=== PATIENT | female | born 1955 | race Caucasian/White ===

== ENCOUNTER → 2018-01-06 | Outpatient (CLI) | payer OTHER ==
--- NOTE | 2018-01-06 13:03 | XR ---
EXAM TYPE: LUMBAR SPINE X RAY SERIES COMPARISON: NONE HISTORY: Numbness TECHNIQUE: 4 views are submitted. FINDINGS: Alignment is anatomic. The pedicles are intact. The transverse processes are intact. There is no s pondylolysis or spondylolisthesis. There is hypertrophic spurs noted anteriorly at all levels with s evere degenerative disc disease at levels L3-4 through L5-S1. Interspinous arthropathy noted at these levels. Facet arthropathy noted at all levels. IMPRESSION: 1. Multilevel severe degenerative disc disease and facet arthropathy consider follow-up MRI..
== END | disposition home or self-care (01) ==
LOC: RADXRMAIN 12:16
PROVIDERS: ATTEND Family Medicine
DX: M51.36 Other intervertebral disc degeneration, lumbar region (principal); M46.96 Unspecified inflammatory spondylopathy, lumbar region
CPT/HCPCS: 72100

== ENCOUNTER 2018-02-10 17:13 | Inpatient (IN) | payer OTHER ==
[2018-02-10] MEDS ORDERED: SODIUM CHLORIDE 0.9% 1,000 ML IV STA ×2 (18:04)
--- NOTE | 2018-02-10 18:18 | ED ---
General Adult HPI - General Chief complaint: Fall Stated complaint: fall Time Seen by Provider: 02/10/18 17:18 Source: patient, EMS, RN notes reviewed, old records reviewed Mode of arrival: EMS Limitations: no limitations - History of Present Illness Initial comments: This is a 62-year-old female the ER for evaluation. Patient coming in for acute on chronic complaint. Patient states she feels severely weak has recent history of multiple fall secondary to exercise fatigue. She has been treated with steroids by family doctor with no improvement. Patient states he tries to do any activity she is unable to accomplish those activities especially if activity takes exercise - Related Data Home Medications Medication Instructions Recorded Confirmed Atorvastatin [Lipitor] 40 mg PO HS 02/10/18 02/10/18 Lisinopril-Hctz 10-12.5 mg 1 tab PO DAILY 02/10/18 02/10/18 [Zestoretic 10-12.5] predniSONE See Taper PO DIRECTED 02/10/18 02/10/18 Allergies Allergy/AdvReac Type Severity Reaction Status Date / Time codeine Allergy Rash/Hives Verified 02/10/18 17:37 Review of Systems ROS Statement: Those systems with pertinent positive or pertinent negative responses have been documented in the HPI. ROS Other: All systems not noted in ROS Statement are negative. Past Medical History Past Medical History: Hypertension History of Any Multi-Drug Resistant Organisms: None Reported Past Psychological History: No Psychological Hx Reported Smoking Status: Never smoker Past Alcohol Use History: None Reported Past Drug Use History: None Reported General Exam - General Exam Comments Initial Comments: Able to fatigue both patient's blinking and finger tapping Limitations: no limitations General appearance: alert, in no apparent distress Head exam: Present: atraumatic, normocephalic, normal inspection Eye exam: Present: normal appearance, PERRL, EOMI. Absent: scleral icterus, conjunctival injection, periorbital swelling ENT exam: Present: normal exam, mucous membranes moist Neck exam: Present: normal inspection. Absent: tenderness, meningismus, lymphadenopathy Respiratory exam: Present: normal lung sounds bilaterally. Absent: respiratory distress, wheezes, rales, rhonchi, stridor Cardiovascular Exam: Present: regular rate, normal rhythm, normal heart sounds. Absent: systolic murmur, diastolic murmur, rubs, gallop, clicks GI/Abdominal exam: Present: soft, normal bowel sounds. Absent: distended, tenderness, guarding, rebound, rigid Extremities exam: Present: normal inspection, full ROM, normal capillary refill. Absent: tenderness, pedal edema, joint swelling, calf tenderness Back exam: Present: normal inspection Neurological exam: Present: alert, oriented X3, CN II-XII intact Psychiatric exam: Present: normal affect, normal mood Skin exam: Present: warm, dry, intact, normal color. Absent: rash Course Vital Signs 02/10/18 02/10/18 02/10/18 17:16 17:17 18:02 Temperature 98.6 F Pulse Rate 77 68 Pulse Rate [ 72 Right Pulse Oximetery] Respiratory 16 16 Rate Blood Pressure 163/79 119/70 O2 Sat by Pulse 96 99 Oximetry - Reevaluation(s) Reevaluation #1: 02/10/18 18:54 Patient still severely weak EKG Findings - EKG Comments: EKG Findings:: EKG shows sinus rhythm rate of 64, [place] 132, QRS 90, QTc 433 Medical Decision Making - Medical Decision Making 62 female the ER with severe weakness, inability to ambulate secondary to muscle weakness,. Fatigue, patient is unable to do activities of daily living. Will admit patient for neurological evaluation regarding significant muscle abnormality weakness - Lab Data Result diagrams: 02/10/18 18:19 02/10/18 18:19 Lab Results 02/10/18 02/10/18 02/10/18 Range/Units 18:19 18:19 18:19 WBC 13.0 H (3.8-10.6) k/uL RBC 4.42 (3.80-5.40) m/uL Hgb 13.5 (11.4-16.0) gm/dL Hct 40.1 (34.0-46.0) % MCV 90.6 (80.0-100.0) fL MCH 30.5 (25.0-35.0) pg MCHC 33.6 (31.0-37.0) g/dL RDW 13.8 (11.5-15.5) % Plt Count 292 (150-450) k/uL Neutrophils % 63 % Lymphocytes % 29 % Monocytes % 6 % Eosinophils % 1 % Basophils % 0 % Neutrophils # 8.1 H (1.3-7.7) k/uL Lymphocytes # 3.8 (1.0-4.8) k/uL Monocytes # 0.8 (0-1.0) k/uL Eosinophils # 0.2 (0-0.7) k/uL Basophils # 0.0 (0-0.2) k/uL Sodium 141 (137-145) mmol/L Potassium 4.1 (3.5-5.1) mmol/L Chloride 100 (98-107) mmol/L Carbon Dioxide 29 (22-30) mmol/L Anion Gap 12 mmol/L BUN 45 H (7-17) mg/dL Creatinine 1.02 (0.52-1.04) mg/dL Est GFR (CKD-EPI)AfAm 68 (>60 ml/min/1.73 sqM) Est GFR (CKD-EPI)NonAf 59 (>60 ml/min/1.73 sqM) Glucose 124 H (74-99) mg/dL Plasma Lactic Acid Jesús (0.7-2.0) mmol/L Calcium 9.8 (8.4-10.2) mg/dL Magnesium 2.1 (1.6-2.3) mg/dL Total Bilirubin 1.0 (0.2-1.3) mg/dL AST 39 H (14-36) U/L ALT 51 (9-52) U/L Alkaline Phosphatase 68 (38-126) U/L Total Creatine Kinase 142 H (30-135) U/L Total Protein 7.0 (6.3-8.2) g/dL Albumin 4.3 (3.5-5.0) g/dL 02/10/18 Range/Units 18:19 WBC (3.8-10.6) k/uL RBC (3.80-5.40) m/uL Hgb (11.4-16.0) gm/dL Hct (34.0-46.0) % MCV (80.0-100.0) fL MCH (25.0-35.0) pg MCHC (31.0-37.0) g/dL RDW (11.5-15.5) % Plt Count (150-450) k/uL Neutrophils % % Lymphocytes % % Monocytes % % Eosinophils % % Basophils % % Neutrophils # (1.3-7.7) k/uL Lymphocytes # (1.0-4.8) k/uL Monocytes # (0-1.0) k/uL Eosinophils # (0-0.7) k/uL Basophils # (0-0.2) k/uL Sodium (137-145) mmol/L Potassium (3.5-5.1) mmol/L Chloride (98-107) mmol/L Carbon Dioxide (22-30) mmol/L Anion Gap mmol/L BUN (7-17) mg/dL Creatinine (0.52-1.04) mg/dL Est GFR (CKD-EPI)AfAm (>60 ml/min/1.73 sqM) Est GFR (CKD-EPI)NonAf (>60 ml/min/1.73 sqM) Glucose (74-99) mg/dL Plasma Lactic Acid Jesús 1.5 (0.7-2.0) mmol/L Calcium (8.4-10.2) mg/dL Magnesium (1.6-2.3) mg/dL Total Bilirubin (0.2-1.3) mg/dL AST (14-36) U/L ALT (9-52) U/L Alkaline Phosphatase (38-126) U/L Total Creatine Kinase (30-135) U/L Total Protein (6.3-8.2) g/dL Albumin (3.5-5.0) g/dL Disposition Clinical Impression: Fall, Weakness, Fatigue Disposition: ADMITTED IP TO THIS [facility] Condition: Undetermined Is patient prescribed a controlled substance at d/c from ED?: No Referrals: Mike Aguayo DO [Primary Care Provider] - 1-2 days
[2018-02-10 18:37] LABS: Basophils % (A) 0 %; Eosinophils # (A) 0.2 k/uL (0-0.7); Eosinophils % (A) 1 %; HCT 40.1 % (34.0-46.0); HGB 13.5 gm/dL (11.4-16.0); Lymphocytes # (A) 3.8 k/uL (1.0-4.8); Lymphocytes % (A) 29 %; MCH 30.5 pg (25.0-35.0); MCHC 33.6 g/dL (31.0-37.0); MCV 90.6 fL (80.0-100.0); Mean Platelet Volume 7.4; Monocytes # (A) 0.8 k/uL (0-1.0); Monocytes % (A) 6 %; Neutrophils # (A) 8.1 k/uL (1.3-7.7); Neutrophils % (A) 63 %; Platelet Count 292 k/uL (150-450); RBC 4.42 m/uL (3.80-5.40); RDW 13.8 % (11.5-15.5)
[2018-02-10 18:46] LABS: Albumin 4.3 g/dL (3.5-5.0); Calcium 9.8 mg/dL (8.4-10.2); Magnesium 2.1 mg/dL (1.6-2.3); Potassium 4.1 mmol/L (3.5-5.1)
[2018-02-10 18:57] LABS: Prothrombin Time 9.6 sec (9.0-12.0)
[2018-02-10 18:58] LABS: Partial Thromboplastin Time 21.6 sec (22.0-30.0)
[2018-02-10 18:59] LABS: Creatine Kinase MB 2.4 ng/mL (0.0-2.4)
[2018-02-10 19:00] LABS: Troponin I 0.045 ng/mL (0.000-0.034)
--- NOTE | 2018-02-10 19:52 | CT ---
EXAMINATION TYPE: CT brain victor hugo smalls DATE OF EXAM: 02/10/2018 COMPARISON: NONE HISTORY: FALL INJURY, WEAKNESS CT DLP: 1193.1 mGycm Automated exposure control for dose reduction was used. TECHNIQUE: CT scan of the head and cervical spine are performed without contrast. FINDINGS: There is no acute intracranial hemorrhage, mass effect, or midline shift identified. The ventricles and sulci are within normal limits in size. The globes are intact and the visualized sin uses are clear. Cervical spine is visualized in its entirety from C1 through upper thoracic levels and demonstrates s atisfactory alignment without evidence of acute fracture or dislocation. Prevertebral soft tissue ap pears within normal limits. The C1-C2 articulation is unremarkable. Degenerative changes are present , there is multilevel foraminal encroachment, only mild spinal stenosis. IMPRESSION: 1. There is no acute fracture or dislocation evident in the cervical spine. 2. No acute intracranial hemorrhage, mass effect, or midline shift is seen.
[2018-02-10] MEDS: SODIUM CHLORIDE 0.9% 1,000 ML IV SCH (20:40)
[2018-02-10 20:47] LABS: Appearance,Urine Clear (Clear); Bacteria,Urine Occasional /hpf; Bilirubin,Urine Negative (Negative); Blood,Urine Small (Negative); Color,Urine Light Yellow; Glucose,Urine (UA) Negative (Negative); Ketones,Urine Negative (Negative); Leukocyte Esterase,Urine Large (Negative); Mucus,Urine Rare /hpf; Nitrite,Urine Negative (Negative); Protein,Urine Negative (Negative); RBC,Urine 1 /hpf (0-5); Urobilinogen,Urine <2.0 mg/dL (<2.0); WBC,Urine 54 /hpf (0-5)
--- NOTE | 2018-02-10 21:01 | XR ---
EXAMINATION TYPE: XR chest 2V DATE OF EXAM: 02/10/2018 COMPARISON: NONE HISTORY: Weakness and history of multiple falls TECHNIQUE: Frontal and lateral views of the chest are obtained. FINDINGS: Patient is rotated. There is no focal air space opacity, pleural effusion, or pneumothorax seen. The cardiac silhouette size is possibly accentuated by rotation. Flowing anterior osteophytes in the thoracic spine may be indicative of diffuse idiopathic skeletal hyperostosis. The osseous str uctures are intact. IMPRESSION: Rotated exam and additional findings above. There may be cardiomegaly.
[2018-02-10] MEDS ORDERED: ALPRAZolam 0.25 MG TAB PO PRN (22:25)
[2018-02-10] MEDS ORDERED: NALOXONE 0.4 MG/ML 1 ML VIAL IV PRN (22:25)
[2018-02-10] MEDS ORDERED: ONDANSETRON 4 MG/2 ML VIAL IVP PRN (22:25)
[2018-02-10] MEDS ORDERED: LACTULOSE 20 GM/30 ML CUP PO PRN (22:25)
[2018-02-10] MEDS ORDERED: MAGNESIUM HYDROXIDE 2,400 MG/10 ML CUP PO PRN (22:25)
[2018-02-10] MEDS ORDERED: MELATONIN 3 MG TABLET PO PRN (22:25)
[2018-02-10] MEDS ORDERED: CALCIUM CARBONATE 500 MG CHEWABLE PO PRN (22:25)
[2018-02-10] MEDS: IBUPROFEN 400 MG TAB PO PRN (22:48)
[2018-02-11] MEDS: SODIUM CHLORIDE 0.9% 1,000 ML IV SCH ×2 (04:20→15:16)
[2018-02-11 04:35] LABS: Cholesterol 210 mg/dL (<200); HDL Cholesterol 67 mg/dL (40-60); Triglycerides 447 mg/dL (<150)
[2018-02-11] MEDS: IBUPROFEN 400 MG TAB PO PRN (04:53)
[2018-02-11] MEDS: LISINOPRIL-HCTZ 10-12.5 MG 1 EACH TAB PO SCH (08:09)
[2018-02-11] MEDS: ENOXAPARIN 40 MG/0.4 ML SYRINGE SQ SCH (08:09)
[2018-02-11 10:50] VITALS: BMI 31.3
[2018-02-11] MEDS: ASPIRIN 325 MG TAB PO SCH (15:18)
--- NOTE | 2018-02-11 16:31 | HP ---
HISTORY AND PHYSICAL DATE OF SERVICE: 02/11/18 PRESENT COMPLAINT: Weakness. HISTORY OF PRESENTING COMPLAINT: This is a very pleasant 62-year-old patient of Dr. Aguayo. The patient about a month ago started numbness in the thumbs and progressively went up to the hands. The patient's arms became weak. Shoulders became weak. The patient did have some neck pain. The patient went to her primary doctor. Subsequently patient was put on steroids. Patient went home. Noted that her legs started becoming weak. It was difficult to lift her legs up and patient finally went down to be in a wheelchair and went to a family doctor and was sent down to the ER yesterday. The patient denies any respiratory or any kind of infection prior to this episode. Denies any change in her bowel or bladder habits. Denies any history of injury. The patient had a small troponin positive in the ER, denies any cardiac symptoms. No shortness of breath. REVIEW OF SYSTEMS: Constitutional tired. HEENT none. Respiratory none. Cardiovascular none. Gastrointestinal denies. Musculoskeletal: Generalized weakness. Dermatological none. Hematologic and lymphatic none. Psychiatry none. Neurological as above. The patient has some numbness in the feet and toes. PAST MEDICAL HISTORY: Hypertension and hyperlipidemia. PAST SURGICAL HISTORY: Back surgery, herniated disc surgery. SOCIAL HISTORY: Lives with daughter. Does not smoke or drink alcohol. FAMILY HISTORY: Diabetes and hypertension. HOME MEDICATIONS: 1. Motrin 4 mg q.6h p.r.n. 2. Zestoretic 06/26.5 one tab p.o. daily. 3. Lipitor 40 mg q.h.s. 4. Prednisone taper. ALLERGIES: CODEINE. PHYSICAL EXAMINATION: Temperature 97.2. Pulse 98, respiratory 18, blood pressure 130/65. Pulse ox 98% on room air. GENERAL APPEARANCE: Average built, BMI 31.3. Sitting up comfortable. EYES: Pupils are equal. Conjunctivae normal. HEENT: External appearance of nose and ears. Oral cavity normal. NECK: JVD not raised. Mass not palpable. RESPIRATORY: Effort normal. LUNGS: Clear. CARDIOVASCULAR: 1st and 2nd sounds. No edema. ABDOMEN: Soft, nontender. Liver and spleen not palpable. LYMPHATICS: No lymph nodes palpable in the neck and axilla. PSYCHIATRY: Alert and oriented x3. Mood and affect normal. NEUROLOGICAL: Pupils equal. Power in the upper extremity is 3 x 5. Lower extremity also 3 x 5. Weakness of both the proximal and distal muscles. The patient is hyporeflexic both in the upper extremity and the lower extremity, including possible upgoing plantars. sensation slightly decreased distally. INVESTIGATIONS: White count 13, hemoglobin 13.5, potassium 4.1, BUN 45, creatinine 1.02, troponin 0.045, LDL not noted, triglycerides 447. UA showing some leukocyte esterase, WBC. ASSESSMENT: 1. This is a patient having a 4-week history of initially starting out weakness in the upper extremity and progressing down to the weakness, lower extremity. Predominantly motor symptoms and hyporeflexic seems to be of upper motor neuron in type. The differential here will include transverse myelitis, though there is no predisposing inflammatory symptoms or infectious symptoms. Neurology was consulted from the ER yesterday. 2. Troponin leak with no real cardiac symptoms. 3. Elevated slight white count and BUN, probably from patient being on steroids. 4. Essential hypertension. 5. Hyperlipidemia. PLAN: I ordered a MRI of the C-spine and lumbar spine and also lumbar puncture by interventional radiologist. We will await input from Dr. Sena. Care was discussed with the patient. Copy to Dr. Aguayo. MMODL / IJN: [id number] /
--- NOTE | 2018-02-11 16:38 | P.CNNES ---
History of Present Illness Consult date: 02/11/18 Reason for Consult: Patient admitted with generalized weakness. History of Present Illness: This patient is a 62-year-old right-handed white female who apparently back in December began noticing symptoms of numbness and weakness in her hands bilaterally. She went to see her primary care physician who thought she may have early signs of carpal tunnel syndrome. She was prescribed a hand splint which really did not help her condition. Apparently a few weeks later she began experiencing numbness in the entire hands as well as on the bottoms of her feet. The numbness then began to become more and more noticeable to her and associated with some weakness initially in her upper extremities and then into her lower extremities as well. The patient noticed weakness in her shoulder muscles as well as in her handgrip strength. She went back to see her primary care physician Dr. Aguayo who saw her about a week ago and decided to discontinue her Lipitor. It was felt she may have had some reaction to the Lipitor producing myalgias and arthralgias. She only has been off of the Lipitor for the past 1 week. The patient then in the last few days has been showing increased symptoms of generalized weakness and difficulty climbing steps. She has been slowly progressing over the past 1 month in terms of the generalized weakness. Dr. Aguayo did place her on a Medrol Dosepak which she did complete but this did not help her in any way in terms of the generalized weakness. The patient denies any recent falls or injury to her head or neck region. She has a chronic history of low back pain over the years. She states she has been extremely weak in the last few days and then it is hard for her to get up and move about at home. For these reasons she was advised to come to the emergency room for further evaluation. She was seen in the ER yesterday by Dr. Motta. She underwent a computed tomography scan of the brain and cervical spine both of which came back negative for any acute abnormalities. Patient states she does have some muscle discomfort but no severe myalgias. She does have preserved reflexes in both upper and lower extremities and does have some weakness on muscle testing at bedside. Most of her weakness seems to be distally in the hand molder labels. The patient has not had any recent exposure to any new medications or chemicals. She denies any recent tick bite. She has no significant history of arthritis in the past specifically no family history of rheumatoid arthritis or polyarthritis in the family. Patient denies any previous history of TIA or stroke. When questioned about any loss of sensation on the trunk or any part of the body the patient states she has not experienced any of those findings. She has continued to complain of numbness and tingling in the hands and in her toes. As noted the patient has no previous history of head trauma or head injury. She has been noticing low back pain but this is been chronic in nature. In the last few days she has noted some pain radiating into her right leg. Due to her symptoms being progressive she has now been admitted to the hospital for further evaluation. We have discussed her clinical exam findings and history in detail with Dr. Anderson. He has ordered the patient undergo lumbar puncture as well as MRI of the cervical and lumbar spine. We have also recommended the patient have MRI of the brain to be performed to rule out demyelinating disease even though this seems to be less likely. Her clinical findings at this time suggest some form of acute inflammatory demyelinating disease. This should be evaluated with the lumbar puncture and CSF fluid analysis. She may require EMG study as well depending on her test results. We have gone over our clinical findings and exam findings today with the patient in detail. She is resting comfortably and is in no acute distress. She has no respiratory distress. We will also obtain a laboratory tests for myasthenia gravis however this seems to be less likely differential diagnosis for her at this time. We will continue close neurological follow-up with the patient. If her condition should worsen she may require transfer to a tertiary center for further care. We have discussed all of these findings in detail today with the patient. She understands our findings and recommendations. We will continue close neurological follow-up for this patient during this admission. Neurology is now been consulted for further evaluation and recommendations. Review of Systems Constitutional: Denies chills, Denies fever Eyes: denies blurred vision, denies pain Ears, nose, mouth and throat: Denies headache, Denies sore throat Cardiovascular: Denies chest pain, Denies shortness of breath Respiratory: Denies cough Gastrointestinal: Denies abdominal pain, Denies diarrhea, Denies nausea, Denies vomiting Genitourinary: Denies dysuria, Denies hematuria Musculoskeletal: Denies myalgias Integumentary: Denies pruritus, Denies rash Neurological: Reports gait dysfunction, Reports paresthesias, Reports tingling, Denies numbness, Denies weakness Psychiatric: Denies anxiety, Denies depression Endocrine: Denies fatigue, Denies weight change Past Medical History Past Medical History: Hyperlipidemia, Hypertension Additional Past Medical History / Comment(s): Patient states she has a heart murmur, as well as low kidney function. History of Any Multi-Drug Resistant Organisms: None Reported Past Surgical History: Back Surgery Additional Past Surgical History / Comment(s): Hernaited disc surgery. Past Anesthesia/Blood Transfusion Reactions: Postoperative Nausea & Vomiting ( PONV) Past Psychological History: No Psychological Hx Reported Smoking Status: Never smoker Past Alcohol Use History: None Reported Past Drug Use History: None Reported - Past Family History Mother Family Medical History: Diabetes Mellitus, Hypertension Additional Family Medical History / Comment(s): Vein replacement surgery Father Family Medical History: Cancer, Hypertension Additional Family Medical History / Comment(s): Patient states father had stomach cancer. Medications and Allergies Home Medications Medication Instructions Recorded Confirmed Type Atorvastatin [Lipitor] 40 mg PO HS 02/10/18 02/10/18 History Ibuprofen [Motrin] 400 mg PO Q6HR PRN 02/10/18 02/10/18 History Lisinopril-Hctz 10-12.5 mg 1 tab PO DAILY 02/10/18 02/10/18 History [Zestoretic 10-12.5] predniSONE See Taper PO DIRECTED 02/10/18 02/10/18 History Allergies Allergy/AdvReac Type Severity Reaction Status Date / Time codeine Allergy Rash/Hives Verified 02/10/18 17:37 Physical Examination - Vital Signs Vital Signs: Vital Signs Temp Pulse Pulse Resp BP BP Pulse Ox 02/11/18 12:00 97.2 F L 98 18 131/65 98 02/11/18 08:00 97.1 F L 68 18 140/67 97 02/11/18 04:30 96.4 F L 67 16 147/65 96 02/10/18 23:50 96.0 F L 83 16 133/76 95 02/10/18 22:15 79 16 02/10/18 20:54 96.9 F L 79 16 145/59 100 02/10/18 20:38 98.4 F 74 18 149/74 98 05/29/18 19:10 97.5 F L 77 18 148/67 97 02/10/18 18:02 68 16 119/70 99 02/10/18 17:17 72 02/10/18 17:16 98.6 F 77 16 163/79 96 Intake and Output 02/10/18 02/11/18 02/11/18 22:59 06:59 14:59 Intake Total 250 800 Balance 250 800 Intake: Intake, IV Titration 100 800 Amount Sodium Chloride 0.9% 1, 100 800 000 ml @ 100 mls/hr IV . Q10H [facility] Rx#:[id number] Oral 150 Other: Voiding Method Bedside Commode Bedside Commode # Voids 1 Weight 86.183 kg 82.8 kg 82.8 kg - Constitutional General appearance: average body habitus, cooperative - EENT EENT: PERRL, mucous membranes moist - Respiratory Respiratory: lungs clear, normal breath sounds - Cardiovascular Cardiovascular: regular rate, normal S1, normal S2 Extremities: no peripheral edema bilaterally - Gastrointestinal Gastrointestinal: normoactive bowel sounds - Integumentary Integumentary: normal - Neurologic Cranial nerve examination: PERRL, EOMI, VFF, V1/V2/V3 grossly intact, face symmetric, tongue midline, intact gag reflex, intact corneal reflex, normal palatal elevation Speech examination: intact Sensorimotor examination: intact Motor examination - right side: 2/5: wrist flexion, wrist extension, integration director, 3/5: biceps, triceps, hip flexors, knee extensors, dorsiflexion, toe extension (EHL) , plantarflexion Motor examination - left side: 2/5: wrist flexion, wrist extension, integration director, 3/5: biceps, triceps, hip flexors, knee extensors, dorsiflexion, toe extension (EHL) , plantarflexion Detailed sensory examination: intact Reflex and gait examination: intact Reflexes: 1+: ankle, bicep, knee, tricep - Musculoskeletal Musculoskeletal: no pain - Psychiatric Psychiatric: mood/affect appropriate, cooperative Results - Laboratory Findings CBC and BMP: 02/10/18 18:19 02/10/18 18:19 Abnormal Lab Findings: Abnormal Labs 02/10/18 02/10/18 02/10/18 18:19 18:19 18:19 WBC 13.0 H Neutrophils # 8.1 H APTT BUN 45 H Glucose 124 H AST 39 H Total Creatine Kinase 142 H Troponin I 0.045 H* Triglycerides Cholesterol HDL Cholesterol Urine Blood Ur Leukocyte Esterase Urine WBC Urine Bacteria Urine Mucus 02/10/18 02/10/18 02/10/18 18:19 18:19 20:24 WBC Neutrophils # APTT 21.6 L BUN Glucose AST Total Creatine Kinase Troponin I Triglycerides 447 H Cholesterol 210 H HDL Cholesterol 67 H Urine Blood Small H Ur Leukocyte Esterase Large H Urine WBC 54 H Urine Bacteria Occasional H Urine Mucus Rare H Assessment and Plan (1) Generalized weakness Current Visit: Yes Status: Acute Code(s): R53.1 - WEAKNESS SNOMED Code(s) : 57657465 (2) Paresthesias/numbness Current Visit: Yes Status: Acute Code(s): R20.9 - UNSPECIFIED DISTURBANCES OF SKIN SENSATION SNOMED Code(s): 19136556 (3) Acute inflammatory demyelinating polyneuropathy Current Visit: Yes Status: Acute Code(s): G37.8 - OTH DEMYELINATING DISEASES OF CENTRAL NERVOUS SYSTEM SNOMED Code(s): 98257351 Plan: This patient is a 62-year-old right-handed white female who was admitted to hospital today with symptoms of slowly progressive generalized weakness over the past 1 month. Patient has been initially noted to have weakness in her hand molder labels and shoulder muscles which has been progressing to cause generalized weakness in all muscle groups. She is also been experiencing severe numbness in the hand and fingertips as well as the toes of her feet. Due to worsening symptoms of weakness and inability to ambulate at home she was brought into the emergency room today and subsequently evaluated in the ER by Dr. Motta. Gender when a computed tomography scan of the brain and cervical spine both of which were negative. She was admitted to hospital for further neurological evaluation. Her neurological examination suggest possibility of acute demyelinating polyneuropathy as a possible cause of her current symptoms. She is being scheduled for MRI of the cervical and lumbar spine as well as MRI of the brain. We will obtain a lumbar puncture for further evaluation as well. She should also be checked for signs of acute inflammatory response and labs have been ordered. The differential would also include possibility of demyelinating disease such as MS. This seems to be less likely but we will await the results of her MRI of the brain. She was on Lipitor 40 mg daily for the past year and this has subsequently been stopped about a week ago. She had been given a course of a Medrol Dosepak which did not help her weakness. We have discussed this case at length with her admitting physician Dr. Anderson. He may consider starting her on IV Solu-Medrol depending her laboratory test results and MRI results tomorrow. If her symptoms should worsen she may require transfer to a tertiary center for more aggressive an acute treatment. We will continue close neurological follow-up with the patient. We have discussed these findings in detail with the patient and all of her questions were answered. She is aware of our current treatment plan and is agreeable with our workup. We will continue to follow the patient closely during this admission. Her overall prognosis at this time remains guarded. Time with Patient: Greater than 30
[2018-02-11] MEDS ORDERED: DIAZEPAM 5 MG/ML 2 ML INJ IVP STA (16:44)
[2018-02-11] MEDS: ACETAMINOPHEN TAB 325 MG TAB PO PRN (19:44)
[2018-02-11] MEDS: ATORVASTATIN 40 MG TAB PO SCH (19:45)
[2018-02-12] MEDS ORDERED: ACETAMINOPHEN TAB 325 MG TAB ONE (02:22)
[2018-02-12] MEDS: SODIUM CHLORIDE 0.9% 1,000 ML IV SCH ×2 (06:54→16:13)
[2018-02-12] MEDS ORDERED: DIAZEPAM 5 MG/ML (10 ML MDV) IVP STA (07:11)
--- NOTE | 2018-02-12 08:15 | ECHOF ---
Referral Reason:pos trops MEASUREMENTS -------- HEIGHT: 162.6 cm WEIGHT: 82.6 kg BP: 131/65 RVIDd: 1.9 cm (< 3.3) IVSd: 1.4 cm (0.6 - 1.1) LVIDd: 4.0 cm (3.9 - 5.3) LVPWd: 1.4 cm (0.6 - 1.1) IVSs: 1.8 cm LVIDs: 2.4 cm LVPWs: 1.7 cm LAESV Index (A-L): 16.68 ml/m Ao Diam: 3.1 cm (2.0 - 3.7) AV Cusp: 1.3 cm (1.5 - 2.6) LA Diam: 2.3 cm (2.7 - 3.8) EPSS: 0.6 cm MV E Alejo: 0.90 m/s MV DecT: 275 ms MV A Alejo: 1.00 m/s MV E/A Ratio: 0.90 AV maxP.52 mmHg AV meanP.10 mmHg AR PHT: 537 ms RAP: 5.00 mmHg RVSP: 34.06 mmHg MV EF SLOPE: 73.64 mm/s (70 - 150) MV EXCURSION: 1.65 cm (> 18.000) FINDINGS -------- Sinus rhythm. This was a technically adequate study. The left ventricular size is normal. There is moderate concentric left ventricular hypertrophy. O verall left ventricular systolic function is normal with, an EF between 55 - 60 %. The right ventricle is normal in size and function. Normal LA size by volume 22+/-6 ml/m2. The right atrium is normal in size. There is moderate aortic valve sclerosis. There is mild aortic regurgitation. There is severe aor tic stenosis present. Peak/mean gradient across the Aortic Valve is 74.52mmHg / 44.10mmHg. The mitral valve leaflets are mildly thickened. There is trace to mild mitral regurgitation. Trace tricuspid regurgitation present. Right ventricular systolic pressure is normal at < 35 mmHg. There is no evidence of pulmonary hypertension. The pulmonic valve was not well visualized. There is no pulmonic regurgitation present. The aortic root size is normal. Normal inferior vena cava with normal inspiratory collapse consistent with estimated right atrial pre ssure of 5 mmHg. There is no pericardial effusion. CONCLUSIONS -------- 1. Sinus rhythm. 2. This was a technically adequate study. 3. The left ventricular size is normal. 4. There is moderate concentric left ventricular hypertrophy. 5. Overall left ventricular systolic function is normal with, an EF between 55 - 60 %. 6. Normal LA size by volume 22+/-6 ml/m2. 7. There is moderate aortic valve sclerosis. 8. There is mild aortic regurgitation. 9. There is severe aortic stenosis present. 10. Peak/mean gradient across the Aortic Valve is 74.52mmHg / 44.10mmHg. 11. The mitral valve leaflets are mildly thickened. 12. There is trace to mild mitral regurgitation. 13. Trace tricuspid regurgitation present. 14. Right ventricular systolic pressure is normal at < 35 mmHg. 15. The pulmonic valve was not well visualized. 16. There is no pulmonic regurgitation present. 17. The aortic root size is normal. 18. There is no pericardial effusion. [employer]: Klever Wheat RDCS
[2018-02-12] MEDS: ASPIRIN 325 MG TAB PO SCH (08:57)
--- NOTE | 2018-02-12 09:46 | MR ---
EXAMINATION TYPE: MR cspine/lspine wo/w con DATE OF EXAM: 02/12/2018 COMPARISON: NONE HISTORY: possible transverse myelitis, generalized weakness TECHNIQUE: Multiplanar, multisequence images of the lumbar and cervical spine is performed without and with IV c ontrast, utilizing 7.5 mL intravenous Gadavist FINDINGS: Cervical spine MRI: There is multilevel spondylosis with endplate discogenic marrow signal change. Mi nimal retrolisthesis grade 1 C3-4, C5-6. Loss of disc height and signal present at intervertebral lev els compatible with disc desiccation and degenerative disc disease. Abnormal increased signal is pres ent within the cervical cord extending from approximately C3-C5-6 on T2-weighted images. No abnormal enhancement following contrast administration. C2-3: Small posterior disc bulge causes slight anterior mass effect on the thecal sac. No significant foraminal encroachment on the right, lateral extension endplate disc complex causes some mild left-s ided foraminal encroachment C3-4: Posterior extension of disc herniation results in severe canal stenosis, lateral extension endp late disc complex results in bilateral foraminal encroachment. C4-5: Severe central canal stenosis is again noted, bilateral foraminal encroachment. There is a post erior disc herniation present causing mass effect on the cervical cord. C5-6: Posterior extension of endplate disc complex causes anterior mass effect on the thecal sac, the re is severe central canal stenosis. Lateral extension endplate disc complex causes bilateral foramin al encroachment. C6-7: No significant central stenosis. Small central posterior disc herniation is present. Lateral ex tension endplate disc complex causes bilateral foraminal encroachment. C7-T1: No significant central stenosis or sizable disc herniation. IMPRESSION: Multilevel severe central canal stenosis, disc herniations and multilevel foraminal encro achment. Mild malacia changes within the cervical cord appear more concentrated to the left of midlin e. Lumbar spine MRI: Lumbar vertebral bodies show preserved height and alignment. There is multilevel sp ondylosis with endplate discogenic marrow signal change, loss of disc height and signal at the interv ertebral levels compatible with disc desiccation and degenerative disc disease. The conus is at L1 sh ows an unremarkable appearance. There is a spinal curvature. L5-S1: Left posterior paracentral extension of endplate disc complex causes anterolateral mass effect on the thecal sac. No significant central stenosis. There is some facet arthropathy change. Lateral extension endplate disc complex causes bilateral foraminal encroachment right greater than left. L4-5: Broad-based posterior disc bulge causes mild anterior mass effect on the thecal sac. Facet arth ropathy with hypertrophy ligamentum flavum encroaches mildly on the lateral recesses. No significant central stenosis. There is some slight right-sided foraminal encroachment due to lateral extension of endplate disc complex. Laminectomy change present on the right. L3-4: Broad-based posterior disc bulge causes mild anterior mass effect on the thecal sac. There is f acet arthropathy with hypertrophy of the ligamentum flavum. Circumferential extension of endplate dis c complex encroaches only minimally on the foramina. No significant central stenosis. L2-3: Broad-based posterior disc bulge causes mild anterior mass effect on the thecal sac. Facet arth ropathy changes present. No significant foraminal encroachment. L1-2: Only minimal posterior disc bulge noted. No central stenosis or foraminal encroachment. Cortical cyst associated with the right kidney noted incidentally. There is no abnormal enhancement f ollowing contrast administration. IMPRESSION: Degenerative disc disease, multilevel facet arthropathy and foraminal encroachment.
[2018-02-12] MEDS: LISINOPRIL-HCTZ 10-12.5 MG 1 EACH TAB PO SCH (09:48)
--- NOTE | 2018-02-12 10:58 | MR ---
EXAMINATION TYPE: MR brain wo/w con DATE OF EXAM: 02/12/2018 COMPARISON: NONE HISTORY: Patient with generalized weakness, r/o MS TECHNIQUE: Multiplanar, multisequence images of the brain and brainstem is performed without and with IV contras t, utilizing 7.5 mL intravenous Gadavist . FINDINGS: Diffusion weighted images demonstrate no evidence of a recent infarct or other diffusion ab normality. There is no extra-axial fluid collection. There are scattered hyperintensities within the deep white matter on inversion recovery and T2-weighted sequences, approximately 30-40 lesions are p resent The ventricular system and cisternal spaces are normal in size and appearance. The brain volu me is age appropriate. Midline structures demonstrate normal morphology, there is a partially empty sella. The craniocervic al junction appears within normal limits. Post contrast images demonstrate no abnormal enhancement. The dural venous sinuses appear patent. The visualized sinuses are clear and the globes are intact. M inimal inflammatory change in the mastoid air cells on the left. IMPRESSION: Age-related chronic small vessel ischemic changes are suspected.
[2018-02-12] MEDS: ACETAMINOPHEN TAB 325 MG TAB PO PRN (11:24)
[2018-02-12 11:35] VITALS: TEMP 97.1
[2018-02-12 12:21] VITALS: RESP 16
[2018-02-12 14:17] LABS: Total Protein,CSF 134 mg/dL (12-60)
[2018-02-12 15:15] LABS: Appearance,CSF Clear; CSF Tube Number 3; CSF Tube Volume 1.9; Nucleated Cells, CSF 0 u/L (0-5); Red Blood Cell,CSF 2 u/L (0-10)
--- NOTE | 2018-02-12 16:08 | P.CRDCN ---
History of Present Illness Consult date: 02/12/18 Requesting physician: Cordell Temple Reason for Consult (text): Abnormal troponin Chief complaint: Progressive weakness History of present illness: This is a pleasant 62-year-old female with known history of hypertension, hyperlipidemia. She states that approximately 6 weeks ago, she started to notice numbness in her bilateral thumbs and progressed into the hands , since then she became progressively more and more weak. According to the patient she feels weakness in her shoulders, in her arms, and in her bilateral legs. She actually started walking with a walker at home because of it. Subsequent to that she has also experienced some falls. For these symptoms patient came to the emergency room for further evaluation. Chest x-ray performed on arrival here does not reveal any significant findings. CT of the head and cervical spine does not reveal any acute fracture or dislocation. No acute intracranial hemorrhage, mass effect or midline shift noted. EKG on arrival here showed a normal sinus rhythm with nonspecific ST-T wave changes. Cervical and spine MRI was performed which revealed degenerative disc disease, multilevel facet arthropathy and foraminal encroachment. Patient also underwent a lumbar puncture today results of which are pending. Blood pressure 162/70 with a heart rate in the 70s, 96% on room air. Blood pressure this afternoon 134/78 with a heart rate in the 80s, 96% on room air. White blood cell count 13.0, hemoglobin 13.5, platelet count 292. Sedimentation rate 13 sodium 141, potassium 4.1, BUN 45, creatinine 1.0. Troponin 0.045, 0.032. Cholesterol 210, triglycerides 447, HDL 67. Urine positive for leukocyte Estrace. RAHEEL screen negative. Cardiology consultation was requested because of abnormal troponin values. denies having any chest discomfort, no difficulty in breathing. An echocardiogram with Doppler study was performed which revealed an ejection fraction of 55-60%, moderate aortic valve sclerosis, severe aortic stenosis. Peak mean gradient across the aortic valve is 74.52 mmHg/44.10 mmHg. Past Medical History Past Medical History: Hyperlipidemia, Hypertension Additional Past Medical History / Comment(s): Patient states she has a heart murmur, as well as low kidney function. History of Any Multi-Drug Resistant Organisms: None Reported Past Surgical History: Back Surgery Additional Past Surgical History / Comment(s): Hernaited disc surgery. Past Anesthesia/Blood Transfusion Reactions: Postoperative Nausea & Vomiting ( PONV) Past Psychological History: No Psychological Hx Reported Smoking Status: Never smoker Past Alcohol Use History: None Reported Past Drug Use History: None Reported - Past Family History Mother Family Medical History: Diabetes Mellitus, Hypertension Additional Family Medical History / Comment(s): Vein replacement surgery Father Family Medical History: Cancer, Hypertension Additional Family Medical History / Comment(s): Patient states father had stomach cancer. Medications and Allergies Home Medications Medication Instructions Recorded Confirmed Type Atorvastatin [Lipitor] 40 mg PO HS 02/10/18 02/10/18 History Ibuprofen [Motrin] 400 mg PO Q6HR PRN 02/10/18 02/10/18 History Lisinopril-Hctz 10-12.5 mg 1 tab PO DAILY 02/10/18 02/10/18 History [Zestoretic 10-12.5] predniSONE See Taper PO DIRECTED 02/10/18 02/10/18 History Allergies Allergy/AdvReac Type Severity Reaction Status Date / Time codeine Allergy Rash/Hives Verified 02/10/18 17:37 Physical Exam Vitals: Vital Signs Temp Pulse Resp BP Pulse Ox 02/12/18 13:05 88 16 134/78 02/12/18 12:53 96 16 140/77 97 02/12/18 12:43 88 16 127/81 98 02/12/18 12:33 76 16 111/73 97 02/12/18 12:20 69 16 118/70 97 02/12/18 12:08 78 18 124/73 96 02/12/18 11:33 97.1 F L 74 18 150/92 97 02/12/18 09:57 97.7 F 69 18 140/75 96 02/12/18 07:42 95 02/12/18 03:30 97.1 F L 66 16 129/67 95 02/11/18 22:41 97.4 F L 77 16 160/70 96 02/11/18 20:00 97.1 F L 76 16 144/67 98 Intake and Output 02/12/18 02/12/18 02/12/18 06:59 14:59 22:59 Intake Total 400 222 Output Total 300 Balance 100 222 Intake: Intake, IV Titration 400 Amount Sodium Chloride 0.9% 1, 400 000 ml @ 100 mls/hr IV . Q10H [facility] Rx#:[id number] Oral 222 Output: Urine 300 Other: # Voids 1 Weight 84.2 kg PHYSICAL EXAMINATION: GENERAL: This is a pleasant 62-year-old female continues to feel weak , in no apparent distress at the time of my examination. HEENT: Head is atraumatic, normocephalic. Pupils equal, round. Sclera anicteric. Conjunctiva are clear. Mucous membranes of the mouth are moist. Neck is supple. There is no elevated jugular venous pressure.] bruit is heard. HEART EXAMINATION: Heart S1 S2 1 systolic ejection murmur is heard. CHEST EXAMINATION: Lungs are clear to auscultation and precussion. No chest wall tenderness is noted on palpation or with deep breathing. ABDOMEN: Soft, nontender. Bowel sounds are heard. No organomegaly noted. EXTREMITIES: 2+ peripheral pulses with no evidence of peripheral edema and no calf tenderness noted. NEUROLOGIC patient is awake, alert and oriented -3. Patient has noted weakness in her hands, arms and legs bilaterally. . Results 02/10/18 18:19 02/10/18 18:19 Cardiac Enzymes 02/11/18 Range/Units 15:15 Troponin I 0.032 (0.000-0.034) ng/mL Current Medications Generic Name Dose Route Start Last Admin Trade Name Freq PRN Reason Stop Dose Admin Acetaminophen 650 mg 02/10/18 22:25 02/12/18 11:24 Tylenol Tab PO 650 mg Q6HR PRN Administration Mild Pain or Fever > 100.5 Alprazolam 0.25 mg 02/10/18 22:25 Xanax PO Q6HR PRN Anxiety Atorvastatin Calcium 40 mg 02/11/18 21:00 02/11/18 19:45 Lipitor PO 40 mg HS NIEVES Administration Calcium Carbonate/Glycine 1,000 mg 02/10/18 22:25 Tums PO Q4HR PRN Dyspepsia Enoxaparin Sodium 40 mg 02/11/18 09:00 02/11/18 08:09 Lovenox SQ 40 mg DAILY NIEVES Administration Lisinopril/HCTZ 1 each 02/11/18 09:00 02/12/18 09:48 Zestoretic 10-12.5 PO 1 each DAILY NIEVES Administration Sodium Chloride 1,000 mls @ 100 mls/hr 02/10/18 18:30 02/12/18 06:54 Saline 0.9% IV 100 mls/hr .Q10H NIEVES Administration Ibuprofen 400 mg 02/10/18 22:24 02/11/18 04:53 Motrin PO 400 mg Q6HR PRN Administration Mild to Moderate Pain Lactulose 20 gm 02/10/18 22:25 Cephulac PO DAILY PRN Constipation Magnesium Hydroxide 2,400 mg 02/10/18 22:25 Milk Of Magnesia PO DAILY PRN Constipation Melatonin 3 mg 02/10/18 22:25 Melatonin PO HS PRN Insomnia Naloxone HCl 0.2 mg 02/10/18 22:25 Narcan IV Q2M PRN Opioid Reversal Ondansetron HCl 4 mg 02/10/18 22:25 Zofran IVP Q8HR PRN Nausea And Vomiting Intake and Output 02/12/18 02/12/18 02/12/18 06:59 14:59 22:59 Intake Total 400 222 Output Total 300 Balance 100 222 Intake: Intake, IV Titration 400 Amount Sodium Chloride 0.9% 1, 400 000 ml @ 100 mls/hr IV . Q10H [facility] Rx#:[id number] Oral 222 Output: Urine 300 Other: # Voids 1 Weight 84.2 kg 02/10/18 18:19 02/10/18 18:19 EKG Interpretations (text) EKG shows a normal sinus rhythm with nonspecific ST-T wave changes. 1 run of sinus tachycardia noted on the monitor. Assessment and Plan Plan: Assessment and plan #1 symptoms of progressive weakness of the bilateral upper and lower extremities neurology on consult #2 mildly abnormal troponin value, patient denies having any chest discomfort, no palpitations or shortness of breath. Echocardiogram with Doppler study was performed which revealed a normal left ventricular systolic function with severe aortic stenosis #3 hypertension #4 hyperlipidemia Plan We will obtain a subsequent troponin. Hemodynamically the patient is stable. Patient may require further evaluation for her aortic valve once etiology of her progressive weakness is determined. Further recommendations to follow. DNP note has been reviewed, I agree with a documented findings and plan of care. Patient was seen and examined.
--- NOTE | 2018-02-12 17:03 | FL ---
Fluoroscopy INDICATION: Pain FINDINGS: Fluoroscopy time: 1 minute 3 seconds. Images obtained: 2. The procedure was explained to the patient, the risks complications and benefits. All questions were answered. Written and verbal informed consent was obtained. A timeout was performed The skin was cleansed with Betadine. The skin and deeper tissue was anesthetized with 1% lidocaine. U nder fluoroscopic guidance 22-gauge spinal needle was placed at the L4-5 level. Despite multiple atte mpts at manipulation thecal sac access could not be obtained at this level. The patient was reanesthetized the L3-4 level. Utilizing a 22 gauge spinal needle the thecal sac was easily accessed and good CSF return was obtained. CSF return was clear. A total of 6 cc in 3 vials were obtained sequentially labeled and transferred t o pathology for additional evaluation of preordered laboratory tests. The stylette was replaced and the needle withdrawn. Patient tolerated the lumbar puncture very well m aintaining a 0 pain level of the lumbar puncture throughout the exam. Patient's complaint was of righ t shoulder pain elevating to a 6-7 during the exam due to positioning during the exam. Readjustments were performed to to alleviate the patient's discomfort. Postprocedure instructions were discussed with the patient. Patient was transferred to her room with orders. IMPRESSIONS: 1. Successful lumbar puncture and CSF acquisition for predetermined laboratory testing.
--- NOTE | 2018-02-12 18:27 | P.PN ---
Subjective Progress Note Date: 02/12/18 This patient is a 62-year-old right-handed white female who was admitted to [facility] yesterday with symptoms of generalized weakness that has been progressive over the past 1 month. Patient noted significant deterioration in her muscle strength over the past 2 weeks at home. She had seen her primary care physician who felt this may have been due to the effect of one of the statin medications that she has been taking. This was discontinued however this did not improve her muscle strength. She continued to become weaker involving both her upper and lower extremities. She was having difficulty holding things in her hand balance clerk due to the generalized weakness. As noted she was taking Lipitor but she was discontinued off of this about 10 days ago with no improvement in her muscle weakness. She was advised to come to the hospital and was subsequent admitted to hospital yesterday. She was sent for MRI of the lumbar spine which revealed degenerative disc disease with multiple level facet arthropathy and foraminal encroachment. No evidence for acute disc herniation. She underwent MRI of the brain today which revealed only age-related chronic small vessel ischemic changes with no evidence of demyelinating disease. Postcontrast images fail to demonstrate any enhancement. She underwent a lumbar puncture today for further evaluation and results were noted. Spinal fluid protein was very elevated at 134. CSF glucose was 80. RBC count 2 and WBC count 0. Given these findings on her spinal fluid there is a possibility she may have acute inflammatory demyelinating polyneuropathy. We did discuss the findings of all of her testing today with the patient at length at bedside. We are recommending she should be transferred to a tertiary center for further evaluation for AIDP. Patient was agreeable for transfer to a tertiary center and we have made contact with the transfer team at [facility]. We discussed these findings with the transfer team and spoke with Dr. Armstrong in the neuro intensive care unit. Test results were reviewed and Dr. Armstrong his excepted the patient and transferred to [facility] today. We will make arrangements for transfer this patient by EMS to [facility] assuming this but assignment is given. We did discuss all of these findings once again in detail with the patient and she is agreeable for transfer. We will await their further recommendations. Case was also discussed with her admitting physician Dr. Anderson over the phone. He is in agreement with our current recommendations for transfer to the tertiary center. Patient is neurologically stable at this time. She has not appreciated any worsening of her generalized weakness. We will make copies of her entire record and MRIs to be sent with her on transfer. We will await any further information from the transfer team at [facility]. This patient's overall prognosis at this time remains guarded. Objective - Vital Signs Vital signs: Vital Signs Temp 97.1 F L 02/12/18 11:33 Pulse 88 02/12/18 16:00 Resp 16 02/12/18 16:00 BP 134/78 02/12/18 13:05 Pulse Ox 97 02/12/18 12:53 Intake & Output 02/11/18 02/12/18 02/12/18 18:59 06:59 18:59 Intake Total 300 400 222 Output Total 300 Balance 300 100 222 Weight 82.8 kg 84.2 kg Intake: Intake, IV Titration 400 Amount Sodium Chloride 0.9% 1, 400 000 ml @ 100 mls/hr IV . Q10H [facility] Rx#:[id number] Oral 300 222 Output: Urine 300 Other: Voiding Method Bedside Commode Bedside Commode # Voids 1 1 - Exam Physical examination: PHYSICAL EXAMINATION: Patient is resting comfortably in bed. VITAL SIGNS: Blood pressure is [134/78]. Heart rate is [88]. Respiration is [16] . Temperature is [97.1]. HEENT: Head is atraumatic, neck is supple, there were no carotid bruits. CHEST: Lungs are clear to auscultation and percussion. CARDIAC: S1, S2 normal rate and rhythm. There is no murmur. ABDOMEN: Soft and nontender. Bowel sounds are present. EXTREMITIES: There is no pedal edema. Peripheral pulses are present. Neurological examination: Patient is awake alert and oriented 3. Her speech is fluent with no evidence of any aphasia or dysarthria. Her memory and intellectual functions are appropriate for age. Cranial nerve examination: Cranial nerves II through XII are grossly intact. Motor examination: There was no pronator drift. Muscle tone is slightly decreased. Muscle strength testing in the upper extremities reveals 3+/5 in the proximal muscles of the upper extremities. Hand balance clerk strength bilaterally is 3/5. Muscle strength in the lower extremities is 3+/5. There is proximal hip muscle weakness 3/5. Distal strength in the foot muscles is 3+/5. Deep tendon reflexes: The DTRs are 2+ and symmetric. Plantar responses flexor bilaterally. Coordination and gait cannot be assessed in this patient at this time. - Labs CBC & Chem 7: 02/10/18 18:19 02/10/18 18:19 Labs: Abnormal Lab Results - Last 24 Hours (Table) 02/11/18 02/12/18 Range/Units 16:26 12:15 CSF Glucose 80 H (40-70) mg/dL CSF Total Protein 134 H (12-60) mg/dL Microbiology - Last 24 Hours (Table) 02/10/18 20:24 Urine Culture - Final Urine,Voided Assessment and Plan (1) Generalized weakness Current Visit: Yes Status: Acute Code(s): R53.1 - WEAKNESS SNOMED Code(s) : 15884608 (2) Paresthesias/numbness Current Visit: Yes Status: Acute Code(s): R20.9 - UNSPECIFIED DISTURBANCES OF SKIN SENSATION SNOMED Code(s): 36668514 (3) Acute inflammatory demyelinating polyneuropathy Current Visit: Yes Status: Acute Code(s): G37.8 - OTH DEMYELINATING DISEASES OF CENTRAL NERVOUS SYSTEM SNOMED Code(s): 04473865 Plan: This patient is a 62-year-old female who was admitted yesterday to the hospital with symptoms of generalized weakness. She is undergone extensive evaluation with testing today including MRI of the lumbar spine and brain. Both studies have been noted as above. She underwent lumbar puncture today the results of which are noted above. Spinal fluid results are suggesting possibility of acute inflammatory demyelinating polyneuropathy. We have recommended the patient to be transferred to a tertiary center for EMG study and possible treatment with plasmapheresis or IVIG. This will depend on results of her EMG. We discussed these findings in detail today with the patient. She is agreeable with transferring we have contacted the transfer team at [facility]. Dr. Mcdowell in the neurointensive care unit has accepted the patient in transfer today. We will await a bed assignment and the patient will be transferred before today by EMS with ACLS protocol. Patient is neurologically stable with no improvement in her generalized weakness. We have discussed the findings in detail with the patient and she understands our reason for transfer. We have contacted Dr. Anderson as well and informed him of our recommendations and he is in full agreement. Patient will be transferred by EMS with ACLS protocol as soon as bed assignment is given to the nursing staff at the hospital. Her overall prognosis at this time remains guarded. We will continue to follow her progress here closely. We will contact the admitting physician tomorrow in terms of her further workup at [facility]. Her overall prognosis at this time remains guarded.
[2018-02-12] MEDS: ENOXAPARIN 40 MG/0.4 ML SYRINGE SQ SCH (18:58)
[2018-02-12 20:12] VITALS: PULSE 86
[2018-02-12] MEDS: ATORVASTATIN 40 MG TAB PO SCH (20:15)
[2018-02-12 23:02] VITALS: BP 125/81
[2018-02-13 15:18] LABS: IgG - CSF 10.1 mg/dL (0.0 - 3.4); IgG Synthesis Rate 12.18 mg/day (0.00 - 3.00); IgG/Albumin Index (CSF) 0.62 (0.00 - 0.77); Immunoglobulin G 827 mg/dL (700 - 1600)
--- NOTE | 2018-02-13 19:54 | DS ---
DISCHARGE SUMMARY DATE OF ADMISSION: 02/11/2018. DATE OF TRANSFER: 02/12/2018 FINAL DIAGNOSES: 1. 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 2. Leukocytosis from steroids. 3. Essential hypertension. 4. Hyperlipidemia. HOSPITAL COURSE: The patient was admitted with a 4-week history of progressive weakness, started in the hands, shoulders and went down to involve her legs, including both proximal and distal muscles. The patient was being treated outside by steroids, not getting worse. Patient was even not able to walk. On examination, she was hyperreflexic. The patient did have a cervical spine and lumbar MRI that showed multiple-level disc disease and also showing multiple-level severe central canal stenosis. The patient did also have a lumbar puncture that showed the CSF albumin to be raised to 72.5. CSF IgG was raised at 10.11. The patient's RAHEEL screen was negative. The patient was seen by Dr. Jamey Sena. It was felt patient would be better served at a higher tertiary center, including requiring an EMG. Patient accepted to be transferred to be transferred to [facility]. EXAMINATION: Weakness in all the 4 limbs and patient was hyperreflexic. PSYCH: AO x3. DISPOSITION: [facility] for higher level of care for further neurological workup. The patient may require steroids, plasmapheresis, etc. MMODL / IJN: [id number] /
== END 2018-02-12 23:11 | disposition short-term general hospital (02) | DRG 96 ==
LOC: EC 17:13 → 6SEL 18:28 → OBSVTOIN 02-12 09:38
PROVIDERS: ADMIT Hospitalist; ATTEND Hospitalist
PROC: 009U3ZX Drainage of Spinal Canal, Percutaneous Approach, Diagnostic (ICD-10-PCS; principal; 2018-02-12)
DX: G61.0 Guillain-Barre syndrome (principal); E78.5 Hyperlipidemia, unspecified; I10 Essential (primary) hypertension; I35.0 Nonrheumatic aortic (valve) stenosis; M46.90 Unspecified inflammatory spondylopathy, site unspecified; M50.30 Other cervical disc degeneration, unspecified cervical region; M51.36 Other intervertebral disc degeneration, lumbar region; Z79.899 Other long term (current) drug therapy; Z80.0 Family history of malignant neoplasm of digestive organs; Z82.49 Family history of ischemic heart disease and other diseases of the circulatory system; Z83.3 Family history of diabetes mellitus; Z88.5 Allergy status to narcotic agent; Z79.1 Long term (current) use of non-steroidal anti-inflammatories (NSAID); Z79.52 Long term (current) use of systemic steroids
CPT/HCPCS: 36415; 62270; 70450; 70553; 71046; 72125; 72156; 72158; 80053; 80061; 81001; 82040; 82042; 82550; 82553; 82784; 82945; 83605; 83735; 83916; 84157; 84484; 85025; 85610; 85652; 85730; 86038; 86140; 87086; 88108; 89050; 93005; 93306; 94760; 96360; 96361; 99285

== ENCOUNTER 2018-03-29 20:42 | Inpatient (IN) | payer OTHER ==
[2018-03-29] MEDS ORDERED: SODIUM CHLORIDE 0.9% 1,000 ML IV STA (20:49)
--- NOTE | 2018-03-29 21:01 | ED ---
General Adult HPI - General Chief complaint: Abdominal Pain Stated complaint: Fall Time Seen by Provider: 03/29/18 20:48 Source: patient, EMS Mode of arrival: EMS Limitations: no limitations - History of Present Illness Initial comments: Rosita Ngo is a 62-year-old female with past medical history significant for recent admission for spine surgery at an outside hospital. Patient reports that she was discharged from the hospital after an uncomplicated stay and went to rehab. She's been at home since then and has been doing well. Patient reports that throughout the day today she had nausea and abdominal discomfort. She reports that she hasn't had much appetite but was able to eat some crackers. She then went to the restroom because she fell she was given have a bowel movement. She is uncertain what happened in the restroom but her family heard her fall and she was found face down in the bathroom. 911 was called, EMS arrived on scene. Upon their arrival the patient was alert to her name, however she was uncertain of the day, the year, her location or the president. They report that during transport the patient had repetitive questioning but gradually became more alert and oriented. Patient was noted to have some bruising on the left forehead. She was also noted to have been incontinent of stool, and noted to have dark black stool on her clothing. - Related Data Home Medications Medication Instructions Recorded Confirmed Atorvastatin [Lipitor] 40 mg PO HS 02/10/18 02/10/18 Ibuprofen [Motrin] 400 mg PO Q6HR PRN 02/10/18 02/10/18 Lisinopril-Hctz 10-12.5 mg 1 tab PO DAILY 02/10/18 02/10/18 [Zestoretic 10-12.5] predniSONE See Taper PO DIRECTED 02/10/18 02/10/18 Allergies Allergy/AdvReac Type Severity Reaction Status Date / Time codeine Allergy Rash/Hives Verified 03/29/18 20:44 Review of Systems ROS Statement: Those systems with pertinent positive or pertinent negative responses have been documented in the HPI. ROS Other: All systems not noted in ROS Statement are negative. Constitutional: Reports: weakness (generalized). Denies: fever Respiratory: Denies: cough, dyspnea Cardiovascular: Denies: chest pain, palpitations Endocrine: Reports: fatigue Gastrointestinal: Reports: abdominal pain, nausea, diarrhea, melena Genitourinary: Denies: urgency, dysuria Musculoskeletal: Denies: back pain Skin: Denies: rash, lesions Neurological: Reports: weakness (generalized). Denies: headache Psychiatric: Denies: anxiety Hematological/Lymphatic: Reports: easy bleeding, easy bruising (s/p heparin injections on abdomen during previous admission ) Past Medical History Past Medical History: Hyperlipidemia, Hypertension Additional Past Medical History / Comment(s): Patient states she has a heart murmur, as well as low kidney function. History of Any Multi-Drug Resistant Organisms: None Reported Past Surgical History: Back Surgery Additional Past Surgical History / Comment(s): Hernaited disc surgery., surgery on 02/17/2018 for cervical neck, Past Anesthesia/Blood Transfusion Reactions: Postoperative Nausea & Vomiting ( PONV) Past Psychological History: No Psychological Hx Reported Smoking Status: Former smoker Past Alcohol Use History: None Reported Past Drug Use History: None Reported - Past Family History Mother Family Medical History: Diabetes Mellitus, Hypertension Additional Family Medical History / Comment(s): Vein replacement surgery Father Family Medical History: Cancer, Hypertension Additional Family Medical History / Comment(s): Patient states father had stomach cancer. General Exam Limitations: no limitations General appearance: alert, anxious Head exam: Present: normocephalic, other (contusion to left forehead) Eye exam: Present: normal appearance, PERRL, EOMI, other (pale conjunctiva) ENT exam: Present: normal exam, normal oropharynx, mucous membranes moist Neck exam: Present: normal inspection Respiratory exam: Absent: respiratory distress Cardiovascular Exam: Present: normal rhythm, tachycardia GI/Abdominal exam: Present: soft, normal bowel sounds. Absent: distended Rectal exam: Present: heme (+) stool, black stool, bloody stool External exam: Present: normal external exam Extremities exam: Present: normal inspection, full ROM Back exam: Present: normal inspection Neurological exam: Present: alert, oriented X3 Psychiatric exam: Present: normal affect Skin exam: Present: pallor Course Vital Signs 03/29/18 03/29/18 03/29/18 20:44 22:10 22:55 Temperature 99.1 F 100.0 F H 99.9 F H Pulse Rate 111 H 95 87 Respiratory 18 18 18 Rate Blood Pressure 178/70 128/58 120/59 O2 Sat by Pulse 100 100 100 Oximetry 03/29/18 23:05 Temperature 98.5 F Pulse Rate 89 Respiratory 18 Rate Blood Pressure 120/59 O2 Sat by Pulse 100 Oximetry Medical Decision Making - Medical Decision Making Patient presented to ED via EMS priority 1 for loss of consciousness Patient noted to be pale with melanotic stool, also has contusion to the left forehead Labs and imaging ordered Protonix ordered for upper GI bleed Labs reveal acute anemia with a hemoglobin of 7.5, patient with no history of anemia. Patient actively having melena. Decision was made to order a red blood cell transfusion. Noted to have a lactic acidosis of 4.5. IVF infusing, blood transfusion was ordered. Patient care was discussed with Dr. Romano who accepts the patient to her service with consult to GI for acute upper GI bleed, symptomatic anemia, syncope and collapse CT head and cervical spine with no acute injury. Cervical collar was removed. Patient no midline cervical spinal tenderness, focal neurologic deficits or altered mental status. At this time the patient is stable for admission to the floor for acute GI bleed , melena, syncope and collapse - Lab Data Result diagrams: 03/29/18 21:04 03/29/18 21:04 Lab Results 03/29/18 03/29/18 03/29/18 Range/Units 20:53 20:54 21:04 WBC 13.8 H (3.8-10.6) k/uL RBC 2.49 L (3.80-5.40) m/uL Hgb 7.5 L D (11.4-16.0) gm/dL Hct 23.2 L (34.0-46.0) % MCV 92.9 (80.0-100.0) fL MCH 30.2 (25.0-35.0) pg MCHC 32.5 (31.0-37.0) g/dL RDW 13.9 (11.5-15.5) % Plt Count 356 (150-450) k/uL Neutrophils % 62 % Lymphocytes % 30 % Monocytes % 5 % Eosinophils % 1 % Basophils % 0 % Neutrophils # 8.5 H (1.3-7.7) k/uL Lymphocytes # 4.2 (1.0-4.8) k/uL Monocytes # 0.7 (0-1.0) k/uL Eosinophils # 0.1 (0-0.7) k/uL Basophils # 0.1 (0-0.2) k/uL PT (9.0-12.0) sec INR (<1.2) APTT (22.0-30.0) sec Sodium (137-145) mmol/L Potassium (3.5-5.1) mmol/L Chloride (98-107) mmol/L Carbon Dioxide (22-30) mmol/L Anion Gap mmol/L BUN (7-17) mg/dL Creatinine (0.52-1.04) mg/dL Est GFR (CKD-EPI)AfAm (>60 ml/min/1.73 sqM) Est GFR (CKD-EPI)NonAf (>60 ml/min/1.73 sqM) Glucose (74-99) mg/dL POC Glucose (mg/dL) 214 H (75-99) mg/dL POC Glu Nursing Manager ID Nellie Mcginnis Plasma Lactic Acid Jesús (0.7-2.0) mmol/L Calcium (8.4-10.2) mg/dL Total Bilirubin (0.2-1.3) mg/dL AST (14-36) U/L ALT (9-52) U/L Alkaline Phosphatase (38-126) U/L Troponin I (0.000-0.034) ng/mL Total Protein (6.3-8.2) g/dL Albumin (3.5-5.0) g/dL Urine Color Urine Appearance (Clear) Urine pH (5.0-8.0) Ur Specific [place] (1.001-1.035) Urine Protein (Negative) Urine Glucose (UA) (Negative) Urine Ketones (Negative) Urine Blood (Negative) Urine Nitrite (Negative) Urine Bilirubin (Negative) Urine Urobilinogen (<2.0) mg/dL Ur Leukocyte Esterase (Negative) Urine RBC (0-5) /hpf Urine WBC (0-5) /hpf Stool Occult Blood Positive H (Negative) Blood Type Blood Type Recheck Antibody Screen Crossmatch Spec Expiration Date 03/29/18 03/29/18 03/29/18 Range/Units 21:04 21:04 21:04 WBC (3.8-10.6) k/uL RBC (3.80-5.40) m/uL Hgb (11.4-16.0) gm/dL Hct (34.0-46.0) % MCV (80.0-100.0) fL MCH (25.0-35.0) pg MCHC (31.0-37.0) g/dL RDW (11.5-15.5) % Plt Count (150-450) k/uL Neutrophils % % Lymphocytes % % Monocytes % % Eosinophils % % Basophils % % Neutrophils # (1.3-7.7) k/uL Lymphocytes # (1.0-4.8) k/uL Monocytes # (0-1.0) k/uL Eosinophils # (0-0.7) k/uL Basophils # (0-0.2) k/uL PT 10.2 (9.0-12.0) sec INR 1.0 (<1.2) APTT 21.3 L (22.0-30.0) sec Sodium 138 (137-145) mmol/L Potassium 4.0 (3.5-5.1) mmol/L Chloride 105 (98-107) mmol/L Carbon Dioxide 21 L (22-30) mmol/L Anion Gap 12 mmol/L BUN 50 H (7-17) mg/dL Creatinine 0.80 (0.52-1.04) mg/dL Est GFR (CKD-EPI)AfAm >90 (>60 ml/min/1.73 sqM) Est GFR (CKD-EPI)NonAf 79 (>60 ml/min/1.73 sqM) Glucose 189 H (74-99) mg/dL POC Glucose (mg/dL) (75-99) mg/dL POC Glu Nursing Manager ID Plasma Lactic Acid Jesús 4.5 H* (0.7-2.0) mmol/L Calcium 8.7 (8.4-10.2) mg/dL Total Bilirubin 0.2 (0.2-1.3) mg/dL AST 19 (14-36) U/L ALT 28 (9-52) U/L Alkaline Phosphatase 57 (38-126) U/L Troponin I (0.000-0.034) ng/mL Total Protein 5.6 L (6.3-8.2) g/dL Albumin 3.5 (3.5-5.0) g/dL Urine Color Urine Appearance (Clear) Urine pH (5.0-8.0) Ur Specific [place] (1.001-1.035) Urine Protein (Negative) Urine Glucose (UA) (Negative) Urine Ketones (Negative) Urine Blood (Negative) Urine Nitrite (Negative) Urine Bilirubin (Negative) Urine Urobilinogen (<2.0) mg/dL Ur Leukocyte Esterase (Negative) Urine RBC (0-5) /hpf Urine WBC (0-5) /hpf Stool Occult Blood (Negative) Blood Type Blood Type Recheck Antibody Screen Crossmatch Spec Expiration Date 03/29/18 03/29/18 03/29/18 Range/Units 21:04 21:04 21:16 WBC (3.8-10.6) k/uL RBC (3.80-5.40) m/uL Hgb (11.4-16.0) gm/dL Hct (34.0-46.0) % MCV (80.0-100.0) fL MCH (25.0-35.0) pg MCHC (31.0-37.0) g/dL RDW (11.5-15.5) % Plt Count (150-450) k/uL Neutrophils % % Lymphocytes % % Monocytes % % Eosinophils % % Basophils % % Neutrophils # (1.3-7.7) k/uL Lymphocytes # (1.0-4.8) k/uL Monocytes # (0-1.0) k/uL Eosinophils # (0-0.7) k/uL Basophils # (0-0.2) k/uL PT (9.0-12.0) sec INR (<1.2) APTT (22.0-30.0) sec Sodium (137-145) mmol/L Potassium (3.5-5.1) mmol/L Chloride (98-107) mmol/L Carbon Dioxide (22-30) mmol/L Anion Gap mmol/L BUN (7-17) mg/dL Creatinine (0.52-1.04) mg/dL Est GFR (CKD-EPI)AfAm (>60 ml/min/1.73 sqM) Est GFR (CKD-EPI)NonAf (>60 ml/min/1.73 sqM) Glucose (74-99) mg/dL POC Glucose (mg/dL) (75-99) mg/dL POC Glu Nursing Manager ID Plasma Lactic Acid Jesús (0.7-2.0) mmol/L Calcium (8.4-10.2) mg/dL Total Bilirubin (0.2-1.3) mg/dL AST (14-36) U/L ALT (9-52) U/L Alkaline Phosphatase (38-126) U/L Troponin I 0.027 (0.000-0.034) ng/mL Total Protein (6.3-8.2) g/dL Albumin (3.5-5.0) g/dL Urine Color Light Yellow Urine Appearance Clear (Clear) Urine pH 5.5 (5.0-8.0) Ur Specific [place] 1.018 (1.001-1.035) Urine Protein Negative (Negative) Urine Glucose (UA) Negative (Negative) Urine Ketones Negative (Negative) Urine Blood Trace H (Negative) Urine Nitrite Negative (Negative) Urine Bilirubin Negative (Negative) Urine Urobilinogen <2.0 (<2.0) mg/dL Ur Leukocyte Esterase Negative (Negative) Urine RBC 1 (0-5) /hpf Urine WBC 1 (0-5) /hpf Stool Occult Blood (Negative) Blood Type O Positive Blood Type Recheck No Antibody Screen NEGATIVE Crossmatch See Detail Spec Expiration Date 04/01/20181 Disposition Clinical Impression: Melena, Syncope and collapse, Contusion of head, Symptomatic anemia Disposition: ADMITTED IP TO THIS [facility] Decision Time: 22:08
[2018-03-29 21:12] LABS: Glucose,Whole Blood 214 mg/dL (75-99)
[2018-03-29 21:19] LABS: Basophils # (A) 0.1 k/uL (0-0.2); Basophils % (A) 0 %; Eosinophils # (A) 0.1 k/uL (0-0.7); Eosinophils % (A) 1 %; HCT 23.2 % (34.0-46.0); Lymphocytes # (A) 4.2 k/uL (1.0-4.8); Lymphocytes % (A) 30 %; MCH 30.2 pg (25.0-35.0); MCHC 32.5 g/dL (31.0-37.0); MCV 92.9 fL (80.0-100.0); Mean Platelet Volume 7.8; Monocytes # (A) 0.7 k/uL (0-1.0); Monocytes % (A) 5 %; Neutrophils # (A) 8.5 k/uL (1.3-7.7); Neutrophils % (A) 62 %; Platelet Count 356 k/uL (150-450); RBC 2.49 m/uL (3.80-5.40); RDW 13.9 % (11.5-15.5); WBC 13.8 k/uL (3.8-10.6)
[2018-03-29 21:30] LABS: ALT 28 U/L (9-52); AST 19 U/L (14-36); Albumin 3.5 g/dL (3.5-5.0); Alkaline Phosphatase 57 U/L (38-126); Anion Gap 12 mmol/L; Blood Urea Nitrogen 50 mg/dL (7-17); Calcium 8.7 mg/dL (8.4-10.2); Carbon Dioxide 21 mmol/L (22-30); Chloride 105 mmol/L (98-107); Glucose 189 mg/dL (74-99); Sodium 138 mmol/L (137-145); Total Bilirubin 0.2 mg/dL (0.2-1.3); Total Protein 5.6 g/dL (6.3-8.2)
--- NOTE | 2018-03-29 21:32 | XR ---
EXAMINATION TYPE: XR chest 1V portable DATE OF EXAM: 03/29/2018 COMPARISON: Prior chest 02/10/2018 HISTORY: Trauma, hypertension, weakness TECHNIQUE: Single frontal view of the chest is obtained. FINDINGS: The patient is rotated. There are overlying cardiac leads. There is no focal air space [place], pleural effusion, or pneumothorax seen. The cardiac silhouette size is within normal limits. The osseous structures are intact. IMPRESSION: No acute process.
[2018-03-29 21:34] LABS: HGB 7.5 gm/dL (11.4-16.0)
[2018-03-29 21:35] LABS: Partial Thromboplastin Time 21.3 sec (22.0-30.0); Prothrombin Time 10.2 sec (9.0-12.0)
[2018-03-29 21:41] LABS: Appearance,Urine Clear (Clear); Bilirubin,Urine Negative (Negative); Blood,Urine Trace (Negative); Color,Urine Light Yellow; Glucose,Urine (UA) Negative (Negative); Ketones,Urine Negative (Negative); Leukocyte Esterase,Urine Negative (Negative); Nitrite,Urine Negative (Negative); PH, Urine 5.5 (5.0-8.0); Protein,Urine Negative (Negative); RBC,Urine 1 /hpf (0-5); Specific Gravity,Urine 1.018 (1.001-1.035); Urobilinogen,Urine <2.0 mg/dL (<2.0); WBC,Urine 1 /hpf (0-5)
[2018-03-29] MEDS ORDERED: FUROSEMIDE 10 MG/ML 2 ML VIAL IV PRN (22:06)
[2018-03-29] MEDS ORDERED: NALOXONE 0.4 MG/ML 1 ML VIAL IV PRN (22:30)
[2018-03-29] MEDS: SODIUM CHLORIDE 0.9% 1,000 ML IV SCH (22:57)
[2018-03-29] MEDS ORDERED: PANTOPRAZOLE 40 MG/10 ML VIAL IVP STA (23:09)
--- NOTE | 2018-03-29 23:10 | CT ---
EXAM: CT Head Without Intravenous Contrast CLINICAL HISTORY: trauma TECHNIQUE: Axial computed tomography images of the head/brain without intravenous contrast. CTDI is 87.6 mGy and DLP is 1764 mGy-cm. This CT exam was performed using one or more of the following dose reduction techniques: automated exposure control, adjustment of the mA and/or kV according to patient size, and/or use of iterative reconstruction technique. COMPARISON: CT head 02/10/2018 FINDINGS: Brain: No evidence of acute transcortical cerebral infarction or intracranial hemorrhage. No abnormal mass effect or midline shift. No abnormal extra-axial collections. Mild cerebral atrophy. Ventricles: Unremarkable. Bones/joints: No skull fracture identified. Sinuses: Imaged paranasal sinuses are clear. Mastoid air cells: Mastoid sinuses are clear. IMPRESSION: No evidence of acute intracranial abnormality. EXAM: CT Cervical Spine Without Intravenous Contrast CLINICAL HISTORY: trauma TECHNIQUE: Axial computed tomography images of the cervical spine without intravenous contrast. CTDI is 87.6 mGy and DLP is 1764 mGy-cm. This CT exam was performed using one or more of the following dose reduction techniques: automated exposure control, adjustment of the mA and/or kV according to patient size, and/or use of iterative reconstruction technique. COMPARISON: CT C-spine 02/10/2018 FINDINGS: Vertebrae: Interval post surgical changes of C3-C6 fusion and laminectomies with dorsal paraspinal fixation rods and screws. There is some metallic artifact associated with fixation hardware. Mild C5-6 retrolisthesis of approximately 2.5 mm. Cervical vertebral height and alignment are otherwise within normal limits. No definite evidence of acute cervical fracture or dislocation. Discs/spinal canal: Multilevel cervical disc disease and spondylosis. No significant osseous cervical spinal stenosis. Soft tissues: No abnormal prevertebral soft tissue thickening. Lung apices: Unremarkable as visualized. IMPRESSION: Interval post surgical changes of C3-C6 cervical fusion and laminectomies. No definite evidence of acute cervical fracture or dislocation.
[2018-03-30] MEDS: SODIUM CHLORIDE 0.9% 1,000 ML IV SCH ×2 (06:44→20:32)
[2018-03-30] MEDS: PANTOPRAZOLE 40 MG/10 ML VIAL IVP SCH ×2 (08:13→20:31)
[2018-03-30 09:27] LABS: Basophils % (A) 0 %; Eosinophils # (A) 0.1 k/uL (0-0.7); Eosinophils % (A) 1 %; Lymphocytes # (A) 3.1 k/uL (1.0-4.8); Lymphocytes % (A) 29 %; MCH 29.8 pg (25.0-35.0); MCHC 32.8 g/dL (31.0-37.0); MCV 90.8 fL (80.0-100.0); Monocytes # (A) 0.6 k/uL (0-1.0); Monocytes % (A) 6 %; Neutrophils # (A) 6.7 k/uL (1.3-7.7); Neutrophils % (A) 63 %; Platelet Count 261 k/uL (150-450); RBC 2.32 m/uL (3.80-5.40); RDW 15.3 % (11.5-15.5); WBC 10.7 k/uL (3.8-10.6)
[2018-03-30 09:29] LABS: Anion Gap 3 mmol/L; Blood Urea Nitrogen 32 mg/dL (7-17); Calcium 7.7 mg/dL (8.4-10.2); Carbon Dioxide 26 mmol/L (22-30); Chloride 110 mmol/L (98-107); Glucose 117 mg/dL (74-99); Potassium 3.6 mmol/L (3.5-5.1); Sodium 139 mmol/L (137-145)
[2018-03-30 09:33] LABS: HGB 6.9 gm/dL (11.4-16.0)
[2018-03-30 11:45] LABS: Glucose,Whole Blood 123 mg/dL (75-99)
--- NOTE | 2018-03-30 13:07 | CONS ---
CONSULTATION DATE OF SERVICE: 03/30/2018 REASON FOR CONSULTATION: Acute GI bleed. HISTORY OF PRESENT ILLNESS: The patient is a 62-year-old pleasant white female admitted to the hospital with black tarry stools of 2 days' duration. She had an episode of syncope at home, came in to the emergency room and subsequently was reported to have a hemoglobin of 6.9, currently receiving 2 units of blood transfusion. The patient denies any abdominal pain. She has some nausea but no emesis. She never had these symptoms in the past. She recently underwent neck surgery, 2 weeks ago at [facility] and was discharged to home a few days ago. During this time, she was taking Motrin 100 tablets daily. No prior history of peptic ulcer disease. She never had EGD or colonoscopy in the past. PAST MEDICAL HISTORY: Significant for degenerative joint disease, history of hypercholesterolemia. MEDICATIONS: At home include Lipitor, Zestoretic, Motrin, and prednisone. ALLERGIES: CODEINE. PAST SURGICAL HISTORY: Back surgery, neck surgery. SOCIAL HISTORY: No smoking. No alcohol use. FAMILY HISTORY: Unremarkable. REVIEW OF SYSTEMS: CARDIOPULMONARY: No chest pain or shortness of breath. GENITOURINARY: No dysuria or hematuria. MUSCULOSKELETAL: Unremarkable other than neck pain from recent surgery. NEUROLOGY: Unremarkable. PSYCHIATRY: Unremarkable. ENT: Vision unremarkable. HEMATOLOGY: Severe anemia. CONSTITUTIONAL: No recent weight loss. No fever, chills, night sweats. ENDOCRINE: Unremarkable. PHYSICAL EXAMINATION: She appears comfortable. No apparent distress. VITAL SIGNS: Stable. Blood pressure is 108/51, pulse rate is 87, temperature 97.8. HEENT EXAMINATION: Unremarkable, conjunctivae are pink, sclerae nonicteric oral cavity no lesions the chest was clear to auscultation. HEART: Regular rate and rhythm. ABDOMEN: Soft, it was nontender, nondistended. Bowel sounds are positive. No organomegaly extremities no pedal edema skin no rashes. NEUROLOGIC: Alert and oriented x3. No focal deficits. LAB: At the time of admission the hospital WBC was 13.8 and hemoglobin 7.5. Today hemoglobin is down to 6.9. She is currently receiving 2 units of blood transfusion. BUN was and creatinine 0.8 today. BUN is 32 and creatinine 0.73. Rest of the labs are within normal limits. IMPRESSION: 1. This lady presents to the hospital with black tarry stools of 2 days' duration and an episode of syncope and significant anemia with a hemoglobin of 6.9 g/dL requiring 2 units of blood transfusion. 2. She recently had neck surgery done 2 weeks ago at [facility] and around that time she was taking Motrin on a daily basis, most likely during peptic ulcer disease. Patient presently hemodynamically stable. She did not have any active bleeding all day today. RECOMMENDATIONS: 1. Continue with IV Protonix 40 mg q.12 hours. 2. Start on clear liquid diet. 3. Proceed with upper endoscopy tomorrow. I discussed with the patient risks, benefits, and complications of the procedure and she is agreeable to it. Thank you for this consultation. MMCARLEEL / IJN: [id number] /
--- NOTE | 2018-03-30 14:39 | P.HPIM ---
History of Present Illness 61-year-old present female came in after a fall in the restroom secondary to lightheadedness after having a bowel movement. Patient is comparing of dark tarry stools which started today as per the patient. Patient is found to have hemoglobin of 6.9 today receiving 1 unit of transfusion. Patient was taking ibuprofen since her neck surgery posterior inpatient rehabilitation. CAT scan of the head and neck did not show any significant abnormality. Patient definitely looks pale. Denied any lightheadedness at this point of time patient was hypotensive patient takes lisinopril and hydrocodone thiazide at home as well. Patient is on clear liquid diet will undergo upper GI endoscopy for possible upper GI bleed gastritis or peptic ulcer disease. Review of Systems REVIEW OF SYSTEMS: CONSTITUTIONAL: No fever, no malaise, no fatigue. HEENT: No recent visual problems or hearing problems. Denied any sore throat. CARDIOVASCULAR: No chest pain, orthopnea, PND, no palpitations, no syncope. PULMONARY: No shortness of breath, no cough, no hemoptysis. GASTROINTESTINAL: No diarrhea, NEUROLOGICAL: No headaches, no weakness, no numbness. HEMATOLOGICAL: Denies any bleeding or petechiae. GENITOURINARY: Denies any burning micturition, frequency, or urgency. MUSCULOSKELETAL/RHEUMATOLOGICAL: Denies any joint pain, swelling, or any muscle pain. ENDOCRINE: Denies any polyuria or polydipsia. The rest of the 14-point review of systems is negative. Past Medical History Past Medical History: Hyperlipidemia, Hypertension Additional Past Medical History / Comment(s): Patient states she has a heart murmur, as well as low kidney function. History of Any Multi-Drug Resistant Organisms: None Reported Past Surgical History: Back Surgery Additional Past Surgical History / Comment(s): Hernaited disc surgery., surgery on 02/17/2018 for cervical neck, Past Anesthesia/Blood Transfusion Reactions: Postoperative Nausea & Vomiting ( PONV) Past Psychological History: No Psychological Hx Reported Smoking Status: Former smoker Past Alcohol Use History: None Reported Past Drug Use History: None Reported - Past Family History Mother Family Medical History: Diabetes Mellitus, Hypertension Additional Family Medical History / Comment(s): Vein replacement surgery Father Family Medical History: Cancer, Hypertension Additional Family Medical History / Comment(s): Patient states father had stomach cancer. Medications and Allergies Home Medications Medication Instructions Recorded Confirmed Type Atorvastatin [Lipitor] 40 mg PO HS 02/10/18 03/30/18 History Ibuprofen [Motrin] 400 mg PO Q6HR PRN 02/10/18 03/30/18 History Aspirin 81 mg PO DAILY 03/30/18 03/30/18 History Losartan/Hydrochlorothiazide 1 tab PO DAILY 03/30/18 03/30/18 History [Losartan-Hctz 50-12.5 mg Tab] Ranitidine HCl [Zantac] 150 mg PO DAILY 03/30/18 03/30/18 History Allergies Allergy/AdvReac Type Severity Reaction Status Date / Time codeine Allergy Rash/Hives Verified 03/30/18 09:08 Physical Exam Vitals: Vital Signs Temp Pulse Pulse Resp BP BP Pulse Ox 03/30/18 13:16 98.4 F 67 16 97/53 100 03/30/18 10:52 98.5 F 84 16 104/58 99 03/30/18 10:50 16 03/30/18 10:22 98 F 82 16 105/55 96 03/30/18 10:12 97.8 F 87 16 108/51 98 03/30/18 09:00 99 03/30/18 08:10 97.7 F 83 16 92/55 99 03/30/18 04:00 98.3 F 82 16 121/60 99 03/30/18 01:19 84 18 127/54 100 03/30/18 00:36 977 F H 84 18 115/57 100 03/30/18 00:22 97.9 F 80 18 104/56 100 03/29/18 23:35 98.1 F 88 18 112/58 100 03/29/18 23:27 99.1 F 89 18 115/59 100 03/29/18 23:11 98.3 F 82 16 121/60 99 03/29/18 23:05 98.5 F 89 18 120/59 100 03/29/18 22:55 99.9 F H 87 18 120/59 100 03/29/18 22:10 100.0 F H 95 18 128/58 100 03/29/18 20:44 99.1 F 111 H 18 178/70 100 Intake and Output 03/29/18 03/30/18 03/30/18 22:59 06:59 14:59 Intake Total 0 810 1370 Output Total 250 Balance 0 560 1370 Intake: Intake, IV Titration 500 1000 Amount Sodium Chloride 0.9% 1, 500 1000 000 ml @ 125 mls/hr IV . Q8H [facility] Rx#:[id number] Oral 120 Blood Product 0 310 250 Rc As-1 Unit 0 310 [id number] Rc Irr Cpda1 Unit 250 [id number] Output: Urine 250 Other: Voiding Method Toilet Toilet # Voids 1 2 # Bowel Movements 1 1 Weight 81.647 kg 80.9 kg PHYSICAL EXAMINATION: GENERAL: The patient is alert and oriented x3, not in any acute distress. Well developed, well nourished. HEENT: Pupils are round and equally reacting to light. EOMI. No scleral icterus. Does have conjunctival pallor. Normocephalic, atraumatic. No pharyngeal erythema. No thyromegaly. CARDIOVASCULAR: S1 and S2 present. No murmurs, rubs, or gallops. PULMONARY: Chest is clear to auscultation, no wheezing or crackles. ABDOMEN: Soft, nontender, nondistended, normoactive bowel sounds. No palpable organomegaly. MUSCULOSKELETAL: No joint swelling or deformity. EXTREMITIES: No cyanosis, clubbing, or pedal edema. NEUROLOGICAL: Gross neurological examination did not reveal any focal deficits. SKIN: No rashes. Results CBC & Chem 7: 03/30/18 09:05 03/30/18 09:05 Labs: Abnormal Lab Results - Last 24 Hours (Table) 03/29/18 03/29/18 03/29/18 Range/Units 20:53 20:54 21:04 WBC 13.8 H (3.8-10.6) k/uL RBC 2.49 L (3.80-5.40) m/uL Hgb 7.5 L D (11.4-16.0) gm/dL Hct 23.2 L (34.0-46.0) % Neutrophils # 8.5 H (1.3-7.7) k/uL APTT (22.0-30.0) sec Chloride (98-107) mmol/L Carbon Dioxide (22-30) mmol/L BUN (7-17) mg/dL Glucose (74-99) mg/dL POC Glucose (mg/dL) 214 H (75-99) mg/dL Plasma Lactic Acid Jesús (0.7-2.0) mmol/L Calcium (8.4-10.2) mg/dL Total Protein (6.3-8.2) g/dL Urine Blood (Negative) Stool Occult Blood Positive H (Negative) Crossmatch 03/29/18 03/29/18 03/29/18 Range/Units 21:04 21:04 21:04 WBC (3.8-10.6) k/uL RBC (3.80-5.40) m/uL Hgb (11.4-16.0) gm/dL Hct (34.0-46.0) % Neutrophils # (1.3-7.7) k/uL APTT 21.3 L (22.0-30.0) sec Chloride (98-107) mmol/L Carbon Dioxide 21 L (22-30) mmol/L BUN 50 H (7-17) mg/dL Glucose 189 H (74-99) mg/dL POC Glucose (mg/dL) (75-99) mg/dL Plasma Lactic Acid Jesús 4.5 H* (0.7-2.0) mmol/L Calcium (8.4-10.2) mg/dL Total Protein 5.6 L (6.3-8.2) g/dL Urine Blood (Negative) Stool Occult Blood (Negative) Crossmatch 03/29/18 03/29/18 03/30/18 Range/Units 21:04 21:16 00:18 WBC (3.8-10.6) k/uL RBC (3.80-5.40) m/uL Hgb (11.4-16.0) gm/dL Hct (34.0-46.0) % Neutrophils # (1.3-7.7) k/uL APTT (22.0-30.0) sec Chloride (98-107) mmol/L Carbon Dioxide (22-30) mmol/L BUN (7-17) mg/dL Glucose (74-99) mg/dL POC Glucose (mg/dL) (75-99) mg/dL Plasma Lactic Acid Jesús 2.1 H* (0.7-2.0) mmol/L Calcium (8.4-10.2) mg/dL Total Protein (6.3-8.2) g/dL Urine Blood Trace H (Negative) Stool Occult Blood (Negative) Crossmatch See Detail 03/30/18 03/30/18 03/30/18 Range/Units 09:05 09:05 11:23 WBC 10.7 H (3.8-10.6) k/uL RBC 2.32 L (3.80-5.40) m/uL Hgb 6.9 L* (11.4-16.0) gm/dL Hct 21.0 L (34.0-46.0) % Neutrophils # (1.3-7.7) k/uL APTT (22.0-30.0) sec Chloride 110 H (98-107) mmol/L Carbon Dioxide (22-30) mmol/L BUN 32 H (7-17) mg/dL Glucose 117 H (74-99) mg/dL POC Glucose (mg/dL) 123 H (75-99) mg/dL Plasma Lactic Acid Jesús (0.7-2.0) mmol/L Calcium 7.7 L (8.4-10.2) mg/dL Total Protein (6.3-8.2) g/dL Urine Blood (Negative) Stool Occult Blood (Negative) Crossmatch Thrombosis Risk Factor Assmnt - Choose All That Apply Any of the Below Risk Factors Present?: No Other Risk Factors: Yes Each Risk Factor Represents 2 Points: Age 61-74 years Thrombosis Risk Factor Assessment Total Risk Factor Score: 2 Thrombosis Risk Factor Assessment Level: Low Risk Assessment and Plan Plan: -Acute blood loss anemia: Secondary to possible upper GI bleed from peptic ulcer disease patient is on Protonix scale liquid diet upper GI endoscopy tomorrow may be secondary to ibuprofen she is receiving. -Hypertension patient is hypotensive secondary to GI bleed hold off antidepressive medication -Hyperlipidemia -Fall probably secondary to vasovagal or hypovolemic syncope. -Chronic back and neck pain status post recent surgery
[2018-03-30 15:06] LABS: Basophils # (A) 0.1 k/uL (0-0.2); Basophils % (A) 0 %; Eosinophils # (A) 0.1 k/uL (0-0.7); Eosinophils % (A) 1 %; HCT 23.9 % (34.0-46.0); Lymphocytes % (A) 26 %; MCH 30.3 pg (25.0-35.0); MCHC 33.5 g/dL (31.0-37.0); MCV 90.5 fL (80.0-100.0); Mean Platelet Volume 6.8; Monocytes # (A) 0.7 k/uL (0-1.0); Monocytes % (A) 6 %; Neutrophils # (A) 7.3 k/uL (1.3-7.7); Neutrophils % (A) 65 %; Platelet Count 248 k/uL (150-450); RBC 2.64 m/uL (3.80-5.40); WBC 11.3 k/uL (3.8-10.6)
[2018-03-30] MEDS ORDERED: LIDOCAINE 1% 20 ML VIAL (10MG/ML) FOR IV START INTRADERMA PRN (15:09)
[2018-03-30] MEDS ORDERED: MIDAZOLAM 2 MG/2 ML VIAL IV PRN (15:09)
[2018-03-30] MEDS ORDERED: LACTATED RINGERS 1,000 ML IV SCH (15:15)
[2018-03-30 16:53] LABS: Glucose,Whole Blood 145 mg/dL (75-99)
[2018-03-30 20:09] LABS: Glucose,Whole Blood 109 mg/dL (75-99)
[2018-03-30] MEDS: ONDANSETRON 4 MG/2 ML VIAL IVP PRN (21:07)
[2018-03-31] MEDS: SODIUM CHLORIDE 0.9% 1,000 ML IV SCH ×3 (02:10→14:31)
[2018-03-31] MEDS: ONDANSETRON 4 MG/2 ML VIAL IVP PRN (04:11)
[2018-03-31 06:16] LABS: Anisocytosis Slight; Basophils # (A) 0.1 k/uL (0-0.2); Basophils % (A) 1 %; Eosinophils # (A) 0.1 k/uL (0-0.7); Eosinophils % (A) 1 %; Lymphocytes # (A) 3.1 k/uL (1.0-4.8); Lymphocytes % (A) 35 %; MCH 29.7 pg (25.0-35.0); MCHC 32.4 g/dL (31.0-37.0); MCV 91.4 fL (80.0-100.0); Monocytes # (A) 0.5 k/uL (0-1.0); Monocytes % (A) 6 %; Neutrophils # (A) 5.1 k/uL (1.3-7.7); Neutrophils % (A) 56 %; Platelet Count 221 k/uL (150-450); RBC 1.87 m/uL (3.80-5.40); RDW 17.2 % (11.5-15.5)
[2018-03-31 06:28] LABS: HCT 17.1 % (34.0-46.0); HGB 5.5 gm/dL (11.4-16.0)
[2018-03-31] MEDS ORDERED: MIDAZOLAM 2 MG/2 ML VIAL ONE ×2 (07:00)
[2018-03-31] MEDS ORDERED: LIDOCAINE 1% INJ 10MG/ML (20 ML MDV) ONE ×2 (07:00)
[2018-03-31] MEDS ORDERED: ONDANSETRON 4 MG/2 ML VIAL ONE (07:00)
[2018-03-31] MEDS ORDERED: PROPOFOL 10 MG/ML 20 ML VIAL IV ONE ×2 (07:00)
[2018-03-31] MEDS ORDERED: IV FLUID CONTINUATION 1,000 ML IV ONE (07:00)
[2018-03-31] MEDS ORDERED: EPINEPHrine 10 ML SYRINGE (0.1 MG/ML) INTRAOSSEO ONE (07:25)
--- NOTE | 2018-03-31 07:37 | P.PCN ---
Date of Procedure: 03/31/18 Procedure(s) Performed: BRIEF HISTORY: Patient is a 59-year-old, pleasant, white female, admitted to the hospital with acute GI bleed. She had multiple episodes of black tarry stools and this morning had 2 episodes of coffee-ground emesis. Initial hemoglobin was 6.5 g/dL and received 2 units of blood transfusion. CBC from this morning distal pending. She is scheduled for an upper endoscopy to evaluate further. She is been taking Motrin on and off for the last 2 weeks' duration for degenerative joint disease. PROCEDURE PERFORMED: Esophagogastroduodenoscopy with injection epinephrine, cautery and endo clip placement and biopsy. PREOPERATIVE DIAGNOSIS: Acute upper GI bleed. IV sedation per anesthesia. PROCEDURE: After informed consent was obtained, the patient was brought into the endoscopy unit. IV sedation was administered by Anesthesia under continuous monitoring. Initially the Olympus GIF-140 video endoscope was inserted into the mouth. Esophagus intubated without any difficulty. It was gradually advanced into the stomach and duodenum and carefully examined. The bulb of the duodenum there were 2 ulcerations identified measuring 1-1.5 cm each. The ulcer along the duodenal sweep had a visible vessel with active bleeding. 1 in 10,000 epinephrine was injected at the site of the bleeding and hemostasis was achieved. Following this Endo clips were placed adjacent to each other with good hemostasis. A few seconds later there was active oozing noted at the site and hence I proceeded with cautery using a gold probe and once again hemostasis was achieved. The scope at this time was withdrawn to the stomach, adequately insufflated with air, and upon careful examination, mucosa of the antrum, had a 1 cm clean-based ulcer with no active bleeding and biopsies were done from this area. The body, cardia and the fundus appeared normal. The scope was then withdrawn into the esophagus. The GE junction was located at 39 cm from the incisors. The esophagus appeared normal. There were no erosions or ulcerations seen and the patient tolerated the procedure well. IMPRESSION: 1. Actively bleeding duodenal bulbar ulcer along the duodenal sweep status post injection epinephrine, Endo Clip placement and cautery with a gold probe with good hemostasis 2. 1 cm clean-based antral ulcer with no active bleeding. RECOMMENDATIONS: The findings of this examination were discussed with the patient . Continue with IV Protonix 40 mg every 12 hours. CBC every 6 hours. Clear liquid diet today.
[2018-03-31] MEDS ORDERED: SODIUM CHLORIDE 0.9% 500 ML IV ONE (07:38)
[2018-03-31] MEDS: PANTOPRAZOLE 40 MG/10 ML VIAL IVP SCH ×2 (09:22→22:18)
--- NOTE | 2018-03-31 10:11 | P.GSCN ---
History of Present Illness Consult date: 03/31/18 History of present illness: 62-year-old female presented to the hospital secondary to feeling lightheaded and passing out while attempting to use the bathroom. She also was complaining of black and tarry stool. On initial presentation, the patient did have a hemoglobin of 7.5. This then dropped down to 6.9 on repeat draw. She did initially respond to pack red blood cell transfusion, but then hemoglobin did drop again. The patient was taken by gastroenterology for evaluation with an upper endoscopy. Upper endoscopy did reveal an actively bleeding duodenal ulcer. Clips, cauterization and epinephrine injection where used with hemostasis. The patient did also have a notable additional ulcer in the antrum of the stomach. The patient denies being on any chronic anticoagulation. She did have a recent a inpatient rehabilitation after a neck surgery for which she states that she was on heparin subcutaneous injections. She states that she has also been on Motrin and ibuprofen. She currently denies any abdominal pain. She denies any nausea or emesis. She denies any fevers, chills, chest pain or shortness of breath. Review of Systems All systems: negative Past Medical History Past Medical History: Hyperlipidemia, Hypertension Additional Past Medical History / Comment(s): Patient states she has a heart murmur, as well as low kidney function. History of Any Multi-Drug Resistant Organisms: None Reported Past Surgical History: Back Surgery Additional Past Surgical History / Comment(s): Hernaited disc surgery., surgery on 02/17/2018 for cervical neck, Past Anesthesia/Blood Transfusion Reactions: Postoperative Nausea & Vomiting ( PONV) Past Psychological History: No Psychological Hx Reported Smoking Status: Former smoker Past Alcohol Use History: None Reported Past Drug Use History: None Reported - Past Family History Mother Family Medical History: Diabetes Mellitus, Hypertension Additional Family Medical History / Comment(s): Vein replacement surgery Father Family Medical History: Cancer, Hypertension Additional Family Medical History / Comment(s): Patient states father had stomach cancer. Medications and Allergies Home Medications Medication Instructions Recorded Confirmed Type Atorvastatin [Lipitor] 40 mg PO HS 02/10/18 03/30/18 History Ibuprofen [Motrin] 400 mg PO Q6HR PRN 02/10/18 03/30/18 History Aspirin 81 mg PO DAILY 03/30/18 03/30/18 History Losartan/Hydrochlorothiazide 1 tab PO DAILY 03/30/18 03/30/18 History [Losartan-Hctz 50-12.5 mg Tab] Ranitidine HCl [Zantac] 150 mg PO DAILY 03/30/18 03/30/18 History Allergies Allergy/AdvReac Type Severity Reaction Status Date / Time codeine Allergy Rash/Hives Verified 03/30/18 09:08 Surgical - Exam Osteopathic Statement: *. No significant issues noted on an osteopathic structural exam other than those noted in the History and Physical/Consult. Vital Signs Temp Pulse Resp BP Pulse Ox 99.1 F 111 H 18 178/70 100 03/29/18 20:44 03/29/18 20:44 03/29/18 20:44 03/29/18 20:44 03/29/18 20:44 - General no distress - Eyes normal ocular movement - ENT normal mucosa, no hearing loss - Neck trachea midline - Respiratory No difficulty with respiration - Abdomen Soft, nontender, nondistended, no rebound, no guarding - Neurologic normal sensation - Psychiatric oriented to time, oriented to person, oriented to place, speech is normal Results - Labs 03/31/18 05:39 03/30/18 09:05 Abnormal Lab Results - Last 24 Hours (Table) 03/29/18 03/30/18 03/30/18 Range/Units 21:04 11:23 14:51 WBC 11.3 H (3.8-10.6) k/uL RBC 2.64 L (3.80-5.40) m/uL Hgb 8.0 L (11.4-16.0) gm/dL Hct 23.9 L (34.0-46.0) % RDW 16.0 H (11.5-15.5) % POC Glucose (mg/dL) 123 H (75-99) mg/dL Crossmatch See Detail 03/30/18 03/30/18 03/31/18 Range/Units 16:25 20:07 05:39 WBC (3.8-10.6) k/uL RBC 1.87 L (3.80-5.40) m/uL Hgb 5.5 L* D (11.4-16.0) gm/dL Hct 17.1 L* (34.0-46.0) % RDW 17.2 H (11.5-15.5) % POC Glucose (mg/dL) 145 H 109 H (75-99) mg/dL Crossmatch Assessment and Plan (1) Upper GI bleed Narrative/Plan: The patient is currently status post upper endoscopy for bleeding duodenal ulcer , status post clip, cauterization, epinephrine injection - Patient is currently undergoing a packed red blood cell transfusion and we will follow continued hemoglobin checks - Continue to monitor for further melena - Continue Protonix BID - Patient is currently nothing by mouth, okay for ice chips, will advance diet with evidence of clinical progression - Will continue to follow closely if any need for surgical intervention Thank you for this consultation, I look forward in providing in the patient's care Current Visit: Yes Status: Acute Code(s): K92.2 - GASTROINTESTINAL HEMORRHAGE, UNSPECIFIED SNOMED Code(s): 74593944
--- NOTE | 2018-03-31 15:50 | P.PN ---
Subjective Patient was admitted for acute upper GI bleed. Patient received 1 unit of blood transfusion yesterday her hemoglobin dropped again today receiving 2 more units of blood transfusion patient underwent upper GI endoscopy which showed couple ulcers in the ER in him one of them is actively bleeding underwent the epinephrine injection along with Endo Clip. Patient had so far 2 all movements which are dark since morning probably the left lower blood from her previous bleeding. Patient will be monitored overnight if she doesn't have any bleeding probably can be discharged tomorrow continue with proton pump inhibitor IV Constitutional: Denied any fatigue denied any fever. Cardio vascular: denied any chest pain, palpitations Gastrointestinal denied any nausea vomiting Pulmonary: Denied any shortness of breath cough Neurologic denied any new focal deficits Objective - Vital Signs Vital signs: Vital Signs Temp 96.8 F L 03/31/18 13:09 Pulse 93 03/31/18 13:09 Resp 16 03/31/18 13:09 BP 100/53 03/31/18 13:09 Pulse Ox 100 03/31/18 13:09 Intake & Output 03/30/18 03/31/18 03/31/18 18:59 06:59 18:59 Intake Total 1370 902 710 Balance 1370 902 710 Weight 82 kg Intake: IV 30 400 Invasive Line 1 30 Intake, IV Titration 1000 872 Amount Sodium Chloride 0.9% 1, 1000 872 000 ml @ 125 mls/hr IV . Q8H [facility] Rx#:[id number] Oral 120 Blood Product 250 310 Rc As-3 Unit 0 [id number] Rc Irr Cpda1 Unit 250 [id number] Rc Pheresis 2 As3 Unit 310 [id number] Other: Voiding Method Toilet Toilet Toilet # Voids 2 1 0 # Bowel Movements 1 1 1 - Exam PHYSICAL EXAMINATION: GENERAL: The patient is alert and oriented x3, not in any acute distress. Well developed, well nourished. HEENT: Pupils are round and equally reacting to light. EOMI. No scleral icterus. Does have conjunctival pallor. Normocephalic, atraumatic. No pharyngeal erythema. No thyromegaly. CARDIOVASCULAR: S1 and S2 present. No murmurs, rubs, or gallops. PULMONARY: Chest is clear to auscultation, no wheezing or crackles. ABDOMEN: Soft, nontender, nondistended, normoactive bowel sounds. No palpable organomegaly. MUSCULOSKELETAL: No joint swelling or deformity. EXTREMITIES: No cyanosis, clubbing, or pedal edema. NEUROLOGICAL: Gross neurological examination did not reveal any focal deficits. SKIN: No rashes. - Labs CBC & Chem 7: 03/31/18 05:39 03/30/18 09:05 Labs: Abnormal Lab Results - Last 24 Hours (Table) 03/29/18 03/30/18 03/30/18 Range/Units 21:04 16:25 20:07 RBC (3.80-5.40) m/uL Hgb (11.4-16.0) gm/dL Hct (34.0-46.0) % RDW (11.5-15.5) % POC Glucose (mg/dL) 145 H 109 H (75-99) mg/dL Crossmatch See Detail 03/31/18 Range/Units 05:39 RBC 1.87 L (3.80-5.40) m/uL Hgb 5.5 L* D (11.4-16.0) gm/dL Hct 17.1 L* (34.0-46.0) % RDW 17.2 H (11.5-15.5) % POC Glucose (mg/dL) (75-99) mg/dL Crossmatch Assessment and Plan Plan: -Acute blood loss anemia: Secondary to upper GI bleed from peptic ulcer disease patient is on Protonix, patient underwent upper GI endoscopy with epinephrine injection and Endo Clip. -Hypertension patient is hypotensive secondary to GI bleed hold off hypertensive medication -Hyperlipidemia -Fall probably secondary to syncope from hypovolemia -Chronic back and neck pain status post recent surgery
[2018-03-31 17:13] LABS: Basophils % (A) 0 %; Eosinophils # (A) 0.1 k/uL (0-0.7); Eosinophils % (A) 0 %; HCT 22.8 % (34.0-46.0); Lymphocytes # (A) 2.5 k/uL (1.0-4.8); Lymphocytes % (A) 16 %; MCH 31.4 pg (25.0-35.0); MCHC 35.3 g/dL (31.0-37.0); MCV 89.1 fL (80.0-100.0); Mean Platelet Volume 7.2; Monocytes % (A) 6 %; Neutrophils # (A) 12.1 k/uL (1.3-7.7); Neutrophils % (A) 76 %; Platelet Count 182 k/uL (150-450); Poikilocytosis Slight; RBC 2.56 m/uL (3.80-5.40); RDW 15.5 % (11.5-15.5); WBC 15.9 k/uL (3.8-10.6)
[2018-03-31] MEDS ORDERED: ACETAMINOPHEN TAB 325 MG TAB PO PRN (20:17)
--- NOTE | 2018-03-31 20:51 | XR ---
EXAMINATION TYPE: XR chest 1V portable DATE OF EXAM: 03/31/2018 COMPARISON: 03/29/2018 HISTORY: Fever TECHNIQUE: Single frontal view of the chest is obtained. FINDINGS: There is no heart failure nor confluent pneumonic infiltrate. There are chest leads. Costo phrenic angles are clear. IMPRESSION: No active cardiopulmonary disease. No change.
[2018-03-31 21:25] LABS: Anisocytosis Slight; Basophils # (A) 0.1 k/uL (0-0.2); Basophils % (A) 1 %; Eosinophils # (A) 0.1 k/uL (0-0.7); Eosinophils % (A) 1 %; HCT 21.2 % (34.0-46.0); HGB 7.2 gm/dL (11.4-16.0); Lymphocytes # (A) 2.8 k/uL (1.0-4.8); Lymphocytes % (A) 17 %; MCH 30.8 pg (25.0-35.0); MCV 90.5 fL (80.0-100.0); Mean Platelet Volume 7.1; Monocytes % (A) 6 %; Neutrophils # (A) 12.6 k/uL (1.3-7.7); Neutrophils % (A) 75 %; Platelet Count 190 k/uL (150-450); Poikilocytosis Slight; RBC 2.35 m/uL (3.80-5.40); RDW 16.7 % (11.5-15.5); WBC 16.7 k/uL (3.8-10.6)
[2018-04-01] MEDS: SODIUM CHLORIDE 0.9% 1,000 ML IV SCH ×3 (06:51→17:55)
[2018-04-01 06:59] LABS: Anisocytosis Slight; Basophils # (A) 0.1 k/uL (0-0.2); Basophils % (A) 0 %; Eosinophils # (A) 0.2 k/uL (0-0.7); Eosinophils % (A) 1 %; HCT 23.9 % (34.0-46.0); HGB 8.1 gm/dL (11.4-16.0); Lymphocytes # (A) 2.7 k/uL (1.0-4.8); Lymphocytes % (A) 21 %; MCH 30.6 pg (25.0-35.0); MCV 90.2 fL (80.0-100.0); Monocytes # (A) 0.7 k/uL (0-1.0); Monocytes % (A) 5 %; Neutrophils # (A) 9.2 k/uL (1.3-7.7); Neutrophils % (A) 71 %; Platelet Count 178 k/uL (150-450); Poikilocytosis Slight; RBC 2.64 m/uL (3.80-5.40); RDW 16.5 % (11.5-15.5); WBC 12.9 k/uL (3.8-10.6)
--- NOTE | 2018-04-01 08:02 | P.PN ---
Subjective Progress Note Date: 04/01/18 Principal diagnosis: GI bleed Moderate red BM last night. Received 5 units of blood since admisison; 1 last night. HGB 8.1. Denies abdominal pain. Afebrile. Feels well. No emesis. Objective - Vital Signs Vital signs: Vital Signs Temp 99.0 F 04/01/18 04:00 Pulse 82 04/01/18 04:00 Resp 18 04/01/18 04:00 BP 118/71 04/01/18 04:00 Pulse Ox 97 04/01/18 04:00 Intake & Output 03/31/18 04/01/18 04/01/18 18:59 06:59 18:59 Intake Total 2270 1435 310 Balance 2270 1435 310 Weight 83.9 kg Intake: IV 400 1125 Sodium Chloride 0.9% 1, 1125 000 ml @ 125 mls/hr IV . Q8H [facility] Rx#:[id number] Intake, IV Titration 1000 Amount Sodium Chloride 0.9% 1, 1000 000 ml @ 125 mls/hr IV . Q8H [facility] Rx#:[id number] Oral 250 Blood Product 620 310 310 Rc As-1 Unit 0 310 [id number] Rc As-3 Unit 310 [id number] Rc Pheresis 2 As3 Unit 310 [id number] Other: Voiding Method Toilet Toilet # Voids 2 1 # Bowel Movements 1 1 - Constitutional General appearance: Present: average body habitus - EENT Eyes: Present: normal appearance - Respiratory Respiratory: bilateral: CTA - Cardiovascular Heart sounds: normal: S1, S2 - Gastrointestinal General gastrointestinal: Present: soft - Labs CBC & Chem 7: 04/01/18 06:30 03/30/18 09:05 Labs: Abnormal Lab Results - Last 24 Hours (Table) 03/29/18 03/31/18 03/31/18 Range/Units 21:04 16:54 20:22 WBC 15.9 H 16.7 H (3.8-10.6) k/uL RBC 2.56 L 2.35 L (3.80-5.40) m/uL Hgb 8.0 L D 7.2 L (11.4-16.0) gm/dL Hct 22.8 L 21.2 L (34.0-46.0) % RDW 16.7 H (11.5-15.5) % Neutrophils # 12.1 H 12.6 H (1.3-7.7) k/uL Crossmatch See Detail 04/01/18 Range/Units 06:30 WBC 12.9 H (3.8-10.6) k/uL RBC 2.64 L (3.80-5.40) m/uL Hgb 8.1 L (11.4-16.0) gm/dL Hct 23.9 L (34.0-46.0) % RDW 16.5 H (11.5-15.5) % Neutrophils # 9.2 H (1.3-7.7) k/uL Crossmatch Assessment and Plan (1) Duodenal ulcer Current Visit: Yes Status: Acute Code(s): K26.9 - DUODENAL ULCER, UNSP ACUTE OR CHRONIC, W/O HEMOR OR PERF SNOMED Code(s): 78603035 (2) Upper GI bleed Current Visit: Yes Status: Acute Code(s): K92.2 - GASTROINTESTINAL HEMORRHAGE, UNSPECIFIED SNOMED Code(s): 64067078 Plan: 1. Protonix 40 mg BID. Clear liquids do not advance. Carafate 1 gram Ac-meals. CBC at noon. Assessment and plan of care discussed with Dr. Velasquez
--- NOTE | 2018-04-01 08:57 | P.PN ---
Subjective Progress Note Date: 04/01/18 Patient seen and examined at bedside. Doing well. She did have a moderate-sized bowel movement overnight that was notably bloody in color. She was given 1 additional unit of packed red blood cells at that time. She has received a total of 5 units of packed red blood cells since admission. Currently her hemoglobin is 8.1. This has trended up from 7.2 on her last draw yesterday evening. She has no complaints at this time. Tolerating clear liquid diet. Denies nausea or vomiting. Denies abdominal pain. Objective - Vital Signs Vital signs: Vital Signs Temp 99.0 F 04/01/18 04:00 Pulse 82 04/01/18 04:00 Resp 18 04/01/18 04:00 BP 118/71 04/01/18 04:00 Pulse Ox 97 04/01/18 04:00 Intake & Output 03/31/18 04/01/18 04/01/18 18:59 06:59 18:59 Intake Total 2270 1435 430 Balance 2270 1435 430 Weight 83.9 kg Intake: IV 400 1125 Sodium Chloride 0.9% 1, 1125 000 ml @ 125 mls/hr IV . Q8H [facility] Rx#:[id number] Intake, IV Titration 1000 Amount Sodium Chloride 0.9% 1, 1000 000 ml @ 125 mls/hr IV . Q8H [facility] Rx#:[id number] Oral 250 120 Blood Product 620 310 310 Rc As-1 Unit 0 310 [id number] Rc As-3 Unit 310 [id number] Rc Pheresis 2 As3 Unit 310 [id number] Other: Voiding Method Toilet Toilet # Voids 2 1 # Bowel Movements 1 1 - Constitutional General appearance: Present: cooperative, no acute distress - Respiratory Details: No difficulty with respiration - Gastrointestinal Gastrointestinal Comment(s): Soft, nontender, nondistended, no rebound, no guarding - Psychiatric Psychiatric: Present: A&O x's 3, appropriate affect - Labs CBC & Chem 7: 04/01/18 06:30 03/30/18 09:05 Labs: Abnormal Lab Results - Last 24 Hours (Table) 03/29/18 03/31/18 03/31/18 Range/Units 21:04 16:54 20:22 WBC 15.9 H 16.7 H (3.8-10.6) k/uL RBC 2.56 L 2.35 L (3.80-5.40) m/uL Hgb 8.0 L D 7.2 L (11.4-16.0) gm/dL Hct 22.8 L 21.2 L (34.0-46.0) % RDW 16.7 H (11.5-15.5) % Neutrophils # 12.1 H 12.6 H (1.3-7.7) k/uL Crossmatch See Detail 04/01/18 Range/Units 06:30 WBC 12.9 H (3.8-10.6) k/uL RBC 2.64 L (3.80-5.40) m/uL Hgb 8.1 L (11.4-16.0) gm/dL Hct 23.9 L (34.0-46.0) % RDW 16.5 H (11.5-15.5) % Neutrophils # 9.2 H (1.3-7.7) k/uL Crossmatch Assessment and Plan (1) Upper GI bleed Narrative/Plan: The patient is currently status post upper endoscopy for bleeding duodenal ulcer , status post clip, cauterization, epinephrine injection - Hemoglobin is 8.1, from 7.2 yesterday. She did receive 1 unit of packed red blood cells and seems to have responded appropriately. We will continue to monitor the patient with CBC draws throughout the day. Keep the patient on clear liquid diet. Continue Protonix. Continue Carafate. We'll continue to monitor for any surgical intervention. Current Visit: Yes Status: Acute Code(s): K92.2 - GASTROINTESTINAL HEMORRHAGE, UNSPECIFIED SNOMED Code(s): 39973452
[2018-04-01] MEDS: PANTOPRAZOLE 40 MG/10 ML VIAL IVP SCH ×2 (09:05→22:38)
[2018-04-01 11:27] VITALS: RESP 18
[2018-04-01] MEDS: SUCRALFATE 1 GM TAB PO SCH ×2 (11:40→17:59)
[2018-04-01 12:21] LABS: Anisocytosis Slight; Basophils % (A) 0 %; Eosinophils # (A) 0.2 k/uL (0-0.7); Eosinophils % (A) 1 %; HCT 23.5 % (34.0-46.0); Lymphocytes # (A) 2.1 k/uL (1.0-4.8); Lymphocytes % (A) 18 %; MCH 30.6 pg (25.0-35.0); MCHC 34.2 g/dL (31.0-37.0); MCV 89.6 fL (80.0-100.0); Monocytes # (A) 0.7 k/uL (0-1.0); Monocytes % (A) 5 %; Neutrophils % (A) 74 %; Platelet Count 183 k/uL (150-450); Poikilocytosis Slight; RBC 2.62 m/uL (3.80-5.40); RDW 17.1 % (11.5-15.5); WBC 12.1 k/uL (3.8-10.6)
--- NOTE | 2018-04-01 13:09 | P.PN ---
Subjective Patient was admitted for acute upper GI bleed. Patient received 1 unit of blood transfusion yesterday her hemoglobin dropped again today receiving 2 more units of blood transfusion patient underwent upper GI endoscopy which showed couple ulcers in the ER in him one of them is actively bleeding underwent the epinephrine injection along with Endo Clip. Patient had so far 2 all movements which are dark since morning probably the left lower blood from her previous bleeding. Patient will be monitored overnight if she doesn't have any bleeding probably can be discharged tomorrow continue with proton pump inhibitor IV 04/01/2018 Patient had 1 dark stool today morning because of which will need to monitor 1 more night. Patient will remain on clear liquid diet. Constitutional: Denied any fatigue denied any fever. Cardio vascular: denied any chest pain, palpitations Gastrointestinal denied any nausea vomiting Pulmonary: Denied any shortness of breath cough Neurologic denied any new focal deficits Objective - Vital Signs Vital signs: Vital Signs Temp 98.3 F 04/01/18 11:26 Pulse 77 04/01/18 11:26 Resp 18 04/01/18 11:26 BP 116/57 04/01/18 11:26 Pulse Ox 95 04/01/18 11:26 Intake & Output 03/31/18 04/01/18 04/01/18 18:59 06:59 18:59 Intake Total 2270 1435 550 Balance 2270 1435 550 Weight 83.9 kg Intake: IV 400 1125 Sodium Chloride 0.9% 1, 1125 000 ml @ 125 mls/hr IV . Q8H [facility] Rx#:[id number] Intake, IV Titration 1000 Amount Sodium Chloride 0.9% 1, 1000 000 ml @ 125 mls/hr IV . Q8H [facility] Rx#:[id number] Oral 250 240 Blood Product 620 310 310 As-1 Unit 0 310 [id number] Rc As-3 Unit 310 [id number] Rc Pheresis 2 As3 Unit 310 [id number] Other: Voiding Method Toilet Toilet Toilet # Voids 2 1 1 # Bowel Movements 1 1 1 - Exam PHYSICAL EXAMINATION: GENERAL: The patient is alert and oriented x3, not in any acute distress. Well developed, well nourished. HEENT: Pupils are round and equally reacting to light. EOMI. No scleral icterus. Does have conjunctival pallor. Normocephalic, atraumatic. No pharyngeal erythema. No thyromegaly. CARDIOVASCULAR: S1 and S2 present. No murmurs, rubs, or gallops. PULMONARY: Chest is clear to auscultation, no wheezing or crackles. ABDOMEN: Soft, nontender, nondistended, normoactive bowel sounds. No palpable organomegaly. MUSCULOSKELETAL: No joint swelling or deformity. EXTREMITIES: No cyanosis, clubbing, or pedal edema. NEUROLOGICAL: Gross neurological examination did not reveal any focal deficits. SKIN: No rashes. - Labs CBC & Chem 7: 04/01/18 11:46 03/30/18 09:05 Labs: Abnormal Lab Results - Last 24 Hours (Table) 03/29/18 03/31/18 03/31/18 Range/Units 21:04 16:54 20:22 WBC 15.9 H 16.7 H (3.8-10.6) k/uL RBC 2.56 L 2.35 L (3.80-5.40) m/uL Hgb 8.0 L D 7.2 L (11.4-16.0) gm/dL Hct 22.8 L 21.2 L (34.0-46.0) % RDW 16.7 H (11.5-15.5) % Neutrophils # 12.1 H 12.6 H (1.3-7.7) k/uL Crossmatch See Detail 04/01/18 04/01/18 Range/Units 06:30 11:46 WBC 12.9 H 12.1 H (3.8-10.6) k/uL RBC 2.64 L 2.62 L (3.80-5.40) m/uL Hgb 8.1 L 8.0 L (11.4-16.0) gm/dL Hct 23.9 L 23.5 L (34.0-46.0) % RDW 16.5 H 17.1 H (11.5-15.5) % Neutrophils # 9.2 H 9.0 H (1.3-7.7) k/uL Crossmatch Assessment and Plan Plan: -Acute blood loss anemia: Secondary to upper GI bleed from peptic ulcer disease patient is on Protonix, patient underwent upper GI endoscopy with epinephrine injection and Endo Clip. She had more dark stools today. Patient received total of 5 units of PRBC transfusion so far her hemoglobin today is stable at 8. -Hypertension patient is hypotensive secondary to GI bleed hold off hypertensive medication -Hyperlipidemia -Fall probably secondary to syncope from hypovolemia -Chronic back and neck pain status post recent surgery
[2018-04-01 13:31] VITALS: BMI 31.7
[2018-04-02] MEDS ORDERED: MELATONIN 3 MG TABLET PO PRN (00:03)
[2018-04-02] MEDS: SUCRALFATE 1 GM TAB PO SCH ×3 (06:52→16:34)
[2018-04-02] MEDS: SODIUM CHLORIDE 0.9% 1,000 ML IV SCH ×2 (06:56→08:06)
[2018-04-02 07:12] LABS: Anisocytosis Slight; Basophils % (A) 0 %; Eosinophils # (A) 0.2 k/uL (0-0.7); Eosinophils % (A) 2 %; HCT 23.3 % (34.0-46.0); HGB 7.8 gm/dL (11.4-16.0); Lymphocytes % (A) 22 %; MCH 30.7 pg (25.0-35.0); MCHC 33.7 g/dL (31.0-37.0); MCV 91.2 fL (80.0-100.0); Mean Platelet Volume 7.7; Monocytes # (A) 0.5 k/uL (0-1.0); Monocytes % (A) 6 %; Neutrophils # (A) 6.4 k/uL (1.3-7.7); Neutrophils % (A) 70 %; Platelet Count 194 k/uL (150-450); Poikilocytosis Slight; RBC 2.55 m/uL (3.80-5.40); RDW 16.9 % (11.5-15.5); WBC 9.2 k/uL (3.8-10.6)
[2018-04-02 07:35] LABS: ALT 24 U/L (9-52); AST 15 U/L (14-36); Albumin 2.3 g/dL (3.5-5.0); Alkaline Phosphatase 41 U/L (38-126); Anion Gap 3 mmol/L; Blood Urea Nitrogen 8 mg/dL (7-17); Calcium 7.6 mg/dL (8.4-10.2); Carbon Dioxide 27 mmol/L (22-30); Chloride 112 mmol/L (98-107); Glucose 113 mg/dL (74-99); Magnesium 1.5 mg/dL (1.6-2.3); Sodium 142 mmol/L (137-145); Total Bilirubin 0.5 mg/dL (0.2-1.3); Total Protein 4.1 g/dL (6.3-8.2)
[2018-04-02] MEDS ORDERED: Potassium Replacement Protocol 1 EACH MISC MISCELLANE PRN (07:49)
[2018-04-02] MEDS ORDERED: POTASSIUM CHLORIDE ER 20 MEQ TAB.ER PO STA ×2 (07:51→14:56)
[2018-04-02 08:02] VITALS: TEMP 98.3
[2018-04-02] MEDS: PANTOPRAZOLE 40 MG/10 ML VIAL IVP SCH (08:04)
--- NOTE | 2018-04-02 09:02 | P.PN ---
Subjective Progress Note Date: 04/02/18 Principal diagnosis: GI bleed Small darker red BM yesterday afternoon. Mild indigestion secondary to clear liquid diet patient feels hepatitis to suite. Hemoglobin 7.8 this morning down from 8.0 yesterday. Denies abdominal pain. Afebrile. Feels well. No emesis. Objective - Vital Signs Vital signs: Vital Signs Temp 98.3 F 04/02/18 08:01 Pulse 88 04/02/18 08:01 Resp 18 04/02/18 08:01 BP 98/64 04/02/18 08:01 Pulse Ox 95 04/02/18 08:01 Intake & Output 04/01/18 04/02/18 04/02/18 18:59 06:59 18:59 Intake Total 2700 125 1825 Output Total 2 250 Balance 2700 123 1575 Weight 83.9 kg 85.1 kg Intake: IV 3031 758 5990 Sodium Chloride 0.9% 1, 9377 298 3954 000 ml @ 125 mls/hr IV . Q8H [facility] Rx#:[id number] Oral 890 325 Blood Product 310 Rc As-1 Unit 310 [id number] Output: Urine 250 Urine/Stool Mix 2 Other: Voiding Method Toilet Toilet Toilet # Voids 1 2 1 # Bowel Movements 1 1 - Exam General appearance: The patient is alert, oriented, in no acute distress. HET: Head is normocephalic and atraumatic. Pupils are equal and reactive. Oropharynx is clear without lesions. Neck: Supple without lymphadenopathy. Trachea midline. Heart: S1 S2. Regular rate and rhythm. Lungs: No crackles or wheezes are heard. Abdomen: Soft, mild soreness in the midepigastrium, nondistended with bowel sounds. No peritoneal signs. No palpable organomegaly or masses. Extremities: Normal skin color and turgor. No cyanosis, rash, ulceration, clubbing, or edema. Radial and pedal pulses are 2/4 bilaterally. Neurological: No focal deficits. Strength and sensation are grossly intact. - Labs CBC & Chem 7: 04/02/18 06:57 04/02/18 06:57 Labs: Abnormal Lab Results - Last 24 Hours (Table) 04/01/18 04/02/18 04/02/18 Range/Units 11:46 06:57 06:57 WBC 12.1 H (3.8-10.6) k/uL RBC 2.62 L 2.55 L (3.80-5.40) m/uL Hgb 8.0 L 7.8 L (11.4-16.0) gm/dL Hct 23.5 L 23.3 L (34.0-46.0) % RDW 17.1 H 16.9 H (11.5-15.5) % Neutrophils # 9.0 H (1.3-7.7) k/uL Potassium 3.0 L* (3.5-5.1) mmol/L Chloride 112 H (98-107) mmol/L Glucose 113 H (74-99) mg/dL Calcium 7.6 L (8.4-10.2) mg/dL Magnesium 1.5 L (1.6-2.3) mg/dL Total Protein 4.1 L (6.3-8.2) g/dL Albumin 2.3 L (3.5-5.0) g/dL Microbiology - Last 24 Hours (Table) 03/31/18 20:22 Blood Culture - Preliminary Blood No Growth after 24 hours Assessment and Plan (1) Duodenal ulcer Current Visit: Yes Status: Acute Code(s): K26.9 - DUODENAL ULCER, UNSP ACUTE OR CHRONIC, W/O HEMOR OR PERF SNOMED Code(s): 37740438 (2) Upper GI bleed Current Visit: Yes Status: Acute Code(s): K92.2 - GASTROINTESTINAL HEMORRHAGE, UNSPECIFIED SNOMED Code(s): 47831759 Plan: 1. Protonix 40 mg BID. Ensure 3 times daily with meals. Carafate 1 gram Ac- meals. CBC at noon. May advance diet to full liquids after seen by general surgery and if they are agreeable. We'll continue to follow with you. CBC at 1400. Assessment and plan of care discussed with Dr. Velasquez
[2018-04-02] MEDS ORDERED: POTASSIUM CHLORIDE ER 20 MEQ TAB.ER PO ONE (10:00)
--- NOTE | 2018-04-02 11:26 | P.PN ---
Subjective Progress Note Date: 04/02/18 Patient seen and examined at bedside. States she is feeling much better. She had 1 bowel movement over night that she states was dark in color but not bright red blood like the previous night. She denies any nausea vomiting. She states that she does still feel some minor burning in her epigastrium. Objective - Vital Signs Vital signs: Vital Signs Temp 98.3 F 04/02/18 08:01 Pulse 88 04/02/18 08:01 Resp 18 04/02/18 08:01 BP 98/64 04/02/18 08:01 Pulse Ox 95 04/02/18 08:01 Intake & Output 04/01/18 04/02/18 04/02/18 18:59 06:59 18:59 Intake Total 2700 125 1825 Output Total 2 250 Balance 2700 123 1575 Weight 83.9 kg 85.1 kg Intake: IV 9218 258 4508 Sodium Chloride 0.9% 1, 9975 177 2422 000 ml @ 125 mls/hr IV . Q8H [facility] Rx#:[id number] Oral 890 325 Blood Product 310 Rc As-1 Unit 310 [id number] Output: Urine 250 Urine/Stool Mix 2 Other: Voiding Method Toilet Toilet Toilet # Voids 1 2 1 # Bowel Movements 1 1 - Constitutional General appearance: Present: cooperative, no acute distress - EENT ENT: Present: hearing grossly normal - Respiratory Details: No difficulty with respiration - Gastrointestinal Gastrointestinal Comment(s): Soft, nontender, nondistended, no rebound, no guarding - Psychiatric Psychiatric: Present: A&O x's 3, appropriate affect - Labs CBC & Chem 7: 04/02/18 06:57 04/02/18 06:57 Labs: Abnormal Lab Results - Last 24 Hours (Table) 04/01/18 04/02/18 04/02/18 Range/Units 11:46 06:57 06:57 WBC 12.1 H (3.8-10.6) k/uL RBC 2.62 L 2.55 L (3.80-5.40) m/uL Hgb 8.0 L 7.8 L (11.4-16.0) gm/dL Hct 23.5 L 23.3 L (34.0-46.0) % RDW 17.1 H 16.9 H (11.5-15.5) % Neutrophils # 9.0 H (1.3-7.7) k/uL Potassium 3.0 L* (3.5-5.1) mmol/L Chloride 112 H (98-107) mmol/L Glucose 113 H (74-99) mg/dL Calcium 7.6 L (8.4-10.2) mg/dL Magnesium 1.5 L (1.6-2.3) mg/dL Total Protein 4.1 L (6.3-8.2) g/dL Albumin 2.3 L (3.5-5.0) g/dL Microbiology - Last 24 Hours (Table) 03/31/18 20:22 Blood Culture - Preliminary Blood No Growth after 24 hours Assessment and Plan (1) Upper GI bleed Narrative/Plan: The patient is currently status post upper endoscopy for bleeding duodenal ulcer , status post clip, cauterization, epinephrine injection - Hemoglobin has remained stable - Advance to full liquid diet - Continue Protonix, continue Carafate - Will continue to monitor, currently the patient seems to have stabilized from her bleed and there is no plan for any acute surgical intervention. If rebleed , will need reassessment for any intervention. Current Visit: Yes Status: Acute Code(s): K92.2 - GASTROINTESTINAL HEMORRHAGE, UNSPECIFIED SNOMED Code(s): 97305949
[2018-04-02] MEDS: MAGNESIUM SULFATE-D5W PMX 1 GM in DEXTROSE/WATER 1 100ML.BAG IVPB SCH ×2 (12:20→13:25)
--- NOTE | 2018-04-02 13:12 | P.DS ---
Providers Date of admission: 03/29/18 22:09 Attending physician: Mckayla Romano MD Consults: 03/29/18 22:31 Consult Physician Routine Consulting Provider: Reggie Burrows Consult Reason/Comments: GI bleed Do you want consulting provider notified?: Yes, Notify in am 03/31/18 09:15 Consult Physician Routine Consulting Provider: Attila Mckenzie Consult Reason/Comments: GI bleed, duodenal ulcer cauterized Do you want consulting provider notified?: Yes Primary care physician: Mike [facility] Course: Patient was admitted for acute upper GI bleed. Patient received 1 unit of blood transfusion yesterday her hemoglobin dropped again today receiving 2 more units of blood transfusion patient underwent upper GI endoscopy which showed couple ulcers in the ER in him one of them is actively bleeding underwent the epinephrine injection along with Endo Clip. Patient had so far 2 all movements which are dark since morning probably the left lower blood from her previous bleeding. Patient will be monitored overnight if she doesn't have any bleeding probably can be discharged tomorrow continue with proton pump inhibitor IV 04/01/2018 Patient had 1 dark stool today morning because of which will need to monitor 1 more night. Patient will remain on clear liquid diet. 04/02/2018 Patient the doesn't have black tarry stools but little darker stools today. Although her hemoglobin remained stable. Patient doesn't have any recent CVA or myocardial infarction because of which I'll discuss continue aspirin as well as nonsteroidal anti-inflammatory disease patient was discharged on Prilosec and simethicone. If cleared by gastroenterology after his repeat hemoglobin patient will be discharged later today. Patient is hypomagnesemic and hypokalemic both of these will be supplemented. Her hypokalemia is secondary to natriuresis PHYSICAL EXAMINATION: GENERAL: The patient is alert and oriented x3, not in any acute distress. Well developed, well nourished. HEENT: Pupils are round and equally reacting to light. EOMI. No scleral icterus. Does have conjunctival pallor. Normocephalic, atraumatic. No pharyngeal erythema. No thyromegaly. CARDIOVASCULAR: S1 and S2 present. No murmurs, rubs, or gallops. PULMONARY: Chest is clear to auscultation, no wheezing or crackles. ABDOMEN: Soft, nontender, nondistended, normoactive bowel sounds. No palpable organomegaly. MUSCULOSKELETAL: No joint swelling or deformity. EXTREMITIES: No cyanosis, clubbing, or pedal edema. NEUROLOGICAL: Gross neurological examination did not reveal any focal deficits. SKIN: No rashes. Assessment and Plan Plan: -Acute blood loss anemia: Secondary to upper GI bleed from peptic ulcer disease patient is on Protonix, patient underwent upper GI endoscopy with epinephrine injection and Endo Clip. Patient's hemoglobin remained fairly stable patient the dark is probably from the previous bleed -Hypertension patient is hypotensive secondary to GI bleed hold off hypertensive medication -Hyperlipidemia -Fall probably secondary to syncope from hypovolemia -Chronic back and neck pain status post recent surgery Plan - Discharge Summary Discharge Rx Participant: No New Discharge Prescriptions: New Omeprazole [PriLOSEC] 40 mg PO BID #60 capsule. Sucralfate [Carafate] 1 gm PO AC-TID #60 tab Continue Atorvastatin [Lipitor] 40 mg PO HS Discontinued Ibuprofen [Motrin] 400 mg PO Q6HR PRN PRN Reason: Mild To Moderate Pain Losartan/Hydrochlorothiazide [Losartan-Hctz 50-12.5 mg Tab] 1 tab PO DAILY Ranitidine HCl [Zantac] 150 mg PO DAILY Aspirin 81 mg PO DAILY Discharge Medication List Atorvastatin [Lipitor] 40 mg PO HS 02/10/18 [History] Omeprazole [PriLOSEC] 40 mg PO BID #60 capsule. 04/02/18 [Rx] Sucralfate [Carafate] 1 gm PO AC-TID #60 tab 04/02/18 [Rx] Follow up Appointment(s)/Referral(s): Ambika Velasquez MD [STAFF PHYSICIAN] - 05/14/18 2:15 pm Mike Aguayo DO [Primary Care Provider] - 04/06/18 11:00 am (Friday with the PA) Patient Instructions/Handouts: Gastrointestinal Bleeding (DC), Diet for Stomach Ulcers and Gastritis (GEN), Iron Rich Diet (DC), Syncope (DC), Anemia ( DC) Activity/Diet/Wound Care/Special Instructions: [facility] - [phone] Discharge Disposition: HOME WITH HOME HEALTH SERVICES
[2018-04-02 14:43] LABS: Anisocytosis Slight; Basophils % (A) 0 %; Eosinophils # (A) 0.2 k/uL (0-0.7); Eosinophils % (A) 2 %; HCT 23.4 % (34.0-46.0); HGB 7.9 gm/dL (11.4-16.0); Lymphocytes # (A) 1.7 k/uL (1.0-4.8); Lymphocytes % (A) 18 %; MCH 30.7 pg (25.0-35.0); MCHC 33.5 g/dL (31.0-37.0); MCV 91.4 fL (80.0-100.0); Mean Platelet Volume 7.6; Monocytes # (A) 0.5 k/uL (0-1.0); Monocytes % (A) 5 %; Neutrophils % (A) 74 %; Platelet Count 207 k/uL (150-450); Poikilocytosis Slight; RBC 2.56 m/uL (3.80-5.40); RDW 16.9 % (11.5-15.5); WBC 9.4 k/uL (3.8-10.6)
[2018-04-02 14:48] VITALS: BP 107/66; PULSE 83
[2018-04-02 16:02] LABS: Appearance,Urine Clear (Clear); Bacteria,Urine Rare /hpf; Bilirubin,Urine Negative (Negative); Blood,Urine Trace (Negative); Color,Urine Light Yellow; Glucose,Urine (UA) Negative (Negative); Ketones,Urine Negative (Negative); Leukocyte Esterase,Urine Trace (Negative); Mucus,Urine Occasional /hpf; Nitrite,Urine Negative (Negative); Protein,Urine Negative (Negative); RBC,Urine <1 /hpf (0-5); Specific Gravity,Urine 1.006 (1.001-1.035); Urobilinogen,Urine <2.0 mg/dL (<2.0); WBC,Urine 4 /hpf (0-5)
== END 2018-04-02 19:53 | disposition home health service (06) | DRG 378 ==
LOC: EC 20:42 → 6SEL 22:09
PROVIDERS: ADMIT Internal Medicine; ATTEND Internal Medicine
PROC: 30233N1 Transfusion of Nonautologous Red Blood Cells into Peripheral Vein, Percutaneous Approach (ICD-10-PCS; principal; 2018-03-29)
PROC: 0DB78ZX Excision of Stomach, Pylorus, Via Natural or Artificial Opening Endoscopic, Diagnostic (ICD-10-PCS; 2018-03-31 07:00)
PROC: 0DB98ZX Excision of Duodenum, Via Natural or Artificial Opening Endoscopic, Diagnostic (ICD-10-PCS; 2018-03-31 07:00)
PROC: 0W3P8ZZ Control Bleeding in Gastrointestinal Tract, Via Natural or Artificial Opening Endoscopic (ICD-10-PCS; 2018-03-31 07:00)
DX: K26.4 Chronic or unspecified duodenal ulcer with hemorrhage (principal); D62 Acute posthemorrhagic anemia; E87.2 Acidosis; E78.00 Pure hypercholesterolemia, unspecified; E78.5 Hyperlipidemia, unspecified; E83.42 Hypomagnesemia; E86.1 Hypovolemia; E87.6 Hypokalemia; G89.29 Other chronic pain; I10 Essential (primary) hypertension; S00.83XA Contusion of other part of head, initial encounter; W19.XXXA Unspecified fall, initial encounter; R40.2142 Coma scale, eyes open, spontaneous, at arrival to emergency department; R40.2362 Coma scale, best motor response, obeys commands, at arrival to emergency department; R40.2252 Coma scale, best verbal response, oriented, at arrival to emergency department; Z79.82 Long term (current) use of aspirin; Z79.899 Other long term (current) drug therapy; Z80.0 Family history of malignant neoplasm of digestive organs; Z82.49 Family history of ischemic heart disease and other diseases of the circulatory system; Z83.3 Family history of diabetes mellitus; Z87.891 Personal history of nicotine dependence
CPT/HCPCS: 36415; 43243; 43255; 70450; 71045; 72125; 80048; 80053; 81001; 82272; 83605; 83735; 84132; 84484; 85025; 85610; 85730; 86850; 86900; 86901; 86920; 87040; 87086; 88305; 93005; 94760; 96361; 96374; 99285

== ENCOUNTER → 2019-02-23 | Outpatient (CLI) | payer OTHER ==
--- NOTE | 2019-02-24 11:02 | MM ---
Reason for exam: screening (asymptomatic). History: Patient is postmenopausal. Family history of breast cancer in maternal cousin. Physical Findings: A clinical breast exam by your physician is recommended on an annual basis and results should be correlated with mammographic findings. MG Screening Mammo w CAD Bilateral CC and MLO view(s) were taken. No prior studies available for comparison. There are scattered fibroglandular densities. No discrete abnormality. ASSESSMENT: Negative, BI-RAD 1 RECOMMENDATION: Routine screening mammogram of both breasts in 1 year.
== END | disposition home or self-care (01) ==
LOC: RADMAMWWP 15:09
PROVIDERS: ATTEND Family Medicine
DX: Z12.31 Encounter for screening mammogram for malignant neoplasm of breast (principal)
CPT/HCPCS: 77067

== ENCOUNTER → 2022-02-06 | Outpatient (CLI) | payer MEDICARE, OTHER ==
--- NOTE | 2022-02-08 09:04 | CA ---
Transthoracic Echo Report Name: Rosita Ngo Age: 66 Gender: F : 1955 Exam Date: 02/06/2022 15:14 Exam Location: [place] Echo Ht (in): 64 Wt (lb): 202 Ordering Physician: Jahaira Cantor MD Attending/Referring Phys: Vice President Industrial Relations Kari Cifuentes RDCS Procedure CPT: Indications: R06.09 DYSPNEA R01.1 MURMUR Cardiac Hx: Hx of severe aortic stenosis. Technical Quality: Good Contrast 1: Total Dose (mL): Contrast 2: Total Dose (mL): MEASUREMENTS (Male / Female) Normal Values 2D ECHO LV Diastolic Diameter PLAX 4.4 cm 4.2 - 5.9 / 3.9 - 5.3 cm LV Systolic Diameter PLAX 2.1 cm IVS Diastolic Thickness 1.4 cm 0.6 - 1.0 / 0.6 - 0.9 cm LVPW Diastolic Thickness 1.5 cm 0.6 - 1.0 / 0.6 - 0.9 cm LV Relative Wall Thickness 0.7 RV Internal Dim ED PLAX 1.9 cm LVOT Diameter 1.5 cm LA Volume 33.8 cm??? 18 - 58 / 22 - 52 cm??? M-MODE Aortic Root Diameter MM 2.8 cm LA Systolic Diameter MM 3.2 cm LA Ao Ratio MM 1.1 MV E Point Septal Separation 1.2 cm AV Cusp Separation MM 1.0 cm DOPPLER AV Peak Velocity 478.3 cm/s AV Peak Gradient 91.5 mmHg AV Mean Velocity 363.7 cm/s AV Mean Gradient 58.5 mmHg AV Velocity Time Integral 99.0 cm AI Peak Velocity 316.1 cm/s AI Peak Gradient 40.0 mmHg AI Pressure Half Time 677.3 ms LVOT Peak Velocity 41.4 cm/s LVOT Peak Gradient 0.7 mmHg AV Area Cont Eq pk 0.2 cm??? MV Area PHT 3.8 cm??? MR Peak Velocity 201.4 cm/s MR Peak Gradient 16.2 mmHg Mitral E Point Velocity 79.8 cm/s Mitral A Point Velocity 78.2 cm/s Mitral E to A Ratio 1.0 MV Deceleration Time 200.7 ms MV E' Velocity 4.0 cm/s Mitral E to MV E' Ratio 19.8 TR Peak Velocity 258.4 cm/s TR Peak Gradient 26.7 mmHg Right Ventricular Systolic Press 46.4 mmHg FINDINGS Left Ventricle Moderately increased septal wall thickness. Moderately increased posterior wall thickness. Left ventricular ejection fraction is estimated at 55-60 %. Left ventricular cavity size normal. Grade 1 diastolic dysfunction. Right Ventricle The right ventricle is normal in size and function. Moderate pulmonary hypertension. Right Atrium The right atrium is normal in size. Left Atrium The left atrium is normal in size. Mitral Valve Structurally normal mitral valve without significant stenosis or prolapse. There is no mitral regurgitation. Aortic Valve Severe aortic stenosis with a peak gradient 91 mmHg, mean gradient 58 mmHg, and estimated aortic valve area of 0.2 cm???. . There is mild aortic regurgitation. Tricuspid Valve Structurally normal tricuspid valve without significant stenosis. Pulmonary artery systolic pressure is normal. Pulmonic Valve Structurally normal pulmonic valve without significant stenosis. There is no pulmonic regurgitation. Pericardium Normal pericardium without effusion. Aorta Normal aortic root dimension. CONCLUSIONS Normal left ventricular dimension and systolic function Severe aortic stenosis with a mean gradient of 58 mmHg Previewed by: Dr. Alvaro Carranza MD (Electronically Signed) Final Date: 08 Feb 2022 09:03
== END | disposition home or self-care (01) ==
LOC: RADECHMAIN 15:01
PROVIDERS: ATTEND Family Medicine
DX: I35.0 Nonrheumatic aortic (valve) stenosis (principal)
CPT/HCPCS: 93306

== ENCOUNTER 2022-06-12 07:37 | Day surgery (SDC) | payer MEDICARE, OTHER ==
[2022-06-10 15:26] VITALS: BMI 36.0
[~2022-06-12 07:37] MED LIST: ALPRAZolam 0.25 MG TAB PO PRN; ALPRAZolam 0.5 MG TAB PO PRN; ASPIRIN 325 MG TAB PO ONE; NITROGLYCERIN SL TABS 0.4 MG TAB SUBLINGUAL PRN; SODIUM CHLORIDE 0.9% 1,000 ML in EMPTY BAG 1 BAG IV SCH
[2022-06-12 08:03] VITALS: TEMP 98.5
[2022-06-12] MEDS ORDERED: fentaNYL (PF) 50 MCG/ML 2 ML AMP ONE (08:49)
[2022-06-12] MEDS ORDERED: VERAPAMIL 2.5 MG/ML 2 ML AMP ONE (09:00)
[2022-06-12] MEDS ORDERED: BENZOCAINE SPRAY 1 CAN MUCOUS MEM ONE ×2 (09:02→09:08)
[2022-06-12] MEDS ORDERED: MIDAZOLAM 2 MG/2 ML VIAL IV ONE (09:09)
[2022-06-12] MEDS ORDERED: fentaNYL (PF) 50 MCG/ML 2 ML AMP IV ONE (09:09)
[2022-06-12] MEDS ORDERED: HEPARIN SODIUM 1,000 UN/ML (10ML VL) ONE (09:44)
[2022-06-12] MEDS ORDERED: LIDOCAINE 1% INJ 10MG/ML (30 ML VIAL-PF) SQ ONE (09:47)
[2022-06-12] MEDS ORDERED: VERAPAMIL SYRINGE (5 MG/10 ML) INTRAARTER ONE (09:50)
[2022-06-12] MEDS ORDERED: HEPARIN SODIUM 1,000 UN/ML (10ML VL) IVP ONE (09:52)
[2022-06-12] MEDS ORDERED: IOPAMIDOL-370 125ML BTL INJ ONE (10:20)
[2022-06-12] MEDS ORDERED: IOPAMIDOL-370 50ML BTL INJ ONE (10:20)
[2022-06-12] MEDS ORDERED: EZETIMIBE 10 MG TAB PO STA (10:41)
[2022-06-12 10:56] VITALS: RESP 16
[2022-06-12] MEDS ORDERED: SODIUM CHLORIDE 0.9% 1,000 ML IV SCH (11:00)
[2022-06-12 12:52] VITALS: BP 151/65; PULSE 70
--- NOTE | 2022-06-12 21:21 | CC ---
CARDIAC CATHETERIZATION REPORT INDICATION: Aortic stenosis. PROCEDURE NOTE: After obtaining informed consent, left heart catheterization, coronary angiogram, and aortogram were performed via the right radial artery. The patient tolerated the procedure well without any obvious immediate complications. She received moderate conscious sedation. Total sedation time was 55 minutes. A TR band was used for hemostasis at the end of the procedure. I obtained right radial artery access using a micropuncture needle with Seldinger technique, and catheter and wires were floated into the ascending aorta under fluoroscopic guidance. The patient tolerated the procedure well without any obvious immediate complications. The right coronary artery was engaged using a size 3.5 Virginia catheter. The left coronary artery was engaged using a Frankie catheter after I was unsuccessful engaging it with the Virginia catheter. An aortogram was performed using the pigtail catheter. FINDINGS: 1. Hemodynamics: Central aortic pressure is 130/70 mmHg. 2. Left ventriculogram: Left ventriculogram is not performed. 3. Aortogram is performed in left lateral position, shows a mildly dilated ascending aorta with 2 to 3+ aortic regurgitation. 4. Right coronary artery is a large dominant vessel and is free of significant stenosis. 5. Left main coronary artery is a short vessel, divides into circumflex coronary artery and LAD. Circumflex coronary artery and its branches are free of significant disease. LAD gives off a large-caliber diagonal branch. LAD and its branches are free of significant stenosis. LAD is sub-selectively visualized. CONCLUSIONS: 1. Normal coronary arteries. 2. 2 to 3+ aortic regurgitation. PLAN: I will refer the patient for aortic valve replacement. MMODL / IJN: [id number] /
--- NOTE | 2022-06-12 21:21 | LTR ---
Dear Liyah: I performed EZIO and cardiac catheterization on Rosita Ngo as I get her ready for aortic valve replacement. She has severe symptomatic aortic stenosis with normal coronaries and will need aortic valve replacement. Thank you for allowing us to participate with this pleasant lady. ROSARIO / DIANA: [id number] /
--- NOTE | 2022-06-13 09:13 | ECHOT ---
TRANSESOPHAGEAL ECHOCARDIOGRAM INDICATION: Symptomatic aortic stenosis. PROCEDURE NOTE: After obtaining informed consent, transesophageal echocardiogram was performed in left lateral position using an Omniplane probe. Local and IV sedation were obtained using Xylocaine spray, 2 mg of Versed, and 25 mcg of fentanyl. The patient tolerated the procedure well without any obvious immediate complications. The patient received moderate conscious sedation. Total sedation time was 10 minutes. FINDINGS: 1. Aortic valve is a 3-leaflet valve, appears heavily calcified with severe restriction in leaflet mobility by planimetry. The valve area comes out to be 0.5 sq cm. Ascending aorta appears mildly enlarged. There is dqsn-ot-kuijceqe atherosclerotic changes involving the aorta. There is moderate aortic regurgitation noted. There is mild mitral regurgitation noted. Mild tricuspid regurgitation noted. 2. Left atrium, right atrium, right ventricle seen within normal limits. 3. Left ventricle has normal size and systolic function. 4. Interatrial septum: There is no evidence of iaei-ln-islib shunt by color-flow Doppler or fkdyo-fl-tqaz shunt by agitated saline contrast study. 5. There is no sivx-ne-nqnbr shunt by color-flow Doppler or drgiy-nt-rwgq shunt by agitated saline contrast study. CONCLUSIONS: 1. Severe aortic stenosis involving the tricuspid aortic valve with a valve area of 0.5 sq cm by planimetry. 2. Moderate aortic regurgitation. 3. Mildly dilated ascending aorta with the root measuring within normal limits. 4. Normal LV function. MMODL / IJN: [id number] /
== END 2022-06-12 15:06 | disposition home or self-care (01) ==
LOC: CATHCVL 07:37
PROVIDERS: ATTEND Internal Medicine Cardiovascular Disease
DX: I35.2 Nonrheumatic aortic (valve) stenosis with insufficiency (principal); I65.21 Occlusion and stenosis of right carotid artery; I10 Essential (primary) hypertension; E78.2 Mixed hyperlipidemia; I45.10 Unspecified right bundle-branch block; F17.210 Nicotine dependence, cigarettes, uncomplicated; Z79.899 Other long term (current) drug therapy; Z88.5 Allergy status to narcotic agent; Z83.79 Family history of other diseases of the digestive system
CPT/HCPCS: 93312; 93320; 93325; 93454; 93567; C1769 ×3; C1894; J2250; J2001; J3010; J1644; Q9967 ×2; 93458

== ENCOUNTER → 2023-02-05 | Outpatient (CLI) | payer MEDICARE, OTHER ==
--- NOTE | 2023-02-05 10:12 | P.PN ---
Progress Note - Text Progress Note Date: 02/05/23 5 meter walk test completed without difficulty, patient walked with cane: #1 4.34 sec #2 4.37 sec #3 4.20 sec STS risk score will be calculated once testing completed and discussed with patient.
[2023-02-05 10:32] LABS: INR 0.9 (<1.2); Partial Thromboplastin Time 25.6 sec (22.0-30.0); Prothrombin Time 9.8 sec (9.0-12.0)
--- NOTE | 2023-02-05 14:51 | XR ---
EXAMINATION TYPE: XR chest 2V DATE OF EXAM: 02/05/2023 10:32 AM COMPARISON: Chest radiographs from 03/31/2018. TECHNIQUE: XR chest 2V Frontal and lateral views of the chest. CLINICAL INDICATION:Female, 67 years old with history of OPEN HEART; FINDINGS: Lungs/Pleura: There is no evidence of pleural effusion, focal consolidation, or pneumothorax. Pulmonary vascularity: Unremarkable. Heart/mediastinum: Cardiomediastinal silhouette is unremarkable. Musculoskeletal: No acute osseous pathology. There is fixation hardware in the lower cervical spine. IMPRESSION: 1. No acute cardiopulmonary disease process. 2. COPD changes.
[2023-02-05 15:20] LABS: HCT 41.1 % (37.2-46.3); HGB 12.8 g/dL (12.0-15.0); MCH 30.1 pg (27.0-32.0); MCHC 31.1 g/dL (32.0-37.0); MCV 96.7 fL (80.0-97.0); Mean Platelet Volume 11.1 fL (9.5-12.2); NRBC Per 100 WBC 0 /100 WBCS (0.0-0.0); Platelet Count 239 X 10*3/uL (140-440); RBC 4.25 X 10*6/uL (4.10-5.20); RDW 13.3 % (11.5-14.5); WBC 9.33 X 10*3/uL (4.50-10.00)
[2023-02-05 15:54] LABS: Hepatitis A Antibody IgM Nonreactive (Nonreactive); Hepatitis B Core IgM Nonreactive (Nonreactive); Hepatitis B Surface Antigen Nonreactive (Nonreactive); Hepatitis C IgG Antibody Nonreactive (Nonreactive)
[2023-02-05 16:01] LABS: ALT 21 U/L (8-44); AST 21 U/L (13-35); African American GFR (CKD) 61.8 (60.0-200.0); Albumin 4.4 g/dL (3.8-4.9); Albumin/Globulin Ratio 1.69 (1.60-3.17); Alkaline Phosphatase 100 U/L (41-126); Blood Urea Nitrogen 24.5 mg/dL (9.0-27.0); Calcium 9.2 mg/dL (8.7-10.3); Carbon Dioxide 25.6 mmol/L (20.0-27.5); Chloride 105 mmol/L (96-109); Chol/HDL Ratio 3.36 Ratio; Globulin 2.6 g/dL (1.6-3.3); Glucose 186 mg/dL (70-110); LDL Cholesterol,Calculated 72.9 mg/dL (0.0-131.0); Magnesium 2.1 mg/dL (1.5-2.4); Non-African American GFR(CKD) 53.3 (60.0-200.0); Potassium 4.6 mmol/L (3.5-5.5); Sodium 143 mmol/L (135-145)
[2023-02-06 04:23] LABS: Appearance,Urine Turbid (Clear); Bilirubin,Urine Negative (Negative); Blood,Urine Small (Negative); Color,Urine Yellow (Yellow); Ketones,Urine Negative (Negative); Nitrite,Urine Negative (Negative); Specific Gravity,Urine 1.023 (1.001-1.030); Urobilinogen,Urine 0.2 (0.2,1.0)
[2023-02-06 04:24] LABS: Bacteria,Urine None Seen /HPF (None Seen)
--- NOTE | 2023-02-06 13:49 | US ---
EXAMINATION TYPE: US vein mapping BIL DATE OF EXAM: 02/05/2023 11:12 AM COMPARISON: NONE CLINICAL INDICATION: Female, 67 years old with history of OPEN HEART; SIDE PERFORMED: Bilateral TECHNIQUE: Lower extremity saphenous vein is examined and measured utilizing real time linear array sonography. Patient History: Smoker: Yes, 40 yrs ago Heart Disease: No Previous DVT: No Vascular Surgery: No Discoloration: No Hypertension: Yes Diabetes: No Paralysis: No Varicosities: Yes Edema: No DUPLEX FINDINGS: Greater Saphenous: Color flow seen Measurements in mm: Right Greater Saphenous: Groin: 5.0x7.0 mm High Thigh: 4.6x5.3 mm Mid Thigh: 5.2x5.9 mm Above Knee: 4.5x4.1 mm Knee: 3.6x4.1 mm Below Knee: 4.0x4.2 mm Mid Calf: 3.6x3.5 mm At Ankle: 3.5x3.5 mm Left Greater Saphenous: Groin: 1.1x1.9 mm High Thigh: 6.6x6.1 mm Mid Thigh: 5.8x6.8 mm Above Knee: 5.7x5.6 mm Knee: 3.7x4.3 mm Below Knee: 3.7x4.0 mm Mid Calf: 3.0x3.2 mm At Ankle: 3.2x3.2 mm IMPRESSION: 1. Bilateral GSV measurements listed above. 2. Performing surgeon to determine viability as conduit.
== END | disposition home or self-care (01) ==
LOC: LABWHC1 09:08
PROVIDERS: ATTEND Surgery
DX: J44.9 Chronic obstructive pulmonary disease, unspecified (principal); I35.0 Nonrheumatic aortic (valve) stenosis; I45.10 Unspecified right bundle-branch block; R94.31 Abnormal electrocardiogram [ECG] [EKG]
CPT/HCPCS: 36415; 71046; 80053; 80061; 80074; 81001; 83036; 83735; 84443; 85027; 85610; 85730; 87070; 87086; 93005; 93970

== ENCOUNTER 2023-02-11 08:00 | Inpatient (IN) | payer MEDICARE, OTHER ==
[2023-02-14] MEDS ORDERED: METOPROLOL TARTRATE 12.5 MG TAB PO ONE (05:00)
[2023-02-14] MEDS ORDERED: ALBUMIN HUMAN 25% 50 ML IV ONE (05:00)
[2023-02-14] MEDS ORDERED: PHENYLEPHRINE 40 MG in SODIUM CHLORIDE 0.9% 250 ML IV ONE (05:00)
[2023-02-14] MEDS ORDERED: LACTATED RINGERS 1,000 ML IV ONE (05:00)
[2023-02-14] MEDS ORDERED: NITROGLYCERIN-D5W PMX 25 MG/250 ML BTL IV ONE (05:00)
[2023-02-14] MEDS ORDERED: ALBUMIN HUMAN 5% 500 ML IVPB ONE (05:00)
[2023-02-14] MEDS ORDERED: ELECTROLYTE-A SOLUTION 1,000 ML with POTASSIUM CHLORIDE 100 MEQ, MAGNESIUM SULFATE 16 M... IV ONE ×5 (05:00)
[2023-02-14] MEDS ORDERED: ATORVASTATIN 10 MG TAB PO ONE (05:00)
[2023-02-14] MEDS ORDERED: NITROGLYCERIN SL TABS 0.4 MG TAB SUBLINGUAL ONE (05:00)
[2023-02-14] MEDS ORDERED: CHLORHEXIDINE GLUCONATE 15 ML CUP MUCOUS MEM ONE (05:00)
[2023-02-14] MEDS ORDERED: PROTAMINE SULFATE 250 MG in EMPTY BAG 1 BAG IV ONE (05:00)
[2023-02-14] MEDS ORDERED: PHENYLEPHRINE 10 MG/ML VIAL IV ONE (05:00)
[2023-02-14] MEDS ORDERED: TRANEXAMIC ACID 2,000 MG in SODIUM CHLORIDE 0.9% 80 ML IV ONE ×4 (05:00)
[2023-02-14] MEDS ORDERED: ELECTROLYTE-A SOLUTION 1,000 ML with POTASSIUM CHLORIDE 40 MEQ, MAGNESIUM SULFATE 16 ME... IV ONE ×5 (05:00)
[2023-02-14] MEDS ORDERED: PAPAVERINE 360 MG in SODIUM CHLORIDE 0.9% 90 ML IV ONE ×2 (05:00→10:03)
[2023-02-14] MEDS ORDERED: MAGNESIUM SULFATE 16.24 MEQ in EMPTY SYRINGE 1 SYR IV ONE (05:00)
[2023-02-14] MEDS ORDERED: NITROGLYCERIN-D5W PMX 50 MG in DEXTROSE/WATER 1 250ML.BAG IV ONE (05:00)
[2023-02-14] MEDS ORDERED: INSULIN REGULAR 100 UNIT in SODIUM CHLORIDE 0.9% 100 ML IV ONE (05:00)
[2023-02-14] MEDS ORDERED: NOREPINEPHRINE 4 MG in SODIUM CHLORIDE 0.9% 250 ML IV ONE (05:00)
[2023-02-14] MEDS ORDERED: SODIUM CHLORIDE 0.9% 1,000 ML IV ONE (05:00)
[2023-02-14] MEDS ORDERED: propofoL 1,000 MG/100 ML VIAL IV ONE (05:00)
[2023-02-14] MEDS ORDERED: ceFAZolin 1,000 MG in SODIUM CHLORIDE 0.9% IRRIGATIO 1,000 ML IRRIGATION ONE (05:00)
[2023-02-14] MEDS ORDERED: PROTAMINE SULFATE 10 MG/ML 25 ML VIAL IV ONE ×2 (05:00→07:46)
[2023-02-14] MEDS ORDERED: SODIUM BICARB 8.4% 50 ML SYR (1 MEQ/ML) IV ONE (05:00)
[2023-02-14] MEDS ORDERED: HEPARIN SODIUM 1,000 UN/ML (10ML VL) IV ONE (05:00)
[2023-02-14] MEDS ORDERED: ASPIRIN 325 MG TAB PO ONE (05:00)
[2023-02-14] MEDS ORDERED: CLEVIDIPINE BUTYRATE 25 MG in EMPTY BAG 1 BAG IV ONE (05:00)
[2023-02-14] MEDS ORDERED: CALCIUM CHLORIDE 100 MG/ML 10 ML SYRINGE IV ONE (05:00)
[2023-02-14] MEDS ORDERED: MANNITOL 25% 12.5 GM/50 ML VIAL IV ONE (05:00)
[2023-02-14] MEDS ORDERED: HEPARIN SODIUM,PORCINE 5,000 UNIT in SODIUM CHLORIDE 0.9% 500 ML 500 ML IV ONE (05:00)
[2023-02-14] MEDS ORDERED: ELECTROLYTE-R (PH 7.4) 1,000 ML IV.SOLN IV ONE (07:46)
[2023-02-14] MEDS ORDERED: VECURONIUM 10 MG VIAL IV ONE (07:46)
[2023-02-14] MEDS ORDERED: LIDOCAINE 2% SYG (PF) 100 MG/5 ML ONE (07:46)
[2023-02-14] MEDS ORDERED: fentaNYL (PF) 50 MCG/ML 50 ML VIAL ONE (07:46)
[2023-02-14] MEDS ORDERED: MIDAZOLAM HCL 10 MG/10 ML VIAL ONE (07:46)
[2023-02-14] MEDS ORDERED: PROPOFOL 10 MG/ML 20 ML VIAL IV ONE (07:46)
[2023-02-14] MEDS ORDERED: ALBUMIN HUMAN 5% (25gm) 500 ML VIAL IVPB ONE (07:46)
[2023-02-14] MEDS ORDERED: HEPARIN SODIUM,PORCINE 10,000 UNIT/ML 1 ML VIAL ONE (07:46)
[2023-02-14] MEDS ORDERED: METOPROLOL TARTRATE 5 MG/5 ML VIAL IVP ONE (07:46)
[2023-02-14] MEDS ORDERED: HEPARIN SODIUM,PORCINE 5,000 UNIT/ML 1 ML VIAL ONE (07:46)
[2023-02-14] MEDS ORDERED: CALCIUM CHLORIDE 100 MG/ML 10 ML SYRINGE ONE (07:46)
[2023-02-14] MEDS ORDERED: TRANEXAMIC ACID IN NACL,ISO-OS 1,000 MG/100 ML BAG ONE (07:46)
[2023-02-14] MEDS ORDERED: PROTAMINE SULFATE 10 MG/ML 5 ML VIAL IV ONE (07:46)
[2023-02-14 08:38] LABS: ABG HCO3 24 mmol/L (21-25); ABG Hematocrit 34 % (34.0-46.0); ABG Ionized Calcium 4.6 mg/dL (4.5-5.3); ABG Lactic Acid Whole Blood 1.7 mmol/L (0.5-1.6); ABG Oxygen Saturation 99.3 % (94-97); ABG PCO2 42 mmHg (35-45); ABG PH 7.36 (7.35-7.45); ABG Potassium Whole Blood 4.1 mmol/L (3.4-4.5); ABG Sodium Whole Blood 141 mmol/L (135-146); ABG TCO2 25 mmol/L (19-24)
[2023-02-14 09:31] LABS: ABG Base Excess -1.4 mmol/L; ABG HCO3 24 mmol/L (21-25); ABG Hematocrit 31 % (34.0-46.0); ABG Ionized Calcium 4.5 mg/dL (4.5-5.3); ABG Lactic Acid Whole Blood 1.7 mmol/L (0.5-1.6); ABG Oxygen Saturation 98.5 % (94-97); ABG PCO2 41 mmHg (35-45); ABG PH 7.37 (7.35-7.45); ABG Sodium Whole Blood 140 mmol/L (135-146); ABG TCO2 25 mmol/L (19-24)
[2023-02-14] MEDS ORDERED: SODIUM CHLORIDE 0.9% 500 ML 500 ML with HEPARIN SODIUM,PORCINE 5,000 UNIT IV ONE ×2 (10:02)
[2023-02-14] MEDS ORDERED: ceFAZolin 1,000 MG in SODIUM CHLORIDE 0.9% 1,000 ML IRRIGATION ONE (10:03)
[2023-02-14 10:08] LABS: ABG HCO3 22 mmol/L (21-25); ABG Ionized Calcium 3.9 mg/dL (4.5-5.3); ABG Oxygen Saturation 99.8 % (94-97); ABG PCO2 34 mmHg (35-45); ABG PH 7.43 (7.35-7.45); ABG Potassium Whole Blood 4.8 mmol/L (3.4-4.5); ABG Sodium Whole Blood 138 mmol/L (135-146); ABG TCO2 23 mmol/L (19-24)
[2023-02-14 10:40] LABS: ABG Base Excess -1.3 mmol/L; ABG HCO3 23 mmol/L (21-25); ABG Lactic Acid Whole Blood 1.6 mmol/L (0.5-1.6); ABG Oxygen Saturation 99.5 % (94-97); ABG PCO2 38 mmHg (35-45); ABG PH 7.39 (7.35-7.45); ABG Potassium Whole Blood 4.5 mmol/L (3.4-4.5); ABG Sodium Whole Blood 139 mmol/L (135-146); ABG TCO2 25 mmol/L (19-24)
--- NOTE | 2023-02-14 10:46 | P.ANPRN ---
Procedure Note - Anesthesia - Invasive Line Right Central Line Time Out Performed: Yes (712) Date of Procedure: 02/14/23 Time of Procedure: 07:13 Location of Patient: Phase I Preparation: Sterile Prep, Sterile Dressing Central Line Location: Internal Jugular (right) Ultrasound Used: Yes Purpose - Visualization and Identification of Vasculature: Yes Needle Guage: 18g angio Image Stored and Saved: Yes Narrative: +local +angio +cv +jwire +uneventful dilation and introduction right IJ cordis. Lumen bled and flushed. Central line placement per sterile protocol utilized.
--- NOTE | 2023-02-14 10:47 | P.ANPRN ---
Procedure Note - Anesthesia - Invasive Line Right [place] Day[place]ara Time Out Performed: Yes ([id number]) Date of Procedure: 02/14/23 Time of Procedure: Location of Patient: PreOp Preparation: Sterile Prep, Sterile Dressing [place] Line Location: Internal Jugular (right) Ultrasound Used: No Purpose - Visualization and Identification of Vasculature: No Image Stored and Saved: No Narrative: Central line placement per sterile protocol utilized. swan floated in one attempt to wedge at 50cm. b/d and w/d 5cm. PA waveform.
--- NOTE | 2023-02-14 10:51 | P.ANPRN ---
Procedure Note - Anesthesia - EZIO Intraop Pre Bypass EZIO Intraop - Anesthesia Indication: aortic stenosis Date of Procedure: 02/14/23 Pre-operative Diagnosis: aortic stenosis Post-operative Diagnosis: same Surgeon: Salvador Parikh Left Ventricle: wnl Ejection Fraction: Normal Regional Wall Motion Abnormalities: None Left Ventricle Hypertrophy: No R. Ventricle Function: Normal Aortic Valve: valve area 0.5cm2. mean velocity 30 peak 67. Thickened with fusion of commisures Anatomy: Trileaflet Aortic Stenosis: Severe Aortic Regurgitation: Mild Mitral Stenosis: None Mitral Regurgitation: None Tricuspid Stenosis: None Tricuspid Regurgitation: None Pulmonic Stenosis: None Pulmonic Regurgitation: None R. Atrial Dilation: No R. Atrial PFO: No L. Atrial Dilation: No Aortic Dissection: No Aortic Calcification: None Plural Effusion: None
[2023-02-14 11:49] LABS: ABG HCO3 24 mmol/L (21-25); ABG Lactic Acid Whole Blood 1.8 mmol/L (0.5-1.6); ABG Oxygen Saturation 99.6 % (94-97); ABG PCO2 43 mmHg (35-45); ABG PH 7.34 (7.35-7.45); ABG Potassium Whole Blood 4.8 mmol/L (3.4-4.5); ABG Sodium Whole Blood 140 mmol/L (135-146); ABG TCO2 25 mmol/L (19-24)
[2023-02-14 12:09] LABS: ABG Base Excess -2.8 mmol/L; ABG HCO3 23 mmol/L (21-25); ABG Lactic Acid Whole Blood 1.9 mmol/L (0.5-1.6); ABG Oxygen Saturation 99.3 % (94-97); ABG PCO2 43 mmHg (35-45); ABG PH 7.34 (7.35-7.45); ABG Potassium Whole Blood 4.7 mmol/L (3.4-4.5); ABG Sodium Whole Blood 141 mmol/L (135-146); ABG TCO2 24 mmol/L (19-24)
[2023-02-14 12:43] LABS: ABG Base Excess -1.3 mmol/L; ABG HCO3 24 mmol/L (21-25); ABG Oxygen Saturation 99.6 % (94-97); ABG PCO2 41 mmHg (35-45); ABG PH 7.37 (7.35-7.45); ABG Potassium Whole Blood 4.5 mmol/L (3.4-4.5); ABG Sodium Whole Blood 142 mmol/L (135-146); ABG TCO2 25 mmol/L (19-24)
[2023-02-14 13:04] LABS: ABG PO2 384 mmHg (83-108)
[2023-02-14 13:05] LABS: ABG Glucose Whole Blood 186 mg/dL (75-99)
[2023-02-14 13:05] LABS: ABG Glucose Whole Blood 191 mg/dL (75-99); ABG PO2 159 mmHg (83-108)
[2023-02-14 13:06] LABS: ABG PO2 >420 mmHg (83-108)
[2023-02-14 13:07] LABS: ABG Glucose Whole Blood 149 mg/dL (75-99); ABG Hematocrit 21 % (34.0-46.0)
[2023-02-14 13:08] LABS: ABG Glucose Whole Blood 152 mg/dL (75-99); ABG Hematocrit 21 % (34.0-46.0); ABG PO2 369 mmHg (83-108)
[2023-02-14 13:09] LABS: ABG Glucose Whole Blood 158 mg/dL (75-99); ABG Hematocrit 18 % (34.0-46.0); ABG PO2 >420 mmHg (83-108)
[2023-02-14 13:10] LABS: ABG Glucose Whole Blood 159 mg/dL (75-99); ABG PO2 402 mmHg (83-108)
[2023-02-14 13:11] LABS: ABG Hematocrit 21 % (34.0-46.0)
[2023-02-14 13:11] LABS: ABG Glucose Whole Blood 149 mg/dL (75-99); ABG PO2 >420 mmHg (83-108)
[2023-02-14 13:12] LABS: ABG Hematocrit 20 % (34.0-46.0); ABG Lactic Acid Whole Blood 2.2 mmol/L (0.5-1.6)
--- NOTE | 2023-02-14 14:17 | P.ANPRN ---
Procedure Note - Anesthesia - EZIO Intraop Post Bypass EZIO Intraop Post Bypass Procedure Performed: AVR Left Ventricle: unchanged Good function Ejection Fraction: Normal Regional Wall Motion Abnormalities: None R. Ventricle Function: Normal Aortic Valve: prostetic valve in aortic position. unidirectional without perivalvular leak. Mean residual gradient of 4.5 Mitral Valve: trace regurg Tricuspid: trace regurg Pulmonic: Unchanged Aortic Dissection: No
[2023-02-14] MEDS ORDERED: MUPIROCIN 2% OINT 22 GM TUBE NASAL ONE (14:45)
[2023-02-14] MEDS ORDERED: AMIODARONE 360 MG in DEXTROSE 5% IN WATER 200 ML IV ONE ×2 (15:06)
[2023-02-14] MEDS ORDERED: CLEVIDIPINE BUTYRATE 25 MG in EMPTY BAG 1 BAG IV SCH (15:06)
[2023-02-14] MEDS ORDERED: DEXTROSE 50% SYRINGE 50 ML IVP PRN ×2 (15:06)
[2023-02-14] MEDS ORDERED: METOCLOPRAMIDE 5 MG/ML 2 ML VIAL IVP PRN (15:06)
[2023-02-14] MEDS ORDERED: Potassium Replacement Protocol 1 EACH MISC MISCELLANE PRN (15:06)
[2023-02-14] MEDS ORDERED: BENZOCAINE/MENTHOL LOZENG 1 EACH LOZENGE MUCOUS MEM PRN (15:06)
[2023-02-14] MEDS ORDERED: DEXMEDETOMIDINE/0.9% NACL(PMX) 400 MCG in EMPTY BAG 1 BAG IV SCH (15:06)
[2023-02-14] MEDS ORDERED: CALCIUM GLUCONATE IN NACL 2 GM in SALINE 1 100ML.BAG IVPB PRN (15:06)
[2023-02-14] MEDS ORDERED: hydrALAZINE HCL 20 MG/ML 1 ML VIAL IVP PRN (15:06)
[2023-02-14] MEDS ORDERED: ONDANSETRON 4 MG/2 ML VIAL IVP PRN (15:06)
[2023-02-14] MEDS ORDERED: IPRATROPIUM-ALBUTEROL 3 ML NEB INHALATION PRN (15:06)
[2023-02-14] MEDS ORDERED: Magnesium Replacement Protocol 1 EACH MISC MISCELLANE PRN (15:06)
[2023-02-14 15:12] LABS: Glucose,Whole Blood 179 mg/dL (70-110)
[2023-02-14 15:14] LABS: ABG HCO3 21 mmol/L (21-25); ABG PCO2 29 mmHg (35-45); ABG PH 7.48 (7.35-7.45); ABG PO2 >400 mmHg (83-108); ABG TCO2 22 mmol/L (19-24); Allen Test Performed? Yes
--- NOTE | 2023-02-14 15:21 | P.CNPUL ---
History of Present Illness Consult date: 02/14/23 Chief complaint: Postthoracotomy, aortic valve replacement History of present illness: This is a 66-year-old female patient with severe aortic stenosis, symptomatic underwent aortic valve surgery and the patient is being seen in the intensive ca re unit. Patient underwent aortic valve replacement and currently she is in the intensive care unit, intubated on the mechanical ventilator. The patient on propofol which is running at 35 mcg/kg/m. The patient is calm and comfortable and synchronous and mechanical ventilated. She is currently on assist control mode at a rate of 20, tidal volume of 570, FiO2 of 100% with a PEEP of 10. The patient was given a chest x-ray that showed adequate expansion of both lungs. ET tube is in a good location. Patient has a [place]-Dayanara catheter in place. Patient has 2 mediastinal and one pleural chest tube. The chest tube output has been minimal without evidence of any air leak. The patient is a cardiac output of 2.4 with an index of 1.2 and the patient will be started on more fluids she was started on Primacor. Blood gas showed a pH of 7.48 with episodes of 28 and pO2 of more than 400. FiO2 but dropped onto 50%. The rest of the ventilator settings will be Unchanged. Pulmonary artery pressures of 25/15. The patient intraoperatively received a unit of packed RBC, 2.5 L of lactated Ringer and 2 L of 5% albumin. Cardiac rhythm is sinus. Urine output is adequate. Blood sugars are 179. Review of Systems ROS unobtainable: due to endotracheal tube Past Medical History Past Medical History: GERD/Reflux, GI Bleed, Hyperlipidemia, Hypertension, Osteoarthritis (OA) Additional Past Medical History / Comment(s): Heart murmur. Varicose veins. Hx Acid Reflux yrs ago, now resolved. hx. bleeding ulcer 2018, Limited mobility in neck. SOB w/exertion, fatigue History of Any Multi-Drug Resistant Organisms: None Reported Past Surgical History: Back Surgery, Heart Catheterization, Orthopedic Surgery Additional Past Surgical History / Comment(s): Herniated disc surgery, neck fusion with pins and rods placed. EZIO Past Anesthesia/Blood Transfusion Reactions: Postoperative Nausea & Vomiting (PONV) Additional Past Anesthesia/Blood Transfusion Reaction / Comment(s): no hx. blood transfusion reaction Smoking Status: Former smoker - Past Family History Mother Family Medical History: Diabetes Mellitus, Hypertension Additional Family Medical History / Comment(s): Vein replacement surgery. Father Family Medical History: Cancer, Hypertension Additional Family Medical History / Comment(s): Stomach cancer. Brother(s) Family Medical History: Cancer Additional Family Medical History / Comment(s): Prostate cancer. Other brother had Leukemia. Medications and Allergies Home Medications Medication Instructions Recorded Confirmed Type Atorvastatin [Lipitor] 80 mg PO HS 06/10/22 02/14/23 History Ezetimibe [Zetia] 10 mg PO DAILY 06/10/22 02/14/23 History lisinopriL [Zestril] 10 mg PO DAILY 06/10/22 02/14/23 History Allergies Allergy/AdvReac Type Severity Reaction Status Date / Time codeine Allergy Rash/Hives Verified 02/14/23 05:55 Physical Exam Vitals: Vital Signs Temp Pulse Resp BP BP Pulse Ox 02/14/23 06:22 219/95 02/14/23 06:03 97.8 F 85 18 228/97 233/107 97 Intake and Output 02/14/23 02/14/23 02/14/23 06:59 14:59 22:59 Intake Total 100 292 Output Total 1900 Balance 100 -1608 Intake: IV 100 1 Blood Product 291 Rc Pheresis As-3 Unit 291 [id number] Output: Urine 400 Estimated Blood Loss 1500 Other: Weight 94.8 kg Sedated, calm, comfortable, intubated on a mechanical ventilator. Currently on propofol Head exam was generally normal. There was no scleral icterus or corneal arcus. Mucous membranes were moist. Neck was supple and without jugular venous distension, thyromegaly, or carotid bruits. Carotids were easily palpable bilaterally. There was no adenopathy. The patient's [place]-Dayanara catheter with a Cordis in the right IJ Cardiac exam revealed the PMI to be normally situated and sized. The rhythm was regular and no extrasystoles were noted during several minutes of auscultation. The first and second heart sounds were normal and physiologic splitting of the second heart sound was noted. There were no murmurs, rubs, clicks, or gallops. Lung examination shows thoracotomy scar. The patient is to mediastinal and one pleural chest tube. Breath sounds are equal and symmetrical. Abdominal exam revealed normal bowel sounds. The abdomen was soft, non-tender, and without masses, organomegaly, or appreciable enlargement of the abdominal aorta. Examination of the extremities revealed easily palpable radial, femoral and pedal pulses. There was no cyanosis, clubbing or edema. Examination of the skin revealed no evidence of significant rashes, suspicious appearing nevi or other concerning lesions. Neurologically sedated Results - Laboratory Findings ABG Sample Site CPB 02/14/23 12:46 ABG pH 7.37 (7.35-7.45) 02/14/23 12:46 ABG pCO2 41 mmHg (35-45) 02/14/23 12:46 ABG pO2 >420 mmHg (83-108) H 02/14/23 12:46 ABG HCO3 24 mmol/L (21-25) 02/14/23 12:46 ABG Total CO2 25 mmol/L (19-24) H 02/14/23 12:46 ABG O2 Saturation 99.6 % (94-97) H 02/14/23 12:46 ABG Base Excess -1.3 mmol/L 02/14/23 12:46 ABG Hematocrit 20 % (34.0-46.0) L* 02/14/23 12:46 ABG Sodium 142 mmol/L (135-146) 02/14/23 12:46 ABG Potassium 4.5 mmol/L (3.4-4.5) 02/14/23 12:46 ABG Ionized Calcium 4.0 mg/dL (4.5-5.3) L 02/14/23 12:46 ABG Glucose 149 mg/dL (75-99) H 02/14/23 12:46 ABG Lactic Acid 2.2 mmol/L (0.5-1.6) H* 02/14/23 12:46 Hemoglobin 6.4 gm/dL (11.4-16.0) L* 02/14/23 12:46 POC Glucose (mg/dL) 179 mg/dL (70-110) H 02/14/23 15:09 POC Glu Main [employer]ier ID Jelena Álvarez 02/14/23 15:09 Arterial Blood Potassium 4.5 mmol/L (3.4-4.5) 02/14/23 12:46 Arterial Blood Glucose 149 mg/dL (75-99) H 02/14/23 12:46 Abnormal lab findings: Abnormal Labs 02/05/23 02/14/23 02/14/23 09:23 08:40 09:34 ABG pH ABG pCO2 ABG pO2 384 H 159 H ABG Total CO2 25 H 25 H ABG O2 Saturation 99.3 H 98.5 H ABG Hematocrit 31 L ABG Potassium ABG Ionized Calcium ABG Glucose 186 H 191 H ABG Lactic Acid 1.7 H 1.7 H Hemoglobin 10.9 L 10.0 L POC Glucose (mg/dL) Arterial Blood Potassium Arterial Blood Glucose 186 H 191 H Crossmatch See Detail 02/14/23 02/14/23 02/14/23 10:11 10:42 11:52 ABG pH 7.34 L ABG pCO2 34 L ABG pO2 >420 H 369 H >420 H ABG Total CO2 25 H 25 H ABG O2 Saturation 99.8 H 99.5 H 99.6 H ABG Hematocrit 21 L 21 L 18 L* ABG Potassium 4.8 H 4.8 H ABG Ionized Calcium 3.9 L 4.0 L 4.0 L ABG Glucose 149 H 152 H 158 H ABG Lactic Acid 2.0 H 1.8 H Hemoglobin 6.9 L* 6.9 L* 6.0 L* POC Glucose (mg/dL) Arterial Blood Potassium 4.8 H 4.8 H Arterial Blood Glucose 149 H 152 H 158 H Crossmatch 02/14/23 02/14/23 02/14/23 12:12 12:46 15:09 ABG pH 7.34 L ABG pCO2 ABG pO2 402 H >420 H ABG Total CO2 25 H ABG O2 Saturation 99.3 H 99.6 H ABG Hematocrit 21 L 20 L* ABG Potassium 4.7 H ABG Ionized Calcium 4.0 L 4.0 L ABG Glucose 159 H 149 H ABG Lactic Acid 1.9 H 2.2 H* Hemoglobin 6.8 L* 6.4 L* POC Glucose (mg/dL) 179 H Arterial Blood Potassium 4.7 H Arterial Blood Glucose 159 H 149 H Crossmatch Assessment and Plan Plan: Severe symptomatic aortic valve stenosis and the patient underwent aortic valve replacement, currently postop day #0. The patient is hemodynamically stable. Nevertheless the cardiac output and index are low and the patient is going to be started on Primacor. Postthoracotomy, remains intubated and mechanically ventilated. Chest tubes are in place. No evidence of any air leak. No evidence of pneumothorax on postop chest x-ray Hypertension Hyperlipidemia Obesity History of acid reflux History of bleeding ulcer back in 2018 Plan Continue ventilator support Wean FiO2 to maintain a saturation above 90% Agree on Primacor Continue amiodarone Agree on more IV fluids and monitor the cardiac output and index Keep the patient sedated for now and gradually weaned off sedation Overall hemodynamics is stable. She'll be able to extubate this patient within the 6 hour window Continue IV fluids and the patient's current on lactated Ringer at the rate of 50 mL an hour and she would benefit from more fluids, recommend crystalloids and monitoring her cardiac output in combination with Primacor dose to be titrated based on the cardiac output and index Urine operas adequate for now Repeat chest x-ray in the morning We'll continue to follow
[2023-02-14] MEDS: LACTATED RINGERS 1,000 ML IV SCH (15:30)
[2023-02-14] MEDS: MILRINONE-D5W PMX 20 MG in DEXTROSE/WATER 1 100ML.BAG IV SCH ×2 (15:30→22:21)
[2023-02-14] MEDS: ALBUMIN HUMAN 5% 250 ML in EMPTY BAG 1 BAG IVPB PRN ×4 (15:31→16:48)
--- NOTE | 2023-02-14 15:33 | XR ---
EXAMINATION TYPE: XR chest 1V portable DATE OF EXAM: 02/14/2023 COMPARISON: 02/05/2023 HISTORY: Postop TECHNIQUE: Single frontal view of the chest is obtained. FINDINGS: ET tube approximately 4 cm above ton. NG tube seen extending in the upper abdomen. [place] -Dayanara catheter seen the tip overlying the proximal pulmonary outflow tract. There are bilateral areas of subsegmental consolidation likely in the basis of postoperative atelectasis. No pneumothorax. Hea rt size is stable and there is postoperative change including cardiac valve replacement surgery. Righ t-sided and left-sided chest tubes noted. IMPRESSION: Postoperative changes. Suspect postoperative atelectasis favored over pneumonia. No siza ble pneumothorax.
[2023-02-14] MEDS: IPRATROPIUM-ALBUTEROL 3 ML NEB INHALATION SCH ×2 (15:40→20:34)
[2023-02-14 16:07] LABS: Basophils % (A) 0 %; Eosinophils # (A) 0.1 k/uL (0-0.7); Eosinophils % (A) 1 %; HCT 22.9 % (34.0-46.0); Lymphocytes # (A) 1.6 k/uL (1.0-4.8); Lymphocytes % (A) 18 %; MCH 32.1 pg (25.0-35.0); MCHC 34.8 g/dL (31.0-37.0); MCV 92.2 fL (80.0-100.0); Mean Platelet Volume 8.7; Monocytes # (A) 0.6 k/uL (0-1.0); Monocytes % (A) 7 %; Neutrophils # (A) 6.8 k/uL (1.3-7.7); Neutrophils % (A) 74 %; RBC 2.48 m/uL (3.80-5.40); RDW 13.2 % (11.5-15.5); WBC 9.2 k/uL (3.8-10.6)
[2023-02-14 16:13] LABS: INR 1.3 (<1.2); Partial Thromboplastin Time 38.2 sec (22.0-30.0); Prothrombin Time 13.2 sec (9.0-12.0)
[2023-02-14 16:17] LABS: Ionized Calcium 4.4 mg/dL (4.5-5.3)
[2023-02-14 16:18] LABS: Glucose,Whole Blood 254 mg/dL (70-110)
[2023-02-14] MEDS: INSULIN REGULAR 100 UNIT in SODIUM CHLORIDE 0.9% 100 ML IV SCH (16:20)
[2023-02-14 16:29] LABS: Platelet Count 71 k/uL (150-450)
[2023-02-14 16:35] LABS: ALT 13 U/L (4-34); AST 34 U/L (14-36); African American GFR (CKD) >90 (>60 ml/min/1.73 sqM); Albumin 3.2 g/dL (3.5-5.0); Alkaline Phosphatase 29 U/L (38-126); Anion Gap 9 mmol/L; Blood Urea Nitrogen 16 mg/dL (7-17); Calcium 7.4 mg/dL (8.4-10.2); Carbon Dioxide 20 mmol/L (22-30); Chloride 110 mmol/L (98-107); Glucose 162 mg/dL (74-99); Magnesium 2.7 mg/dL (1.6-2.3); Non-African American GFR(CKD) 87 (>60 ml/min/1.73 sqM); Potassium 5.1 mmol/L (3.5-5.1); Sodium 139 mmol/L (137-145); Total Bilirubin 0.9 mg/dL (0.2-1.3); Total Protein 4.6 g/dL (6.3-8.2)
[2023-02-14] MEDS: HEPARIN SODIUM,PORCINE/PF 5,000 UNIT/0.5 ML SYRINGE SQ SCH ×2 (16:45→23:27)
[2023-02-14 17:09] LABS: Glucose,Whole Blood 225 mg/dL (70-110)
[2023-02-14] MEDS: ACETAMINOPHEN IV (For NPO) 1,000 MG in EMPTY BAG 1 BAG IVPB SCH ×2 (18:03→23:36)
[2023-02-14 18:16] LABS: Glucose,Whole Blood 198 mg/dL (70-110)
[2023-02-14 18:31] LABS: Basophils % (A) 0 %; Eosinophils % (A) 0 %; Lymphocytes # (A) 0.9 k/uL (1.0-4.8); Lymphocytes % (A) 12 %; MCHC 34.8 g/dL (31.0-37.0); MCV 91.9 fL (80.0-100.0); Mean Platelet Volume 10.8; Monocytes # (A) 0.4 k/uL (0-1.0); Monocytes % (A) 6 %; Neutrophils # (A) 5.9 k/uL (1.3-7.7); Neutrophils % (A) 81 %; RBC 1.92 m/uL (3.80-5.40); RDW 13.4 % (11.5-15.5); WBC 7.2 k/uL (3.8-10.6)
[2023-02-14 18:40] LABS: HCT 17.7 % (34.0-46.0); Platelet Count 55 k/uL (150-450)
[2023-02-14 18:41] LABS: HGB 6.2 gm/dL (11.4-16.0)
[2023-02-14 19:10] LABS: Glucose,Whole Blood 184 mg/dL (70-110)
[2023-02-14 19:58] LABS: Glucose,Whole Blood 201 mg/dL (70-110)
[2023-02-14] MEDS: ATORVASTATIN 80 MG TAB PO SCH (20:12)
[2023-02-14 20:50] LABS: Basophils % (A) 0 %; Eosinophils % (A) 0 %; HCT 22.4 % (34.0-46.0); HGB 7.6 gm/dL (11.4-16.0); Lymphocytes # (A) 0.9 k/uL (1.0-4.8); Lymphocytes % (A) 11 %; MCH 30.8 pg (25.0-35.0); MCHC 34.1 g/dL (31.0-37.0); MCV 90.4 fL (80.0-100.0); Mean Platelet Volume 12.3; Monocytes # (A) 0.4 k/uL (0-1.0); Monocytes % (A) 5 %; Neutrophils # (A) 6.7 k/uL (1.3-7.7); Neutrophils % (A) 83 %; RBC 2.47 m/uL (3.80-5.40); RDW 14.1 % (11.5-15.5); WBC 8.1 k/uL (3.8-10.6)
[2023-02-14 20:51] LABS: ABG HCO3 21 mmol/L (21-25); ABG Oxygen Saturation 98.4 % (94-97); ABG PCO2 37 mmHg (35-45); ABG PH 7.36 (7.35-7.45); ABG PO2 106 mmHg (83-108); ABG TCO2 22 mmol/L (19-24); Allen Test Performed? Yes
[2023-02-14 20:55] LABS: Platelet Count 62 k/uL (150-450)
--- NOTE | 2023-02-14 20:55 | OP ---
OPERATIVE REPORT DATE OF SERVICE : 02/14/2023 PREOPERATIVE DIAGNOSIS: Critical aortic stenosis. POSTOPERATIVE DIAGNOSIS: Critical aortic stenosis. PROCEDURES PERFORMED: 1. Aortic valve replacement using 25 mm Wheat Inspiris bioprosthetic valve. 2. Aortic annular enlargement using Singh technique. 3. Ligation of left atrial appendage using 35 mm AtriClip. 4. Epiaortic ultrasound. 5. Transesophageal echocardiogram. MASONRY TEACHER: 1. Arnol Mccain MD. 2. Mateo Musa PA-C. ANESTHESIA: General. SPECIMEN: Aortic valve leaflets. COMPLICATIONS: None. INDICATIONS: The patient is a 67-year-old female with a history of hypertension and hypercholesterolemia, who has a known history of a murmur, who reports progressive shortness of breath with minimal activity. Transesophageal echocardiogram confirmed critical aortic valve stenosis. Cardiac catheterization revealed nonobstructive coronary artery disease. An aortic valve replacement was recommended. The risks, benefits, and alternatives of the procedure were discussed with the patient. All of her questions were answered. Consent was obtained. FINDINGS: The aortic valve was trileaflet in nature and heavily calcified. The aortic anulus was small for her body size and therefore had to be enlarged. PROCEDURE IN DETAIL: The patient was taken to the operating room and placed supine on the operating table. After the induction of general anesthesia, she was prepped and draped in the usual sterile fashion. Preoperative transesophageal echocardiogram confirmed critical aortic valve stenosis and what appeared to be a trileaflet valve. Her ejection fraction was preserved. A median sternotomy was performed. The patient's anatomy was such that her heart was skewed to the left chest, which made exposure somewhat challenging. Intravenous heparin was administered. The ascending aorta was palpated. There was no significant calcific plaque noted. Epiaortic ultrasound was then performed on the ascending aorta. Again, no calcific plaque or atheromatous disease was identified. An arterial cannula was placed in the distal ascending aorta. A venous cannula was placed through the right atrial appendage and directed into the IVC. Both antegrade and retrograde catheters were placed as well. The patient was then placed on cardiopulmonary bypass with good decompression of heart. The aortic cross-clamp was applied. Cold blood potassium cardioplegia was delivered in both antegrade and retrograde fashion to achieve arrest of the heart. Of note, cardioplegia was delivered every 15 to 20 minutes with the patient under crossclamp. An LV sump was placed via the right superior pulmonary vein. I began by identifying the left atrial appendage. A 35 mm AtriClip was placed across its base to ensure ligation. Next, a standard incision was created in the proximal aorta. CO2 was administered across the operative field. The aortic valve leaflet was identified and appeared to be trileaflet in nature and heavily calcified. Both the left and right coronary ostia were also identified and appeared to be located in the mid sinus region. Using scissors, the aortic valve leaflets were sharply excised and sent to pathology. Residual calcium was then debrided using a rongeur. Using a sizing device, I could not fit anything larger than a 19 mm bioprosthetic valve through her anulus. Given her body size, I did not feel this was a large enough valve for her and therefore I elected to perform a root enlargement. The aortotomy was continued down through the sinuses and through the commissure dividing the noncoronary cusp and the left coronary cusp. The incision was then continued beneath the left coronary cusp until the muscle was identified. The incision was carried below the noncoronary cusp until the membranous septum was encountered. Care was taken not to injure the dome of the left atrium, which was dissected away. The distance between nadirs of both of these sinuses was measured and an appropriate sized Hemashield patch was obtained. Using a running 4-0 Prolene suture, the Hemashield patch was attached to fill the gap created by my incision. It spanned mahi to mahi between the left and noncoronary cusps. The patch was sewn to the anulus and to the proximal ascending aorta for several centimeters beyond the commissures. Using a sizing device, a 25 mm Wheat Inspiris bioprosthetic valve was chosen. Pledgetted sutures were then placed circumferentially around the intact anulus from the mahi of the left coronary cusp through the right coronary cusp to the mahi of the noncoronary cusp. Pledgeted sutures were then passed through the patch well above the level of the anulus. The sutures were then passed through the sewing ring of a 25 mm Wheat Inspiris bioprosthetic valve. The valve appeared to seat nicely. It did not appear to obstruct either coronary ostium. This was then tied using cor knots, taking care to secure beneath the left main coronary artery and the right coronary artery. Attention was then turned to closure of the aortotomy. The suture was continued along the Hemashield patch until the [place] aorta was reached. The aorta was then closed in 2 layers using a running Prolene suture. The patch closed the gap in a pyramidal fashion. 1 L of warm blood was delivered in retrograde fashion. Standard de-airing maneuvers were performed. The aortic cross- clamp was removed. Followup transesophageal echocardiogram did not reveal any obvious intracardiac air or paravalvular leak. The patient was then weaned off cardiopulmonary bypass. She without difficulty. Followup transesophageal echocardiogram confirmed good positioning of the bioprosthetic valve. There was no evidence of perivalvular leak. The valve leaflets appear to open and close without difficulty. The mean gradient across the valve was less than 5 mmHg. At this point, protamine was administered. The patient did become quite hypotensive. PA pressures also dropped precipitously. We felt that she had a protamine reaction. She was treated with steroids and Benadryl. 1 mg of epinephrine was administered, which returned her blood pressure to supranormal levels. Her blood pressure then gradually drifted back down to her baseline. Again, a transesophageal echocardiogram was used to ensure no perivalvular leak. The leaflets were still opening and closing without difficulty. Remaining cannulas were then removed. The mediastinum was copiously irrigated with warm saline solution. All surgical sites were inspected and appeared to be hemostatic. Temporary atrial and ventricular pacing wires were placed and brought through the skin. Attention was then turned to closure of the sternum. The sternum was reapproximated using [place] cables in a figure-of- eight fashion. At the completion of closure, the sternum was well aligned. The remainder of the wound was closed in layers. Sterile dressing was applied. The patient appeared to tolerate the procedure well. She did receive 1 unit of packed red blood cells in the operating room. She returned to the ICU in critical, but stable condition. MMODL / IJN: [id number] / MTDD
[2023-02-14 21:18] LABS: Glucose,Whole Blood 218 mg/dL (70-110)
[2023-02-14] MEDS: AMIODARONE 450 MG in DEXTROSE 5% IN WATER 250 ML IV SCH ×2 (21:21)
[2023-02-14 22:10] LABS: Glucose,Whole Blood 214 mg/dL (70-110)
[2023-02-14 23:04] LABS: Glucose,Whole Blood 207 mg/dL (70-110)
[2023-02-15 00:03] LABS: Glucose,Whole Blood 192 mg/dL (70-110)
[2023-02-15 00:58] LABS: Glucose,Whole Blood 174 mg/dL (70-110)
[2023-02-15] MEDS: INSULIN REGULAR 100 UNIT in SODIUM CHLORIDE 0.9% 100 ML IV SCH ×2 (01:04→12:30)
[2023-02-15 02:00] LABS: Glucose,Whole Blood 162 mg/dL (70-110)
[2023-02-15] MEDS ORDERED: HYDROcodone/APAP 10-325MG 1 EACH TAB PO PRN (02:30)
[2023-02-15] MEDS ORDERED: HYDROcodone/APAP 5-325MG 1 EACH TAB PO PRN (02:36)
[2023-02-15 02:56] LABS: Glucose,Whole Blood 141 mg/dL (70-110)
[2023-02-15 04:08] LABS: Glucose,Whole Blood 128 mg/dL (70-110)
[2023-02-15 04:47] LABS: Basophils % (A) 0 %; Eosinophils % (A) 0 %; HCT 23.1 % (34.0-46.0); HGB 7.9 gm/dL (11.4-16.0); Lymphocytes # (A) 0.8 k/uL (1.0-4.8); Lymphocytes % (A) 7 %; MCH 31.5 pg (25.0-35.0); MCHC 34.1 g/dL (31.0-37.0); MCV 92.3 fL (80.0-100.0); Mean Platelet Volume 9.9; Monocytes # (A) 0.6 k/uL (0-1.0); Monocytes % (A) 6 %; Neutrophils % (A) 86 %; RBC 2.51 m/uL (3.80-5.40); RDW 14.4 % (11.5-15.5); WBC 10.6 k/uL (3.8-10.6)
[2023-02-15 04:50] LABS: Ionized Calcium 4.9 mg/dL (4.5-5.3)
[2023-02-15 04:56] LABS: Albumin 3.8 g/dL (3.5-5.0); Calcium 7.9 mg/dL (8.4-10.2); Magnesium 2.4 mg/dL (1.6-2.3); Total Bilirubin 1.2 mg/dL (0.2-1.3); Total Protein 5.3 g/dL (6.3-8.2)
[2023-02-15 04:59] LABS: Platelet Count 86 k/uL (150-450)
[2023-02-15 04:59] LABS: Glucose,Whole Blood 117 mg/dL (70-110)
[2023-02-15 06:03] LABS: Glucose,Whole Blood 116 mg/dL (70-110)
[2023-02-15] MEDS: ALBUMIN HUMAN 5% 250 ML in EMPTY BAG 1 BAG IVPB PRN ×2 (06:29→14:52)
[2023-02-15 07:07] LABS: Glucose,Whole Blood 106 mg/dL (70-110)
--- NOTE | 2023-02-15 07:29 | XR ---
EXAMINATION TYPE: XR chest 1V portable DATE OF EXAM: 02/15/2023 COMPARISON: 02/14/2023 HISTORY: SOB, Follow Up FINDINGS: Endotracheal tube and NG tube have been removed. [place]-Dayanara catheter and mediastinal drain and chest t ubes remain in place. No evidence for pneumothorax. Persistent right suprahilar increased density may reflect atelectasis. Pleural parenchymal density le ft lung base as well. Stable appearance of the cardio-mediastinal structures at this time. Pleural effusion unchanged. IMPRESSION: 1. Persistent right suprahilar increased density may reflect atelectasis. Pleural parenchymal densit y left lung base as well.
[2023-02-15] MEDS: HEPARIN SODIUM,PORCINE/PF 5,000 UNIT/0.5 ML SYRINGE SQ SCH ×3 (07:39→23:03)
--- NOTE | 2023-02-15 07:57 | P.PN ---
Subjective Progress Note Date: 02/15/23 Principal diagnosis: Critical aortic stenosis. Previous medical history of hypertension, hyperlipidemia, previous tobacco dependence with mild COPD, right internal carotid stenosis, previous GI bleed, previously undiagnosed and untreated diabetes POD #1 aortic valve replacement using 25 mm Wheat Inspiris bioprosthetic valve, aortic annular enlargement using Singh technique, ligation of the left atrial appendage using 35 mm AtriClip, epi-aortic ultrasound, intraoperative tr ansesophageal echocardiogram performed by anesthesia Postoperative acute blood loss anemia and thrombocytopenia, expected due to hemodilution and cardiopulmonary bypass pump The patient was seen and examined sitting up in a recliner in the intensive care unit in no acute distress. She was successfully extubated last night at 20:55. Remains in sinus rhythm, blood pressure soft but stable. Currently on IV amiodarone for A. fib prophylaxis as well as IV Primacor. Patient states pain is controlled on current medication regimen. Remains on 2 L nasal cannula. She did receive 1 unit packed red blood cells intra-op and 1 unit packed red blood cells postoperative last night. Urine output marginal. Labs, chest x-ray reviewed. Right internal jugular Shelby/Cordis, right radial arterial line, mediastinal/right pleural chest tubes remain. No other new concerns. Objective - Vital Signs Vital signs: Vital Signs Temp 99.0 F 02/15/23 04:00 Pulse 77 02/15/23 07:00 Resp 14 02/15/23 07:00 BP 100/49 02/15/23 07:00 Pulse Ox 94 L 02/15/23 07:00 FiO2 50 02/14/23 20:36 Intake & Output 02/14/23 02/15/23 02/15/23 18:59 06:59 18:59 Intake Total 2852.947 8725.013 274.908 Output Total 2445 953 40 Balance -1120.133 570.013 234.908 Weight 98.1 kg Intake: IV 128 1048 259 0.9NS Pressure bag 27 108 9 ACETAMINOPHEN IV (For NPO 100 ) 1,000 mg In Empty Bag 1 bag @ 400 mls/hr IVPB Q6HR [facility] Rx#:[id number] Albumin Human 5% 250 ml 250 In Empty Bag 1 bag @ 250 mls/hr IVPB Q1HR PRN Rx#: [id number] CO/CI 100 240 Lactated Ringers 1,000 ml 550 @ 20 mls/hr IV .Q24H [facility] Rx#:[id number] ceFAZolin 2 gm In Sodium 50 Chloride 0.9% 50 ml @ 100 mls/hr IVPB Q8HR [facility] Rx# :[id number] Intake, IV Titration 905.867 202.013 15.908 Amount Dexmedetomidine/0.9% NaCl 100 (Pmx) 400 mcg In Empty Bag 1 bag @ Titrate IV . Q0M [facility] Rx#:[id number] Insulin Regular 100 unit 9.747 78.958 15.908 In Sodium Chloride 0.9% 100 ml @ Per Protocol IV .Q0M [facility] Rx#:[id number] Lactated Ringers 1,000 ml 750 50 @ 20 mls/hr IV .Q24H [facility] Rx#:[id number] Milrinone-D5w Pmx 20 mg 73.055 In Dextrose/Water 1 100ml .bag @ 0.375 MCG/KG/MIN 10.665 mls/hr IV .Q9H23M [facility] Rx#:[id number] propofoL 1,000 mg In 46.120 Empty Bag 1 bag @ Titrate IV .Q0M [facility] Rx#: [id number] Blood Product 291 273 Rc Pheresis As-3 Unit 291 [id number] Rc Pheresis As-3 Unit 273 [id number] Output: Drainage 320 540 20 Medial Chest 130 270 10 Right Medial Chest 190 270 10 Urine 625 413 20 Estimated Blood Loss 1500 Other: Voiding Method Indwelling Catheter Indwelling Catheter ABP, PAP, CO, CI - Last Documented Arterial Blood Pressure 181/52 Pulmonary Artery Pressure 37/10 Cardiac Output 4.2 Cardiac Index 2.1 - Exam CONSTITUTIONAL: Appears comfortable, cooperative, no acute distress RESPIRATORY: Lungs sounds diminished bilaterally. Respirations even, nonlabored. Currently on 2 L nasal cannula with oxygen saturation 92%. Not using incentive spirometry appropriately. Strong cough. CARDIOVASCULAR: S1, S2 present. Regular rate and rhythm, sinus rhythm on telemetry. Sternum stable. Palpable peripheral pulses bilaterally. Trace bilateral lower extremity edema present. No calf pain or tenderness noted. Heart hugger in place with patient demonstrating appropriate use. Antiembolism stockings, SCDs present. GASTROINTESTINAL: Abdomen soft, nontender, nondistended. Hypoactive bowel sounds present 4 quadrants. Tolerating clear liquids. Negative flatus GENITOURINARY: Carney present draining clear, yellow urine. Output overnight 25-35 mL per hour INTEGUMENTARY: Skin is warm and dry with evidence of good perfusion. Anterior chest incision well approximated and covered with dry intact dressing NEUROLOGIC: Cranial nerves II through XII intact MUSKULOSKELETAL: Able to move all extremities, strength equal bilaterally PSYCHIATRIC: Alert and oriented to person place and time, appropriate affect, intact judgment and insight INVASIVE LINES AND TUBES: Mediastinal/right pleural chest tubes present and connected to wall suction, no air leaks present. Mediastinal tube with 170 mL serosanguineous drainage overnight, 400 mL since surgery. Right pleural chest tube with 120 mL serosanguineous drainage overnight, 500 mL since surgery. A/V epicardial pacemaker wires present, connected to generator, VVI mode with backup rate 60 bpm. Right internal jugular Shelby/Cordis, right radial arterial line present. Last CO/CI 4.2/2.1, PA 31/9, CVP12. - Allied health notes Allied health notes reviewed: nursing - Labs CBC & Chem 7: 02/15/23 03:52 02/15/23 03:52 Labs: Abnormal Lab Results - Last 24 Hours (Table) 02/05/23 02/14/23 02/14/23 Range/Units 09:23 08:40 09:34 RBC (3.80-5.40) m/uL Hgb (11.4-16.0) gm/dL Hct (34.0-46.0) % Plt Count (150-450) k/uL Neutrophils # (1.3-7.7) k/uL Lymphocytes # (1.0-4.8) k/uL PT (9.0-12.0) sec INR (<1.2) APTT (22.0-30.0) sec Fibrinogen (200-500) mg/dL ABG pH (7.35-7.45) ABG pCO2 (35-45) mmHg ABG pO2 384 H 159 H (83-108) mmHg ABG Total CO2 25 H 25 H (19-24) mmol/L ABG O2 Saturation 99.3 H 98.5 H (94-97) % ABG Hematocrit 31 L (34.0-46.0) % ABG Potassium (3.4-4.5) mmol/L ABG Ionized Calcium (4.5-5.3) mg/dL ABG Glucose 186 H 191 H (75-99) mg/dL ABG Lactic Acid 1.7 H 1.7 H (0.5-1.6) mmol/L Hemoglobin 10.9 L 10.0 L (11.4-16.0) gm/dL Chloride (98-107) mmol/L Carbon Dioxide (22-30) mmol/L BUN (7-17) mg/dL Glucose (74-99) mg/dL POC Glucose (mg/dL) (70-110) mg/dL Calcium (8.4-10.2) mg/dL Ionized Calcium Thai (4.5-5.3) mg/dL Magnesium (1.6-2.3) mg/dL AST (14-36) U/L Alkaline Phosphatase (38-126) U/L Total Protein (6.3-8.2) g/dL Albumin (3.5-5.0) g/dL Arterial Blood Potassium (3.4-4.5) mmol/L Arterial Blood Glucose 186 H 191 H (75-99) mg/dL Crossmatch See Detail 02/14/23 02/14/23 02/14/23 Range/Units 10:11 10:42 11:52 RBC (3.80-5.40) m/uL Hgb (11.4-16.0) gm/dL Hct (34.0-46.0) % Plt Count (150-450) k/uL Neutrophils # (1.3-7.7) k/uL Lymphocytes # (1.0-4.8) k/uL PT (9.0-12.0) sec INR (<1.2) APTT (22.0-30.0) sec Fibrinogen (200-500) mg/dL ABG pH 7.34 L (7.35-7.45) ABG pCO2 34 L (35-45) mmHg ABG pO2 >420 H 369 H >420 H (83-108) mmHg ABG Total CO2 25 H 25 H (19-24) mmol/L ABG O2 Saturation 99.8 H 99.5 H 99.6 H (94-97) % ABG Hematocrit 21 L 21 L 18 L* (34.0-46.0) % ABG Potassium 4.8 H 4.8 H (3.4-4.5) mmol/L ABG Ionized Calcium 3.9 L 4.0 L 4.0 L (4.5-5.3) mg/dL ABG Glucose 149 H 152 H 158 H (75-99) mg/dL ABG Lactic Acid 2.0 H 1.8 H (0.5-1.6) mmol/L Hemoglobin 6.9 L* 6.9 L* 6.0 L* (11.4-16.0) gm/dL Chloride (98-107) mmol/L Carbon Dioxide (22-30) mmol/L BUN (7-17) mg/dL Glucose (74-99) mg/dL POC Glucose (mg/dL) (70-110) mg/dL Calcium (8.4-10.2) mg/dL Ionized Calcium Thai (4.5-5.3) mg/dL Magnesium (1.6-2.3) mg/dL AST (14-36) U/L Alkaline Phosphatase (38-126) U/L Total Protein (6.3-8.2) g/dL Albumin (3.5-5.0) g/dL Arterial Blood Potassium 4.8 H 4.8 H (3.4-4.5) mmol/L Arterial Blood Glucose 149 H 152 H 158 H (75-99) mg/dL Crossmatch 02/14/23 02/14/23 02/14/23 Range/Units 12:12 12:46 15:09 RBC (3.80-5.40) m/uL Hgb (11.4-16.0) gm/dL Hct (34.0-46.0) % Plt Count (150-450) k/uL Neutrophils # (1.3-7.7) k/uL Lymphocytes # (1.0-4.8) k/uL PT (9.0-12.0) sec INR (<1.2) APTT (22.0-30.0) sec Fibrinogen (200-500) mg/dL ABG pH 7.34 L (7.35-7.45) ABG pCO2 (35-45) mmHg ABG pO2 402 H >420 H (83-108) mmHg ABG Total CO2 25 H (19-24) mmol/L ABG O2 Saturation 99.3 H 99.6 H (94-97) % ABG Hematocrit 21 L 20 L* (34.0-46.0) % ABG Potassium 4.7 H (3.4-4.5) mmol/L ABG Ionized Calcium 4.0 L 4.0 L (4.5-5.3) mg/dL ABG Glucose 159 H 149 H (75-99) mg/dL ABG Lactic Acid 1.9 H 2.2 H* (0.5-1.6) mmol/L Hemoglobin 6.8 L* 6.4 L* (11.4-16.0) gm/dL Chloride (98-107) mmol/L Carbon Dioxide (22-30) mmol/L BUN (7-17) mg/dL Glucose (74-99) mg/dL POC Glucose (mg/dL) 179 H (70-110) mg/dL Calcium (8.4-10.2) mg/dL Ionized Calcium Thai (4.5-5.3) mg/dL Magnesium (1.6-2.3) mg/dL AST (14-36) U/L Alkaline Phosphatase (38-126) U/L Total Protein (6.3-8.2) g/dL Albumin (3.5-5.0) g/dL Arterial Blood Potassium 4.7 H (3.4-4.5) mmol/L Arterial Blood Glucose 159 H 149 H (75-99) mg/dL Crossmatch 02/14/23 02/14/23 02/14/23 Range/Units 15:11 15:15 15:15 RBC 2.48 L (3.80-5.40) m/uL Hgb 8.0 L (11.4-16.0) gm/dL Hct 22.9 L (34.0-46.0) % Plt Count 71 L (150-450) k/uL Neutrophils # (1.3-7.7) k/uL Lymphocytes # (1.0-4.8) k/uL PT 13.2 H (9.0-12.0) sec INR 1.3 H (<1.2) APTT 38.2 H (22.0-30.0) sec Fibrinogen 111 L (200-500) mg/dL ABG pH 7.48 H (7.35-7.45) ABG pCO2 29 L (35-45) mmHg ABG pO2 >400 H (83-108) mmHg ABG Total CO2 (19-24) mmol/L ABG O2 Saturation 100.0 H (94-97) % ABG Hematocrit (34.0-46.0) % ABG Potassium (3.4-4.5) mmol/L ABG Ionized Calcium (4.5-5.3) mg/dL ABG Glucose (75-99) mg/dL ABG Lactic Acid (0.5-1.6) mmol/L Hemoglobin (11.4-16.0) gm/dL Chloride (98-107) mmol/L Carbon Dioxide (22-30) mmol/L BUN (7-17) mg/dL Glucose (74-99) mg/dL POC Glucose (mg/dL) (70-110) mg/dL Calcium (8.4-10.2) mg/dL Ionized Calcium Thai (4.5-5.3) mg/dL Magnesium (1.6-2.3) mg/dL AST (14-36) U/L Alkaline Phosphatase (38-126) U/L Total Protein (6.3-8.2) g/dL Albumin (3.5-5.0) g/dL Arterial Blood Potassium (3.4-4.5) mmol/L Arterial Blood Glucose (75-99) mg/dL Crossmatch 02/14/23 02/14/23 02/14/23 Range/Units 15:15 16:17 17:08 RBC (3.80-5.40) m/uL Hgb (11.4-16.0) gm/dL Hct (34.0-46.0) % Plt Count (150-450) k/uL Neutrophils # (1.3-7.7) k/uL Lymphocytes # (1.0-4.8) k/uL PT (9.0-12.0) sec INR (<1.2) APTT (22.0-30.0) sec Fibrinogen (200-500) mg/dL ABG pH (7.35-7.45) ABG pCO2 (35-45) mmHg ABG pO2 (83-108) mmHg ABG Total CO2 (19-24) mmol/L ABG O2 Saturation (94-97) % ABG Hematocrit (34.0-46.0) % ABG Potassium (3.4-4.5) mmol/L ABG Ionized Calcium (4.5-5.3) mg/dL ABG Glucose (75-99) mg/dL ABG Lactic Acid (0.5-1.6) mmol/L Hemoglobin (11.4-16.0) gm/dL Chloride 110 H (98-107) mmol/L Carbon Dioxide 20 L (22-30) mmol/L BUN (7-17) mg/dL Glucose 162 H (74-99) mg/dL POC Glucose (mg/dL) 254 H 225 H (70-110) mg/dL Calcium 7.4 L (8.4-10.2) mg/dL Ionized Calcium Thai 4.4 L (4.5-5.3) mg/dL Magnesium 2.7 H (1.6-2.3) mg/dL AST (14-36) U/L Alkaline Phosphatase 29 L (38-126) U/L Total Protein 4.6 L (6.3-8.2) g/dL Albumin 3.2 L (3.5-5.0) g/dL Arterial Blood Potassium (3.4-4.5) mmol/L Arterial Blood Glucose (75-99) mg/dL Crossmatch 02/14/23 02/14/23 02/14/23 Range/Units 18:15 18:18 18:18 RBC 1.92 L (3.80-5.40) m/uL Hgb 6.2 L* D (11.4-16.0) gm/dL Hct 17.7 L* (34.0-46.0) % Plt Count 55 L (150-450) k/uL Neutrophils # (1.3-7.7) k/uL Lymphocytes # 0.9 L (1.0-4.8) k/uL PT (9.0-12.0) sec INR (<1.2) APTT (22.0-30.0) sec Fibrinogen 112 L (200-500) mg/dL ABG pH (7.35-7.45) ABG pCO2 (35-45) mmHg ABG pO2 (83-108) mmHg ABG Total CO2 (19-24) mmol/L ABG O2 Saturation (94-97) % ABG Hematocrit (34.0-46.0) % ABG Potassium (3.4-4.5) mmol/L ABG Ionized Calcium (4.5-5.3) mg/dL ABG Glucose (75-99) mg/dL ABG Lactic Acid (0.5-1.6) mmol/L Hemoglobin (11.4-16.0) gm/dL Chloride (98-107) mmol/L Carbon Dioxide (22-30) mmol/L BUN (7-17) mg/dL Glucose (74-99) mg/dL POC Glucose (mg/dL) 198 H (70-110) mg/dL Calcium (8.4-10.2) mg/dL Ionized Calcium Thai (4.5-5.3) mg/dL Magnesium (1.6-2.3) mg/dL AST (14-36) U/L Alkaline Phosphatase (38-126) U/L Total Protein (6.3-8.2) g/dL Albumin (3.5-5.0) g/dL Arterial Blood Potassium (3.4-4.5) mmol/L Arterial Blood Glucose (75-99) mg/dL Crossmatch 02/14/23 02/14/23 02/14/23 Range/Units 19:09 19:57 20:35 RBC 2.47 L (3.80-5.40) m/uL Hgb 7.6 L (11.4-16.0) gm/dL Hct 22.4 L (34.0-46.0) % Plt Count 62 L (150-450) k/uL Neutrophils # (1.3-7.7) k/uL Lymphocytes # 0.9 L (1.0-4.8) k/uL PT (9.0-12.0) sec INR (<1.2) APTT (22.0-30.0) sec Fibrinogen (200-500) mg/dL ABG pH (7.35-7.45) ABG pCO2 (35-45) mmHg ABG pO2 (83-108) mmHg ABG Total CO2 (19-24) mmol/L ABG O2 Saturation (94-97) % ABG Hematocrit (34.0-46.0) % ABG Potassium (3.4-4.5) mmol/L ABG Ionized Calcium (4.5-5.3) mg/dL ABG Glucose (75-99) mg/dL ABG Lactic Acid (0.5-1.6) mmol/L Hemoglobin (11.4-16.0) gm/dL Chloride (98-107) mmol/L Carbon Dioxide (22-30) mmol/L BUN (7-17) mg/dL Glucose (74-99) mg/dL POC Glucose (mg/dL) 184 H 201 H (70-110) mg/dL Calcium (8.4-10.2) mg/dL Ionized Calcium Thai (4.5-5.3) mg/dL Magnesium (1.6-2.3) mg/dL AST (14-36) U/L Alkaline Phosphatase (38-126) U/L Total Protein (6.3-8.2) g/dL Albumin (3.5-5.0) g/dL Arterial Blood Potassium (3.4-4.5) mmol/L Arterial Blood Glucose (75-99) mg/dL Crossmatch 02/14/23 02/14/23 02/14/23 Range/Units 20:49 21:01 22:08 RBC (3.80-5.40) m/uL Hgb (11.4-16.0) gm/dL Hct (34.0-46.0) % Plt Count (150-450) k/uL Neutrophils # (1.3-7.7) k/uL Lymphocytes # (1.0-4.8) k/uL PT (9.0-12.0) sec INR (<1.2) APTT (22.0-30.0) sec Fibrinogen (200-500) mg/dL ABG pH (7.35-7.45) ABG pCO2 (35-45) mmHg ABG pO2 (83-108) mmHg ABG Total CO2 (19-24) mmol/L ABG O2 Saturation 98.4 H (94-97) % ABG Hematocrit (34.0-46.0) % ABG Potassium (3.4-4.5) mmol/L ABG Ionized Calcium (4.5-5.3) mg/dL ABG Glucose (75-99) mg/dL ABG Lactic Acid (0.5-1.6) mmol/L Hemoglobin (11.4-16.0) gm/dL Chloride (98-107) mmol/L Carbon Dioxide (22-30) mmol/L BUN (7-17) mg/dL Glucose (74-99) mg/dL POC Glucose (mg/dL) 218 H 214 H (70-110) mg/dL Calcium (8.4-10.2) mg/dL Ionized Calcium Thai (4.5-5.3) mg/dL Magnesium (1.6-2.3) mg/dL AST (14-36) U/L Alkaline Phosphatase (38-126) U/L Total Protein (6.3-8.2) g/dL Albumin (3.5-5.0) g/dL Arterial Blood Potassium (3.4-4.5) mmol/L Arterial Blood Glucose (75-99) mg/dL Crossmatch 02/14/23 02/15/23 02/15/23 Range/Units 23:02 00:01 00:56 RBC (3.80-5.40) m/uL Hgb (11.4-16.0) gm/dL Hct (34.0-46.0) % Plt Count (150-450) k/uL Neutrophils # (1.3-7.7) k/uL Lymphocytes # (1.0-4.8) k/uL PT (9.0-12.0) sec INR (<1.2) APTT (22.0-30.0) sec Fibrinogen (200-500) mg/dL ABG pH (7.35-7.45) ABG pCO2 (35-45) mmHg ABG pO2 (83-108) mmHg ABG Total CO2 (19-24) mmol/L ABG O2 Saturation (94-97) % ABG Hematocrit (34.0-46.0) % ABG Potassium (3.4-4.5) mmol/L ABG Ionized Calcium (4.5-5.3) mg/dL ABG Glucose (75-99) mg/dL ABG Lactic Acid (0.5-1.6) mmol/L Hemoglobin (11.4-16.0) gm/dL Chloride (98-107) mmol/L Carbon Dioxide (22-30) mmol/L BUN (7-17) mg/dL Glucose (74-99) mg/dL POC Glucose (mg/dL) 207 H 192 H 174 H (70-110) mg/dL Calcium (8.4-10.2) mg/dL Ionized Calcium Thai (4.5-5.3) mg/dL Magnesium (1.6-2.3) mg/dL AST (14-36) U/L Alkaline Phosphatase (38-126) U/L Total Protein (6.3-8.2) g/dL Albumin (3.5-5.0) g/dL Arterial Blood Potassium (3.4-4.5) mmol/L Arterial Blood Glucose (75-99) mg/dL Crossmatch 02/15/23 02/15/23 02/15/23 Range/Units 01:54 02:55 03:52 RBC 2.51 L (3.80-5.40) m/uL Hgb 7.9 L (11.4-16.0) gm/dL Hct 23.1 L (34.0-46.0) % Plt Count 86 L (150-450) k/uL Neutrophils # 9.0 H (1.3-7.7) k/uL Lymphocytes # 0.8 L (1.0-4.8) k/uL PT (9.0-12.0) sec INR (<1.2) APTT (22.0-30.0) sec Fibrinogen (200-500) mg/dL ABG pH (7.35-7.45) ABG pCO2 (35-45) mmHg ABG pO2 (83-108) mmHg ABG Total CO2 (19-24) mmol/L ABG O2 Saturation (94-97) % ABG Hematocrit (34.0-46.0) % ABG Potassium (3.4-4.5) mmol/L ABG Ionized Calcium (4.5-5.3) mg/dL ABG Glucose (75-99) mg/dL ABG Lactic Acid (0.5-1.6) mmol/L Hemoglobin (11.4-16.0) gm/dL Chloride (98-107) mmol/L Carbon Dioxide (22-30) mmol/L BUN (7-17) mg/dL Glucose (74-99) mg/dL POC Glucose (mg/dL) 162 H 141 H (70-110) mg/dL Calcium (8.4-10.2) mg/dL Ionized Calcium Thai (4.5-5.3) mg/dL Magnesium (1.6-2.3) mg/dL AST (14-36) U/L Alkaline Phosphatase (38-126) U/L Total Protein (6.3-8.2) g/dL Albumin (3.5-5.0) g/dL Arterial Blood Potassium (3.4-4.5) mmol/L Arterial Blood Glucose (75-99) mg/dL Crossmatch 02/15/23 02/15/23 02/15/23 Range/Units 03:52 03:56 04:57 RBC (3.80-5.40) m/uL Hgb (11.4-16.0) gm/dL Hct (34.0-46.0) % Plt Count (150-450) k/uL Neutrophils # (1.3-7.7) k/uL Lymphocytes # (1.0-4.8) k/uL PT (9.0-12.0) sec INR (<1.2) APTT (22.0-30.0) sec Fibrinogen (200-500) mg/dL ABG pH (7.35-7.45) ABG pCO2 (35-45) mmHg ABG pO2 (83-108) mmHg ABG Total CO2 (19-24) mmol/L ABG O2 Saturation (94-97) % ABG Hematocrit (34.0-46.0) % ABG Potassium (3.4-4.5) mmol/L ABG Ionized Calcium (4.5-5.3) mg/dL ABG Glucose (75-99) mg/dL ABG Lactic Acid (0.5-1.6) mmol/L Hemoglobin (11.4-16.0) gm/dL Chloride 109 H (98-107) mmol/L Carbon Dioxide 20 L (22-30) mmol/L BUN 19 H (7-17) mg/dL Glucose 116 H (74-99) mg/dL POC Glucose (mg/dL) 128 H 117 H (70-110) mg/dL Calcium 7.9 L (8.4-10.2) mg/dL Ionized Calcium Thai (4.5-5.3) mg/dL Magnesium 2.4 H (1.6-2.3) mg/dL AST 59 H (14-36) U/L Alkaline Phosphatase 26 L (38-126) U/L Total Protein 5.3 L (6.3-8.2) g/dL Albumin (3.5-5.0) g/dL Arterial Blood Potassium (3.4-4.5) mmol/L Arterial Blood Glucose (75-99) mg/dL Crossmatch 02/15/23 Range/Units 06:02 RBC (3.80-5.40) m/uL Hgb (11.4-16.0) gm/dL Hct (34.0-46.0) % Plt Count (150-450) k/uL Neutrophils # (1.3-7.7) k/uL Lymphocytes # (1.0-4.8) k/uL PT (9.0-12.0) sec INR (<1.2) APTT (22.0-30.0) sec Fibrinogen (200-500) mg/dL ABG pH (7.35-7.45) ABG pCO2 (35-45) mmHg ABG pO2 (83-108) mmHg ABG Total CO2 (19-24) mmol/L ABG O2 Saturation (94-97) % ABG Hematocrit (34.0-46.0) % ABG Potassium (3.4-4.5) mmol/L ABG Ionized Calcium (4.5-5.3) mg/dL ABG Glucose (75-99) mg/dL ABG Lactic Acid (0.5-1.6) mmol/L Hemoglobin (11.4-16.0) gm/dL Chloride (98-107) mmol/L Carbon Dioxide (22-30) mmol/L BUN (7-17) mg/dL Glucose (74-99) mg/dL POC Glucose (mg/dL) 116 H (70-110) mg/dL Calcium (8.4-10.2) mg/dL Ionized Calcium Thai (4.5-5.3) mg/dL Magnesium (1.6-2.3) mg/dL AST (14-36) U/L Alkaline Phosphatase (38-126) U/L Total Protein (6.3-8.2) g/dL Albumin (3.5-5.0) g/dL Arterial Blood Potassium (3.4-4.5) mmol/L Arterial Blood Glucose (75-99) mg/dL Crossmatch - Imaging and Cardiology Chest x-ray: report reviewed, image reviewed Assessment and Plan Assessment: Critical aortic stenosis, status post bioprosthetic aortic valve replacement with routine enlargement History of hypertension, currently borderline hypotensive, not on pressors Hyperlipidemia, treated, cholesterol 175, LDL 73 with triglycerides 250 Previous tobacco dependence Mild COPD, preoperative FEV1 74% of predicted Right internal carotid stenosis 50-79% Previous GI bleed with bleeding ulcer in 2018 Previously undiagnosed and untreated diabetes, preoperative hemoglobin A1c 7.9% Obesity Postoperative acute blood loss anemia and thrombocytopenia, expected Plan: Continue to maximize medical therapy with low-dose aspirin, Plavix, statin, beta champ therapy. Will increase beta champ therapy as tolerated Will wean Primacor as tolerated based on cardiac index, SVR Continue amiodarone for A. fib prophylaxis. Will transition to oral Wean O2 as tolerated. Encourage incentive spirometry use 10 times every hour while awake. Bronchodilators per pulmonology Increase activity as tolerated. PT/OT/cardiac rehab consulted Will monitor daily labs and x-rays. Electrolyte replacement per protocol. No further blood transfusion at this time, iron/vitamin C added Insulin management per internal medicine. Hemoglobin A1c preoperative 7.9%, patient denies being told she was diabetic, will need diabetic teaching and recommendations at discharge GI/DVT prophylaxis Pain control with current medication regimen. Avoid Toradol due to thrombocytopenia Continue chest tubes for another 24 hours Continue Carney catheter for another 24 hours for strict accurate intake and output Daily weights More recommendations to follow based on patient's progress
[2023-02-15] MEDS: IPRATROPIUM-ALBUTEROL 3 ML NEB INHALATION SCH ×4 (08:28→20:24)
[2023-02-15] MEDS ORDERED: bisacodyL 10 MG SUPP RECTAL PRN (09:00)
[2023-02-15] MEDS ORDERED: MAGNESIUM HYDROXIDE 2,400 MG/10 ML CUP PO PRN (09:00)
[2023-02-15] MEDS ORDERED: PANTOPRAZOLE 40 MG/10 ML VIAL IVP SCH (09:00)
[2023-02-15] MEDS: MILRINONE-D5W PMX 20 MG in DEXTROSE/WATER 1 100ML.BAG IV SCH ×3 (09:20→23:03)
--- NOTE | 2023-02-15 09:26 | P.CRDCN ---
History of Present Illness Consult date: 02/15/23 History of present illness: History of Present Illness: The patient is a 67-year-old female who underwent aortic valve replacement. She is followed by Dr. Velasquez on her regular basis. She is extubated, sitting up in the chair. She has no chest discomfort or significant dyspnea. She continues to be in sinus mechanism. She underwent aortic valve replacement with size 25 Wheat Inspiris valve was closure of the left atrial appendage. Her cardiac catheterization showed no significant obstructive disease. She has been having progressive dyspnea on exertion, her left ventricle systolic function was preserved. She has a history of hypertension and hyperlipidemia, she is a nondiabetic. She has her chest tube and [place] catheter in place. Medications: Lipitor 80 mg daily, lisinopril 10 mg daily,Zetia 10 mg daily Review of Systems: Respiratory: Prior to surgery she had dyspnea on exertion, progressive GI: No nausea or vomiting . No history of peptic ulcer disease. No recent GI bleed. She had a prior history of GI bleeding about 5 years ago : No hematuria or dysuria. Nervous System: No stroke or seizure. Physical Examination: 67-year-old female, alert and oriented no apparent distress ,Blood pressure 100/50, Heart rate 80 Head: Normocephalic. Eyes: Sclerae nonicteric. Neck: Good carotid upstroke, no bruit, no jugular venous distention. Lungs: Mild decreased breath sounds at the bases Heart: Regular rate and rhythm, S1-S2, no S3, no rub. Systolic ejection murmur. Abdomen: Soft nontender, positive bowel sounds no organomegaly. Extremities: No edema, intact distal pulses. Labs: BUN 19, creatinine 0.84, hemoglobin 7.9 EKG: Sinus mechanism with right bundle branch block Impression: 1. Status post aortic valve replacement for severe aortic stenosis, stable 2. History of hypertension 3. History of hyperlipidemia Plan: 1. Resume statin 2. Follow blood pressure and adjust treatment 3. Incentive spirometry 4. Increase physical activity 5. Depending on her progress further recommendations will be made, thank you for this consult we will follow with you. Past Medical History Past Medical History: GERD/Reflux, GI Bleed, Hyperlipidemia, Hypertension, Osteoarthritis (OA) Additional Past Medical History / Comment(s): Heart murmur. Varicose veins. Hx Acid Reflux yrs ago, now resolved. hx. bleeding ulcer 2018, Limited mobility in neck. SOB w/exertion, fatigue History of Any Multi-Drug Resistant Organisms: None Reported Past Surgical History: Back Surgery, Heart Catheterization, Orthopedic Surgery Additional Past Surgical History / Comment(s): Herniated disc surgery, neck fusion with pins and rods placed. EZIO Past Anesthesia/Blood Transfusion Reactions: Postoperative Nausea & Vomiting (PONV) Additional Past Anesthesia/Blood Transfusion Reaction / Comment(s): no hx. blood transfusion reaction Smoking Status: Former smoker - Past Family History Mother Family Medical History: Diabetes Mellitus, Hypertension Additional Family Medical History / Comment(s): Vein replacement surgery. Father Family Medical History: Cancer, Hypertension Additional Family Medical History / Comment(s): Stomach cancer. Brother(s) Family Medical History: Cancer Additional Family Medical History / Comment(s): Prostate cancer. Other brother had Leukemia. Medications and Allergies Home Medications Medication Instructions Recorded Confirmed Type Atorvastatin [Lipitor] 80 mg PO HS 06/10/22 02/14/23 History Ezetimibe [Zetia] 10 mg PO DAILY 06/10/22 02/14/23 History lisinopriL [Zestril] 10 mg PO DAILY 06/10/22 02/14/23 History Allergies Allergy/AdvReac Type Severity Reaction Status Date / Time codeine Allergy Rash/Hives Verified 02/14/23 05:55 protamine AdvReac Rapid Verified 02/15/23 07:47 Heart Rate Physical Exam Vitals: Vital Signs Temp Pulse Resp BP Pulse Ox FiO2 02/15/23 08:43 82 02/15/23 08:29 80 94 L 02/15/23 07:00 77 14 100/49 94 L 02/15/23 06:30 78 12 94/46 92 L 02/15/23 06:00 87 14 103/47 95 02/15/23 05:30 81 21 118/49 93 L 02/15/23 05:00 80 12 108/52 92 L 02/15/23 04:30 79 12 115/51 91 L 02/15/23 04:00 99.0 F 80 17 104/55 95 02/15/23 03:30 77 12 100/55 93 L 02/15/23 03:00 77 13 100/52 93 L 02/15/23 02:30 76 13 111/55 93 L 02/15/23 02:00 78 13 117/59 94 L 02/15/23 01:30 80 14 111/60 94 L 02/15/23 01:00 81 12 114/60 94 L 02/15/23 00:30 74 14 115/50 94 L 02/15/23 00:00 98.1 F 76 15 94 L 02/14/23 23:30 80 16 95 02/14/23 23:00 75 15 95 02/14/23 22:30 79 15 93 L 02/14/23 22:00 76 18 93 L 02/14/23 21:30 78 16 94 L 02/14/23 21:00 86 21 95 02/14/23 20:36 50 02/14/23 20:30 75 20 100 50 02/14/23 20:14 98.2 F 72 20 162/57 100 02/14/23 20:10 50 02/14/23 20:00 80 20 100 50 02/14/23 19:49 98.1 F 83 20 141/50 100 02/14/23 19:30 70 20 100 50 02/14/23 19:29 98.2 F 70 20 109/53 100 02/14/23 19:20 98.2 F 71 20 125/47 100 02/14/23 19:00 98.1 F 71 20 100 50 02/14/23 18:30 69 20 100 50 02/14/23 18:00 70 20 100 50 02/14/23 17:30 71 20 100 50 02/14/23 17:00 72 20 100 50 02/14/23 16:30 74 20 100 50 02/14/23 16:00 76 20 100 50 02/14/23 15:58 74 02/14/23 15:50 76 20 100 50 02/14/23 15:40 75 20 100 50 02/14/23 15:30 73 20 100 100 02/14/23 15:28 50 02/14/23 15:20 80 13 100 100 02/14/23 15:10 95.5 F L 80 19 100 100 02/14/23 15:00 100 02/14/23 14:44 98.2 F 71 20 125/47 100 Intake and Output 02/14/23 02/15/23 02/15/23 22:59 06:59 14:59 Intake Total 1751.478 804.402 274.908 Output Total 943 555 40 Balance 808.478 249.402 234.908 Intake: IV 433 742 259 0.9NS Pressure bag 63 72 9 ACETAMINOPHEN IV (For NPO 100 ) 1,000 mg In Empty Bag 1 bag @ 400 mls/hr IVPB Q6HR [facility] Rx#:[id number] Albumin Human 5% 250 ml 250 In Empty Bag 1 bag @ 250 mls/hr IVPB Q1HR PRN Rx#: [id number] CO/CI 220 120 Lactated Ringers 1,000 ml 150 400 @ 20 mls/hr IV .Q24H [facility] Rx#:[id number] ceFAZolin 2 gm In Sodium 50 Chloride 0.9% 50 ml @ 100 mls/hr IVPB Q8HR [facility] Rx# :[id number] Intake, IV Titration 1045.478 62.402 15.908 Amount Dexmedetomidine/0.9% NaCl 100 (Pmx) 400 mcg In Empty Bag 1 bag @ Titrate IV . Q0M [facility] Rx#:[id number] Insulin Regular 100 unit 26.303 62.402 15.908 In Sodium Chloride 0.9% 100 ml @ Per Protocol IV .Q0M [facility] Rx#:[id number] Lactated Ringers 1,000 ml 800 @ 20 mls/hr IV .Q24H [facility]ES Rx#:[id number] Milrinone-D5w Pmx 20 mg 73.055 In Dextrose/Water 1 100ml .bag @ 0.375 MCG/KG/MIN 10.665 mls/hr IV .Q9H23M [facility] Rx#:[id number] propofoL 1,000 mg In 46.120 Empty Bag 1 bag @ Titrate IV .Q0M NIEVES Rx#: [id number] Blood Product 273 Rc Pheresis As-3 Unit 273 [id number] Output: Drainage 570 290 20 Medial Chest 230 170 10 Right Medial Chest 340 120 10 Urine 373 265 20 Other: Voiding Method Indwelling Catheter Indwelling Catheter Weight 98.1 kg ABP, PAP, CO, CI - Last 8 Hours Arterial Blood Pressure 181/52 Arterial Blood Pressure 186/54 Pulmonary Artery Pressure 37/10 Pulmonary Artery Pressure 27/8 Pulmonary Artery Pressure 33/11 Pulmonary Artery Pressure 33/13 Pulmonary Artery Pressure 29/15 Pulmonary Artery Pressure 35/14 Pulmonary Artery Pressure 38/15 Pulmonary Artery Pressure 33/13 Pulmonary Artery Pressure 35/12 Pulmonary Artery Pressure 31/15 Pulmonary Artery Pressure 35/14 Pulmonary Artery Pressure 36/14 Cardiac Output 4.2 Cardiac Output 4.4 Cardiac Output 4.4 Cardiac Output 4.4 Cardiac Index 2.1 Cardiac Index 2.2 Cardiac Index 2.2 Cardiac Index 2.2 Results 02/15/23 03:52 02/15/23 03:52 Cardiac Enzymes 02/14/23 02/15/23 Range/Units 15:15 03:52 AST 34 59 H (14-36) U/L Coagulation 02/14/23 Range/Units 15:15 PT 13.2 H (9.0-12.0) sec APTT 38.2 H (22.0-30.0) sec CBC 02/14/23 02/14/23 02/14/23 Range/Units 15:15 18:18 20:35 WBC 9.2 7.2 8.1 (3.8-10.6) k/uL RBC 2.48 L 1.92 L 2.47 L (3.80-5.40) m/uL Hgb 8.0 L 6.2 L* D 7.6 L (11.4-16.0) gm/dL Hct 22.9 L 17.7 L* 22.4 L (34.0-46.0) % Plt Count 71 L 55 L 62 L (150-450) k/uL 02/15/23 Range/Units 03:52 WBC 10.6 (3.8-10.6) k/uL RBC 2.51 L (3.80-5.40) m/uL Hgb 7.9 L (11.4-16.0) gm/dL Hct 23.1 L (34.0-46.0) % Plt Count 86 L (150-450) k/uL Comprehensive Metabolic Panel 02/14/23 02/15/23 Range/Units 15:15 03:52 Sodium 139 140 (137-145) mmol/L Potassium 5.1 4.0 (3.5-5.1) mmol/L Chloride 110 H 109 H (98-107) mmol/L Carbon Dioxide 20 L 20 L (22-30) mmol/L BUN 16 19 H (7-17) mg/dL Creatinine 0.72 0.84 (0.52-1.04) mg/dL Glucose 162 H 116 H (74-99) mg/dL Calcium 7.4 L 7.9 L (8.4-10.2) mg/dL AST 34 59 H (14-36) U/L ALT 13 16 (4-34) U/L Alkaline Phosphatase 29 L 26 L (38-126) U/L Total Protein 4.6 L 5.3 L (6.3-8.2) g/dL Albumin 3.2 L 3.8 (3.5-5.0) g/dL Current Medications Generic Name Dose Route Start Last Admin Trade Name Freq PRN Reason Stop Dose Admin Acetaminophen 650 mg 02/15/23 06:50 Acetaminophen Tab 325 Mg Tab PO Q4HR PRN Fever and/ or Pain Hydrocodone Bitart/Acetaminophen 1 each 02/15/23 02:36 02/15/23 04:10 Hydrocodone/Apap 5-325mg 1 Each Tab PO 1 each Q4HR PRN Administration Moderate Pain (Scale 4 to 6) Hydrocodone Bitart/Acetaminophen 1 each 02/15/23 02:30 Hydrocodone/Apap 10-325mg 1 Each Tab PO Q4HR PRN Severe Pain (Scale 7 to 10) Albuterol/Ipratropium 3 ml 02/14/23 15:06 Ipratropium-Albuterol 3 Ml Neb INHALATION RT-Q2H PRN Shortness Of Breath Or Wheezing Albuterol/Ipratropium 3 ml 02/15/23 08:00 02/15/23 08:28 Ipratropium-Albuterol 3 Ml Neb INHALATION 3 ml RT-QID NIEVES Administration Amiodarone HCl 400 mg 02/15/23 09:00 Amiodarone 200 Mg Tab PO BID NIEVES Ascorbic Acid 500 mg 02/15/23 07:30 Ascorbic Acid 500 Mg Tab PO BID-W/MEALS NIEVES Aspirin 81 mg 02/15/23 09:00 Aspirin 81 Mg PO DAILY NIEVES Atorvastatin Calcium 80 mg 02/14/23 21:00 02/14/23 20:12 Atorvastatin 80 Mg Tab PO 80 mg HS NIEVES Administration Benzocaine/Menthol 1 each 02/14/23 15:06 Benzocaine/Menthol Lozeng 1 Each Lozenge MUCOUS MEM Q2H PRN Sore Throat Bisacodyl 10 mg 02/15/23 09:00 Bisacodyl 10 Mg Supp RECTAL DAILY PRN Constipation Clopidogrel Bisulfate 75 mg 02/15/23 09:00 Clopidogrel 75 Mg Tab PO DAILY NIEVES Dextrose/Water 25 ml 02/14/23 15:06 Dextrose 50% Syringe 50 Ml IVP PER PROTOCOL PRN Hypoglycemia Protocol Dextrose/Water 50 ml 02/14/23 15:06 Dextrose 50% Syringe 50 Ml IVP PER PROTOCOL PRN Hypoglycemia Protocol Ezetimibe 10 mg 02/15/23 09:00 Ezetimibe 10 Mg Tab PO DAILY NIEVES Ferrous Sulfate 325 mg 02/15/23 07:30 Ferrous Sulfate 325 Mg Tab PO BID-W/MEALS NIEVES Heparin Sodium (Porcine) 5,000 unit 02/14/23 16:00 02/15/23 07:39 Heparin Sodium,Porcine/Pf 5,000 Unit/0.5 Ml Syringe SQ Not Given Q8HR [facility]EVES Amiodarone HCl 450 mg/ 250 mls @ 16.667 mls/hr 02/14/23 21:00 02/14/23 21:21 Dextrose/Water IV 02/15/23 14:59 0.5 mg/min .Q15H NIEVES 16.667 mls/hr Administration Protocol 0.5 MG/MIN Amiodarone HCl 150 mg/ 103 mls @ 618 mls/hr 02/14/23 15:06 Dextrose/Water IV .Q10M PRN A.FIB/FLUTTER Albumin Human 250 ml/ IV 250 mls @ 250 mls/hr 02/14/23 15:06 02/15/23 06:29 Solution IVPB 02/16/23 15:07 250 mls/hr Q1HR PRN Administration For Volume Protocol Lactated Ringer's 1,000 mls @ 20 mls/hr 02/14/23 15:06 02/14/23 15:30 Lactated Ringers IV 50 mls/hr .Q24H NIEVES Administration Calcium Gluconate/Sodium 100 mls @ 100 mls/hr 02/14/23 15:06 Chloride 2 gm/ IV Solution IVPB 02/20/23 23:00 ONCE PRN Ionized Calcium less than 4.4 Milrinone Lactate/Dextrose 20 100 mls @ 5.688 mls/hr 02/14/23 15:15 02/14/23 22:21 mg/ IV Solution IV 0.375 mcg/kg/min .[id number] NIEVES 10.665 mls/hr Administration 0.2 MCG/KG/MIN Insulin Human Regular 100 unit 101 mls @ 0 mls/hr 02/14/23 16:00 02/15/23 07:08 / Sodium Chloride IV 0 units/hr .Q0M NIEVES 0 mls/hr Titration Protocol Per Protocol Magnesium Hydroxide 2,400 mg 02/15/23 09:00 Magnesium Hydroxide 2,400 Mg/10 Ml Cup PO BID PRN Constipation Metoclopramide HCl 10 mg 02/14/23 15:06 Metoclopramide 5 Mg/Ml 2 Ml Vial IVP Q4H PRN Nausea And Vomiting Metoprolol Tartrate 12.5 mg 02/15/23 09:00 Metoprolol Tartrate 12.5 Mg Tab PO BID [facility] Miscellaneous Information 1 each 02/14/23 15:06 Magnesium Replacement Protocol 1 Each Misc MISCELLANE DAILY PRN Per Protocol Protocol Miscellaneous Information 1 each 02/14/23 15:06 Potassium Replacement Protocol 1 Each Misc MISCELLANE DAILY PRN Per Protocol Protocol Ondansetron HCl 4 mg 02/14/23 15:06 02/15/23 00:44 Ondansetron 4 Mg/2 Ml Vial IVP 4 mg Q6HR PRN Administration Nausea And Vomiting Pantoprazole Sodium 40 mg 02/15/23 09:00 Pantoprazole 40 Mg/10 Ml Vial IVP 02/15/23 10:00 DAILY [facility] Pantoprazole Sodium 40 mg 02/16/23 07:30 Pantoprazole 40 Mg Tablet PO AC-BRKFST [facility] Senna/Docusate Sodium 2 each 02/15/23 21:00 Sennosides-Docusate Sodium 1 Each Tab PO HS [facility] Sodium Chloride 10 ml 02/14/23 21:00 02/14/23 20:28 Sodium Chloride 0.9% Flush 10 Ml Syringe IV 10 ml BID NIEVES Administration Intake and Output 02/14/23 02/15/23 02/15/23 22:59 06:59 14:59 Intake Total 1751.478 804.402 274.908 Output Total 943 555 40 Balance 808.478 249.402 234.908 Intake: IV 433 742 259 0.9NS Pressure bag 63 72 9 ACETAMINOPHEN IV (For NPO 100 ) 1,000 mg In Empty Bag 1 bag @ 400 mls/hr IVPB Q6HR [facility] Rx#:[id number] Albumin Human 5% 250 ml 250 In Empty Bag 1 bag @ 250 mls/hr IVPB Q1HR PRN Rx#: [id number] CO/CI 220 120 Lactated Ringers 1,000 ml 150 400 @ 20 mls/hr IV .Q24H [facility] Rx#:[id number] ceFAZolin 2 gm In Sodium 50 Chloride 0.9% 50 ml @ 100 mls/hr IVPB Q8HR [facility] Rx# :[id number] Intake, IV Titration 1045.478 62.402 15.908 Amount Dexmedetomidine/0.9% NaCl 100 (Pmx) 400 mcg In Empty Bag 1 bag @ Titrate IV . Q0M [facility] Rx#:[id number] Insulin Regular 100 unit 26.303 62.402 15.908 In Sodium Chloride 0.9% 100 ml @ Per Protocol IV .Q0M [facility] Rx#:[id number] Lactated Ringers 1,000 ml 800 @ 20 mls/hr IV .Q24H [facility] Rx#:[id number] Milrinone-D5w Pmx 20 mg 73.055 In Dextrose/Water 1 100ml .bag @ 0.375 MCG/KG/MIN 10.665 mls/hr IV .Q9H23M [facility] Rx#:[id number] propofoL 1,000 mg In 46.120 Empty Bag 1 bag @ Titrate IV .Q0M [facility] Rx#: [id number] Blood Product 273 Rc Pheresis As-3 Unit 273 [id number] Output: Drainage 570 290 20 Medial Chest 230 170 10 Right Medial Chest 340 120 10 Urine 373 265 20 Other: Voiding Method Indwelling Catheter Indwelling Catheter Weight 98.1 kg 02/15/23 03:52 02/15/23 03:52
[2023-02-15 09:56] LABS: Glucose,Whole Blood 212 mg/dL (70-110)
--- NOTE | 2023-02-15 09:57 | P.PN ---
Subjective Progress Note Date: 02/15/23 On 03/14/2023, the patient is postop day #1 and the patient underwent aortic valve replacement with a bioprosthetic aortic valve and the patient was brought into the intensive care unit where she was weaned off the mechanical ventilator and she was extubated without having any major issues. The patient immediately after arriving from the operating room, was noted to have a low cardiac index. She was started on Primacor which is running at 0.2 g. Her cardiac output from this morning is at 4.7 with an index of 2.4. She received packed RBC intraoperatively and hemoglobin is 7.9. She was given a total of 2 units of packed RBCs. Her chest x-ray from today shows an infiltration of the right upper lobe and a [place] catheter is in place and the chest was done in place. There is a right suprahilar increased density which is an infiltrate versus atelectasis. No evidence of any pneumothorax. The chest tube output is noted and the patient is currently on 2 L of oxygen by nasal cannula. The output from the right-sided chest tube has been under and 20 mL overnight and 500 mL since surgery. The mediastinal chest tube was drained approximately 170 mL overnight and 400 mL since surgery. Her cardiac output is at 4.2 with an index of 2.1. Pulmonary artery pressures are 31/7. Hemodynamically stable sitting up on a chair communicating no focal neurological deficit. BUN is at 19 with a creatinine of 0.8. WBC count of 10.6 with a hemoglobin of 7.9. Cardiac rhythm is sinus. Using the incentive spirometer. In terms of her blood sugar control, the patient is often signs of any blood sugar is under tighter control for now. Objective - Vital Signs Vital signs: Vital Signs Temp 99.0 F 02/15/23 04:00 Pulse 82 02/15/23 08:43 Resp 14 02/15/23 07:00 BP 100/49 02/15/23 07:00 Pulse Ox 94 L 02/15/23 08:29 FiO2 50 02/14/23 20:36 Intake & Output 02/14/23 02/15/23 02/15/23 18:59 06:59 18:59 Intake Total 6785.742 1442.013 622.908 Output Total 2445 953 120 Balance -1120.133 570.013 502.908 Weight 98.1 kg Intake: IV 128 1048 407 0.9NS Pressure bag 27 108 27 ACETAMINOPHEN IV (For NPO 100 ) 1,000 mg In Empty Bag 1 bag @ 400 mls/hr IVPB Q6HR [facility] Rx#:[id number] Albumin Human 5% 250 ml 250 In Empty Bag 1 bag @ 250 mls/hr IVPB Q1HR PRN Rx#: [id number] CO/CI 100 240 30 Lactated Ringers 1,000 ml 550 100 @ 20 mls/hr IV .Q24H [facility] Rx#:[id number] ceFAZolin 2 gm In Sodium 50 Chloride 0.9% 50 ml @ 100 mls/hr IVPB Q8HR [facility] Rx# :[id number] Intake, IV Titration 905.867 202.013 15.908 Amount Dexmedetomidine/0.9% NaCl 100 (Pmx) 400 mcg In Empty Bag 1 bag @ Titrate IV . Q0M [facility] Rx#:[id number] Insulin Regular 100 unit 9.747 78.958 15.908 In Sodium Chloride 0.9% 100 ml @ Per Protocol IV .Q0M [facility] Rx#:[id number] Lactated Ringers 1,000 ml 750 50 @ 20 mls/hr IV .Q24H [facility] Rx#:[id number] Milrinone-D5w Pmx 20 mg 73.055 In Dextrose/Water 1 100ml .bag @ 0.2 MCG/KG/MIN 5. 688 mls/hr IV .[id number] [facility] Rx#:[id number] propofoL 1,000 mg In 46.120 Empty Bag 1 bag @ Titrate IV .Q0M [facility] Rx#: [id number] Oral 200 Blood Product 291 273 Rc Pheresis As-3 Unit 291 [id number] Rc Pheresis As-3 Unit 273 [id number] Output: Drainage 320 540 60 Medial Chest 130 270 20 Right Medial Chest 190 270 40 Urine 625 413 60 Estimated Blood Loss 1500 Other: Voiding Method Indwelling Catheter Indwelling Catheter ABP, PAP, CO, CI - Last Documented Arterial Blood Pressure 181/52 Pulmonary Artery Pressure 37/10 Cardiac Output 4.2 Cardiac Index 2.1 - Exam CONSTITUTIONAL: Appears comfortable, cooperative, no acute distress RESPIRATORY: Lungs sounds diminished bilaterally. Respirations even, nonlabored. Currently on 2 L nasal cannula with oxygen saturation 92%. Not using incentive spirometry appropriately. Strong cough. CARDIOVASCULAR: S1, S2 present. Regular rate and rhythm, sinus rhythm on telemetry. Sternum stable. Palpable peripheral pulses bilaterally. Trace bilateral lower extremity edema present. No calf pain or tenderness noted. Heart hugger in place with patient demonstrating appropriate use. Antiembolism stockings, SCDs present. GASTROINTESTINAL: Abdomen soft, nontender, nondistended. Hypoactive bowel sounds present 4 quadrants. Tolerating clear liquids. Negative flatus GENITOURINARY: Carney present draining clear, yellow urine. Output overnight 25-35 mL per hour INTEGUMENTARY: Skin is warm and dry with evidence of good perfusion. Anterior chest incision well approximated and covered with dry intact dressing NEUROLOGIC: Cranial nerves II through XII intact MUSKULOSKELETAL: Able to move all extremities, strength equal bilaterally PSYCHIATRIC: Alert and oriented to person place and time, appropriate affect, intact judgment and insight INVASIVE LINES AND TUBES: Mediastinal/right pleural chest tubes present and connected to wall suction, no air leaks present. Mediastinal tube with 170 mL serosanguineous drainage overnight, 400 mL since surgery. Right pleural chest tube with 120 mL serosanguineous drainage overnight, 500 mL since surgery. A/V epicardial pacemaker wires present, connected to generator, VVI mode with backup rate 60 bpm. Right internal jugular [place], right radial arterial line present. Last CO/CI 4.2/2.1, PA 31/9, CVP12. - Labs CBC & Chem 7: 02/15/23 03:52 02/15/23 03:52 Labs: Abnormal Lab Results - Last 24 Hours (Table) 02/05/23 02/14/23 02/14/23 Range/Units 09:23 08:40 09:34 RBC (3.80-5.40) m/uL Hgb (11.4-16.0) gm/dL Hct (34.0-46.0) % Plt Count (150-450) k/uL Neutrophils # (1.3-7.7) k/uL Lymphocytes # (1.0-4.8) k/uL PT (9.0-12.0) sec INR (<1.2) APTT (22.0-30.0) sec Fibrinogen (200-500) mg/dL ABG pH (7.35-7.45) ABG pCO2 (35-45) mmHg ABG pO2 384 H 159 H (83-108) mmHg ABG Total CO2 25 H 25 H (19-24) mmol/L ABG O2 Saturation 99.3 H 98.5 H (94-97) % ABG Hematocrit 31 L (34.0-46.0) % ABG Potassium (3.4-4.5) mmol/L ABG Ionized Calcium (4.5-5.3) mg/dL ABG Glucose 186 H 191 H (75-99) mg/dL ABG Lactic Acid 1.7 H 1.7 H (0.5-1.6) mmol/L Hemoglobin 10.9 L 10.0 L (11.4-16.0) gm/dL Chloride (98-107) mmol/L Carbon Dioxide (22-30) mmol/L BUN (7-17) mg/dL Glucose (74-99) mg/dL POC Glucose (mg/dL) (70-110) mg/dL Calcium (8.4-10.2) mg/dL Ionized Calcium Thai (4.5-5.3) mg/dL Magnesium (1.6-2.3) mg/dL AST (14-36) U/L Alkaline Phosphatase (38-126) U/L Total Protein (6.3-8.2) g/dL Albumin (3.5-5.0) g/dL Arterial Blood Potassium (3.4-4.5) mmol/L Arterial Blood Glucose 186 H 191 H (75-99) mg/dL Crossmatch See Detail 02/14/23 02/14/23 02/14/23 Range/Units 10:11 10:42 11:52 RBC (3.80-5.40) m/uL Hgb (11.4-16.0) gm/dL Hct (34.0-46.0) % Plt Count (150-450) k/uL Neutrophils # (1.3-7.7) k/uL Lymphocytes # (1.0-4.8) k/uL PT (9.0-12.0) sec INR (<1.2) APTT (22.0-30.0) sec Fibrinogen (200-500) mg/dL ABG pH 7.34 L (7.35-7.45) ABG pCO2 34 L (35-45) mmHg ABG pO2 >420 H 369 H >420 H (83-108) mmHg ABG Total CO2 25 H 25 H (19-24) mmol/L ABG O2 Saturation 99.8 H 99.5 H 99.6 H (94-97) % ABG Hematocrit 21 L 21 L 18 L* (34.0-46.0) % ABG Potassium 4.8 H 4.8 H (3.4-4.5) mmol/L ABG Ionized Calcium 3.9 L 4.0 L 4.0 L (4.5-5.3) mg/dL ABG Glucose 149 H 152 H 158 H (75-99) mg/dL ABG Lactic Acid 2.0 H 1.8 H (0.5-1.6) mmol/L Hemoglobin 6.9 L* 6.9 L* 6.0 L* (11.4-16.0) gm/dL Chloride (98-107) mmol/L Carbon Dioxide (22-30) mmol/L BUN (7-17) mg/dL Glucose (74-99) mg/dL POC Glucose (mg/dL) (70-110) mg/dL Calcium (8.4-10.2) mg/dL Ionized Calcium Thai (4.5-5.3) mg/dL Magnesium (1.6-2.3) mg/dL AST (14-36) U/L Alkaline Phosphatase (38-126) U/L Total Protein (6.3-8.2) g/dL Albumin (3.5-5.0) g/dL Arterial Blood Potassium 4.8 H 4.8 H (3.4-4.5) mmol/L Arterial Blood Glucose 149 H 152 H 158 H (75-99) mg/dL Crossmatch 02/14/23 02/14/23 02/14/23 Range/Units 12:12 12:46 15:09 RBC (3.80-5.40) m/uL Hgb (11.4-16.0) gm/dL Hct (34.0-46.0) % Plt Count (150-450) k/uL Neutrophils # (1.3-7.7) k/uL Lymphocytes # (1.0-4.8) k/uL PT (9.0-12.0) sec INR (<1.2) APTT (22.0-30.0) sec Fibrinogen (200-500) mg/dL ABG pH 7.34 L (7.35-7.45) ABG pCO2 (35-45) mmHg ABG pO2 402 H >420 H (83-108) mmHg ABG Total CO2 25 H (19-24) mmol/L ABG O2 Saturation 99.3 H 99.6 H (94-97) % ABG Hematocrit 21 L 20 L* (34.0-46.0) % ABG Potassium 4.7 H (3.4-4.5) mmol/L ABG Ionized Calcium 4.0 L 4.0 L (4.5-5.3) mg/dL ABG Glucose 159 H 149 H (75-99) mg/dL ABG Lactic Acid 1.9 H 2.2 H* (0.5-1.6) mmol/L Hemoglobin 6.8 L* 6.4 L* (11.4-16.0) gm/dL Chloride (98-107) mmol/L Carbon Dioxide (22-30) mmol/L BUN (7-17) mg/dL Glucose (74-99) mg/dL POC Glucose (mg/dL) 179 H (70-110) mg/dL Calcium (8.4-10.2) mg/dL Ionized Calcium Thai (4.5-5.3) mg/dL Magnesium (1.6-2.3) mg/dL AST (14-36) U/L Alkaline Phosphatase (38-126) U/L Total Protein (6.3-8.2) g/dL Albumin (3.5-5.0) g/dL Arterial Blood Potassium 4.7 H (3.4-4.5) mmol/L Arterial Blood Glucose 159 H 149 H (75-99) mg/dL Crossmatch 02/14/23 02/14/23 02/14/23 Range/Units 15:11 15:15 15:15 RBC 2.48 L (3.80-5.40) m/uL Hgb 8.0 L (11.4-16.0) gm/dL Hct 22.9 L (34.0-46.0) % Plt Count 71 L (150-450) k/uL Neutrophils # (1.3-7.7) k/uL Lymphocytes # (1.0-4.8) k/uL PT 13.2 H (9.0-12.0) sec INR 1.3 H (<1.2) APTT 38.2 H (22.0-30.0) sec Fibrinogen 111 L (200-500) mg/dL ABG pH 7.48 H (7.35-7.45) ABG pCO2 29 L (35-45) mmHg ABG pO2 >400 H (83-108) mmHg ABG Total CO2 (19-24) mmol/L ABG O2 Saturation 100.0 H (94-97) % ABG Hematocrit (34.0-46.0) % ABG Potassium (3.4-4.5) mmol/L ABG Ionized Calcium (4.5-5.3) mg/dL ABG Glucose (75-99) mg/dL ABG Lactic Acid (0.5-1.6) mmol/L Hemoglobin (11.4-16.0) gm/dL Chloride (98-107) mmol/L Carbon Dioxide (22-30) mmol/L BUN (7-17) mg/dL Glucose (74-99) mg/dL POC Glucose (mg/dL) (70-110) mg/dL Calcium (8.4-10.2) mg/dL Ionized Calcium Thai (4.5-5.3) mg/dL Magnesium (1.6-2.3) mg/dL AST (14-36) U/L Alkaline Phosphatase (38-126) U/L Total Protein (6.3-8.2) g/dL Albumin (3.5-5.0) g/dL Arterial Blood Potassium (3.4-4.5) mmol/L Arterial Blood Glucose (75-99) mg/dL Crossmatch 02/14/23 02/14/23 02/14/23 Range/Units 15:15 16:17 17:08 RBC (3.80-5.40) m/uL Hgb (11.4-16.0) gm/dL Hct (34.0-46.0) % Plt Count (150-450) k/uL Neutrophils # (1.3-7.7) k/uL Lymphocytes # (1.0-4.8) k/uL PT (9.0-12.0) sec INR (<1.2) APTT (22.0-30.0) sec Fibrinogen (200-500) mg/dL ABG pH (7.35-7.45) ABG pCO2 (35-45) mmHg ABG pO2 (83-108) mmHg ABG Total CO2 (19-24) mmol/L ABG O2 Saturation (94-97) % ABG Hematocrit (34.0-46.0) % ABG Potassium (3.4-4.5) mmol/L ABG Ionized Calcium (4.5-5.3) mg/dL ABG Glucose (75-99) mg/dL ABG Lactic Acid (0.5-1.6) mmol/L Hemoglobin (11.4-16.0) gm/dL Chloride 110 H (98-107) mmol/L Carbon Dioxide 20 L (22-30) mmol/L BUN (7-17) mg/dL Glucose 162 H (74-99) mg/dL POC Glucose (mg/dL) 254 H 225 H (70-110) mg/dL Calcium 7.4 L (8.4-10.2) mg/dL Ionized Calcium Thai 4.4 L (4.5-5.3) mg/dL Magnesium 2.7 H (1.6-2.3) mg/dL AST (14-36) U/L Alkaline Phosphatase 29 L (38-126) U/L Total Protein 4.6 L (6.3-8.2) g/dL Albumin 3.2 L (3.5-5.0) g/dL Arterial Blood Potassium (3.4-4.5) mmol/L Arterial Blood Glucose (75-99) mg/dL Crossmatch 02/14/23 02/14/23 02/14/23 Range/Units 18:15 18:18 18:18 RBC 1.92 L (3.80-5.40) m/uL Hgb 6.2 L* D (11.4-16.0) gm/dL Hct 17.7 L* (34.0-46.0) % Plt Count 55 L (150-450) k/uL Neutrophils # (1.3-7.7) k/uL Lymphocytes # 0.9 L (1.0-4.8) k/uL PT (9.0-12.0) sec INR (<1.2) APTT (22.0-30.0) sec Fibrinogen 112 L (200-500) mg/dL ABG pH (7.35-7.45) ABG pCO2 (35-45) mmHg ABG pO2 (83-108) mmHg ABG Total CO2 (19-24) mmol/L ABG O2 Saturation (94-97) % ABG Hematocrit (34.0-46.0) % ABG Potassium (3.4-4.5) mmol/L ABG Ionized Calcium (4.5-5.3) mg/dL ABG Glucose (75-99) mg/dL ABG Lactic Acid (0.5-1.6) mmol/L Hemoglobin (11.4-16.0) gm/dL Chloride (98-107) mmol/L Carbon Dioxide (22-30) mmol/L BUN (7-17) mg/dL Glucose (74-99) mg/dL POC Glucose (mg/dL) 198 H (70-110) mg/dL Calcium (8.4-10.2) mg/dL Ionized Calcium Thai (4.5-5.3) mg/dL Magnesium (1.6-2.3) mg/dL AST (14-36) U/L Alkaline Phosphatase (38-126) U/L Total Protein (6.3-8.2) g/dL Albumin (3.5-5.0) g/dL Arterial Blood Potassium (3.4-4.5) mmol/L Arterial Blood Glucose (75-99) mg/dL Crossmatch 02/14/23 02/14/23 02/14/23 Range/Units 19:09 19:57 20:35 RBC 2.47 L (3.80-5.40) m/uL Hgb 7.6 L (11.4-16.0) gm/dL Hct 22.4 L (34.0-46.0) % Plt Count 62 L (150-450) k/uL Neutrophils # (1.3-7.7) k/uL Lymphocytes # 0.9 L (1.0-4.8) k/uL PT (9.0-12.0) sec INR (<1.2) APTT (22.0-30.0) sec Fibrinogen (200-500) mg/dL ABG pH (7.35-7.45) ABG pCO2 (35-45) mmHg ABG pO2 (83-108) mmHg ABG Total CO2 (19-24) mmol/L ABG O2 Saturation (94-97) % ABG Hematocrit (34.0-46.0) % ABG Potassium (3.4-4.5) mmol/L ABG Ionized Calcium (4.5-5.3) mg/dL ABG Glucose (75-99) mg/dL ABG Lactic Acid (0.5-1.6) mmol/L Hemoglobin (11.4-16.0) gm/dL Chloride (98-107) mmol/L Carbon Dioxide (22-30) mmol/L BUN (7-17) mg/dL Glucose (74-99) mg/dL POC Glucose (mg/dL) 184 H 201 H (70-110) mg/dL Calcium (8.4-10.2) mg/dL Ionized Calcium Thai (4.5-5.3) mg/dL Magnesium (1.6-2.3) mg/dL AST (14-36) U/L Alkaline Phosphatase (38-126) U/L Total Protein (6.3-8.2) g/dL Albumin (3.5-5.0) g/dL Arterial Blood Potassium (3.4-4.5) mmol/L Arterial Blood Glucose (75-99) mg/dL Crossmatch 02/14/23 02/14/23 02/14/23 Range/Units 20:49 21:01 22:08 RBC (3.80-5.40) m/uL Hgb (11.4-16.0) gm/dL Hct (34.0-46.0) % Plt Count (150-450) k/uL Neutrophils # (1.3-7.7) k/uL Lymphocytes # (1.0-4.8) k/uL PT (9.0-12.0) sec INR (<1.2) APTT (22.0-30.0) sec Fibrinogen (200-500) mg/dL ABG pH (7.35-7.45) ABG pCO2 (35-45) mmHg ABG pO2 (83-108) mmHg ABG Total CO2 (19-24) mmol/L ABG O2 Saturation 98.4 H (94-97) % ABG Hematocrit (34.0-46.0) % ABG Potassium (3.4-4.5) mmol/L ABG Ionized Calcium (4.5-5.3) mg/dL ABG Glucose (75-99) mg/dL ABG Lactic Acid (0.5-1.6) mmol/L Hemoglobin (11.4-16.0) gm/dL Chloride (98-107) mmol/L Carbon Dioxide (22-30) mmol/L BUN (7-17) mg/dL Glucose (74-99) mg/dL POC Glucose (mg/dL) 218 H 214 H (70-110) mg/dL Calcium (8.4-10.2) mg/dL Ionized Calcium Thai (4.5-5.3) mg/dL Magnesium (1.6-2.3) mg/dL AST (14-36) U/L Alkaline Phosphatase (38-126) U/L Total Protein (6.3-8.2) g/dL Albumin (3.5-5.0) g/dL Arterial Blood Potassium (3.4-4.5) mmol/L Arterial Blood Glucose (75-99) mg/dL Crossmatch 02/14/23 02/15/23 02/15/23 Range/Units 23:02 00:01 00:56 RBC (3.80-5.40) m/uL Hgb (11.4-16.0) gm/dL Hct (34.0-46.0) % Plt Count (150-450) k/uL Neutrophils # (1.3-7.7) k/uL Lymphocytes # (1.0-4.8) k/uL PT (9.0-12.0) sec INR (<1.2) APTT (22.0-30.0) sec Fibrinogen (200-500) mg/dL ABG pH (7.35-7.45) ABG pCO2 (35-45) mmHg ABG pO2 (83-108) mmHg ABG Total CO2 (19-24) mmol/L ABG O2 Saturation (94-97) % ABG Hematocrit (34.0-46.0) % ABG Potassium (3.4-4.5) mmol/L ABG Ionized Calcium (4.5-5.3) mg/dL ABG Glucose (75-99) mg/dL ABG Lactic Acid (0.5-1.6) mmol/L Hemoglobin (11.4-16.0) gm/dL Chloride (98-107) mmol/L Carbon Dioxide (22-30) mmol/L BUN (7-17) mg/dL Glucose (74-99) mg/dL POC Glucose (mg/dL) 207 H 192 H 174 H (70-110) mg/dL Calcium (8.4-10.2) mg/dL Ionized Calcium Thai (4.5-5.3) mg/dL Magnesium (1.6-2.3) mg/dL AST (14-36) U/L Alkaline Phosphatase (38-126) U/L Total Protein (6.3-8.2) g/dL Albumin (3.5-5.0) g/dL Arterial Blood Potassium (3.4-4.5) mmol/L Arterial Blood Glucose (75-99) mg/dL Crossmatch 02/15/23 02/15/23 02/15/23 Range/Units 01:54 02:55 03:52 RBC 2.51 L (3.80-5.40) m/uL Hgb 7.9 L (11.4-16.0) gm/dL Hct 23.1 L (34.0-46.0) % Plt Count 86 L (150-450) k/uL Neutrophils # 9.0 H (1.3-7.7) k/uL Lymphocytes # 0.8 L (1.0-4.8) k/uL PT (9.0-12.0) sec INR (<1.2) APTT (22.0-30.0) sec Fibrinogen (200-500) mg/dL ABG pH (7.35-7.45) ABG pCO2 (35-45) mmHg ABG pO2 (83-108) mmHg ABG Total CO2 (19-24) mmol/L ABG O2 Saturation (94-97) % ABG Hematocrit (34.0-46.0) % ABG Potassium (3.4-4.5) mmol/L ABG Ionized Calcium (4.5-5.3) mg/dL ABG Glucose (75-99) mg/dL ABG Lactic Acid (0.5-1.6) mmol/L Hemoglobin (11.4-16.0) gm/dL Chloride (98-107) mmol/L Carbon Dioxide (22-30) mmol/L BUN (7-17) mg/dL Glucose (74-99) mg/dL POC Glucose (mg/dL) 162 H 141 H (70-110) mg/dL Calcium (8.4-10.2) mg/dL Ionized Calcium Thai (4.5-5.3) mg/dL Magnesium (1.6-2.3) mg/dL AST (14-36) U/L Alkaline Phosphatase (38-126) U/L Total Protein (6.3-8.2) g/dL Albumin (3.5-5.0) g/dL Arterial Blood Potassium (3.4-4.5) mmol/L Arterial Blood Glucose (75-99) mg/dL Crossmatch 02/15/23 02/15/23 02/15/23 Range/Units 03:52 03:56 04:57 RBC (3.80-5.40) m/uL Hgb (11.4-16.0) gm/dL Hct (34.0-46.0) % Plt Count (150-450) k/uL Neutrophils # (1.3-7.7) k/uL Lymphocytes # (1.0-4.8) k/uL PT (9.0-12.0) sec INR (<1.2) APTT (22.0-30.0) sec Fibrinogen (200-500) mg/dL ABG pH (7.35-7.45) ABG pCO2 (35-45) mmHg ABG pO2 (83-108) mmHg ABG Total CO2 (19-24) mmol/L ABG O2 Saturation (94-97) % ABG Hematocrit (34.0-46.0) % ABG Potassium (3.4-4.5) mmol/L ABG Ionized Calcium (4.5-5.3) mg/dL ABG Glucose (75-99) mg/dL ABG Lactic Acid (0.5-1.6) mmol/L Hemoglobin (11.4-16.0) gm/dL Chloride 109 H (98-107) mmol/L Carbon Dioxide 20 L (22-30) mmol/L BUN 19 H (7-17) mg/dL Glucose 116 H (74-99) mg/dL POC Glucose (mg/dL) 128 H 117 H (70-110) mg/dL Calcium 7.9 L (8.4-10.2) mg/dL Ionized Calcium Thai (4.5-5.3) mg/dL Magnesium 2.4 H (1.6-2.3) mg/dL AST 59 H (14-36) U/L Alkaline Phosphatase 26 L (38-126) U/L Total Protein 5.3 L (6.3-8.2) g/dL Albumin (3.5-5.0) g/dL Arterial Blood Potassium (3.4-4.5) mmol/L Arterial Blood Glucose (75-99) mg/dL Crossmatch 02/15/23 Range/Units 06:02 RBC (3.80-5.40) m/uL Hgb (11.4-16.0) gm/dL Hct (34.0-46.0) % Plt Count (150-450) k/uL Neutrophils # (1.3-7.7) k/uL Lymphocytes # (1.0-4.8) k/uL PT (9.0-12.0) sec INR (<1.2) APTT (22.0-30.0) sec Fibrinogen (200-500) mg/dL ABG pH (7.35-7.45) ABG pCO2 (35-45) mmHg ABG pO2 (83-108) mmHg ABG Total CO2 (19-24) mmol/L ABG O2 Saturation (94-97) % ABG Hematocrit (34.0-46.0) % ABG Potassium (3.4-4.5) mmol/L ABG Ionized Calcium (4.5-5.3) mg/dL ABG Glucose (75-99) mg/dL ABG Lactic Acid (0.5-1.6) mmol/L Hemoglobin (11.4-16.0) gm/dL Chloride (98-107) mmol/L Carbon Dioxide (22-30) mmol/L BUN (7-17) mg/dL Glucose (74-99) mg/dL POC Glucose (mg/dL) 116 H (70-110) mg/dL Calcium (8.4-10.2) mg/dL Ionized Calcium Thai (4.5-5.3) mg/dL Magnesium (1.6-2.3) mg/dL AST (14-36) U/L Alkaline Phosphatase (38-126) U/L Total Protein (6.3-8.2) g/dL Albumin (3.5-5.0) g/dL Arterial Blood Potassium (3.4-4.5) mmol/L Arterial Blood Glucose (75-99) mg/dL Crossmatch Assessment and Plan Plan: Severe symptomatic aortic valve stenosis and the patient underwent aortic valve replacement, currently postop day #1. The patient is hemodynamically stable. Nevertheless the cardiac output and index are low and the patient is going to be started on Primacor. The patient's cardiac output improved while being on Primacor and currently she is on 0.2 g. Hemodynamically stable. Extubated yesterday without any major difficulties. Postthoracotomy, remains intubated and mechanically ventilated. Chest tubes are in place. No evidence of any air leak. No evidence of pneumothorax on postop chest x-ray. There is some atelectatic changes in the right upper lobe, no evidence of any pneumothorax. All of the chest tubes are in place. Anemia, postop, expected outcome of surgery, acute, received a total of 2 units of packed RBCs and hemoglobin is stable for now. No Hypertension Hyperlipidemia Obesity History of acid reflux History of bleeding ulcer back in 2018 Plan Patient has been extubated to 2 L of oxygen nasal cannula. Wean FiO2 to maintain a saturation above 90% Encourage use of incentive spirometer Agree on Primacor, this will be gradually weaned off Continue amiodarone, this is bothering utilize for A. fib prophylaxis Keep the [place]-Dayanara catheter as long as the patient is still on Primacor to monitor the cardiac output Repeat chest x-ray in the morning We'll continue to follow
[2023-02-15] MEDS: CLOPIDOGREL 75 MG TAB PO SCH (09:59)
[2023-02-15] MEDS: FERROUS SULFATE 325 MG TAB PO SCH ×2 (09:59→16:47)
[2023-02-15] MEDS: ASCORBIC ACID 500 MG TAB PO SCH ×2 (09:59→16:46)
[2023-02-15] MEDS: ASPIRIN 81 MG PO SCH (09:59)
[2023-02-15] MEDS: METOPROLOL TARTRATE 12.5 MG TAB PO SCH ×2 (09:59→20:44)
[2023-02-15] MEDS: EZETIMIBE 10 MG TAB PO SCH (09:59)
[2023-02-15] MEDS: AMIODARONE 200 MG TAB PO SCH ×2 (10:07→20:44)
[2023-02-15 10:47] LABS: Glucose,Whole Blood 248 mg/dL (70-110)
[2023-02-15 11:38] VITALS: BMI 37.1
[2023-02-15 11:43] LABS: Glucose,Whole Blood 215 mg/dL (70-110)
[2023-02-15] MEDS: AMIODARONE 450 MG in DEXTROSE 5% IN WATER 250 ML IV SCH ×2 (12:29)
[2023-02-15 12:30] LABS: Glucose,Whole Blood 194 mg/dL (70-110)
[2023-02-15 13:30] LABS: Glucose,Whole Blood 197 mg/dL (70-110)
[2023-02-15 14:22] LABS: Glucose,Whole Blood 159 mg/dL (70-110)
[2023-02-15 15:32] LABS: Glucose,Whole Blood 110 mg/dL (70-110)
[2023-02-15 16:38] LABS: Glucose,Whole Blood 133 mg/dL (70-110)
[2023-02-15] MEDS: LACTATED RINGERS 1,000 ML IV SCH (16:45)
[2023-02-15] MEDS: ACETAMINOPHEN TAB 325 MG TAB PO PRN (16:47)
[2023-02-15] MEDS: PANTOPRAZOLE 40 MG TABLET PO SCH (16:47)
[2023-02-15 17:36] LABS: Glucose,Whole Blood 148 mg/dL (70-110)
--- NOTE | 2023-02-15 17:37 | CONS ---
CONSULTATION PRESENTING COMPLAINT: Status post aortic valve replacement for severe aortic stenosis. HISTORY OF PRESENTING ILLNESS: A 67-year-old lady with past medical history significant for aortic stenosis, previously followed up with Cardiology, admitted to Medical ICU, status post aortic valve replacement for severe stenosis, hypertension, and hyperlipidemia, who was admitted for an elective aortic valve procedure. Postprocedure, the patient was intubated in ICU and successfully extubated. The patient was seen by Cardiology and Intensive Care Unit Team during the hospital stay as well. Postprocedure, the patient was noted to have hyperglycemia with no history of diabetes mellitus. The patient was placed on an insulin drip, managed by Intensive Care Unit Team. We will follow up on HbA1c levels as well. The patient continues to be managed by ICU Team postprocedure. The patient does complain of dyspnea; however, echocardiogram reviewed shows preserved ejection fraction. The patient does have a chest tube and [place]-Dayanara catheter in place, managed by ICU Team. REVIEW OF SYSTEMS: Twelve-point review of systems is obtained, which is negative except for: RESPIRATORY: The patient does complain of shortness of breath with minimal exertion. GASTROINTESTINAL/ABDOMEN: Denies nausea, vomiting, diarrhea, or abdominal pain. CARDIOVASCULAR: Denies chest pain except for pain postsurgery. GENITOURINARY: Denies hematuria. Denies dysuria. PHYSICAL EXAMINATION: GENERAL: The patient is ill-appearing status post cardiac surgery, on nasal cannula. Chest drains in place. CARDIOVASCULAR: Regular rate. Just lower extremity edema noted. PULMONARY: Breath sounds decreased bilaterally. Nasal cannula in place. No use of accessory muscles. Chest drain in place. NEUROLOGIC: Appears at baseline. No focal deficits noted. ABDOMEN: Soft and nontender. Bowel sounds present. SKIN: No open skin breakdown. PAST MEDICAL HISTORY: Significant for gastroesophageal reflux disease, history of GI bleed, hypertension, hyperlipidemia, osteoarthritis, and history of heart murmur. PAST SURGICAL HISTORY: Significant for cardiac catheterization and back surgery. ALLERGIES: 1. Codeine. 2. Protamine. SOCIAL HISTORY: Former smoker. Denies alcohol or illicit drug use. FAMILY HISTORY: Significant for diabetes and hypertension in mother. Father had history of cancer and hypertension. ASSESSMENT: 1. Status post aortic valve replacement, postoperative day 1, for severe aortic stenosis. 2. Status post respiratory failure requiring intubation, extubated. 3. Postoperative anemia secondary to blood loss. 4. Hypertension. 5. Hyperlipidemia. 6. History of gastroesophageal reflux disease with history of bleeding. 7. Postprocedure hyperglycemia. PLAN: 1. The patient is managed by Intensive Care Unit Team. The patient weaned off oxygen on 2 L at this time, extubated. 2. The patient is seen by Cardiology. On Primacor as well as amiodarone as atrial fibrillation prophylaxis. 3. Continue with [place]-Dayanara catheter to monitor cardiac output, managed by Cardiology and ICU Team. 4. Postprocedure, the patient was noted to have hyperglycemia. We will follow up on HbA1c levels. The patient is on insulin drip, to be weaned off while in ICU. CODE STATUS: Full code. Total time spent on H and P is 35 minutes. MMODL / IJN: [id number] /
[2023-02-15 18:20] LABS: Glucose,Whole Blood 126 mg/dL (70-110)
[2023-02-15 19:23] LABS: Glucose,Whole Blood 118 mg/dL (70-110)
[2023-02-15 20:21] LABS: Glucose,Whole Blood 105 mg/dL (70-110)
[2023-02-15] MEDS: SENNOSIDES-DOCUSATE SODIUM 1 EACH TAB PO SCH (20:44)
[2023-02-15] MEDS: ATORVASTATIN 80 MG TAB PO SCH (20:44)
[2023-02-15 21:06] LABS: Glucose,Whole Blood 153 mg/dL (70-110)
[2023-02-15 22:06] LABS: Glucose,Whole Blood 128 mg/dL (70-110)
[2023-02-15 23:01] LABS: Glucose,Whole Blood 119 mg/dL (70-110)
[2023-02-15 23:54] LABS: Glucose,Whole Blood 94 mg/dL (70-110)
[2023-02-16] MEDS ORDERED: FUROSEMIDE 10 MG/ML 2 ML VIAL IV ONE (00:05)
[2023-02-16] MEDS ORDERED: ALBUMIN HUMAN 5% 250 ML in EMPTY BAG 1 BAG IVPB ONE (00:05)
[2023-02-16 01:07] LABS: Glucose,Whole Blood 125 mg/dL (70-110)
[2023-02-16 02:12] LABS: Glucose,Whole Blood 142 mg/dL (70-110)
[2023-02-16] MEDS: INSULIN REGULAR 100 UNIT in SODIUM CHLORIDE 0.9% 100 ML IV SCH (03:00)
[2023-02-16 03:13] LABS: Glucose,Whole Blood 111 mg/dL (70-110)
[2023-02-16 04:09] LABS: Glucose,Whole Blood 128 mg/dL (70-110)
[2023-02-16] MEDS: ACETAMINOPHEN TAB 325 MG TAB PO PRN ×3 (04:14→20:11)
[2023-02-16 04:32] LABS: Ionized Calcium 4.6 mg/dL (4.5-5.3)
[2023-02-16 04:34] LABS: Basophils % (A) 0 %; Eosinophils % (A) 0 %; HCT 20.6 % (34.0-46.0); Lymphocytes # (A) 2.8 k/uL (1.0-4.8); Lymphocytes % (A) 17 %; MCH 31.5 pg (25.0-35.0); MCHC 33.9 g/dL (31.0-37.0); MCV 93.1 fL (80.0-100.0); Mean Platelet Volume 10.7; Monocytes # (A) 1.3 k/uL (0-1.0); Monocytes % (A) 8 %; Neutrophils # (A) 11.7 k/uL (1.3-7.7); Neutrophils % (A) 72 %; Platelet Count 85 k/uL (150-450); RBC 2.21 m/uL (3.80-5.40); WBC 16.2 k/uL (3.8-10.6)
[2023-02-16 04:40] LABS: Albumin 3.5 g/dL (3.5-5.0); Calcium 7.6 mg/dL (8.4-10.2); Potassium 4.6 mmol/L (3.5-5.1); Total Protein 5.1 g/dL (6.3-8.2)
[2023-02-16 05:03] LABS: Glucose,Whole Blood 145 mg/dL (70-110)
[2023-02-16 06:14] LABS: Glucose,Whole Blood 121 mg/dL (70-110)
[2023-02-16] MEDS: FERROUS SULFATE 325 MG TAB PO SCH ×2 (06:49→16:51)
[2023-02-16] MEDS: ASCORBIC ACID 500 MG TAB PO SCH ×2 (06:49→16:50)
[2023-02-16] MEDS: PANTOPRAZOLE 40 MG TABLET PO SCH ×2 (06:49→16:50)
[2023-02-16 07:02] LABS: Glucose,Whole Blood 90 mg/dL (70-110)
[2023-02-16] MEDS: HEPARIN SODIUM,PORCINE/PF 5,000 UNIT/0.5 ML SYRINGE SQ SCH ×2 (07:23→16:42)
[2023-02-16] MEDS ORDERED: PANTOPRAZOLE 40 MG TABLET PO SCH (07:30)
--- NOTE | 2023-02-16 07:34 | XR ---
EXAMINATION TYPE: XR chest 1V portable DATE OF EXAM: 02/16/2023 COMPARISON: NONE HISTORY: Post Operative Cardiac Surgery FINDINGS: Postoperative changes of median sternotomy with cardiac valvular prosthesis and left atrial appendage clip noted to be in place. [place]-Dayanara catheter is unchanged in position as are Chest tubes and a mediastinal drain. Scattered patchy infiltrates throughout both lung temple remain unchanged. Stable appearance of the cardio-mediastinal structures at this time. IMPRESSION: 1. Stable portable chest. Clinical correlation and follow up until resolution is recommended.
[2023-02-16] MEDS: IPRATROPIUM-ALBUTEROL 3 ML NEB INHALATION SCH ×4 (08:07→20:47)
[2023-02-16] MEDS ORDERED: FUROSEMIDE 10 MG/ML 4 ML VIAL IV STA (08:22)
[2023-02-16] MEDS: MILRINONE-D5W PMX 20 MG in DEXTROSE/WATER 1 100ML.BAG IV SCH ×3 (08:34→22:05)
--- NOTE | 2023-02-16 08:41 | P.PN ---
Subjective Progress Note Date: 02/16/23 Principal diagnosis: Critical aortic stenosis. Previous medical history of hypertension, hyperlipidemia, previous tobacco dependence with mild COPD, right internal carotid stenosis, previous GI bleed, previously undiagnosed and untreated diabetes POD #2 aortic valve replacement using 25 mm Wheat Inspiris bioprosthetic valve, aortic annular enlargement using Singh technique, ligation of the left atrial appendage using 35 mm AtriClip, epi-aortic ultrasound, intraoperative tr ansesophageal echocardiogram performed by anesthesia Postoperative acute blood loss anemia and thrombocytopenia, expected due to hemodilution and cardiopulmonary bypass pump The patient was seen and examined sitting up in a recliner in the intensive care unit in no acute distress. Denies significant postoperative pain, shortness of breath. Only complaint is being tired. Remains in sinus rhythm, blood pressure soft but stable. Currently on IV Primacor which was decreased yesterday but had to be increased again last night for low cardiac index. Patient was given IV lasix last night, urine output picked up after lasix but has tapered down again. Remains on 2 L nasal cannula. Labs, chest x-ray reviewed. Right internal jugular Shiloh/Cordis, right radial arterial line, mediastinal/right pleural chest tubes remain. Patient did ambulate in the hallway without difficulty with assist. No other new concerns. Objective - Vital Signs Vital signs: Vital Signs Temp 98.3 F 02/16/23 04:00 Pulse 80 02/16/23 08:16 Resp 20 02/16/23 07:00 BP 125/46 02/16/23 07:00 Pulse Ox 92 L 02/16/23 08:07 FiO2 50 02/14/23 20:36 Intake & Output 02/15/23 02/16/23 02/16/23 18:59 06:59 18:59 Intake Total 5080.578 5427.732 73.671 Output Total 485 930 35 Balance 1420.871 98.732 38.671 Weight 98.1 kg 100 kg Intake: IV 1328 908 69 0.9NS Pressure bag 108 108 9 Albumin Human 5% 250 ml 500 250 In Empty Bag 1 bag @ 250 mls/hr IVPB Q1HR PRN Rx#: [id number] CO/CI 170 60 20 Lactated Ringers 1,000 ml 550 490 40 @ 20 mls/hr IV .Q24H [facility] Rx#:[id number] Intake, IV Titration 227.871 120.732 4.671 Amount Insulin Regular 100 unit 97.061 69.824 4.671 In Sodium Chloride 0.9% 100 ml @ Per Protocol IV .Q0M [facility] Rx#:[id number] Milrinone-D5w Pmx 20 mg 130.81 50.908 In Dextrose/Water 1 100ml .bag @ 0.3 MCG/KG/MIN 8. 532 mls/hr IV .[id number] [facility] Rx#:[id number] Oral 350 Output: Drainage 230 300 Medial Chest 160 170 Right Medial Chest 70 130 Urine 255 630 35 Other: Voiding Method Indwelling Catheter Indwelling Catheter ABP, PAP, CO, CI - Last Documented Arterial Blood Pressure 179/44 Pulmonary Artery Pressure 38/11 Cardiac Output 4.5 Cardiac Index 2.3 - Exam CONSTITUTIONAL: Appears comfortable, cooperative, no acute distress RESPIRATORY: Lungs sounds diminished bilaterally. Respirations even, nonlabored. Currently on 2 L nasal cannula with oxygen saturation 92%. Only able to achieve 500 mL on incentive spirometry. Strong cough. CARDIOVASCULAR: S1, S2 present. Regular rate and rhythm, sinus rhythm on telemetry. Sternum stable. Palpable peripheral pulses bilaterally. Trace bilateral lower extremity edema present. No calf pain or tenderness noted. Heart hugger in place with patient demonstrating appropriate use. Antiembolism stockings, SCDs present. GASTROINTESTINAL: Abdomen soft, nontender, nondistended. Active bowel sounds present 4 quadrants. Tolerating diet. Positive flatus GENITOURINARY: Carney present draining clear, yellow urine. Output overnight 25-35 mL per hour with >100 mL/hr after lasix given, 885 mL in last 24 hours INTEGUMENTARY: Skin is warm and dry with evidence of good perfusion. Anterior chest incision well approximated and covered with dry intact dressing NEUROLOGIC: Cranial nerves II through XII intact MUSKULOSKELETAL: Able to move all extremities, strength equal bilaterally PSYCHIATRIC: Alert and oriented to person place and time, appropriate affect, intact judgment and insight INVASIVE LINES AND TUBES: Mediastinal/right pleural chest tubes present and connected to wall suction, no air leaks present. Mediastinal tube with 110 mL serosanguineous drainage overnight, 350 mL in the last 24 hours. Right pleural chest tube with 90 mL serosanguineous drainage overnight, 200 mL in the last 24 jhours. A/V epicardial pacemaker wires present, connected to generator, VVI mode with backup rate 60 bpm. Right internal jugular Shiloh/Cordis, right radial arterial line present. Last CO/CI 4.5/2.3, PA 39/11, CVP 17. - Allied health notes Allied health notes reviewed: nursing - Labs CBC & Chem 7: 02/16/23 04:10 02/16/23 04:10 Labs: Abnormal Lab Results - Last 24 Hours (Table) 02/15/23 02/15/23 02/15/23 Range/Units 09:54 10:46 11:42 WBC (3.8-10.6) k/uL RBC (3.80-5.40) m/uL Hgb (11.4-16.0) gm/dL Hct (34.0-46.0) % Plt Count (150-450) k/uL Neutrophils # (1.3-7.7) k/uL Monocytes # (0-1.0) k/uL Sodium (137-145) mmol/L Carbon Dioxide (22-30) mmol/L BUN (7-17) mg/dL Creatinine (0.52-1.04) mg/dL Glucose (74-99) mg/dL POC Glucose (mg/dL) 212 H 248 H 215 H (70-110) mg/dL Calcium (8.4-10.2) mg/dL AST (14-36) U/L Alkaline Phosphatase (38-126) U/L Total Protein (6.3-8.2) g/dL 02/15/23 02/15/23 02/15/23 Range/Units 12:28 13:29 14:21 WBC (3.8-10.6) k/uL RBC (3.80-5.40) m/uL Hgb (11.4-16.0) gm/dL Hct (34.0-46.0) % Plt Count (150-450) k/uL Neutrophils # (1.3-7.7) k/uL Monocytes # (0-1.0) k/uL Sodium (137-145) mmol/L Carbon Dioxide (22-30) mmol/L BUN (7-17) mg/dL Creatinine (0.52-1.04) mg/dL Glucose (74-99) mg/dL POC Glucose (mg/dL) 194 H 197 H 159 H (70-110) mg/dL Calcium (8.4-10.2) mg/dL AST (14-36) U/L Alkaline Phosphatase (38-126) U/L Total Protein (6.3-8.2) g/dL 02/15/23 02/15/23 02/15/23 Range/Units 16:36 17:34 18:18 WBC (3.8-10.6) k/uL RBC (3.80-5.40) m/uL Hgb (11.4-16.0) gm/dL Hct (34.0-46.0) % Plt Count (150-450) k/uL Neutrophils # (1.3-7.7) k/uL Monocytes # (0-1.0) k/uL Sodium (137-145) mmol/L Carbon Dioxide (22-30) mmol/L BUN (7-17) mg/dL Creatinine (0.52-1.04) mg/dL Glucose (74-99) mg/dL POC Glucose (mg/dL) 133 H 148 H 126 H (70-110) mg/dL Calcium (8.4-10.2) mg/dL AST (14-36) U/L Alkaline Phosphatase (38-126) U/L Total Protein (6.3-8.2) g/dL 02/15/23 02/15/23 02/15/23 Range/Units 19:20 21:04 22:05 WBC (3.8-10.6) k/uL RBC (3.80-5.40) m/uL Hgb (11.4-16.0) gm/dL Hct (34.0-46.0) % Plt Count (150-450) k/uL Neutrophils # (1.3-7.7) k/uL Monocytes # (0-1.0) k/uL Sodium (137-145) mmol/L Carbon Dioxide (22-30) mmol/L BUN (7-17) mg/dL Creatinine (0.52-1.04) mg/dL Glucose (74-99) mg/dL POC Glucose (mg/dL) 118 H 153 H 128 H (70-110) mg/dL Calcium (8.4-10.2) mg/dL AST (14-36) U/L Alkaline Phosphatase (38-126) U/L Total Protein (6.3-8.2) g/dL 02/15/23 02/16/23 02/16/23 Range/Units 23:00 01:06 02:11 WBC (3.8-10.6) k/uL RBC (3.80-5.40) m/uL Hgb (11.4-16.0) gm/dL Hct (34.0-46.0) % Plt Count (150-450) k/uL Neutrophils # (1.3-7.7) k/uL Monocytes # (0-1.0) k/uL Sodium (137-145) mmol/L Carbon Dioxide (22-30) mmol/L BUN (7-17) mg/dL Creatinine (0.52-1.04) mg/dL Glucose (74-99) mg/dL POC Glucose (mg/dL) 119 H 125 H 142 H (70-110) mg/dL Calcium (8.4-10.2) mg/dL AST (14-36) U/L Alkaline Phosphatase (38-126) U/L Total Protein (6.3-8.2) g/dL 02/16/23 02/16/23 02/16/23 Range/Units 03:12 04:07 04:10 WBC 16.2 H (3.8-10.6) k/uL RBC 2.21 L (3.80-5.40) m/uL Hgb 7.0 L (11.4-16.0) gm/dL Hct 20.6 L (34.0-46.0) % Plt Count 85 L (150-450) k/uL Neutrophils # 11.7 H (1.3-7.7) k/uL Monocytes # 1.3 H (0-1.0) k/uL Sodium (137-145) mmol/L Carbon Dioxide (22-30) mmol/L BUN (7-17) mg/dL Creatinine (0.52-1.04) mg/dL Glucose (74-99) mg/dL POC Glucose (mg/dL) 111 H 128 H (70-110) mg/dL Calcium (8.4-10.2) mg/dL AST (14-36) U/L Alkaline Phosphatase (38-126) U/L Total Protein (6.3-8.2) g/dL 02/16/23 02/16/23 02/16/23 Range/Units 04:10 05:02 06:13 WBC (3.8-10.6) k/uL RBC (3.80-5.40) m/uL Hgb (11.4-16.0) gm/dL Hct (34.0-46.0) % Plt Count (150-450) k/uL Neutrophils # (1.3-7.7) k/uL Monocytes # (0-1.0) k/uL Sodium 136 L (137-145) mmol/L Carbon Dioxide 21 L (22-30) mmol/L BUN 24 H (7-17) mg/dL Creatinine 1.28 H (0.52-1.04) mg/dL Glucose 119 H (74-99) mg/dL POC Glucose (mg/dL) 145 H 121 H (70-110) mg/dL Calcium 7.6 L (8.4-10.2) mg/dL AST 47 H (14-36) U/L Alkaline Phosphatase 34 L (38-126) U/L Total Protein 5.1 L (6.3-8.2) g/dL - Imaging and Cardiology Chest x-ray: report reviewed, image reviewed Assessment and Plan Assessment: Critical aortic stenosis, status post bioprosthetic aortic valve replacement with routine enlargement History of hypertension, currently borderline hypotensive, not on pressors Hyperlipidemia, treated, cholesterol 175, LDL 73 with triglycerides 250 Previous tobacco dependence Mild COPD, preoperative FEV1 74% of predicted Right internal carotid stenosis 50-79% Previous GI bleed with bleeding ulcer in 2018 Previously undiagnosed and untreated diabetes, preoperative hemoglobin A1c 7.9% Obesity Postoperative acute blood loss anemia and thrombocytopenia, expected Plan: Continue to maximize medical therapy with low-dose aspirin, Plavix, statin, beta champ therapy. Will increase beta champ therapy as tolerated Will wean Primacor as tolerated based on cardiac index, SVR. If cardiac index >2.0 this afternoon may DC swan Continue amiodarone for A. fib prophylaxis Wean O2 as tolerated. Encourage incentive spirometry use 10 times every hour while awake. Bronchodilators per pulmonology Increase activity as tolerated. PT/OT/cardiac rehab consulted Will monitor daily labs and x-rays. Electrolyte replacement per protocol. Will transfuse 1 unit PRBCs followed by 40 mg IVP lasix Insulin management per internal medicine. Hemoglobin A1c preoperative 7.9%, patient denies being told she was diabetic, will need diabetic teaching and recommendations at discharge GI/DVT prophylaxis Pain control with current medication regimen. Avoid Toradol due to thrombocytopenia Continue chest tubes for another 24 hours Continue Carney catheter for another 24 hours for strict accurate intake and output Daily weights More recommendations to follow based on patient's progress
[2023-02-16 09:16] LABS: Glucose,Whole Blood 146 mg/dL (70-110)
[2023-02-16] MEDS: EZETIMIBE 10 MG TAB PO SCH (09:27)
[2023-02-16] MEDS: METOPROLOL TARTRATE 12.5 MG TAB PO SCH ×2 (09:27→20:12)
[2023-02-16] MEDS: ASPIRIN 81 MG PO SCH (09:27)
[2023-02-16] MEDS: CLOPIDOGREL 75 MG TAB PO SCH (09:27)
[2023-02-16] MEDS: AMIODARONE 200 MG TAB PO SCH ×2 (09:27→20:11)
--- NOTE | 2023-02-16 09:32 | P.PN ---
Subjective Progress Note Date: 02/16/23 PROGRESS NOTE The patient is a 67-year-old female who underwent aortic valve replacement. She is followed by Dr. Velasquez on her regular basis. She is extubated, sitting up in the chair. She has no chest discomfort or significant dyspnea. She continues to be in sinus mechanism. She underwent aortic valve replacement with size 25 Wheat Inspiris valve was closure of the left atrial appendage. Her cardiac catheterization showed no significant obstructive disease. She has been having progressive dyspnea on exertion, her left ventricle systolic function was preserved. She has a history of hypertension and hyperlipidemia, she is a nondiabetic. She has her chest tube and Thorofare-Dayanara catheter in place. February 16: The patient is feeling better today, stronger, denies any chest discomfort, dizziness or palpitations. Her breathing is better. She continues to be in sinus mechanism, hemodynamically stable. She denies any nausea or vomiting. She is using her incentive spirometry. The Thorofare-Dayanara catheter remains in place. Medications: Metoprolol 12-1/2 mg twice a day, Lipitor 80 mg daily, aspirin once a day PHYSICAL EXAMINATION: Blood pressure was 135/30 heart rate 80 LUNGS: Mild decrease in the breath sounds HEART: Regular rate and rhythm, S1, S2. No S3. Systolic ejection murmur, rub ABDOMEN: Soft, nontender, no organomegaly EXTREMETIES: No edema LAB: Hemoglobin 7, BUN 24, creatinine 1.28 IMPRESSION: 1. Status post aortic valve replacement for severe aortic stenosis 2. History of hyperlipidemia 3. History of hypertension 4. Anemia postoperatively PLAN: 1. Transfuse per surgeon 2. Continue incentive spirometry 3. Removed Thorofare-Dayanara catheter if stable 4. Depending on her progress further recommendation will be made Objective - Vital Signs Vital signs: Vital Signs Temp 99.1 F 02/16/23 08:00 Pulse 83 02/16/23 09:00 Resp 13 02/16/23 09:00 BP 110/56 02/16/23 09:00 Pulse Ox 90 L 02/16/23 09:00 FiO2 50 02/14/23 20:36 Intake & Output 02/15/23 02/16/23 02/16/23 18:59 06:59 18:59 Intake Total 7902.067 9957.732 299.208 Output Total 485 930 165 Balance 1420.871 98.732 134.208 Weight 98.1 kg 100 kg Intake: IV 1328 908 187 0.9NS Pressure bag 108 108 27 Albumin Human 5% 250 ml 500 250 In Empty Bag 1 bag @ 250 mls/hr IVPB Q1HR PRN Rx#: [id number] CO/CI 170 60 40 Lactated Ringers 1,000 ml 550 490 120 @ 20 mls/hr IV .Q24H [facility] Rx#:[id number] Intake, IV Titration 227.871 120.732 112.208 Amount Insulin Regular 100 unit 97.061 69.824 4.671 In Sodium Chloride 0.9% 100 ml @ Per Protocol IV .Q0M [facility] Rx#:[id number] Milrinone-D5w Pmx 20 mg 130.81 50.908 107.537 In Dextrose/Water 1 100ml .bag @ 0.2 MCG/KG/MIN 5. 688 mls/hr IV .[id number] [facility] Rx#:[id number] Oral 350 Output: Drainage 230 300 80 Medial Chest 160 170 20 Right Medial Chest 70 130 60 Urine 255 630 85 Other: Voiding Method Indwelling Catheter Indwelling Catheter ABP, PAP, CO, CI - Last Documented Arterial Blood Pressure 135/38 Pulmonary Artery Pressure 39/9 Cardiac Output 5 Cardiac Index 2.5 - Labs CBC & Chem 7: 02/16/23 04:10 02/16/23 04:10 Labs: Abnormal Lab Results - Last 24 Hours (Table) 02/15/23 02/15/23 02/15/23 Range/Units 09:54 10:46 11:42 WBC (3.8-10.6) k/uL RBC (3.80-5.40) m/uL Hgb (11.4-16.0) gm/dL Hct (34.0-46.0) % Plt Count (150-450) k/uL Neutrophils # (1.3-7.7) k/uL Monocytes # (0-1.0) k/uL Sodium (137-145) mmol/L Carbon Dioxide (22-30) mmol/L BUN (7-17) mg/dL Creatinine (0.52-1.04) mg/dL Glucose (74-99) mg/dL POC Glucose (mg/dL) 212 H 248 H 215 H (70-110) mg/dL Calcium (8.4-10.2) mg/dL AST (14-36) U/L Alkaline Phosphatase (38-126) U/L Total Protein (6.3-8.2) g/dL 02/15/23 02/15/23 02/15/23 Range/Units 12:28 13:29 14:21 WBC (3.8-10.6) k/uL RBC (3.80-5.40) m/uL Hgb (11.4-16.0) gm/dL Hct (34.0-46.0) % Plt Count (150-450) k/uL Neutrophils # (1.3-7.7) k/uL Monocytes # (0-1.0) k/uL Sodium (137-145) mmol/L Carbon Dioxide (22-30) mmol/L BUN (7-17) mg/dL Creatinine (0.52-1.04) mg/dL Glucose (74-99) mg/dL POC Glucose (mg/dL) 194 H 197 H 159 H (70-110) mg/dL Calcium (8.4-10.2) mg/dL AST (14-36) U/L Alkaline Phosphatase (38-126) U/L Total Protein (6.3-8.2) g/dL 02/15/23 02/15/23 02/15/23 Range/Units 16:36 17:34 18:18 WBC (3.8-10.6) k/uL RBC (3.80-5.40) m/uL Hgb (11.4-16.0) gm/dL Hct (34.0-46.0) % Plt Count (150-450) k/uL Neutrophils # (1.3-7.7) k/uL Monocytes # (0-1.0) k/uL Sodium (137-145) mmol/L Carbon Dioxide (22-30) mmol/L BUN (7-17) mg/dL Creatinine (0.52-1.04) mg/dL Glucose (74-99) mg/dL POC Glucose (mg/dL) 133 H 148 H 126 H (70-110) mg/dL Calcium (8.4-10.2) mg/dL AST (14-36) U/L Alkaline Phosphatase (38-126) U/L Total Protein (6.3-8.2) g/dL 02/15/23 02/15/23 02/15/23 Range/Units 19:20 21:04 22:05 WBC (3.8-10.6) k/uL RBC (3.80-5.40) m/uL Hgb (11.4-16.0) gm/dL Hct (34.0-46.0) % Plt Count (150-450) k/uL Neutrophils # (1.3-7.7) k/uL Monocytes # (0-1.0) k/uL Sodium (137-145) mmol/L Carbon Dioxide (22-30) mmol/L BUN (7-17) mg/dL Creatinine (0.52-1.04) mg/dL Glucose (74-99) mg/dL POC Glucose (mg/dL) 118 H 153 H 128 H (70-110) mg/dL Calcium (8.4-10.2) mg/dL AST (14-36) U/L Alkaline Phosphatase (38-126) U/L Total Protein (6.3-8.2) g/dL 02/15/23 02/16/23 02/16/23 Range/Units 23:00 01:06 02:11 WBC (3.8-10.6) k/uL RBC (3.80-5.40) m/uL Hgb (11.4-16.0) gm/dL Hct (34.0-46.0) % Plt Count (150-450) k/uL Neutrophils # (1.3-7.7) k/uL Monocytes # (0-1.0) k/uL Sodium (137-145) mmol/L Carbon Dioxide (22-30) mmol/L BUN (7-17) mg/dL Creatinine (0.52-1.04) mg/dL Glucose (74-99) mg/dL POC Glucose (mg/dL) 119 H 125 H 142 H (70-110) mg/dL Calcium (8.4-10.2) mg/dL AST (14-36) U/L Alkaline Phosphatase (38-126) U/L Total Protein (6.3-8.2) g/dL 02/16/23 02/16/23 02/16/23 Range/Units 03:12 04:07 04:10 WBC 16.2 H (3.8-10.6) k/uL RBC 2.21 L (3.80-5.40) m/uL Hgb 7.0 L (11.4-16.0) gm/dL Hct 20.6 L (34.0-46.0) % Plt Count 85 L (150-450) k/uL Neutrophils # 11.7 H (1.3-7.7) k/uL Monocytes # 1.3 H (0-1.0) k/uL Sodium (137-145) mmol/L Carbon Dioxide (22-30) mmol/L BUN (7-17) mg/dL Creatinine (0.52-1.04) mg/dL Glucose (74-99) mg/dL POC Glucose (mg/dL) 111 H 128 H (70-110) mg/dL Calcium (8.4-10.2) mg/dL AST (14-36) U/L Alkaline Phosphatase (38-126) U/L Total Protein (6.3-8.2) g/dL 02/16/23 02/16/23 02/16/23 Range/Units 04:10 05:02 06:13 WBC (3.8-10.6) k/uL RBC (3.80-5.40) m/uL Hgb (11.4-16.0) gm/dL Hct (34.0-46.0) % Plt Count (150-450) k/uL Neutrophils # (1.3-7.7) k/uL Monocytes # (0-1.0) k/uL Sodium 136 L (137-145) mmol/L Carbon Dioxide 21 L (22-30) mmol/L BUN 24 H (7-17) mg/dL Creatinine 1.28 H (0.52-1.04) mg/dL Glucose 119 H (74-99) mg/dL POC Glucose (mg/dL) 145 H 121 H (70-110) mg/dL Calcium 7.6 L (8.4-10.2) mg/dL AST 47 H (14-36) U/L Alkaline Phosphatase 34 L (38-126) U/L Total Protein 5.1 L (6.3-8.2) g/dL 02/16/23 Range/Units 09:13 WBC (3.8-10.6) k/uL RBC (3.80-5.40) m/uL Hgb (11.4-16.0) gm/dL Hct (34.0-46.0) % Plt Count (150-450) k/uL Neutrophils # (1.3-7.7) k/uL Monocytes # (0-1.0) k/uL Sodium (137-145) mmol/L Carbon Dioxide (22-30) mmol/L BUN (7-17) mg/dL Creatinine (0.52-1.04) mg/dL Glucose (74-99) mg/dL POC Glucose (mg/dL) 146 H (70-110) mg/dL Calcium (8.4-10.2) mg/dL AST (14-36) U/L Alkaline Phosphatase (38-126) U/L Total Protein (6.3-8.2) g/dL
[2023-02-16 10:16] LABS: Glucose,Whole Blood 150 mg/dL (70-110)
--- NOTE | 2023-02-16 10:23 | P.PN ---
Subjective Progress Note Date: 02/16/23 On 02/15/2023, the patient is postop day #1 and the patient underwent aortic valve replacement with a bioprosthetic aortic valve and the patient was brought into the intensive care unit where she was weaned off the mechanical ventilator and she was extubated without having any major issues. The patient immediately after arriving from the operating room, was noted to have a low cardiac index. She was started on Primacor which is running at 0.2 g. Her cardiac output from this morning is at 4.7 with an index of 2.4. She received packed RBC intraoperatively and hemoglobin is 7.9. She was given a total of 2 units of packed RBCs. Her chest x-ray from today shows an infiltration of the right upper lobe and a [place]-Day[place] catheter is in place and the chest was done in place. There is a right suprahilar increased density which is an infiltrate versus atelectasis. No evidence of any pneumothorax. The chest tube output is noted and the patient is currently on 2 L of oxygen by nasal cannula. The output from the right-sided chest tube has been under and 20 mL overnight and 500 mL since surgery. The mediastinal chest tube was drained approximately 170 mL overnight and 400 mL since surgery. Her cardiac output is at 4.2 with an index of 2.1. Pulmonary artery pressures are 31/7. Hemodynamically stable sitting up on a chair communicating no focal neurological deficit. BUN is at 19 with a c reatinine of 0.8. WBC count of 10.6 with a hemoglobin of 7.9. Cardiac rhythm is sinus. Using the incentive spirometer. In terms of her blood sugar control, the patient is often signs of any blood sugar is under tighter control for now. On today's evaluation of 02/16/2023, the patient's postop day #2 following aortic valve replacement surgery. The patient is doing well and she has no specific complaints. She still has the chest tubes in place, 2 mediastinal of 10. Output from the chest tubes have been quite high and for that reason the chest tubes will be kept in place. The patient has produced approximately 100 metastases from her mediastinal chest tube over the past 8 hours abdominal 50 over the past 24 hours. The patient is also produced around 90 mL from the right-sided chest tube over the past 8 hours and 224 hours. As such, she was be kept in place. Chest x-ray showing cardiomegaly. [place]Day[place] catheter in place. Cardiac operas 4.4 with an index of 2.3. Pulmonary artery pressures of 40/10 and the patient is on milrinone at 0.2 mcg/kg/m. Is being gradually weaned off. The patient is on insulin drip at 7 units an hour. In terms of her blood work, the patient has a hemoglobin level of 7.0, white cell count of 16.2, platelet count of 85 which is up compared to yesterday. BUN is 24 with a creatinine of 1.28. Sodium level is at 136. Potassium levels at 4.6. Is a component of an acute kidney injury probably related to low cardiac output state that occurred p ostop. Blood sugars at other adequate control. She is on oxygen at 2 L/m nasal cannula. She is using the incentive spirometer. She is tolerating some diet heart healthy diet. Objective - Vital Signs Vital signs: Vital Signs Temp 99.1 F 02/16/23 08:00 Pulse 83 02/16/23 09:00 Resp 13 02/16/23 09:00 BP 110/56 02/16/23 09:00 Pulse Ox 90 L 02/16/23 09:00 FiO2 50 02/14/23 20:36 Intake & Output 02/15/23 02/16/23 02/16/23 18:59 06:59 18:59 Intake Total 2167.922 9666.732 299.208 Output Total 485 930 165 Balance 1420.871 98.732 134.208 Weight 98.1 kg 100 kg Intake: IV 1328 908 187 0.9NS Pressure bag 108 108 27 Albumin Human 5% 250 ml 500 250 In Empty Bag 1 bag @ 250 mls/hr IVPB Q1HR PRN Rx#: [id number] CO/CI 170 60 40 Lactated Ringers 1,000 ml 550 490 120 @ 20 mls/hr IV .Q24H [facility] Rx#:[id number] Intake, IV Titration 227.871 120.732 112.208 Amount Insulin Regular 100 unit 97.061 69.824 4.671 In Sodium Chloride 0.9% 100 ml @ Per Protocol IV .Q0M [facility] Rx#:[id number] Milrinone-D5w Pmx 20 mg 130.81 50.908 107.537 In Dextrose/Water 1 100ml .bag @ 0.2 MCG/KG/MIN 5. 688 mls/hr IV .[id number] [facility] Rx#:[id number] Oral 350 Output: Drainage 230 300 80 Medial Chest 160 170 20 Right Medial Chest 70 130 60 Urine 255 630 85 Other: Voiding Method Indwelling Catheter Indwelling Catheter ABP, PAP, CO, CI - Last Documented Arterial Blood Pressure 135/38 Pulmonary Artery Pressure 39/9 Cardiac Output 5 Cardiac Index 2.5 - Exam CONSTITUTIONAL: Appears comfortable, cooperative, no acute distress RESPIRATORY: Lungs sounds diminished bilaterally. Respirations even, nonlabored. Currently on 2 L nasal cannula with oxygen saturation 92%. Not using incentive spirometry appropriately. Strong cough. CARDIOVASCULAR: S1, S2 present. Regular rate and rhythm, sinus rhythm on telemetry. Sternum stable. Palpable peripheral pulses bilaterally. Trace bilateral lower extremity edema present. No calf pain or tenderness noted. Heart hugger in place with patient demonstrating appropriate use. Antiembolism stockings, SCDs present. GASTROINTESTINAL: Abdomen soft, nontender, nondistended. Hypoactive bowel sounds present 4 quadrants. Tolerating clear liquids. Negative flatus GENITOURINARY: Carney present draining clear, yellow urine. Output overnight 25-35 mL per hour INTEGUMENTARY: Skin is warm and dry with evidence of good perfusion. Anterior chest incision well approximated and covered with dry intact dressing NEUROLOGIC: Cranial nerves II through XII intact MUSKULOSKELETAL: Able to move all extremities, strength equal bilaterally PSYCHIATRIC: Alert and oriented to person place and time, appropriate affect, i ntact judgment and insight INVASIVE LINES AND TUBES: Mediastinal/right pleural chest tubes present and connected to wall suction, no air leaks present. Mediastinal tube with 170 mL serosanguineous drainage overnight, 400 mL since surgery. Right pleural chest tube with 120 mL serosanguineous drainage overnight, 500 mL since surgery. A/V epicardial pacemaker wires present, connected to generator, VVI mode with backup rate 60 bpm. Right internal jugular [place]ordis, right radial arterial line present. Last CO/CI 4.2/2.1, PA 31/9, CVP12. - Labs CBC & Chem 7: 02/16/23 04:10 02/16/23 04:10 Labs: Abnormal Lab Results - Last 24 Hours (Table) 02/15/23 02/15/23 02/15/23 Range/Units 10:46 11:42 12:28 WBC (3.8-10.6) k/uL RBC (3.80-5.40) m/uL Hgb (11.4-16.0) gm/dL Hct (34.0-46.0) % Plt Count (150-450) k/uL Neutrophils # (1.3-7.7) k/uL Monocytes # (0-1.0) k/uL Sodium (137-145) mmol/L Carbon Dioxide (22-30) mmol/L BUN (7-17) mg/dL Creatinine (0.52-1.04) mg/dL Glucose (74-99) mg/dL POC Glucose (mg/dL) 248 H 215 H 194 H (70-110) mg/dL Calcium (8.4-10.2) mg/dL AST (14-36) U/L Alkaline Phosphatase (38-126) U/L Total Protein (6.3-8.2) g/dL Crossmatch 02/15/23 02/15/23 02/15/23 Range/Units 13:29 14:21 16:36 WBC (3.8-10.6) k/uL RBC (3.80-5.40) m/uL Hgb (11.4-16.0) gm/dL Hct (34.0-46.0) % Plt Count (150-450) k/uL Neutrophils # (1.3-7.7) k/uL Monocytes # (0-1.0) k/uL Sodium (137-145) mmol/L Carbon Dioxide (22-30) mmol/L BUN (7-17) mg/dL Creatinine (0.52-1.04) mg/dL Glucose (74-99) mg/dL POC Glucose (mg/dL) 197 H 159 H 133 H (70-110) mg/dL Calcium (8.4-10.2) mg/dL AST (14-36) U/L Alkaline Phosphatase (38-126) U/L Total Protein (6.3-8.2) g/dL Crossmatch 02/15/23 02/15/23 02/15/23 Range/Units 17:34 18:18 19:20 WBC (3.8-10.6) k/uL RBC (3.80-5.40) m/uL Hgb (11.4-16.0) gm/dL Hct (34.0-46.0) % Plt Count (150-450) k/uL Neutrophils # (1.3-7.7) k/uL Monocytes # (0-1.0) k/uL Sodium (137-145) mmol/L Carbon Dioxide (22-30) mmol/L BUN (7-17) mg/dL Creatinine (0.52-1.04) mg/dL Glucose (74-99) mg/dL POC Glucose (mg/dL) 148 H 126 H 118 H (70-110) mg/dL Calcium (8.4-10.2) mg/dL AST (14-36) U/L Alkaline Phosphatase (38-126) U/L Total Protein (6.3-8.2) g/dL Crossmatch 02/15/23 02/15/23 02/15/23 Range/Units 21:04 22:05 23:00 WBC (3.8-10.6) k/uL RBC (3.80-5.40) m/uL Hgb (11.4-16.0) gm/dL Hct (34.0-46.0) % Plt Count (150-450) k/uL Neutrophils # (1.3-7.7) k/uL Monocytes # (0-1.0) k/uL Sodium (137-145) mmol/L Carbon Dioxide (22-30) mmol/L BUN (7-17) mg/dL Creatinine (0.52-1.04) mg/dL Glucose (74-99) mg/dL POC Glucose (mg/dL) 153 H 128 H 119 H (70-110) mg/dL Calcium (8.4-10.2) mg/dL AST (14-36) U/L Alkaline Phosphatase (38-126) U/L Total Protein (6.3-8.2) g/dL Crossmatch 02/16/23 02/16/23 02/16/23 Range/Units 01:06 02:11 03:12 WBC (3.8-10.6) k/uL RBC (3.80-5.40) m/uL Hgb (11.4-16.0) gm/dL Hct (34.0-46.0) % Plt Count (150-450) k/uL Neutrophils # (1.3-7.7) k/uL Monocytes # (0-1.0) k/uL Sodium (137-145) mmol/L Carbon Dioxide (22-30) mmol/L BUN (7-17) mg/dL Creatinine (0.52-1.04) mg/dL Glucose (74-99) mg/dL POC Glucose (mg/dL) 125 H 142 H 111 H (70-110) mg/dL Calcium (8.4-10.2) mg/dL AST (14-36) U/L Alkaline Phosphatase (38-126) U/L Total Protein (6.3-8.2) g/dL Crossmatch 02/16/23 02/16/23 02/16/23 Range/Units 04:07 04:10 04:10 WBC 16.2 H (3.8-10.6) k/uL RBC 2.21 L (3.80-5.40) m/uL Hgb 7.0 L (11.4-16.0) gm/dL Hct 20.6 L (34.0-46.0) % Plt Count 85 L (150-450) k/uL Neutrophils # 11.7 H (1.3-7.7) k/uL Monocytes # 1.3 H (0-1.0) k/uL Sodium 136 L (137-145) mmol/L Carbon Dioxide 21 L (22-30) mmol/L BUN 24 H (7-17) mg/dL Creatinine 1.28 H (0.52-1.04) mg/dL Glucose 119 H (74-99) mg/dL POC Glucose (mg/dL) 128 H (70-110) mg/dL Calcium 7.6 L (8.4-10.2) mg/dL AST 47 H (14-36) U/L Alkaline Phosphatase 34 L (38-126) U/L Total Protein 5.1 L (6.3-8.2) g/dL Crossmatch 02/16/23 02/16/23 02/16/23 Range/Units 05:02 06:13 08:17 WBC (3.8-10.6) k/uL RBC (3.80-5.40) m/uL Hgb (11.4-16.0) gm/dL Hct (34.0-46.0) % Plt Count (150-450) k/uL Neutrophils # (1.3-7.7) k/uL Monocytes # (0-1.0) k/uL Sodium (137-145) mmol/L Carbon Dioxide (22-30) mmol/L BUN (7-17) mg/dL Creatinine (0.52-1.04) mg/dL Glucose (74-99) mg/dL POC Glucose (mg/dL) 145 H 121 H (70-110) mg/dL Calcium (8.4-10.2) mg/dL AST (14-36) U/L Alkaline Phosphatase (38-126) U/L Total Protein (6.3-8.2) g/dL Crossmatch See Detail 02/16/23 02/16/23 Range/Units 09:13 10:14 WBC (3.8-10.6) k/uL RBC (3.80-5.40) m/uL Hgb (11.4-16.0) gm/dL Hct (34.0-46.0) % Plt Count (150-450) k/uL Neutrophils # (1.3-7.7) k/uL Monocytes # (0-1.0) k/uL Sodium (137-145) mmol/L Carbon Dioxide (22-30) mmol/L BUN (7-17) mg/dL Creatinine (0.52-1.04) mg/dL Glucose (74-99) mg/dL POC Glucose (mg/dL) 146 H 150 H (70-110) mg/dL Calcium (8.4-10.2) mg/dL AST (14-36) U/L Alkaline Phosphatase (38-126) U/L Total Protein (6.3-8.2) g/dL Crossmatch Assessment and Plan Plan: Severe symptomatic aortic valve stenosis and the patient underwent aortic valve replacement, currently postop day # 2. The patient is hemodynamically stable. Nevertheless the cardiac output and index are low and the patient is going to be started on Primacor. The patient's cardiac output improved while being on Primacor and currently she is on 0.2 g. Hemodynamically stable. Extubated yesterday without any major difficulties. Postthoracotomy, remains intubated and mechanically ventilated. Chest tubes are in place. No evidence of any air leak. No evidence of pneumothorax on postop chest x-ray. There is some atelectatic changes in the right upper lobe, no evidence of any pneumothorax. All of the chest tubes are in place. Doppler from the chest tube has been noted Anemia, postop, expected outcome of surgery, acute, received a total of 2 units of packed RBCs and hemoglobin is stable for now. The patient's hemoglobin today that 7.0 Acute kidney injury probably related to low cardiac output state that occurred postop. The patient's creatinine is up to 1.28 Hypertension Hyperlipidemia Obesity History of acid reflux History of bleeding ulcer back in 2018 Hyperglycemia the patient is currently on 70 units of insulin blood sugar control Plan Patient has been extubated to 2 L of oxygen nasal cannula. Wean FiO2 to maintain a saturation above 90% Encourage use of incentive spirometer May give the patient 16 units of Levemir and stop insulin drip and cover with sliding scale coverage. Agree on Primacor, this will be gradually weaned off currently at 0.2 mcg/kg/m Continue amiodarone, and this has been switched to oral amiodarone at a dose of 400 mg by mouth twice a day The patient is going to be receiving another unit of packed RBC today We'll keep the chest tube in place Wean off Primacor 60 Keep the [place]-Day[place] catheter as long as the patient is still on Primacor to monitor the cardiac output Repeat chest x-ray in the morning We'll continue to follow
[2023-02-16 11:18] LABS: Glucose,Whole Blood 134 mg/dL (70-110)
[2023-02-16] MEDS: INSULIN ASPART (NovoLOG) 100 UNIT/ML VIAL SQ SCH ×5 (12:34→20:11)
[2023-02-16] MEDS: INSULIN DETEMIR (LEVEMIR) 100 UNIT/ML SYR SQ SCH ×2 (12:34→20:11)
--- NOTE | 2023-02-16 13:47 | PN ---
PROGRESS NOTE CHIEF COMPLAINT: Status post aortic valve surgery. SUBJECTIVE: The patient was seen and evaluated at bedside. Alert and oriented x3, the patient status post blood transfusion, 2 units given on 02/15, 1 unit given on 02/16. Managed by ICU team. The patient on Primacor drip. Blood glucose has been managed as well. The patient denies chest pain, nausea, vomiting, or abdominal pain. PHYSICAL EXAMINATION: VITAL SIGNS: Pulse of 80, respirations 16, blood pressure 172/45, saturation 92% on 3 L. GENERAL: Ill-appearance, central line in place, chest in brace, chest tube in place as well. CARDIOVASCULAR: Regular rate. No murmur. EXTREMITIES: 1+ lower extremity edema. LUNGS: Decreased breath sounds bilaterally. No wheeze. No rhonchi. No rales. ABDOMEN: Soft and nontender. GENITOURINARY: Carney catheter in place. NEUROLOGIC: Appears at baseline. No focal deficits. ASSESSMENT PLAN: 1. Status post aortic valve stenosis with aortic valve replacement, postoperative day #2. 2. Postoperative blood loss anemia. 3. Acute kidney injury. 4. Hypertension. 5. Hyperlipidemia. 6. Hyperglycemia postoperatively. 7. History of gastroesophageal reflux disease. 8. History of duodenal ulcer. PLAN: 1. Continue to wean off oxygen as tolerated. Maintain saturation above 90%. 2. Continue to monitor H and H. The patient given 1 unit of packed RBC on 02/16, previously given 2 units of packed RBC on 02/15, the patient seen by Intensive Care Unit Team and Cardiology. 3. Continue the patient on amiodarone. 4. Continue metoprolol, aspirin, Plavix. 5. Continue iron supplementation. 6. Continue the patient on Levemir and NovoLog. We will continue to monitor blood glucose levels. Most recent blood glucose trend 205, 94, 134. Follow up on HbA1c as well. Total time spent, 35 minutes. MMODL / IJN: [id number] /
[2023-02-16 16:41] LABS: Glucose,Whole Blood 210 mg/dL (70-110)
[2023-02-16] MEDS: LACTATED RINGERS 1,000 ML IV SCH (19:05)
[2023-02-16 20:01] LABS: Glucose,Whole Blood 225 mg/dL (70-110)
[2023-02-16] MEDS: ATORVASTATIN 80 MG TAB PO SCH (20:12)
[2023-02-16] MEDS: SENNOSIDES-DOCUSATE SODIUM 1 EACH TAB PO SCH (20:12)
[2023-02-17] MEDS: HEPARIN SODIUM,PORCINE/PF 5,000 UNIT/0.5 ML SYRINGE SQ SCH ×4 (00:05→23:42)
[2023-02-17] MEDS: ACETAMINOPHEN TAB 325 MG TAB PO PRN (04:20)
[2023-02-17 04:56] LABS: Basophils % (A) 0 %; Eosinophils % (A) 0 %; HCT 23.4 % (34.0-46.0); Lymphocytes # (A) 2.5 k/uL (1.0-4.8); Lymphocytes % (A) 17 %; MCH 31.2 pg (25.0-35.0); MCHC 34.1 g/dL (31.0-37.0); MCV 91.4 fL (80.0-100.0); Mean Platelet Volume 11.8; Monocytes % (A) 7 %; Neutrophils # (A) 10.8 k/uL (1.3-7.7); Neutrophils % (A) 75 %; RBC 2.57 m/uL (3.80-5.40); RDW 14.7 % (11.5-15.5); WBC 14.5 k/uL (3.8-10.6)
[2023-02-17 04:59] LABS: Platelet Count 92 k/uL (150-450)
[2023-02-17 05:12] LABS: ALT 17 U/L (4-34); AST 37 U/L (14-36); African American GFR (CKD) 60 (>60 ml/min/1.73 sqM); Albumin 3.2 g/dL (3.5-5.0); Alkaline Phosphatase 43 U/L (38-126); Anion Gap 8 mmol/L; Blood Urea Nitrogen 28 mg/dL (7-17); Calcium 7.5 mg/dL (8.4-10.2); Carbon Dioxide 23 mmol/L (22-30); Chloride 104 mmol/L (98-107); Glucose 141 mg/dL (74-99); Magnesium 2.2 mg/dL (1.6-2.3); Non-African American GFR(CKD) 52 (>60 ml/min/1.73 sqM); Potassium 4.1 mmol/L (3.5-5.1); Sodium 135 mmol/L (137-145); Total Bilirubin 1.2 mg/dL (0.2-1.3)
[2023-02-17] MEDS ORDERED: CALCIUM GLUCONATE IN NACL 2 GM in SALINE 1 100ML.BAG IVPB ONE (06:34)
[2023-02-17] MEDS ORDERED: HYDROcodone/APAP 5-325MG 1 EACH TAB PO PRN (06:38)
[2023-02-17 06:47] LABS: Glucose,Whole Blood 151 mg/dL (70-110)
[2023-02-17] MEDS: FERROUS SULFATE 325 MG TAB PO SCH ×2 (06:48→17:11)
[2023-02-17] MEDS: PANTOPRAZOLE 40 MG TABLET PO SCH ×2 (06:48→17:11)
[2023-02-17] MEDS: INSULIN DETEMIR (LEVEMIR) 100 UNIT/ML SYR SQ SCH ×2 (06:48→20:53)
[2023-02-17] MEDS: ASCORBIC ACID 500 MG TAB PO SCH ×2 (06:48→17:11)
[2023-02-17] MEDS: INSULIN ASPART (NovoLOG) 100 UNIT/ML VIAL SQ SCH ×8 (06:49→20:08)
[2023-02-17] MEDS ORDERED: METOPROLOL TARTRATE 12.5 MG TAB PO STA (07:36)
[2023-02-17] MEDS: AMIODARONE 200 MG TAB PO SCH ×2 (07:38→20:53)
[2023-02-17] MEDS: CLOPIDOGREL 75 MG TAB PO SCH (07:38)
[2023-02-17] MEDS: ASPIRIN 81 MG PO SCH (07:38)
[2023-02-17] MEDS: EZETIMIBE 10 MG TAB PO SCH (07:38)
[2023-02-17] MEDS: DEXTROSE 5% IN WATER 100 ML with AMIODARONE 150 MG IV PRN ×2 (07:45→10:49)
--- NOTE | 2023-02-17 08:07 | P.PN ---
Subjective Progress Note Date: 02/17/23 Principal diagnosis: Critical aortic stenosis. Previous medical history of hypertension, hyperlipidemia, previous tobacco dependence with mild COPD, right internal carotid stenosis, previous GI bleed, previously undiagnosed and untreated diabetes POD #3 aortic valve replacement using 25 mm [place] Inspiris bioprosthetic valve, aortic annular enlargement using Singh technique, ligation of the left atrial appendage using 35 mm AtriClip, epi-aortic ultrasound, intraoperative tr ansesophageal echocardiogram performed by anesthesia Postoperative acute blood loss anemia and thrombocytopenia, expected due to hemodilution and cardiopulmonary bypass pump Uncontrolled atrial fibrillation, known common occurrence after open heart surgery, not a complication The patient was seen and examined sitting up in a recliner in the intensive care unit in no acute distress. Denies significant postoperative pain, shortness of breath. States she slept like a rock last night. Was in sinus rhythm this morning with rate in the 80s but appears to have gone into AFib w/ RVR with rate in the 120-130s. Currently on IV Primacor which was decreased yesterday. Was given 1 unit PRBCs followed by 40 mg IVP lasix yesterday, blood pressure more stable and urine output adequate. Remains on 2 L nasal cannula. Labs, chest x- ray reviewed. Right internal jugular Cordis, right radial arterial line, mediastinal/right pleural chest tubes remain. Patient has ambulated in the hallway without difficulty with assist. No other new concerns. Objective - Vital Signs Vital signs: Vital Signs Temp 98.1 F 02/17/23 00:00 Pulse 86 02/17/23 07:00 Resp 14 02/17/23 07:00 BP 100/51 02/17/23 07:00 Pulse Ox 93 L 02/17/23 07:00 FiO2 50 02/14/23 20:36 Intake & Output 02/16/23 02/17/23 02/17/23 18:59 06:59 18:59 Intake Total 1038.208 419.858 Output Total 1265 630 Balance -226.792 -210.142 Weight 101.8 kg Intake: IV 570 348 0.9NS Pressure bag 90 78 CO/CI 60 Lactated Ringers 1,000 ml 420 270 @ 20 mls/hr IV .Q24H [facility] Rx#:[id number] Intake, IV Titration 112.208 71.858 Amount Insulin Regular 100 unit 4.671 In Sodium Chloride 0.9% 100 ml @ Per Protocol IV .Q0M [facility] Rx#:[id number] Milrinone-D5w Pmx 20 mg 107.537 71.858 In Dextrose/Water 1 100ml .bag @ 0.2 MCG/KG/MIN 5. 688 mls/hr IV .[id number] [facility] Rx#:[id number] Oral 75 Blood Product 281 Rc Pheresis As-3 Unit 281 [id number] Output: Drainage 380 120 Medial Chest 120 40 Right Medial Chest 260 80 Urine 885 510 Other: Voiding Method Indwelling Catheter Indwelling Catheter ABP, PAP, CO, CI - Last Documented Arterial Blood Pressure 159/46 Pulmonary Artery Pressure 32/8 Cardiac Output 4.4 Cardiac Index 2.2 - Exam CONSTITUTIONAL: Appears comfortable, cooperative, no acute distress RESPIRATORY: Lungs sounds diminished bilaterally. Respirations even, nonlabored. Currently on 2 L nasal cannula with oxygen saturation 93%. Only able to achieve 500-750 mL on incentive spirometry although with better effort. Strong cough. CARDIOVASCULAR: S1, S2 present. Irregular rate and rhythm, uncontrolled afib on telemetry, was in sinus rhythm this morning. Sternum stable. Palpable peripheral pulses bilaterally. Trace bilateral lower extremity edema present. No calf pain or tenderness noted. Heart hugger in place with patient demonstrating appropriate use. Antiembolism stockings, SCDs present. GASTROINTESTINAL: Abdomen soft, nontender, nondistended. Active bowel sounds present 4 quadrants. Tolerating diet. Positive flatus GENITOURINARY: Carney present draining clear, yellow urine. Output overnight 30-50 mL per hour with 700 mL in the 4 hours after lasix given, 1365 mL in last 24 hours INTEGUMENTARY: Skin is warm and dry with evidence of good perfusion. Anterior chest incision well approximated and covered with dry intact dressing NEUROLOGIC: Cranial nerves II through XII intact MUSKULOSKELETAL: Able to move all extremities, strength equal bilaterally PSYCHIATRIC: Alert and oriented to person place and time, appropriate affect, intact judgment and insight INVASIVE LINES AND TUBES: Mediastinal/right pleural chest tubes present and connected to wall suction, no air leaks present. Mediastinal tube with 40 mL serosanguineous drainage overnight, 150 mL in the last 24 hours. Right pleural chest tube with 80 mL serosanguineous drainage overnight, 400 mL in the last 24 hours. A/V epicardial pacemaker wires present, connected to generator, VVI mode with backup rate 60 bpm. Right internal jugular Cordis, right radial arterial line present. Last CVP 15. - Allied health notes Allied health notes reviewed: nursing - Labs CBC & Chem 7: 02/17/23 04:50 02/17/23 04:50 Labs: Abnormal Lab Results - Last 24 Hours (Table) 02/16/23 02/16/23 02/16/23 Range/Units 08:17 09:13 10:14 WBC (3.8-10.6) k/uL RBC (3.80-5.40) m/uL Hgb (11.4-16.0) gm/dL Hct (34.0-46.0) % Plt Count (150-450) k/uL Neutrophils # (1.3-7.7) k/uL Sodium (137-145) mmol/L BUN (7-17) mg/dL Creatinine (0.52-1.04) mg/dL Glucose (74-99) mg/dL POC Glucose (mg/dL) 146 H 150 H (70-110) mg/dL Calcium (8.4-10.2) mg/dL AST (14-36) U/L Total Protein (6.3-8.2) g/dL Albumin (3.5-5.0) g/dL Crossmatch See Detail 02/16/23 02/16/23 02/16/23 Range/Units 11:17 16:40 19:59 WBC (3.8-10.6) k/uL RBC (3.80-5.40) m/uL Hgb (11.4-16.0) gm/dL Hct (34.0-46.0) % Plt Count (150-450) k/uL Neutrophils # (1.3-7.7) k/uL Sodium (137-145) mmol/L BUN (7-17) mg/dL Creatinine (0.52-1.04) mg/dL Glucose (74-99) mg/dL POC Glucose (mg/dL) 134 H 210 H 225 H (70-110) mg/dL Calcium (8.4-10.2) mg/dL AST (14-36) U/L Total Protein (6.3-8.2) g/dL Albumin (3.5-5.0) g/dL Crossmatch 02/17/23 02/17/23 02/17/23 Range/Units 04:50 04:50 06:45 WBC 14.5 H (3.8-10.6) k/uL RBC 2.57 L (3.80-5.40) m/uL Hgb 8.0 L (11.4-16.0) gm/dL Hct 23.4 L (34.0-46.0) % Plt Count 92 L (150-450) k/uL Neutrophils # 10.8 H (1.3-7.7) k/uL Sodium 135 L (137-145) mmol/L BUN 28 H (7-17) mg/dL Creatinine 1.10 H (0.52-1.04) mg/dL Glucose 141 H (74-99) mg/dL POC Glucose (mg/dL) 151 H (70-110) mg/dL Calcium 7.5 L (8.4-10.2) mg/dL AST 37 H (14-36) U/L Total Protein 5.0 L (6.3-8.2) g/dL Albumin 3.2 L (3.5-5.0) g/dL Crossmatch - Imaging and Cardiology Chest x-ray: image reviewed Assessment and Plan Assessment: Critical aortic stenosis, status post bioprosthetic aortic valve replacement with routine enlargement History of hypertension, currently borderline hypotensive, not on pressors Hyperlipidemia, treated, cholesterol 175, LDL 73 with triglycerides 250 Previous tobacco dependence Mild COPD, preoperative FEV1 74% of predicted Right internal carotid stenosis 50-79% Previous GI bleed with bleeding ulcer in 2018 Previously undiagnosed and untreated diabetes, preoperative hemoglobin A1c 7.9% Obesity Postoperative acute blood loss anemia and thrombocytopenia, expected Uncontrolled afib Plan: Continue to maximize medical therapy with low-dose aspirin, Plavix, statin, beta champ therapy. Will increase beta champ therapy as tolerated, increased to 25 mg BID today Will discontinue Primacor Continue amiodarone for A. fib prophylaxis, will give IV bolus Wean O2 as tolerated. Encourage incentive spirometry use 10 times every hour while awake. Bronchodilators per pulmonology Increase activity as tolerated. PT/OT/cardiac rehab consulted Will monitor daily labs and x-rays. Electrolyte replacement per protocol. Will give IV lasix Insulin management per internal medicine. Hemoglobin A1c preoperative 7.9%, patient denies being told she was diabetic, will need diabetic teaching and recommendations at discharge GI/DVT prophylaxis Pain control with current medication regimen Will discontinue mediastinal chest tube, continue right pleural chest tube for another 24 hours Discontinue arterial line Discontinue Carney catheter, may bladder scan and straight cath for > 300 ml residual Strict accurate intake and output Daily weights More recommendations to follow based on patient's progress
[2023-02-17] MEDS ORDERED: FUROSEMIDE 10 MG/ML 4 ML VIAL IV STA (08:49)
[2023-02-17] MEDS: IPRATROPIUM-ALBUTEROL 3 ML NEB INHALATION SCH ×4 (09:15→20:25)
--- NOTE | 2023-02-17 09:48 | US ---
EXAMINATION TYPE: US chest DATE OF EXAM: 02/17/2023 COMPARISON: CXR CLINICAL INDICATION: Female, 67 years old with history of beba for thoracentesis on left; Pleural eff usion TECHNIQUE: Targeted ultrasound of the posterior lower left hemithorax EXAM MEASUREMENTS: Left Pleural Effusion pocket size: 7.0 cm Left skin surface to fluid distance: 4.8 cm Left side marked for possible thoracentesis outside the dept. Pulmonologists are able to review the images in the patient?s EMR. IMPRESSIONS: Small left pleural effusion
--- NOTE | 2023-02-17 09:52 | XR ---
EXAMINATION TYPE: XR chest 1V portable DATE OF EXAM: 02/17/2023 COMPARISON: 02/16/2023 HISTORY: Postop TECHNIQUE: Single frontal view of the chest is obtained. FINDINGS: There is postsurgical changes with prosthetic heart placement surgery. [place]-Dayanara catheter has been removed. Cardiomegaly with interstitial pattern and bilateral pleural effusions greater on t he left with basilar consolidation. Mediastinal drain noted. Hypertrophic degenerative changes of the spine. Right chest tube stable. IMPRESSION: 1. Postoperative change with moderate to large size left pleural effusion and consolidation. Correlat e for venous congestion. Findings stable.
--- NOTE | 2023-02-17 10:14 | P.PN ---
Subjective PROGRESS NOTE The patient is a 67-year-old female who underwent aortic valve replacement. She is followed by Dr. Velasquez on her regular basis. She is extubated, sitting up in the chair. She has no chest discomfort or significant dyspnea. She continues to be in sinus mechanism. She underwent aortic valve replacement with size 25 Wheat Inspiris valve was closure of the left atrial appendage. Her cardiac catheterization showed no significant obstructive disease. She has been having progressive dyspnea on exertion, her left ventricle systolic function was preserved. She has a history of hypertension and hyperlipidemia, she is a nondiabetic. She has her chest tube and Leland-Dayanara catheter in place. February 16: The patient is feeling better today, stronger, denies any chest discomfort, dizziness or palpitations. Her breathing is better. She continues to be in sinus mechanism, hemodynamically stable. She denies any nausea or vomiting. She is using her incentive spirometry. The Leland-Dayanara catheter remains in place. 02/17 Patient seen and examined. Patient went into A. fib with RVR with heart rates in 130's. She was somewhat symptomatic with palpitations and shortness of breath. She was given amiodarone bolus and metoprolol increased to 25 and given extra dose. Currently heart rates better controlled in the 100-110 range. She denies any chest pain or pressure. Denies any significant shortness breath. PHYSICAL EXAMINATION: Vitals reviewd LUNGS: Mild decrease in the breath sounds HEART: Regular rate and rhythm, S1, S2. No S3. Systolic ejection murmur, rub ABDOMEN: Soft, nontender, no organomegaly EXTREMETIES: No edema IMPRESSION: 1. Status post aortic valve replacement for severe aortic stenosis 2. History of hyperlipidemia 3. History of hypertension 4. Anemia postoperatively 5. Postoperative atrial fibrillation with RVR PLAN: Patient went into A. fib and received additional dose of amiodarone. Additional amiodarone to be given this afternoon. Patient is mildly symptomatic. Continue beta champ. Patient appears to be progressing. Objective - Vital Signs Vital signs: Vital Signs Temp 97.5 F L 02/17/23 08:00 Pulse 125 H 02/17/23 09:20 Resp 11 L 02/17/23 08:00 BP 119/80 02/17/23 08:00 Pulse Ox 94 L 02/17/23 08:00 FiO2 50 02/14/23 20:36 Intake & Output 02/16/23 02/17/23 02/17/23 18:59 06:59 18:59 Intake Total 1038.208 419.858 333.207 Output Total 1265 630 30 Balance -226.792 -210.142 303.207 Weight 101.8 kg Intake: IV 570 348 75 0.9NS Pressure bag 90 78 15 CO/CI 60 Lactated Ringers 1,000 ml 420 270 60 @ 20 mls/hr IV .Q24H [facility] Rx#:[id number] Intake, IV Titration 112.208 71.858 158.207 Amount Calcium Gluconate in NaCl 100 2 gm In Saline 1 100ml. bag @ 50 mls/hr IVPB ONCE ONE Rx#:[id number] Insulin Regular 100 unit 4.671 In Sodium Chloride 0.9% 100 ml @ Per Protocol IV .Q0M [facility] Rx#:[id number] Milrinone-D5w Pmx 20 mg 107.537 71.858 58.207 In Dextrose/Water 1 100ml .bag @ 0.2 MCG/KG/MIN 5. 688 mls/hr IV .[id number] [facility] Rx#:[id number] Oral 75 100 Blood Product 281 Rc Pheresis As-3 Unit 281 [id number] Output: Drainage 380 120 Medial Chest 120 40 Right Medial Chest 260 80 Urine 885 510 30 Other: Voiding Method Indwelling Catheter Indwelling Catheter Indwelling Catheter ABP, PAP, CO, CI - Last Documented Arterial Blood Pressure 187/81 Pulmonary Artery Pressure 32/8 Cardiac Output 4.4 Cardiac Index 2.2 - Labs CBC & Chem 7: 02/17/23 04:50 02/17/23 04:50 Labs: Abnormal Lab Results - Last 24 Hours (Table) 02/16/23 02/16/23 02/16/23 Range/Units 08:17 10:14 11:17 WBC (3.8-10.6) k/uL RBC (3.80-5.40) m/uL Hgb (11.4-16.0) gm/dL Hct (34.0-46.0) % Plt Count (150-450) k/uL Neutrophils # (1.3-7.7) k/uL Sodium (137-145) mmol/L BUN (7-17) mg/dL Creatinine (0.52-1.04) mg/dL Glucose (74-99) mg/dL POC Glucose (mg/dL) 150 H 134 H (70-110) mg/dL Calcium (8.4-10.2) mg/dL AST (14-36) U/L Total Protein (6.3-8.2) g/dL Albumin (3.5-5.0) g/dL Crossmatch See Detail 02/16/23 02/16/23 02/17/23 Range/Units 16:40 19:59 04:50 WBC 14.5 H (3.8-10.6) k/uL RBC 2.57 L (3.80-5.40) m/uL Hgb 8.0 L (11.4-16.0) gm/dL Hct 23.4 L (34.0-46.0) % Plt Count 92 L (150-450) k/uL Neutrophils # 10.8 H (1.3-7.7) k/uL Sodium (137-145) mmol/L BUN (7-17) mg/dL Creatinine (0.52-1.04) mg/dL Glucose (74-99) mg/dL POC Glucose (mg/dL) 210 H 225 H (70-110) mg/dL Calcium (8.4-10.2) mg/dL AST (14-36) U/L Total Protein (6.3-8.2) g/dL Albumin (3.5-5.0) g/dL Crossmatch 02/17/23 02/17/23 Range/Units 04:50 06:45 WBC (3.8-10.6) k/uL RBC (3.80-5.40) m/uL Hgb (11.4-16.0) gm/dL Hct (34.0-46.0) % Plt Count (150-450) k/uL Neutrophils # (1.3-7.7) k/uL Sodium 135 L (137-145) mmol/L BUN 28 H (7-17) mg/dL Creatinine 1.10 H (0.52-1.04) mg/dL Glucose 141 H (74-99) mg/dL POC Glucose (mg/dL) 151 H (70-110) mg/dL Calcium 7.5 L (8.4-10.2) mg/dL AST 37 H (14-36) U/L Total Protein 5.0 L (6.3-8.2) g/dL Albumin 3.2 L (3.5-5.0) g/dL Crossmatch
[2023-02-17 11:38] LABS: Glucose,Whole Blood 150 mg/dL (70-110)
--- NOTE | 2023-02-17 12:06 | P.PN ---
Subjective Progress Note Date: 02/17/23 67-year-old female who underwent aortic valve replacement. Patient managed in ICU postoperatively Patient was noted to have episode of A. fib RVR on 02/17, received amiodarone bolus and dose of metoprolol was increased She was transfused 1 unit of packed RBC 02/17 , received 2 units of packed RBC /4 On 02/18> in Gen. patient states she is feeling better wheezing up is better as well Objective - Vital Signs Vital signs: Vital Signs Temp 97.5 F L 02/17/23 08:00 Pulse 125 H 02/17/23 09:20 Resp 11 L 02/17/23 08:00 BP 119/80 02/17/23 08:00 Pulse Ox 94 L 02/17/23 08:00 FiO2 50 02/14/23 20:36 Intake & Output 02/16/23 02/17/23 02/17/23 18:59 06:59 18:59 Intake Total 1038.208 419.858 333.207 Output Total 1265 630 30 Balance -226.792 -210.142 303.207 Weight 101.8 kg Intake: IV 570 348 75 0.9NS Pressure bag 90 78 15 CO/CI 60 Lactated Ringers 1,000 ml 420 270 60 @ 20 mls/hr IV .Q24H [facility] Rx#:[id number] Intake, IV Titration 112.208 71.858 158.207 Amount Calcium Gluconate in NaCl 100 2 gm In Saline 1 100ml. bag @ 50 mls/hr IVPB ONCE ONE Rx#:[id number] Insulin Regular 100 unit 4.671 In Sodium Chloride 0.9% 100 ml @ Per Protocol IV .Q0M [facility] Rx#:[id number] Milrinone-D5w Pmx 20 mg 107.537 71.858 58.207 In Dextrose/Water 1 100ml .bag @ 0.2 MCG/KG/MIN 5. 688 mls/hr IV .[id number] [facility] Rx#:[id number] Oral 75 100 Blood Product 281 Rc Pheresis As-3 Unit 281 [id number] Output: Drainage 380 120 Medial Chest 120 40 Right Medial Chest 260 80 Urine 885 510 30 Other: Voiding Method Indwelling Catheter Indwelling Catheter Indwelling Catheter ABP, PAP, CO, CI - Last Documented Arterial Blood Pressure 187/81 Pulmonary Artery Pressure 32/8 Cardiac Output 4.4 Cardiac Index 2.2 - Exam GENERAL: The patient is alert and oriented x 3, ill appearance HEENT: Pupils are round and equally reacting to light. EOMI. No scleral icterus. No conjunctival pallor. Normocephalic, atraumatic. No pharyngeal erythema. No thyromegaly. CARDIOVASCULAR: Irregular rhythm, rate is controlled 1+ lower symmetry edema, PULMONARY: Increased breath sounds bilaterally, nasal cannula in place, chest tube in place ABDOMEN: Soft, nontender, nondistended, normoactive bowel sounds. No palpable organomegaly. MUSCULOSKELETAL: No joint swelling or deformity. EXTREMITIES: No cyanosis, clubbing, or pedal edema. Bilateral leg redness and swellingfor cellulitis and fluid retention NEUROLOGICAL: Gross neurological examination did not reveal any focal deficits. - Labs CBC & Chem 7: 02/17/23 04:50 02/17/23 04:50 Labs: Abnormal Lab Results - Last 24 Hours (Table) 02/16/23 02/16/23 02/16/23 Range/Units 08:17 16:40 19:59 WBC (3.8-10.6) k/uL RBC (3.80-5.40) m/uL Hgb (11.4-16.0) gm/dL Hct (34.0-46.0) % Plt Count (150-450) k/uL Neutrophils # (1.3-7.7) k/uL Sodium (137-145) mmol/L BUN (7-17) mg/dL Creatinine (0.52-1.04) mg/dL Glucose (74-99) mg/dL POC Glucose (mg/dL) 210 H 225 H (70-110) mg/dL Calcium (8.4-10.2) mg/dL AST (14-36) U/L Total Protein (6.3-8.2) g/dL Albumin (3.5-5.0) g/dL Crossmatch See Detail 02/17/23 02/17/23 02/17/23 Range/Units 04:50 04:50 06:45 WBC 14.5 H (3.8-10.6) k/uL RBC 2.57 L (3.80-5.40) m/uL Hgb 8.0 L (11.4-16.0) gm/dL Hct 23.4 L (34.0-46.0) % Plt Count 92 L (150-450) k/uL Neutrophils # 10.8 H (1.3-7.7) k/uL Sodium 135 L (137-145) mmol/L BUN 28 H (7-17) mg/dL Creatinine 1.10 H (0.52-1.04) mg/dL Glucose 141 H (74-99) mg/dL POC Glucose (mg/dL) 151 H (70-110) mg/dL Calcium 7.5 L (8.4-10.2) mg/dL AST 37 H (14-36) U/L Total Protein 5.0 L (6.3-8.2) g/dL Albumin 3.2 L (3.5-5.0) g/dL Crossmatch 02/17/23 Range/Units 11:27 WBC (3.8-10.6) k/uL RBC (3.80-5.40) m/uL Hgb (11.4-16.0) gm/dL Hct (34.0-46.0) % Plt Count (150-450) k/uL Neutrophils # (1.3-7.7) k/uL Sodium (137-145) mmol/L BUN (7-17) mg/dL Creatinine (0.52-1.04) mg/dL Glucose (74-99) mg/dL POC Glucose (mg/dL) 150 H (70-110) mg/dL Calcium (8.4-10.2) mg/dL AST (14-36) U/L Total Protein (6.3-8.2) g/dL Albumin (3.5-5.0) g/dL Crossmatch Assessment and Plan Assessment: Assessment * Status post aortic valve stenosis with aortic valve replacement postoperative day 3 * Postoperative blood loss anemia * Atrial fibrillation with rapid ventricular response * Hypertension * Hyperlipidemia * History of gastroesophageal reflux disease * Postoperative hyperglycemia diabetes mellitus new onset * In regards to her status was aortic valve replacement patient management ICU and cardiac team. Continue drain management * In regards to atrial fibrillation continue rate control medications including amiodarone, Toprol * In regards to hyperglycemia likely stress-induced patient noted to have HbA1c of 6.8, patient on Lantus and NovoLog * Continue to monitor renal profile postoperatively
--- NOTE | 2023-02-17 13:35 | P.PN ---
Subjective Progress Note Date: 02/17/23 Principal diagnosis: Status post aortic valve replacement postoperative day #3 On 02/15/2023, the patient is postop day #1 and the patient underwent aortic valve replacement with a bioprosthetic aortic valve and the patient was brought into the intensive care unit where she was weaned off the mechanical ventilator and she was extubated without having any major issues. The patient immediately after arriving from the operating room, was noted to have a low cardiac index. She was started on Primacor which is running at 0.2 g. Her cardiac output from this morning is at 4.7 with an index of 2.4. She received packed RBC intraoperatively and hemoglobin is 7.9. She was given a total of 2 units of packed RBCs. Her chest x-ray from today shows an infiltration of the right upper lobe and a Alta-Dayanara catheter is in place and the chest was done in place. There is a right suprahilar increased density which is an infiltrate versus atelectasis. No evidence of any pneumothorax. The chest tube output is noted and the patient is currently on 2 L of oxygen by nasal cannula. The output from the right-sided chest tube has been under and 20 mL overnight and 500 mL since surgery. The mediastinal chest tube was drained approximately 170 mL overnight and 400 mL since surgery. Her cardiac output is at 4.2 with an index of 2.1. Pulmonary artery pressures are 31/7. Hemodynamically stable sitting up on a chair communicating no focal neurological deficit. BUN is at 19 with a creatinine of 0.8. WBC count of 10.6 with a hemoglobin of 7.9. Cardiac rhythm is sinus. Using the incentive spirometer. In terms of her blood sugar control, the patient is often signs of any blood sugar is under tighter control for now. On today's evaluation of 02/16/2023, the patient's postop day #2 following aortic valve replacement surgery. The patient is doing well and she has no sp ecific complaints. She still has the chest tubes in place, 2 mediastinal of 10. Output from the chest tubes have been quite high and for that reason the chest tubes will be kept in place. The patient has produced approximately 100 metastases from her mediastinal chest tube over the past 8 hours abdominal 50 over the past 24 hours. The patient is also produced around 90 mL from the right-sided chest tube over the past 8 hours and 224 hours. As such, she was be kept in place. Chest x-ray showing cardiomegaly. Alta-Dayanara catheter in place. Cardiac operas 4.4 with an index of 2.3. Pulmonary artery pressures of 40/10 and the patient is on milrinone at 0.2 mcg/kg/m. Is being gradually weaned off. The patient is on insulin drip at 7 units an hour. In terms of her blood work, the patient has a hemoglobin level of 7.0, white cell count of 16.2, platelet count of 85 which is up compared to yesterday. BUN is 24 with a creatinine of 1.28. Sodium level is at 136. Potassium levels at 4.6. Is a component of an acute kidney injury probably related to low cardiac output state that occurred postop. Blood sugars at other adequate control. She is on oxygen at 2 L/m nasal cannula. She is using the incentive spirometer. She is tolerating some diet heart healthy diet. Patient was reevaluated today on 02/17/2023, she is status post bioprosthetic aortic valve placement, patient is in the ICU, on 2 L nasal cannula. Early this morning the patient had an episode of atrial fibrillation with RVR, required amiodarone bolus and at the metoprolol dose was increased. Chest x-ray showed e vidence of mild congestive heart failure Lasix was given 40 mg IV push. Ultrasound of the chest showed small left pleural effusion, most likely will improve with diuretics, I don't see the need for thoracentesis at this point, unless no improvement is noted with diuretics. Patient is relatively as ymptomatic, and she is not in any distress. I believe the patient has a significant amount of atelectasis in the left lower lobe area as well. W see count is 14.5 hemoglobin is 8 electrolytes are normal renal profile is normal except for creatinine of 1.1 Objective - Vital Signs Vital signs: Vital Signs Temp 98.8 F 02/17/23 12:00 Pulse 78 02/17/23 13:11 Resp 13 02/17/23 12:00 BP 94/52 02/17/23 12:00 Pulse Ox 94 L 02/17/23 12:00 FiO2 50 02/14/23 20:36 Intake & Output 02/16/23 02/17/23 02/17/23 18:59 06:59 18:59 Intake Total 1038.208 419.858 379.207 Output Total 1265 630 780 Balance -226.792 -210.142 -400.793 Weight 101.8 kg Intake: IV 570 348 121 0.9NS Pressure bag 90 78 21 CO/CI 60 Lactated Ringers 1,000 ml 420 270 100 @ 20 mls/hr IV .Q24H [facility] Rx#:[id number] Intake, IV Titration 112.208 71.858 158.207 Amount Calcium Gluconate in NaCl 100 2 gm In Saline 1 100ml. bag @ 50 mls/hr IVPB ONCE ONE Rx#:[id number] Insulin Regular 100 unit 4.671 In Sodium Chloride 0.9% 100 ml @ Per Protocol IV .Q0M [facility] Rx#:[id number] Milrinone-D5w Pmx 20 mg 107.537 71.858 58.207 In Dextrose/Water 1 100ml .bag @ 0.2 MCG/KG/MIN 5. 688 mls/hr IV .[id number] [facility] Rx#:[id number] Oral 75 100 Blood Product 281 Rc Pheresis As-3 Unit 281 [id number] Output: Drainage 380 120 Medial Chest 120 40 Right Medial Chest 260 80 Urine 885 510 780 Other: Voiding Method Indwelling Catheter Indwelling Catheter Indwelling Catheter ABP, PAP, CO, CI - Last Documented Arterial Blood Pressure 139/71 Pulmonary Artery Pressure 32/8 Cardiac Output 4.4 Cardiac Index 2.2 - Exam Physical Exam: Revealed a 67-year-old female in no distress Head: Atraumatic, normocephalic. HEENT:[Neck is supple.] [No neck masses.] [No thyromegaly.] [No JVD.] Chest: [Diminished breath sounds and crackles at the bases, no rhonchi no wheezes] Cardiac: Normal S1 and S2, no S3 gallop, irregular rhythm, 2/6 systolic murmur thought the precordium. Abdomen: [Soft, nontender, no megaly, no rebound, no guarding, normal bowel sounds.] Extremities: [No clubbing, no edema, no cyanosis.] Neurological Exam: [No focal neurologic deficit.] alert oriented 3. psychiatric: Normal mood affect and normal mental status examination. skin: No rashes - Labs CBC & Chem 7: 02/17/23 04:50 02/17/23 04:50 Labs: Abnormal Lab Results - Last 24 Hours (Table) 02/16/23 02/16/23 02/17/23 Range/Units 16:40 19:59 04:50 WBC (3.8-10.6) k/uL RBC (3.80-5.40) m/uL Hgb (11.4-16.0) gm/dL Hct (34.0-46.0) % Plt Count (150-450) k/uL Neutrophils # (1.3-7.7) k/uL Sodium (137-145) mmol/L BUN (7-17) mg/dL Creatinine (0.52-1.04) mg/dL Glucose (74-99) mg/dL POC Glucose (mg/dL) 210 H 225 H (70-110) mg/dL Hemoglobin A1c 6.8 H % Calcium (8.4-10.2) mg/dL AST (14-36) U/L Total Protein (6.3-8.2) g/dL Albumin (3.5-5.0) g/dL 02/17/23 02/17/23 02/17/23 Range/Units 04:50 04:50 06:45 WBC 14.5 H (3.8-10.6) k/uL RBC 2.57 L (3.80-5.40) m/uL Hgb 8.0 L (11.4-16.0) gm/dL Hct 23.4 L (34.0-46.0) % Plt Count 92 L (150-450) k/uL Neutrophils # 10.8 H (1.3-7.7) k/uL Sodium 135 L (137-145) mmol/L BUN 28 H (7-17) mg/dL Creatinine 1.10 H (0.52-1.04) mg/dL Glucose 141 H (74-99) mg/dL POC Glucose (mg/dL) 151 H (70-110) mg/dL Hemoglobin A1c % Calcium 7.5 L (8.4-10.2) mg/dL AST 37 H (14-36) U/L Total Protein 5.0 L (6.3-8.2) g/dL Albumin 3.2 L (3.5-5.0) g/dL 02/17/23 Range/Units 11:27 WBC (3.8-10.6) k/uL RBC (3.80-5.40) m/uL Hgb (11.4-16.0) gm/dL Hct (34.0-46.0) % Plt Count (150-450) k/uL Neutrophils # (1.3-7.7) k/uL Sodium (137-145) mmol/L BUN (7-17) mg/dL Creatinine (0.52-1.04) mg/dL Glucose (74-99) mg/dL POC Glucose (mg/dL) 150 H (70-110) mg/dL Hemoglobin A1c % Calcium (8.4-10.2) mg/dL AST (14-36) U/L Total Protein (6.3-8.2) g/dL Albumin (3.5-5.0) g/dL Assessment and Plan Assessment: Impression: Severe aortic stenosis requiring aortic valve replacement, presently postoperative day #3 Benign essential hypertension Dyslipidemia Mild COPD Previous history of GI bleed/bleeding ulcer in 2018 Type 2 diabetes, without complications Obesity Acute blood loss anemia, expected Paroxysmal atrial fibrillation Left pleural effusion Recommendation: Continue oxygen and titrate accordingly Continue to maximize medical therapy using beta blockers statins and Plavix Primacor has been discontinued early this morning Continue incentive spirometry Ambulate Continue pain control with current pain medication Continue GI and DVT prophylaxis Discontinue unnecessary lines and catheters Continue strict I's and O's We will continue to follow. Time with Patient: Greater than 30
[2023-02-17 16:21] LABS: Glucose,Whole Blood 166 mg/dL (70-110)
[2023-02-17] MEDS: LACTATED RINGERS 1,000 ML IV SCH (17:11)
[2023-02-17 20:08] LABS: Glucose,Whole Blood 136 mg/dL (70-110)
[2023-02-17] MEDS: METOPROLOL TARTRATE 25 MG TAB PO SCH (20:52)
[2023-02-17] MEDS: ATORVASTATIN 80 MG TAB PO SCH (20:52)
[2023-02-17] MEDS: SENNOSIDES-DOCUSATE SODIUM 1 EACH TAB PO SCH (20:53)
[2023-02-18 06:14] LABS: African American GFR (CKD) >90 (>60 ml/min/1.73 sqM); Anion Gap 6 mmol/L; Blood Urea Nitrogen 23 mg/dL (7-17); Calcium 7.8 mg/dL (8.4-10.2); Carbon Dioxide 26 mmol/L (22-30); Chloride 102 mmol/L (98-107); Glucose 105 mg/dL (74-99); Magnesium 2.2 mg/dL (1.6-2.3); Non-African American GFR(CKD) 80 (>60 ml/min/1.73 sqM); Potassium 3.9 mmol/L (3.5-5.1); Sodium 134 mmol/L (137-145)
[2023-02-18 06:26] LABS: Glucose,Whole Blood 134 mg/dL (70-110)
[2023-02-18] MEDS: INSULIN ASPART (NovoLOG) 100 UNIT/ML VIAL SQ SCH ×8 (06:26→21:05)
[2023-02-18] MEDS: ASCORBIC ACID 500 MG TAB PO SCH ×2 (06:33→16:47)
[2023-02-18] MEDS: INSULIN DETEMIR (LEVEMIR) 100 UNIT/ML SYR SQ SCH ×2 (06:34→21:04)
[2023-02-18] MEDS: PANTOPRAZOLE 40 MG TABLET PO SCH ×2 (06:34→16:47)
[2023-02-18] MEDS: FERROUS SULFATE 325 MG TAB PO SCH ×2 (06:34→16:47)
[2023-02-18 06:35] LABS: HCT 23.6 % (34.0-46.0); HGB 7.9 gm/dL (11.4-16.0); MCH 30.5 pg (25.0-35.0); MCHC 33.5 g/dL (31.0-37.0); MCV 90.9 fL (80.0-100.0); Mean Platelet Volume 10.1; Platelet Count 124 k/uL (150-450); RBC 2.59 m/uL (3.80-5.40); RDW 15.1 % (11.5-15.5); WBC 12.2 k/uL (3.8-10.6)
--- NOTE | 2023-02-18 07:35 | P.PN ---
Subjective Progress Note Date: 02/18/23 Principal diagnosis: Critical aortic stenosis. Previous medical history of hypertension, hyperlipidemia, previous tobacco dependence with mild COPD, right internal carotid stenosis, previous GI bleed, previously undiagnosed and untreated diabetes POD #4 aortic valve replacement using 25 mm Wheat Inspiris bioprosthetic valve, aortic annular enlargement using Singh technique, ligation of the left atrial appendage using 35 mm AtriClip, epi-aortic ultrasound, intraoperative tr ansesophageal echocardiogram performed by anesthesia Postoperative acute blood loss anemia and thrombocytopenia, expected due to hemodilution and cardiopulmonary bypass pump Uncontrolled atrial fibrillation, known common occurrence after open heart surgery, not a complication The patient was seen and examined sitting up in a recliner in the intensive care unit in no acute distress. Denies significant postoperative pain, shortness of breath. Currently in sinus rhythm, did have a few hours of afib yesterday which was treated with 2 IV boluses of amio and increase in metoprolol. IV Primacor discontinued yesterday. Hemodynamically stable. Remains on 2 L nasal cannula. Labs, chest x-ray reviewed. US of chest completed yesterday demonstrating 7 cm left pleural fluid pocket, no drainage necessary at this time per pulmonology. Right internal jugular Cordis, right pleural chest tube remains. Patient has ambulated in the hallway without difficulty with stand by assist. No other new concerns. Objective - Vital Signs Vital signs: Vital Signs Temp 98.3 F 02/18/23 04:00 Pulse 76 02/18/23 07:00 Resp 14 02/18/23 07:00 BP 106/89 02/18/23 07:00 Pulse Ox 92 L 02/18/23 07:00 FiO2 50 02/14/23 20:36 Intake & Output 02/17/23 02/18/23 02/18/23 18:59 06:59 18:59 Intake Total 517.207 276 23 Output Total 1730 850 Balance -1212.793 -574 23 Weight 99.9 kg Intake: IV 259 276 23 0.9NS Pressure bag 39 36 3 Lactated Ringers 1,000 ml 220 240 20 @ 20 mls/hr IV .Q24H [facility] Rx#:[id number] Intake, IV Titration 158.207 Amount Calcium Gluconate in NaCl 100 2 gm In Saline 1 100ml. bag @ 50 mls/hr IVPB ONCE ONE Rx#:[id number] Milrinone-D5w Pmx 20 mg 58.207 In Dextrose/Water 1 100ml .bag @ 0.2 MCG/KG/MIN 5. 688 mls/hr IV .[id number] [facility] Rx#:[id number] Oral 100 Output: Chest Tube Drainage 150 300 Chest Tube Right Pleural/ 150 300 Mediastinal Urine 1580 550 Other: Voiding Method Indwelling Catheter Indwelling Catheter ABP, PAP, CO, CI - Last Documented Arterial Blood Pressure 139/71 Pulmonary Artery Pressure 32/8 Cardiac Output 4.4 Cardiac Index 2.2 - Exam CONSTITUTIONAL: Appears comfortable, cooperative, no acute distress RESPIRATORY: Lungs sounds diminished bilaterally. Respirations even, nonlabored. Currently on 2 L nasal cannula with oxygen saturation 93%, was 87% on room air. Only able to achieve 500-750 mL on incentive spirometry. Strong cough. CARDIOVASCULAR: S1, S2 present. Regular rate and rhythm, sinus rhythm on telemetry. Sternum stable. Palpable peripheral pulses bilaterally. Trace bilateral lower extremity edema present. No calf pain or tenderness noted. Heart hugger in place with patient demonstrating appropriate use. Antiembolism stockings, SCDs present. GASTROINTESTINAL: Abdomen soft, nontender, nondistended. Active bowel sounds present 4 quadrants. Tolerating diet. Positive bowel movement yesterday GENITOURINARY: Carney discontinued yesterday, Purwick in place, patient continues to void clear yellow urine. Output 2130 mL in last 24 hours INTEGUMENTARY: Skin is warm and dry with evidence of good perfusion. Anterior chest incision well approximated and covered with dry intact dressing NEUROLOGIC: Cranial nerves II through XII intact MUSKULOSKELETAL: Able to move all extremities, strength equal bilaterally PSYCHIATRIC: Alert and oriented to person place and time, appropriate affect, intact judgment and insight INVASIVE LINES AND TUBES: Right pleural chest tubes present and connected to w all suction, no air leaks present, 80 mL serosanguineous drainage overnight, 350 mL in the last 24 hours. A/V epicardial pacemaker wires present, connected to generator, VVI mode with backup rate 60 bpm. Right internal jugular Cordis present. Last CVP 9. - Allied health notes Allied health notes reviewed: nursing - Labs CBC & Chem 7: 02/18/23 04:30 02/18/23 04:30 Labs: Abnormal Lab Results - Last 24 Hours (Table) 02/17/23 02/17/2323 Range/Units 04:50 11:27 16:19 WBC (3.8-10.6) k/uL RBC (3.80-5.40) m/uL Hgb (11.4-16.0) gm/dL Hct (34.0-46.0) % Plt Count (150-450) k/uL Sodium (137-145) mmol/L BUN (7-17) mg/dL Glucose (74-99) mg/dL POC Glucose (mg/dL) 150 H 166 H (70-110) mg/dL Hemoglobin A1c 6.8 H % Calcium (8.4-10.2) mg/dL 02/17/23 02/18/23 02/18/23 Range/Units 20:07 04:30 04:30 WBC 12.2 H (3.8-10.6) k/uL RBC 2.59 L (3.80-5.40) m/uL Hgb 7.9 L (11.4-16.0) gm/dL Hct 23.6 L (34.0-46.0) % Plt Count 124 L (150-450) k/uL Sodium 134 L (137-145) mmol/L BUN 23 H (7-17) mg/dL Glucose 105 H (74-99) mg/dL POC Glucose (mg/dL) 136 H (70-110) mg/dL Hemoglobin A1c % Calcium 7.8 L (8.4-10.2) mg/dL 02/18/23 Range/Units 06:25 WBC (3.8-10.6) k/uL RBC (3.80-5.40) m/uL Hgb (11.4-16.0) gm/dL Hct (34.0-46.0) % Plt Count (150-450) k/uL Sodium (137-145) mmol/L BUN (7-17) mg/dL Glucose (74-99) mg/dL POC Glucose (mg/dL) 134 H (70-110) mg/dL Hemoglobin A1c % Calcium (8.4-10.2) mg/dL - Imaging and Cardiology Chest x-ray: image reviewed Assessment and Plan Assessment: Critical aortic stenosis, status post bioprosthetic aortic valve replacement with routine enlargement History of hypertension Hyperlipidemia, treated, cholesterol 175, LDL 73 with triglycerides 250 Previous tobacco dependence Mild COPD, preoperative FEV1 74% of predicted Right internal carotid stenosis 50-79% Previous GI bleed with bleeding ulcer in 2018 Previously undiagnosed and untreated diabetes, preoperative hemoglobin A1c 7.9%, repeat A1c 6.8% Obesity Postoperative acute blood loss anemia and thrombocytopenia, expected Uncontrolled afib Plan: Continue to maximize medical therapy with low-dose aspirin, Plavix, statin, beta champ therapy. Will increase beta champ therapy as tolerated Continue amiodarone for A. fib prophylaxis Wean O2 as tolerated. Encourage incentive spirometry use 10 times every hour while awake. Bronchodilators per pulmonology Increase activity as tolerated. PT/OT/cardiac rehab consulted Will monitor daily labs and x-rays. Electrolyte replacement per protocol. Will give IV lasix Insulin management per internal medicine. Hemoglobin A1c preoperative 7.9%, repeat 6.8%, will need diabetic teaching and recommendations at discharge GI/DVT prophylaxis Pain control with current medication regimen Will continue right pleural chest tube for another 24 hours Discontinue cordis Strict accurate intake and output Daily weights Will discontinue epicardial pacer wires, patient to remain on bedrest for 1 hour post wire removal Will place transfer orders for cardiac stepdown unit, may transfer when bed available Discharge planning in progress, anticipate discharge to home with home care in 48-72 hours More recommendations to follow based on patient's progress
[2023-02-18] MEDS: AMIODARONE 200 MG TAB PO SCH ×2 (08:21→21:05)
[2023-02-18] MEDS: POTASSIUM BICARBONATE/CIT AC 20 MEQ TABLET.EFF NG-TUBE SCH (08:21)
[2023-02-18] MEDS: ASPIRIN 81 MG PO SCH (08:21)
[2023-02-18] MEDS: METOPROLOL TARTRATE 25 MG TAB PO SCH ×2 (08:21→21:04)
[2023-02-18] MEDS: EZETIMIBE 10 MG TAB PO SCH (08:21)
[2023-02-18] MEDS: CLOPIDOGREL 75 MG TAB PO SCH (08:22)
[2023-02-18] MEDS: HEPARIN SODIUM,PORCINE/PF 5,000 UNIT/0.5 ML SYRINGE SQ SCH ×2 (08:27→16:47)
[2023-02-18] MEDS ORDERED: FUROSEMIDE 10 MG/ML 4 ML VIAL IV STA (08:43)
--- NOTE | 2023-02-18 08:43 | XR ---
EXAMINATION TYPE: XR chest 1V portable DATE OF EXAM: 02/18/2023 COMPARISON: 02/17/2023 HISTORY: Post cardiac surgery TECHNIQUE: Single frontal view of the chest is obtained. FINDINGS: There is postsurgical changes with prosthetic heart placement surgery. Vascular sheath ove rlying the right jugular vein. Cardiomegaly with interstitial pattern and bilateral pleural effusions greater on the left with basilar consolidation. Mediastinal drain noted. Hypertrophic degenerative c hanges of the spine. Right chest tube stable. IMPRESSION: Postoperative changes stable moderate-sized left pleural effusion and consolidation. Mil d venous congestion in the differential diagnosis.
[2023-02-18] MEDS: IPRATROPIUM-ALBUTEROL 3 ML NEB INHALATION SCH ×4 (09:22→21:18)
--- NOTE | 2023-02-18 09:54 | P.PN ---
Subjective PROGRESS NOTE The patient is a 67-year-old female who underwent aortic valve replacement. She is followed by Dr. Velasquez on her regular basis. She is extubated, sitting up in the chair. She has no chest discomfort or significant dyspnea. She continues to be in sinus mechanism. She underwent aortic valve replacement with size 25 Wheat Inspiris valve was closure of the left atrial appendage. Her cardiac catheterization showed no significant obstructive disease. She has been having progressive dyspnea on exertion, her left ventricle systolic function was preserved. She has a history of hypertension and hyperlipidemia, she is a nondiabetic. She has her chest tube and Hundred-Dayanara catheter in place. February 16: The patient is feeling better today, stronger, denies any chest discomfort, dizziness or palpitations. Her breathing is better. She continues to be in sinus mechanism, hemodynamically stable. She denies any nausea or vomiting. She is using her incentive spirometry. The Hundred-Dayanara catheter remains in place. 02/17 Patient seen and examined. Patient went into A. fib with RVR with heart rates in 130's. She was somewhat symptomatic with palpitations and shortness of breath. She was given amiodarone bolus and metoprolol increased to 25 and given extra dose. Currently heart rates better controlled in the 100-110 range. She denies any chest pain or pressure. Denies any significant shortness breath. 02/18 Patient seen and examined. Patient converted back to sinus rhythm and has been doing well. Denies any chest pain or pressure. Patient did have ultrasound of the chest completed yesterday which did show 7 Center left pleural fluid pocket. Right IJ Cordis in place and right chest tube remains in place. PHYSICAL EXAMINATION: Vitals reviewd LUNGS: Mild decrease in the breath sounds HEART: Regular rate and rhythm, S1, S2. No S3. Systolic ejection murmur, rub ABDOMEN: Soft, nontender, no organomegaly EXTREMETIES: No edema IMPRESSION: 1. Status post aortic valve replacement for severe aortic stenosis 2. History of hyperlipidemia 3. History of hypertension 4. Anemia postoperatively 5. Postoperative atrial fibrillation with RVR 6. Left pleural effusion PLAN: Patient back in normal sinus rhythm and continue amiodarone. Continue beta champ. Appears to be slowly progressing. Agree with IV Lasix today and monitor response. Objective - Vital Signs Vital signs: Vital Signs Temp 98.0 F 02/18/23 08:00 Pulse 73 02/18/23 09:31 Resp 12 02/18/23 08:00 BP 145/77 02/18/23 08:00 Pulse Ox 94 L 02/18/23 08:00 FiO2 50 02/14/23 20:36 Intake & Output 02/17/23 02/18/23 02/18/23 18:59 06:59 18:59 Intake Total 517.207 276 46 Output Total 1730 850 0 Balance -1212.793 -574 46 Weight 99.9 kg Intake: IV 259 276 46 0.9NS Pressure bag 39 36 6 Lactated Ringers 1,000 ml 220 240 40 @ 20 mls/hr IV .Q24H [facility] Rx#:[id number] Intake, IV Titration 158.207 Amount Calcium Gluconate in NaCl 100 2 gm In Saline 1 100ml. bag @ 50 mls/hr IVPB ONCE ONE Rx#:[id number] Milrinone-D5w Pmx 20 mg 58.207 In Dextrose/Water 1 100ml .bag @ 0.2 MCG/KG/MIN 5. 688 mls/hr IV .[id number] [facility] Rx#:[id number] Oral 100 Output: Chest Tube Drainage 150 300 Chest Tube Right Pleural/ 150 300 Mediastinal Urine 1580 550 0 Other: Voiding Method Indwelling Catheter Indwelling Catheter Indwelling Catheter # Bowel Movements 1 ABP, PAP, CO, CI - Last Documented Arterial Blood Pressure 139/71 Pulmonary Artery Pressure 32/8 Cardiac Output 4.4 Cardiac Index 2.2 - Labs CBC & Chem 7: 02/18/23 04:30 02/18/23 04:30 Labs: Abnormal Lab Results - Last 24 Hours (Table) 02/17/23 02/17/23 02/17/23 Range/Units 04:50 11:27 16:19 WBC (3.8-10.6) k/uL RBC (3.80-5.40) m/uL Hgb (11.4-16.0) gm/dL Hct (34.0-46.0) % Plt Count (150-450) k/uL Sodium (137-145) mmol/L BUN (7-17) mg/dL Glucose (74-99) mg/dL POC Glucose (mg/dL) 150 H 166 H (70-110) mg/dL Hemoglobin A1c 6.8 H % Calcium (8.4-10.2) mg/dL 02/17/23 02/18/23 02/18/23 Range/Units 20:07 04:30 04:30 WBC 12.2 H (3.8-10.6) k/uL RBC 2.59 L (3.80-5.40) m/uL Hgb 7.9 L (11.4-16.0) gm/dL Hct 23.6 L (34.0-46.0) % Plt Count 124 L (150-450) k/uL Sodium 134 L (137-145) mmol/L BUN 23 H (7-17) mg/dL Glucose 105 H (74-99) mg/dL POC Glucose (mg/dL) 136 H (70-110) mg/dL Hemoglobin A1c % Calcium 7.8 L (8.4-10.2) mg/dL 02/18/23 Range/Units 06:25 WBC (3.8-10.6) k/uL RBC (3.80-5.40) m/uL Hgb (11.4-16.0) gm/dL Hct (34.0-46.0) % Plt Count (150-450) k/uL Sodium (137-145) mmol/L BUN (7-17) mg/dL Glucose (74-99) mg/dL POC Glucose (mg/dL) 134 H (70-110) mg/dL Hemoglobin A1c % Calcium (8.4-10.2) mg/dL
[2023-02-18 11:47] LABS: Glucose,Whole Blood 150 mg/dL (70-110)
--- NOTE | 2023-02-18 12:13 | P.PN ---
Subjective Progress Note Date: 02/18/23 67-year-old female who underwent aortic valve replacement. Patient managed in ICU postoperatively Patient was noted to have episode of A. fib RVR on 02/17, received amiodarone bolus and dose of metoprolol was increased She was transfused 1 unit of packed RBC 02/17 , received 2 units of packed RBC /4 On 02/17> Gen. patient states she is feeling better wheezing up is better as well 0N 02/18 patient to be transferred out of ICU to general medical floor. Hemoglobin remained stable Objective - Vital Signs Vital signs: Vital Signs Temp 98.3 F 02/18/23 11:52 Pulse 72 02/18/23 11:52 Resp 20 02/18/23 11:52 BP 127/57 02/18/23 11:52 Pulse Ox 94 L 02/18/23 11:52 FiO2 50 02/14/23 20:36 Intake & Output 02/17/23 02/18/23 02/18/23 18:59 06:59 18:59 Intake Total 517.207 276 69 Output Total 1730 850 500 Balance -1212.793 -574 -431 Weight 99.9 kg Intake: IV 259 276 69 0.9NS Pressure bag 39 36 9 Lactated Ringers 1,000 ml 220 240 60 @ 20 mls/hr IV .Q24H [facility] Rx#:[id number] Intake, IV Titration 158.207 Amount Calcium Gluconate in NaCl 100 2 gm In Saline 1 100ml. bag @ 50 mls/hr IVPB ONCE ONE Rx#:[id number] Milrinone-D5w Pmx 20 mg 58.207 In Dextrose/Water 1 100ml .bag @ 0.2 MCG/KG/MIN 5. 688 mls/hr IV .[id number] [facility] Rx#:[id number] Oral 100 Output: Chest Tube Drainage 150 300 Chest Tube Right Pleural/ 150 300 Mediastinal Urine 1580 550 500 Other: Voiding Method Indwelling Catheter Indwelling Catheter Indwelling Catheter # Bowel Movements 1 1 ABP, PAP, CO, CI - Last Documented Arterial Blood Pressure 139/71 Pulmonary Artery Pressure 32/8 Cardiac Output 4.4 Cardiac Index 2.2 - Exam PHYSICAL EXAMINATION: GENERAL: The patient is alert and oriented x3, ill appearance, nasal cannula in place, ill appearance, pale HEENT: Pupils are round and equally reacting to light. EOMI. CARDIOVASCULAR: Rate controlled, irregular rhythm, lotion edema noted. PULMONARY: Decreased breath sounds bilaterally, drain in place, continue oxygen supplement ABDOMEN: Soft, nontender, nondistended, normoactive bowel sounds. No palpable organomegaly. MUSCULOSKELETAL: No joint swelling or deformity. EXTREMITIES: No cyanosis, clubbing, or pedal edema. NEUROLOGICAL: Gross neurological examination did not reveal any focal deficits. . - Labs CBC & Chem 7: 02/18/23 04:30 02/18/23 04:30 Labs: Abnormal Lab Results - Last 24 Hours (Table) 02/17/23 02/17/23 02/18/23 Range/Units 16:19 20:07 04:30 WBC 12.2 H (3.8-10.6) k/uL RBC 2.59 L (3.80-5.40) m/uL Hgb 7.9 L (11.4-16.0) gm/dL Hct 23.6 L (34.0-46.0) % Plt Count 124 L (150-450) k/uL Sodium (137-145) mmol/L BUN (7-17) mg/dL Glucose (74-99) mg/dL POC Glucose (mg/dL) 166 H 136 H (70-110) mg/dL Calcium (8.4-10.2) mg/dL 02/18/23 02/18/23 02/18/23 Range/Units 04:30 06:25 11:45 WBC (3.8-10.6) k/uL RBC (3.80-5.40) m/uL Hgb (11.4-16.0) gm/dL Hct (34.0-46.0) % Plt Count (150-450) k/uL Sodium 134 L (137-145) mmol/L BUN 23 H (7-17) mg/dL Glucose 105 H (74-99) mg/dL POC Glucose (mg/dL) 134 H 150 H (70-110) mg/dL Calcium 7.8 L (8.4-10.2) mg/dL Assessment and Plan Assessment: Assessment * Status post aortic valve stenosis with aortic valve replacement postoperative day 4 * Postoperative blood loss anemia * Atrial fibrillation with rapid ventricular response * Hypertension * Hyperlipidemia * History of gastroesophageal reflux disease * Postoperative hyperglycemia diabetes mellitus new onset * In regards to her status was aortic valve replacement patient management ICU and cardiac team. Continue drain management * In regards to atrial fibrillation continue rate control medications including amiodarone, Toprol * In regards to hyperglycemia likely stress-induced patient noted to have HbA1c of 6.8, patient on Lantus and NovoLog * Continue to monitor renal profile postoperatively * Continue to follow up on CBC and basic metabolic panel
--- NOTE | 2023-02-18 13:46 | P.PN ---
Subjective Progress Note Date: 02/18/23 Principal diagnosis: Status post aortic valve replacement postoperative day #4 On 02/15/2023, the patient is postop day #1 and the patient underwent aortic valve replacement with a bioprosthetic aortic valve and the patient was brought into the intensive care unit where she was weaned off the mechanical ventilator and she was extubated without having any major issues. The patient immediately after arriving from the operating room, was noted to have a low cardiac index. She was started on Primacor which is running at 0.2 g. Her cardiac output from this morning is at 4.7 with an index of 2.4. She received packed RBC intraoperatively and hemoglobin is 7.9. She was given a total of 2 units of packed RBCs. Her chest x-ray from today shows an infiltration of the right upper lobe and a Wendell-Dayanara catheter is in place and the chest was done in place. There is a right suprahilar increased density which is an infiltrate versus atelectasis. No evidence of any pneumothorax. The chest tube output is noted and the patient is currently on 2 L of oxygen by nasal cannula. The output from the right-sided chest tube has been under and 20 mL overnight and 500 mL since surgery. The mediastinal chest tube was drained approximately 170 mL overnight and 400 mL since surgery. Her cardiac output is at 4.2 with an index of 2.1. Pulmonary artery pressures are 31/7. Hemodynamically stable sitting up on a chair communicating no focal neurological deficit. BUN is at 19 with a creatinine of 0.8. WBC count of 10.6 with a hemoglobin of 7.9. Cardiac rhythm is sinus. Using the incentive spirometer. In terms of her blood sugar control, the patient is often signs of any blood sugar is under tighter control for now. On today's evaluation of 02/16/2023, the patient's postop day #2 following aortic valve replacement surgery. The patient is doing well and she has no sp ecific complaints. She still has the chest tubes in place, 2 mediastinal of 10. Output from the chest tubes have been quite high and for that reason the chest tubes will be kept in place. The patient has produced approximately 100 metastases from her mediastinal chest tube over the past 8 hours abdominal 50 over the past 24 hours. The patient is also produced around 90 mL from the right-sided chest tube over the past 8 hours and 224 hours. As such, she was be kept in place. Chest x-ray showing cardiomegaly. Wendell-Daynaara catheter in place. Cardiac operas 4.4 with an index of 2.3. Pulmonary artery pressures of 40/10 and the patient is on milrinone at 0.2 mcg/kg/m. Is being gradually weaned off. The patient is on insulin drip at 7 units an hour. In terms of her blood work, the patient has a hemoglobin level of 7.0, white cell count of 16.2, platelet count of 85 which is up compared to yesterday. BUN is 24 with a creatinine of 1.28. Sodium level is at 136. Potassium levels at 4.6. Is a component of an acute kidney injury probably related to low cardiac output state that occurred postop. Blood sugars at other adequate control. She is on oxygen at 2 L/m nasal cannula. She is using the incentive spirometer. She is tolerating some diet heart healthy diet. Patient was reevaluated today on 02/17/2023, she is status post bioprosthetic aortic valve placement, patient is in the ICU, on 2 L nasal cannula. Early this morning the patient had an episode of atrial fibrillation with RVR, required amiodarone bolus and at the metoprolol dose was increased. Chest x-ray showed e vidence of mild congestive heart failure Lasix was given 40 mg IV push. Ultrasound of the chest showed small left pleural effusion, most likely will improve with diuretics, I don't see the need for thoracentesis at this point, unless no improvement is noted with diuretics. Patient is relatively as ymptomatic, and she is not in any distress. I believe the patient has a significant amount of atelectasis in the left lower lobe area as well. W see count is 14.5 hemoglobin is 8 electrolytes are normal renal profile is normal except for creatinine of 1.1 Reevaluated today on 02/18/2023, patient seems to be doing fairly well, not in any distress, patient is on 2 L nasal cannula, chest x-ray showed small area of atelectasis and left lower lobe and small pleural effusion not large enough to pursue thoracentesis. Patient is responding to diuretics, and again no need for thoracentesis. Patient seems to be fairly controlled. Continues to have right pleural chest tube in place, labs today are basically unremarkable including CBC and basic metabolic profile with renal profile Objective - Vital Signs Vital signs: Vital Signs Temp 98.3 F 02/18/23 11:52 Pulse 72 02/18/23 11:52 Resp 20 02/18/23 11:52 BP 127/57 02/18/23 11:52 Pulse Ox 94 L 02/18/23 11:52 FiO2 50 02/14/23 20:36 Intake & Output 02/17/23 02/18/23 02/18/23 18:59 06:59 18:59 Intake Total 517.207 276 69 Output Total 1730 850 500 Balance -1212.793 -574 -431 Weight 99.9 kg Intake: IV 259 276 69 0.9NS Pressure bag 39 36 9 Lactated Ringers 1,000 ml 220 240 60 @ 20 mls/hr IV .Q24H [facility] Rx#:[id number] Intake, IV Titration 158.207 Amount Calcium Gluconate in NaCl 100 2 gm In Saline 1 100ml. bag @ 50 mls/hr IVPB ONCE ONE Rx#:[id number] Milrinone-D5w Pmx 20 mg 58.207 In Dextrose/Water 1 100ml .bag @ 0.2 MCG/KG/MIN 5. 688 mls/hr IV .[id number] [facility] Rx#:[id number] Oral 100 Output: Chest Tube Drainage 150 300 Chest Tube Right Pleural/ 150 300 Mediastinal Urine 1580 550 500 Other: Voiding Method Indwelling Catheter Indwelling Catheter Indwelling Catheter # Bowel Movements 1 1 ABP, PAP, CO, CI - Last Documented Arterial Blood Pressure 139/71 Pulmonary Artery Pressure 32/8 Cardiac Output 4.4 Cardiac Index 2.2 - Exam Physical Exam: Revealed a 67-year-old female in no distress, on 2 L nasal c annula Head: Atraumatic, normocephalic. HEENT:[Neck is supple.] [No neck masses.] [No thyromegaly.] [No JVD.] Chest: [Diminished breath sounds and crackles at the bases, no rhonchi no wheezes] Cardiac: Normal S1 and S2, no S3 gallop, irregular rhythm, 2/6 systolic murmur thought the precordium. Abdomen: [Soft, nontender, no megaly, no rebound, no guarding, normal bowel sounds.] Extremities: [No clubbing, no edema, no cyanosis.] Neurological Exam: [No focal neurologic deficit.] alert oriented 3. psychiatric: Normal mood affect and normal mental status examination. skin: No rashes - Labs CBC & Chem 7: 02/18/23 04:30 02/18/23 04:30 Labs: Abnormal Lab Results - Last 24 Hours (Table) 02/17/23 02/17/23 02/18/23 Range/Units 16:19 20:07 04:30 WBC 12.2 H (3.8-10.6) k/uL RBC 2.59 L (3.80-5.40) m/uL Hgb 7.9 L (11.4-16.0) gm/dL Hct 23.6 L (34.0-46.0) % Plt Count 124 L (150-450) k/uL Sodium (137-145) mmol/L BUN (7-17) mg/dL Glucose (74-99) mg/dL POC Glucose (mg/dL) 166 H 136 H (70-110) mg/dL Calcium (8.4-10.2) mg/dL 02/18/23 02/18/23 02/18/23 Range/Units 04:30 06:25 11:45 WBC (3.8-10.6) k/uL RBC (3.80-5.40) m/uL Hgb (11.4-16.0) gm/dL Hct (34.0-46.0) % Plt Count (150-450) k/uL Sodium 134 L (137-145) mmol/L BUN 23 H (7-17) mg/dL Glucose 105 H (74-99) mg/dL POC Glucose (mg/dL) 134 H 150 H (70-110) mg/dL Calcium 7.8 L (8.4-10.2) mg/dL Assessment and Plan Assessment: Impression: Severe aortic stenosis requiring aortic valve replacement, presently postoperative day #4 Benign essential hypertension Dyslipidemia Mild COPD Previous history of GI bleed/bleeding ulcer in 2018 Type 2 diabetes, without complications Obesity Acute blood loss anemia, expected Paroxysmal atrial fibrillation Left pleural effusion Recommendation: Continue oxygen and titrate accordingly Continue to maximize medical therapy using beta blockers statins and Plavix Continue incentive spirometry, and ambulation. Continue GI and DVT prophylaxis Discontinue unnecessary lines and catheters We will continue to follow. Time with Patient: Less than 30
[2023-02-18] MEDS ORDERED: POTASSIUM BICARBONATE/CIT AC 20 MEQ TABLET.EFF PO ONE (14:00)
[2023-02-18] MEDS ORDERED: SENNOSIDES-DOCUSATE SODIUM 1 EACH TAB PO PRN (14:40)
[2023-02-18 16:33] LABS: Glucose,Whole Blood 121 mg/dL (70-110)
--- NOTE | 2023-02-18 16:54 | CDI ---
Documentation Clarification Form Date: 02/18/2023 04:19:48 PM From: Rosalie Owusu RN, CCDS Admit Date: 02/14/2023 05:39:00 AM Patient Name: Rosita Ngo Visit Number: [id number] Discharge Date: ATTENTION: The Clinical Documentation Specialists (CDI) and [facility] Coding Staff appreciate your assistance in clarifying documentation. Please respond to the clarification below the line at the bottom and electronically sign. The CDI & [facility] Coding staff will review the response and follow-up if needed. Please note: Queries are made part of the Legal Health Record. If you have any questions, please contact the author of this message via ITS. Dr. Pedro Metz Hypoglycemia postoperately is documented in the ongoing progress notes starting on 02/16 2023 and patient had aortic valve replacement on 02/14/2023. Additional clarification is requested regarding the relationship, if any, that exists between the diagnosis and the procedure. Patients Admitting Diagnosis: Critical aortic stenosis Post-Operative Diagnosis: Same Procedure performed: Aortic valve replacement, Ligation of left atrial appendage using 35 mm AtriClip, Transesophageal echocardiogram. History/Risk Factors: Aortic stenosis, Hypertension, Hyperlipidemia, COPD, Former smoker previously undiagnosed and untreated diabetes Clinical Indicators: 67-year-old female with severe aortic stenosis present for aortic valve replacement. 02/15 progress note by attending has documentation of previously undiagnosed and untreated diabetes, preoperative [id number] 7.9 Patient denies being told she was a diabetic. 6/2 Glucose 162, 179, 201, 207, 6/3 Glucose 128, 106, 215, 110 118, 94 6/4 Glucose 111, 90, 134, 225, 6/5 Hemoglobin A1c 6.8 Treatment: Telemetry/ICU monitoring per protocol Insulin drip per protocol 6/2-6/4 blood sugar monitoring per protocol Diabetic teaching and recommendations at discharge What relationship, if any, exists between the diagnosis of post procedure hypoglycemia and the procedure? [ ] Hyperglycemia is a complication of surgical procedure. [ ] Hyperglycemia is an expected outcome of the surgical procedure. [ y ] Hyperglycemia is related to patients co-morbid condition(s) of previously undiagnosed and untreated diabetes, & not a complication of the procedure [ ] Other please specify ____ [ ] Unable to determine (Template Last Revised: November 2020) MTDD
[2023-02-18 20:06] LABS: Glucose,Whole Blood 91 mg/dL (70-110)
[2023-02-18] MEDS: ATORVASTATIN 80 MG TAB PO SCH (21:04)
[2023-02-19] MEDS: HEPARIN SODIUM,PORCINE/PF 5,000 UNIT/0.5 ML SYRINGE SQ SCH ×3 (00:50→16:44)
[2023-02-19] MEDS: INSULIN ASPART (NovoLOG) 100 UNIT/ML VIAL SQ SCH ×8 (06:34→20:51)
[2023-02-19 06:36] LABS: Glucose,Whole Blood 93 mg/dL (70-110)
[2023-02-19] MEDS: PANTOPRAZOLE 40 MG TABLET PO SCH ×2 (06:37→16:44)
[2023-02-19] MEDS: INSULIN DETEMIR (LEVEMIR) 100 UNIT/ML SYR SQ SCH ×2 (06:37→21:01)
[2023-02-19] MEDS: FERROUS SULFATE 325 MG TAB PO SCH ×2 (06:37→16:44)
[2023-02-19] MEDS: ASCORBIC ACID 500 MG TAB PO SCH ×2 (06:38→16:44)
[2023-02-19] MEDS ORDERED: FUROSEMIDE 10 MG/ML 4 ML VIAL IV STA (07:56)
[2023-02-19] MEDS ORDERED: POTASSIUM BICARBONATE/CIT AC 20 MEQ TABLET.EFF PO ONE (08:00)
[2023-02-19] MEDS: IPRATROPIUM-ALBUTEROL 3 ML NEB INHALATION SCH ×4 (08:05→20:58)
--- NOTE | 2023-02-19 08:28 | XR ---
EXAMINATION TYPE: XR chest 2V DATE OF EXAM: 02/19/2023 COMPARISON: 02/18/2023 TECHNIQUE: PA and lateral views submitted. HISTORY: Post cardiac surgery FINDINGS: There is postoperative changes with diffuse interstitial pattern and right-sided chest tube but no pn eumothorax. There is left lower lobe consolidation and small effusion. Findings are stable. Osseous s tructures demonstrate hypertrophic and degenerative changes of the spine. IMPRESSION: 1. Left lower lobe consolidation and pleural effusion are stable. Correlate for mild central venous c ongestion..
[2023-02-19] MEDS: EZETIMIBE 10 MG TAB PO SCH (09:01)
[2023-02-19] MEDS: ASPIRIN 81 MG PO SCH (09:01)
[2023-02-19] MEDS: METOPROLOL TARTRATE 25 MG TAB PO SCH (09:01)
[2023-02-19] MEDS: AMIODARONE 200 MG TAB PO SCH (09:01)
[2023-02-19] MEDS: CLOPIDOGREL 75 MG TAB PO SCH (09:02)
--- NOTE | 2023-02-19 09:47 | P.PN ---
Subjective Progress Note Date: 02/19/23 Principal diagnosis: Critical aortic stenosis. Past medical history significant for hypertension, hyperlipidemia, previous tobacco dependence with mild COPD, right internal carotid stenosis, previous GI bleed, previously undiagnosed and untreated diabetes with a preoperative hemoglobin A1c of 7.9%. POD #5 aortic valve replacement using 25 mm Wheat Inspiris bioprosthetic jemma ve, aortic annular enlargement using Singh technique, ligation of the left atrial appendage using 35 mm AtriClip, epi-aortic ultrasound, intraoperative transesophageal echocardiogram performed by anesthesia. Postoperative acute blood loss anemia and thrombocytopenia, expected due to hemodilution and cardiopulmonary bypass pump. Paroxysmal atrial fibrillation, a known common occurrence after open heart surgery, not a complication. The patient was seen and examined in follow-up today 02/19/2023 at her bedside on the cardiac stepdown unit. Currently the patient is sitting up to the bedside chair, is awake, alert, oriented 3 and is in no acute apparent distress. Denies any complaints of shortness of breath or pain at this time. Oxygen saturations are 94% on room air and she is achieving 750-1000 mL on her incentive spirometry with encouragement. Remote telemetry is showing normal sin us rhythm heart rate 82 BPM. Her atrial and ventricular epicardial pacemaker wires were removed yesterday without incident. She has been afebrile the last 24 hours. Laboratory results remain pending. Chest x-ray results reviewed. Right pleural chest tube remains in place to low continuous wall suction -20 cm H2O. No air leak is present. Draining thin serosanguineous drainage was 70 mL output in the last 8 hours and 350 mL output in the last 24 hours. The patient reports she has been up ambulating in the cardiac stepdown unit hallway with standby assistance from nursing and therapy staff. No new concerns. Objective - Vital Signs Vital signs: Vital Signs Temp 98.2 F 02/19/23 04:00 Pulse 84 02/19/23 08:20 Resp 14 02/19/23 04:00 BP 116/72 02/19/23 04:00 Pulse Ox 92 L 02/19/23 08:06 FiO2 50 02/14/23 20:36 Intake & Output 02/18/23 02/19/23 02/19/23 18:59 06:59 18:59 Intake Total 609 540 Output Total 675 70 Balance -66 -70 540 Weight 97.78 kg Intake: IV 69 0.9NS Pressure bag 9 Lactated Ringers 1,000 ml 60 @ 20 mls/hr IV .Q24H [facility] Rx#:[id number] Oral 540 540 Output: Chest Tube Drainage 175 70 Chest Tube Right Pleural/ 175 70 Mediastinal Urine 500 Other: Voiding Method Indwelling Catheter Bedside Commode # Voids 1 # Bowel Movements 1 ABP, PAP, CO, CI - Last Documented Arterial Blood Pressure 139/71 Pulmonary Artery Pressure 32/8 Cardiac Output 4.4 Cardiac Index 2.2 - Exam CONSTITUTIONAL: Sitting up to the bedside chair on the cardiac stepdown unit, appears comfortable, cooperative, no apparent acute distress. HEENT: Neck is supple, no JVD, no lymphadenopathy. RESPIRATORY: Lungs sounds essentially clear throughout, diminished to his bilateral bases, left greater than right. Respirations are symmetrical and nonlabored. Currently on room air with oxygen saturations 94%. Able to achieve 750-1000 mL on the her incentive spirometry. Strong cough. CARDIOVASCULAR: Regular rhythm and rate. S1 and S2 present, negative for S3, gallop or murmur. Sternum is stable. Palpable peripheral pulses bilaterally, No edema to her bilateral lower extremities. No calf pain or tenderness noted. Heart hugger in place with patient demonstrating appropriate use. Knee-high MARCIAL hose and sequential compression devices in place to his bilateral lower extremities. GASTROINTESTINAL: Abdomen soft, nontender, nondistended. Active bowel sounds present 4 quadrants. Tolerating diet. Passing flatus. No guarding or rigidity. Bowel movement yesterday 02/18/23. GENITOURINARY: Continues to void. INTEGUMENTARY: Skin is warm and dry with no evidence of clubbing or cyanosis. Midline sternal incision clean dry and well approximated, covered with dry intact dressing. NEUROLOGIC: Cranial nerves II through XII intact. No focal deficits. MUSKULOSKELETAL: Able to move all extremities, strength equal bilaterally, generalized weakness. PSYCHIATRIC: Alert and oriented to person place and time, appropriate affect, intact judgment and insight. INVASIVE LINES AND TUBES: Right pleural chest tube present and connected to low continuous wall suction, no air leaks present. Right pleural chest tube with 70 mL of thin serosanguineous drainage overnight, 350 mL output in the last 24 hours. - Allied health notes Allied health notes reviewed: nursing - Labs CBC & Chem 7: 02/18/23 04:30 02/18/23 04:30 Labs: Abnormal Lab Results - Last 24 Hours (Table) 02/18/23 02/18/23 Range/Units 11:45 16:30 POC Glucose (mg/dL) 150 H 121 H (70-110) mg/dL - Imaging and Cardiology Chest x-ray: report reviewed, image reviewed Assessment and Plan Assessment: Critical aortic stenosis, status post bioprosthetic aortic valve replacement with routine enlargement History of hypertension Hyperlipidemia, treated, cholesterol 175, LDL 73 with triglycerides 250 Previous tobacco dependence Mild COPD, preoperative FEV1 74% of predicted Right internal carotid stenosis 50-79% Previous GI bleed with bleeding ulcer in 2018 Previously undiagnosed and untreated diabetes, preoperative hemoglobin A1c 7.9%, repeat A1c 6.8% Obesity with a BMI of 37.0 kg/m Postoperative acute blood loss anemia and thrombocytopenia, expected Paroxysmal atrial fibrillation, a known common occurrence after open heart surgery, not a complication Plan: Continue to maximize medical therapy with low-dose aspirin, Plavix, statin, and beta champ. Will increase beta champ therapy as tolerated, currently with metoprolol tartrate is at 25 mg by mouth twice a day. Continue amiodarone 400 mg by mouth twice a day for atrial fibrillation prophylaxis. Encourage incentive spirometry use 10 times every hour while awake. Bronchodilators per pulmonology. Increase activity as tolerated. PT/OT/cardiac rehab following. Will monitor daily labs and chest x-rays. Electrolyte replacement per protocol. Will give IV lasix 40 mg 1 now. Insulin management per internal medicine. Hemoglobin A1c preoperative 7.9%, repeat 6.8%, will need diabetic teaching and recommendations at discharge. GI/DVT prophylaxis. Pain control with current medication regimen. Will remove right pleural chest tube today. Strict accurate intake and output. Daily weights. Discharge planning in progress, anticipate discharge to home with home care in the next 24-48 hours. More recommendations to follow based on patient's patient's clinical course. Time with Patient: Greater than 30
[2023-02-19 11:30] LABS: HCT 30.9 % (34.0-46.0); MCH 30.2 pg (25.0-35.0); MCHC 32.2 g/dL (31.0-37.0); MCV 93.8 fL (80.0-100.0); Mean Platelet Volume 9.5; RDW 15.4 % (11.5-15.5); WBC 14.7 k/uL (3.8-10.6)
[2023-02-19 11:33] LABS: African American GFR (CKD) 75 (>60 ml/min/1.73 sqM); Anion Gap 13 mmol/L; Blood Urea Nitrogen 20 mg/dL (7-17); Calcium 8.2 mg/dL (8.4-10.2); Carbon Dioxide 27 mmol/L (22-30); Chloride 98 mmol/L (98-107); Glucose 99 mg/dL (74-99); Magnesium 2.4 mg/dL (1.6-2.3); Non-African American GFR(CKD) 65 (>60 ml/min/1.73 sqM); Potassium 3.6 mmol/L (3.5-5.1); Sodium 138 mmol/L (137-145)
[2023-02-19 11:34] LABS: Glucose,Whole Blood 117 mg/dL (70-110)
[2023-02-19 11:37] LABS: Platelet Count 255 k/uL (150-450)
[2023-02-19] MEDS ORDERED: POTASSIUM CHLORIDE ER 20 MEQ TAB.ER PO STA (11:55)
--- NOTE | 2023-02-19 12:05 | P.PN ---
Subjective Progress Note Date: 02/19/23 67-year-old female who underwent aortic valve replacement. Patient managed in ICU postoperatively Patient was noted to have episode of A. fib RVR on 02/17, received amiodarone bolus and dose of metoprolol was increased She was transfused 1 unit of packed RBC 02/17 , received 2 units of packed RBC /4 On 02/17> Gen. patient states she is feeling better wheezing up is better as well 0N 02/18 patient to be transferred out of ICU to general medical floor. Hemoglobin remained stable 02/19> patient transferred out of ICU. Noted to be in stepdown. Alert and oriented 3. Patient does complain of shortness of breath patient weaned down to room air. Right pleural chest tube removed. Objective - Vital Signs Vital signs: Vital Signs Temp 96.3 F L 02/19/23 08:00 Pulse 80 02/19/23 11:39 Resp 17 02/19/23 08:00 BP 159/69 02/19/23 08:00 Pulse Ox 92 L 02/19/23 08:06 FiO2 50 02/14/23 20:36 Intake & Output 02/18/23 02/19/23 02/19/23 18:59 06:59 18:59 Intake Total 609 540 Output Total 675 70 500 Balance -66 -70 40 Weight 97.78 kg Intake: IV 69 0.9NS Pressure bag 9 Lactated Ringers 1,000 ml 60 @ 20 mls/hr IV .Q24H [facility] Rx#:[id number] Oral 540 540 Output: Chest Tube Drainage 175 70 Chest Tube Right Pleural/ 175 70 Mediastinal Urine 500 500 Other: Voiding Method Indwelling Catheter Bedside Commode Toilet # Voids 1 # Bowel Movements 1 1 ABP, PAP, CO, CI - Last Documented Arterial Blood Pressure 139/71 Pulmonary Artery Pressure 32/8 Cardiac Output 4.4 Cardiac Index 2.2 - Exam PHYSICAL EXAMINATION: GENERAL: The patient is alert and oriented x3, ill appearance, nasal cannula in place, ill appearance, pale HEENT: Pupils are round and equally reacting to light. EOMI. CARDIOVASCULAR: Rate controlled, irregular rhythm, edema noted bilateral lower extremity PULMONARY: Decreased breath sounds bilaterally, drain removed continue oxygen supplement ABDOMEN: Soft, nontender, nondistended, normoactive bowel sounds. No palpable organomegaly. MUSCULOSKELETAL: No joint swelling or deformity. EXTREMITIES: No cyanosis, clubbing, or pedal edema. NEUROLOGICAL: Gross neurological examination did not reveal any focal deficits. . - Labs CBC & Chem 7: 02/19/23 09:35 02/19/23 09:35 Labs: Abnormal Lab Results - Last 24 Hours (Table) 02/18/23 02/19/23 02/19/23 Range/Units 16:30 09:35 09:35 WBC 14.7 H (3.8-10.6) k/uL RBC 3.30 L (3.80-5.40) m/uL Hgb 10.0 L D (11.4-16.0) gm/dL Hct 30.9 L (34.0-46.0) % BUN 20 H (7-17) mg/dL POC Glucose (mg/dL) 121 H (70-110) mg/dL Calcium 8.2 L (8.4-10.2) mg/dL Magnesium 2.4 H (1.6-2.3) mg/dL 02/19/23 Range/Units 11:32 WBC (3.8-10.6) k/uL RBC (3.80-5.40) m/uL Hgb (11.4-16.0) gm/dL Hct (34.0-46.0) % BUN (7-17) mg/dL POC Glucose (mg/dL) 117 H (70-110) mg/dL Calcium (8.4-10.2) mg/dL Magnesium (1.6-2.3) mg/dL Assessment and Plan Assessment: Assessment * Status post aortic valve stenosis with aortic valve replacement postoperative day 4 * Postoperative blood loss anemia * Atrial fibrillation with rapid ventricular response * Hypertension * Hyperlipidemia * History of gastroesophageal reflux disease * Postoperative hyperglycemia diabetes mellitus type 2 * In regards to her status was aortic valve replacement patient management ICU and cardiac team. Status post removal of drain>. On aspirin, Lipitor, Plavix * In regards to atrial fibrillation continue rate control medications including amiodarone, metoprolol, aspirin * In regards to hyperglycemia likely stress-induced patient noted to have HbA1c of 6.8, patient on Lantus and NovoLog * Continue to monitor renal profile postoperatively * Continue to follow up on CBC and basic metabolic panel
[2023-02-19] MEDS ORDERED: DEXTROSE 5% IN WATER 100 ML with AMIODARONE 150 MG IV ONE ×2 (12:37→14:15)
[2023-02-19] MEDS ORDERED: AMIODARONE 360 MG in DEXTROSE 5% IN WATER 200 ML IV ONE ×2 (12:37)
--- NOTE | 2023-02-19 13:11 | P.PN ---
Subjective Progress Note Date: 02/19/23 PROGRESS NOTE The patient is a 67-year-old female who underwent aortic valve replacement. She is followed by Dr. Velasquez on her regular basis. She is extubated, sitting up in the chair. She has no chest discomfort or significant dyspnea. She continues to be in sinus mechanism. She underwent aortic valve replacement with size 25 Wheat Inspiris valve was closure of the left atrial appendage. Her cardiac catheterization showed no significant obstructive disease. She has been having progressive dyspnea on exertion, her left ventricle systolic function was preserved. She has a history of hypertension and hyperlipidemia, she is a nondiabetic. She has her chest tube and [place]-Day[place]ara catheter in place. February 16: The patient is feeling better today, stronger, denies any chest discomfort, dizziness or palpitations. Her breathing is better. She continues to be in sinus mechanism, hemodynamically stable. She denies any nausea or vomiting. She is using her incentive spirometry. The [place]-Day[place]ara catheter remains in place. 02/17 Patient seen and examined. Patient went into A. fib with RVR with heart rates in 130's. She was somewhat symptomatic with palpitations and shortness of breath. She was given amiodarone bolus and metoprolol increased to 25 and given extra dose. Currently heart rates better controlled in the 100-110 range. She denies any chest pain or pressure. Denies any significant shortness breath. 02/18 Patient seen and examined. Patient converted back to sinus rhythm and has been doing well. Denies any chest pain or pressure. Patient did have ultrasound of the chest completed yesterday which did show 7 Center left pleural fluid pocket. Right IJ Cordis in place and right chest tube remains in place. 02/19 Patient went into atrial fibrillation again this morning and will be started on amiodarone drip. She states she related in the hallway and subsequently had chest tube removed. She states she felt like her legs were weak and had to stop. Heart rate is in the 80s, blood pressure 159/69 and pulse ox 92% on room air. Repeat blood work reveals hemoglobin of 10, BUN 20 creatinine 0.9. PHYSICAL EXAMINATION: Vitals reviewd LUNGS: Mild decrease in the breath sounds HEART: Irregular rate and rhythm, S1, S2. No S3. Systolic ejection murmur, rub ABDOMEN: Soft, nontender, no organomegaly EXTREMETIES: No edema IMPRESSION: 1. Status post aortic valve replacement for severe aortic stenosis 2. History of hyperlipidemia 3. History of hypertension 4. Anemia postoperatively 5. Postoperative atrial fibrillation with RVR, paroxysmal 6. Left pleural effusion PLAN: Patient went back into A. fib. Patient will be started on amiodarone drip following bolus. Continue beta champ. Appears to be slowly progressing. Nurse practitioner note has been reviewed, I agree with the documented findings and plan of care. Patient was seen and examined. Objective - Vital Signs Vital signs: Vital Signs Temp 96.3 F L 02/19/23 08:00 Pulse 80 02/19/23 11:39 Resp 17 02/19/23 08:00 BP 159/69 02/19/23 08:00 Pulse Ox 92 L 02/19/23 08:06 FiO2 50 02/14/23 20:36 Intake & Output 02/18/23 02/19/23 02/19/23 18:59 06:59 18:59 Intake Total 609 540 Output Total 675 70 500 Balance -66 -70 40 Weight 97.78 kg Intake: IV 69 0.9NS Pressure bag 9 Lactated Ringers 1,000 ml 60 @ 20 mls/hr IV .Q24H [facility] Rx#:[id number] Oral 540 540 Output: Chest Tube Drainage 175 70 Chest Tube Right Pleural/ 175 70 Mediastinal Urine 500 500 Other: Voiding Method Indwelling Catheter Bedside Commode Toilet # Voids 1 1 # Bowel Movements 1 1 ABP, PAP, CO, CI - Last Documented Arterial Blood Pressure 139/71 Pulmonary Artery Pressure 32/8 Cardiac Output 4.4 Cardiac Index 2.2 - Labs CBC & Chem 7: 02/19/23 09:35 02/19/23 09:35 Labs: Abnormal Lab Results - Last 24 Hours (Table) 02/18/23 02/19/23 02/19/23 Range/Units 16:30 09:35 09:35 WBC 14.7 H (3.8-10.6) k/uL RBC 3.30 L (3.80-5.40) m/uL Hgb 10.0 L D (11.4-16.0) gm/dL Hct 30.9 L (34.0-46.0) % BUN 20 H (7-17) mg/dL POC Glucose (mg/dL) 121 H (70-110) mg/dL Calcium 8.2 L (8.4-10.2) mg/dL Magnesium 2.4 H (1.6-2.3) mg/dL 02/19/23 Range/Units 11:32 WBC (3.8-10.6) k/uL RBC (3.80-5.40) m/uL Hgb (11.4-16.0) gm/dL Hct (34.0-46.0) % BUN (7-17) mg/dL POC Glucose (mg/dL) 117 H (70-110) mg/dL Calcium (8.4-10.2) mg/dL Magnesium (1.6-2.3) mg/dL
--- NOTE | 2023-02-19 14:49 | P.PN ---
Subjective Progress Note Date: 02/19/23 Principal diagnosis: Status post aortic valve replacement postoperative day #5 On 02/15/2023, the patient is postop day #1 and the patient underwent aortic valve replacement with a bioprosthetic aortic valve and the patient was brought into the intensive care unit where she was weaned off the mechanical ventilator and she was extubated without having any major issues. The patient immediately after arriving from the operating room, was noted to have a low cardiac index. She was started on Primacor which is running at 0.2 g. Her cardiac output from this morning is at 4.7 with an index of 2.4. She received packed RBC intraoperatively and hemoglobin is 7.9. She was given a total of 2 units of packed RBCs. Her chest x-ray from today shows an infiltration of the right upper lobe and a [place]-Dayanara catheter is in place and the chest was done in place. There is a right suprahilar increased density which is an infiltrate versus atelectasis. No evidence of any pneumothorax. The chest tube output is noted and the patient is currently on 2 L of oxygen by nasal cannula. The output from the right-sided chest tube has been under and 20 mL overnight and 500 mL since surgery. The mediastinal chest tube was drained approximately 170 mL overnight and 400 mL since surgery. Her cardiac output is at 4.2 with an index of 2.1. Pulmonary artery pressures are 31/7. Hemodynamically stable sitting up on a chair communicating no focal neurological deficit. BUN is at 19 with a creatinine of 0.8. WBC count of 10.6 with a hemoglobin of 7.9. Cardiac rhythm is sinus. Using the incentive spirometer. In terms of her blood sugar control, the patient is often signs of any blood sugar is under tighter control for now. On today's evaluation of 02/16/2023, the patient's postop day #2 following aortic valve replacement surgery. The patient is doing well and she has no sp ecific complaints. She still has the chest tubes in place, 2 mediastinal of 10. Output from the chest tubes have been quite high and for that reason the chest tubes will be kept in place. The patient has produced approximately 100 metastases from her mediastinal chest tube over the past 8 hours abdominal 50 over the past 24 hours. The patient is also produced around 90 mL from the right-sided chest tube over the past 8 hours and 224 hours. As such, she was be kept in place. Chest x-ray showing cardiomegaly. [place]roda-Dayanara catheter in place. Cardiac operas 4.4 with an index of 2.3. Pulmonary artery pressures of 40/10 and the patient is on milrinone at 0.2 mcg/kg/m. Is being gradually weaned off. The patient is on insulin drip at 7 units an hour. In terms of her blood work, the patient has a hemoglobin level of 7.0, white cell count of 16.2, platelet count of 85 which is up compared to yesterday. BUN is 24 with a creatinine of 1.28. Sodium level is at 136. Potassium levels at 4.6. Is a component of an acute kidney injury probably related to low cardiac output state that occurred postop. Blood sugars at other adequate control. She is on oxygen at 2 L/m nasal cannula. She is using the incentive spirometer. She is tolerating some diet heart healthy diet. Patient was reevaluated today on 02/17/2023, she is status post bioprosthetic aortic valve placement, patient is in the ICU, on 2 L nasal cannula. Early this morning the patient had an episode of atrial fibrillation with RVR, required amiodarone bolus and at the metoprolol dose was increased. Chest x-ray showed e vidence of mild congestive heart failure Lasix was given 40 mg IV push. Ultrasound of the chest showed small left pleural effusion, most likely will improve with diuretics, I don't see the need for thoracentesis at this point, unless no improvement is noted with diuretics. Patient is relatively as ymptomatic, and she is not in any distress. I believe the patient has a significant amount of atelectasis in the left lower lobe area as well. W see count is 14.5 hemoglobin is 8 electrolytes are normal renal profile is normal except for creatinine of 1.1 Reevaluated today on 02/18/2023, patient seems to be doing fairly well, not in any distress, patient is on 2 L nasal cannula, chest x-ray showed small area of atelectasis and left lower lobe and small pleural effusion not large enough to pursue thoracentesis. Patient is responding to diuretics, and again no need for thoracentesis. Patient seems to be fairly controlled. Continues to have right pleural chest tube in place, labs today are basically unremarkable including CBC and basic metabolic profile with renal profile Reevaluated today on 02/19/2023, patient is doing fairly well, not in any distress, she is presently on room air. Patient is postoperative day #5, she had aortic valve replacement using 25 mm Wheat area prosthetic valve. Patient is hemodynamically stable, her cardiac rhythm is normal sinus rhythm, she had her atrial and ventricular epicardial pacemaker wires removed yesterday. Had right-sided chest tube was removed early today. Chest x-ray continues to show a small left-sided pleural effusion and atelectasis. Patient is already ambulating in the hallway, she is now in the stepdown unit. WBC count is 14.7 hemoglobin is 10 Normal renal profile is normal Objective - Vital Signs Vital signs: Vital Signs Temp 96.4 F L 02/19/23 12:00 Pulse 91 02/19/23 12:00 Resp 18 02/19/23 12:00 BP 113/77 02/19/23 12:00 Pulse Ox 97 02/19/23 12:00 FiO2 50 02/14/23 20:36 Intake & Output 02/18/23 02/19/23 02/19/23 18:59 06:59 18:59 Intake Total 609 540 Output Total 675 70 500 Balance -66 -70 40 Weight 97.78 kg Intake: IV 69 0.9NS Pressure bag 9 Lactated Ringers 1,000 ml 60 @ 20 mls/hr IV .Q24H [facility] Rx#:[id number] Oral 540 540 Output: Chest Tube Drainage 175 70 Chest Tube Right Pleural/ 175 70 Mediastinal Urine 500 500 Other: Voiding Method Indwelling Catheter Bedside Commode Toilet # Voids 1 1 # Bowel Movements 1 1 ABP, PAP, CO, CI - Last Documented Arterial Blood Pressure 139/71 Pulmonary Artery Pressure 32/8 Cardiac Output 4.4 Cardiac Index 2.2 - Exam Physical Exam: Revealed a 67-year-old female in no distress, on room air Head: Atraumatic, normocephalic. HEENT:[Neck is supple.] [No neck masses.] [No thyromegaly.] [No JVD.] Chest: [Diminished breath sounds and crackles at the bases, no rhonchi no wheezes] Cardiac: Normal S1 and S2, no S3 gallop, irregular rhythm, 2/6 systolic murmur thought the precordium. Abdomen: [Soft, nontender, no megaly, no rebound, no guarding, normal bowel sounds.] Extremities: [No clubbing, no edema, no cyanosis.] Neurological Exam: [No focal neurologic deficit.] alert oriented 3. psychiatric: Normal mood affect and normal mental status examination. skin: No rashes - Labs CBC & Chem 7: 02/19/23 09:35 02/19/23 09:35 Labs: Abnormal Lab Results - Last 24 Hours (Table) 02/18/23 02/19/23 02/19/23 Range/Units 16:30 09:35 09:35 WBC 14.7 H (3.8-10.6) k/uL RBC 3.30 L (3.80-5.40) m/uL Hgb 10.0 L D (11.4-16.0) gm/dL Hct 30.9 L (34.0-46.0) % BUN 20 H (7-17) mg/dL POC Glucose (mg/dL) 121 H (70-110) mg/dL Calcium 8.2 L (8.4-10.2) mg/dL Magnesium 2.4 H (1.6-2.3) mg/dL 02/19/23 Range/Units 11:32 WBC (3.8-10.6) k/uL RBC (3.80-5.40) m/uL Hgb (11.4-16.0) gm/dL Hct (34.0-46.0) % BUN (7-17) mg/dL POC Glucose (mg/dL) 117 H (70-110) mg/dL Calcium (8.4-10.2) mg/dL Magnesium (1.6-2.3) mg/dL Assessment and Plan Assessment: Impression: Severe aortic stenosis requiring aortic valve replacement, presently postoperative day #5 Benign essential hypertension Dyslipidemia Mild COPD Previous history of GI bleed/bleeding ulcer in 2018 Type 2 diabetes, without complications Obesity Acute blood loss anemia, expected Paroxysmal atrial fibrillation Left pleural effusion Recommendation: Continue to maximize medical therapy using beta blockers statins and Plavix Continue incentive spirometry, and ambulation. Continue GI and DVT prophylaxis Consider discharge planning in the next 24 hours We will continue to follow. Time with Patient: Less than 30
[2023-02-19 16:17] LABS: Glucose,Whole Blood 116 mg/dL (70-110)
[2023-02-19] MEDS ORDERED: METOPROLOL TARTRATE 12.5 MG TAB PO STA (16:22)
[2023-02-19] MEDS ORDERED: AMIODARONE 450 MG in DEXTROSE 5% IN WATER 250 ML IV SCH ×2 (18:45)
[2023-02-19 20:58] LABS: Glucose,Whole Blood 46 mg/dL (70-110)
[2023-02-19 20:59] LABS: Glucose,Whole Blood 55 mg/dL (70-110)
[2023-02-19 20:59] LABS: Glucose,Whole Blood 53 mg/dL (70-110)
[2023-02-19] MEDS: METOPROLOL TARTRATE 50 MG TAB PO SCH (21:01)
[2023-02-19] MEDS: ATORVASTATIN 80 MG TAB PO SCH (21:01)
[2023-02-19 21:23] LABS: Glucose,Whole Blood 119 mg/dL (70-110)
[2023-02-19] MEDS: ACETAMINOPHEN TAB 325 MG TAB PO PRN (21:44)
[2023-02-20] MEDS: HEPARIN SODIUM,PORCINE/PF 5,000 UNIT/0.5 ML SYRINGE SQ SCH ×4 (00:20→23:35)
[2023-02-20] MEDS: ACETAMINOPHEN TAB 325 MG TAB PO PRN (04:59)
[2023-02-20] MEDS: INSULIN DETEMIR (LEVEMIR) 100 UNIT/ML SYR SQ SCH (06:35)
[2023-02-20] MEDS: INSULIN ASPART (NovoLOG) 100 UNIT/ML VIAL SQ SCH ×5 (06:36→20:57)
[2023-02-20] MEDS: FERROUS SULFATE 325 MG TAB PO SCH ×2 (06:38→17:08)
[2023-02-20] MEDS: PANTOPRAZOLE 40 MG TABLET PO SCH ×2 (06:39→17:09)
[2023-02-20] MEDS: ASCORBIC ACID 500 MG TAB PO SCH ×2 (06:39→17:09)
[2023-02-20 06:41] LABS: Glucose,Whole Blood 67 mg/dL (70-110)
[2023-02-20 06:43] LABS: Glucose,Whole Blood 101 mg/dL (70-110)
[2023-02-20 08:27] LABS: HCT 28.6 % (34.0-46.0); HGB 9.4 gm/dL (11.4-16.0); MCH 31.3 pg (25.0-35.0); MCV 94.9 fL (80.0-100.0); Mean Platelet Volume 8.5; Platelet Count 283 k/uL (150-450); RBC 3.01 m/uL (3.80-5.40); RDW 15.4 % (11.5-15.5); WBC 16.7 k/uL (3.8-10.6)
[2023-02-20] MEDS: IPRATROPIUM-ALBUTEROL 3 ML NEB INHALATION SCH ×4 (08:38→22:03)
--- NOTE | 2023-02-20 08:39 | XR ---
EXAMINATION TYPE: XR chest 2V DATE OF EXAM: 02/20/2023 COMPARISON: 02/20/2020 TECHNIQUE: PA and lateral views submitted. HISTORY: Shortness of breath FINDINGS: There is postoperative changes with diffuse interstitial pattern and right- sided chest tube but no p neumothorax. There is left lower lobe consolidation and small effusion. Findings are stable. Osseous structures demonstrate hypertrophic and degenerative changes of the spine. . IMPRESSION: 1. Left lower lobe consolidation and pleural effusion are stable. Correlate for mild central venous c ongestion.
[2023-02-20 08:41] LABS: African American GFR (CKD) 85 (>60 ml/min/1.73 sqM); Anion Gap 12 mmol/L; Blood Urea Nitrogen 20 mg/dL (7-17); Carbon Dioxide 26 mmol/L (22-30); Chloride 96 mmol/L (98-107); Glucose 126 mg/dL (74-99); Non-African American GFR(CKD) 74 (>60 ml/min/1.73 sqM); Potassium 3.9 mmol/L (3.5-5.1); Sodium 134 mmol/L (137-145)
[2023-02-20] MEDS ORDERED: POTASSIUM CHLORIDE ER 20 MEQ TAB.ER PO STA (08:43)
[2023-02-20] MEDS ORDERED: FUROSEMIDE 10 MG/ML 4 ML VIAL IV STA (08:43)
--- NOTE | 2023-02-20 08:55 | P.PN ---
Subjective Progress Note Date: 02/20/23 Principal diagnosis: Critical aortic stenosis. Past medical history significant for hypertension, hyperlipidemia, previous tobacco dependence with mild COPD, right internal carotid stenosis, previous GI bleed, previously undiagnosed and untreated diabetes with a preoperative hemoglobin A1c of 7.9%. POD #6 aortic valve replacement using 25 mm Wheat Inspiris bioprosthetic jemma ve, aortic annular enlargement using Singh technique, ligation of the left atrial appendage using 35 mm AtriClip, epi-aortic ultrasound, intraoperative transesophageal echocardiogram performed by anesthesia. Postoperative acute blood loss anemia and thrombocytopenia, expected due to hemodilution and cardiopulmonary bypass pump. Paroxysmal atrial fibrillation, a known common occurrence after open heart surgery, not a complication. The patient was seen and examined in follow-up today 02/20/2023 at her bedside on the cardiac stepdown unit. Currently she is sitting up to bedside chair, is awake, alert, oriented 3 and is in no acute apparent distress. Denies any complaints of shortness of breath or pain at this time, although reports she had pain to her right chest where her chest tube was throughout the night. He remains hemodynamically stable and is currently on no inotropic pressor support. Remote telemetry is showing normal sinus rhythm heart rate 81 bpm, no further episodes of atrial fibrillation reported throughout the night. She is on amiodarone drip per protocol and is currently infusing at 0.5 mg/m. Her right pleural chest tube was removed yesterday without incident. Chest x-ray and laboratory results reviewed. The patient reports she has been up ambulating in the cardiac stepdown unit hallway with standby assistance with nursing and therapy staff and reports her legs feel tired and sore when walking. Oxygen saturations are 97% on 2 L nasal cannula and she is achieving 750-1000 mL on her incentive spirometry with encouragement. Objective - Vital Signs Vital signs: Vital Signs Temp 98.1 F 02/20/23 04:00 Pulse 74 02/20/23 04:00 Resp 20 02/20/23 04:00 BP 135/74 02/20/23 04:00 Pulse Ox 97 02/20/23 04:00 FiO2 50 02/14/23 20:36 Intake & Output 02/19/23 02/20/23 02/20/23 18:59 06:59 18:59 Intake Total 540 390 Output Total 900 450 Balance -360 -60 Weight 97.78 kg 100 kg Intake: Oral 540 390 Output: Urine 900 450 Other: Voiding Method Toilet Toilet # Voids 1 1 # Bowel Movements 1 ABP, PAP, CO, CI - Last Documented Arterial Blood Pressure 139/71 Pulmonary Artery Pressure 32/8 Cardiac Output 4.4 Cardiac Index 2.2 - Exam CONSTITUTIONAL: Sitting up to the bedside chair on the cardiac stepdown unit, appears comfortable, cooperative, no apparent acute distress. HEENT: Neck is supple, no JVD, no lymphadenopathy. RESPIRATORY: Lungs sounds essentially clear throughout, diminished to his bilateral bases, left greater than right. Respirations are symmetrical and nonlabored. Currently on 2 L nasal cannula with oxygen saturations 97%. Able to achieve 750-1000 mL on the her incentive spirometry. Strong cough. CARDIOVASCULAR: Regular rhythm and rate. S1 and S2 present, negative for S3, gallop or murmur. Sternum is stable. Palpable peripheral pulses bilaterally, No edema to her bilateral lower extremities. No calf pain or tenderness noted. Heart hugger in place with patient demonstrating appropriate use. Knee-high MARCIAL hose and sequential compression devices in place to his bilateral lower extremities. GASTROINTESTINAL: Abdomen soft, nontender, nondistended. Active bowel sounds present 4 quadrants. Tolerating diet. Passing flatus. No guarding or rigidity. Bowel movement 02/18/23. GENITOURINARY: Continues to void. Urine output 850 mL in the last 8 hours. INTEGUMENTARY: Skin is warm and dry with no evidence of clubbing or cyanosis. Midline sternal incision clean dry and well approximated, covered with dry intact dressing. NEUROLOGIC: Cranial nerves II through XII intact. No focal deficits. MUSKULOSKELETAL: Able to move all extremities, strength equal bilaterally, generalized weakness. PSYCHIATRIC: Alert and oriented to person place and time, appropriate affect, intact judgment and insight. - Allied health notes Allied health notes reviewed: nursing - Labs CBC & Chem 7: 02/20/23 07:39 02/19/23 09:35 Labs: Abnormal Lab Results - Last 24 Hours (Table) 02/19/23 02/19/23 02/19/23 Range/Units 09:35 09:35 11:32 WBC 14.7 H (3.8-10.6) k/uL RBC 3.30 L (3.80-5.40) m/uL Hgb 10.0 L D (11.4-16.0) gm/dL Hct 30.9 L (34.0-46.0) % BUN 20 H (7-17) mg/dL POC Glucose (mg/dL) 117 H (70-110) mg/dL Calcium 8.2 L (8.4-10.2) mg/dL Magnesium 2.4 H (1.6-2.3) mg/dL 02/19/23 02/19/23 02/19/23 Range/Units 16:15 20:39 20:41 WBC (3.8-10.6) k/uL RBC (3.80-5.40) m/uL Hgb (11.4-16.0) gm/dL Hct (34.0-46.0) % BUN (7-17) mg/dL POC Glucose (mg/dL) 116 H 46 L 53 L (70-110) mg/dL Calcium (8.4-10.2) mg/dL Magnesium (1.6-2.3) mg/dL 02/19/23 02/19/23 02/20/23 Range/Units 20:57 21:22 06:13 WBC (3.8-10.6) k/uL RBC (3.80-5.40) m/uL Hgb (11.4-16.0) gm/dL Hct (34.0-46.0) % BUN (7-17) mg/dL POC Glucose (mg/dL) 55 L 119 H 67 L (70-110) mg/dL Calcium (8.4-10.2) mg/dL Magnesium (1.6-2.3) mg/dL 02/20/23 Range/Units 07:39 WBC 16.7 H (3.8-10.6) k/uL RBC 3.01 L (3.80-5.40) m/uL Hgb 9.4 L (11.4-16.0) gm/dL Hct 28.6 L (34.0-46.0) % BUN (7-17) mg/dL POC Glucose (mg/dL) (70-110) mg/dL Calcium (8.4-10.2) mg/dL Magnesium (1.6-2.3) mg/dL - Imaging and Cardiology Chest x-ray: report reviewed, image reviewed Assessment and Plan Assessment: Critical aortic stenosis, status post bioprosthetic aortic valve replacement with routine enlargement History of hypertension Hyperlipidemia, treated, cholesterol 175, LDL 73 with triglycerides 250 Previous tobacco dependence Mild COPD, preoperative FEV1 74% of predicted Right internal carotid stenosis 50-79% Previous GI bleed with bleeding ulcer in 2018 Previously undiagnosed and untreated diabetes, preoperative hemoglobin A1c 7.9%, repeat A1c 6.8% Obesity with a BMI of 37.0 kg/m Postoperative acute blood loss anemia and thrombocytopenia, expected Paroxysmal atrial fibrillation, a known common occurrence after open heart surgery, not a complication Plan: Continue to maximize medical therapy with low-dose aspirin, Plavix, statin, and beta champ. Metoprolol tartrate was increased to 50 mg by mouth twice a day yesterday. Continue amiodarone drip until current bag is infused, start amiodarone 200 mg by mouth twice a day for atrial fib ablation prophylaxis. Encourage incentive spirometry use 10 times every hour while awake. Bronchodilators per pulmonology. Increase activity as tolerated. PT/OT/cardiac rehab following. Will monitor daily labs and chest x-rays. Electrolyte replacement per protocol. Will give IV lasix 40 mg 1 now and potassium chloride 40 mEq by mouth 1 now. Insulin management per internal medicine. Hemoglobin A1c preoperative 7.9%, repeat 6.8%, will need diabetic teaching and recommendations at discharge. GI/DVT prophylaxis. Pain control with current medication regimen. Toradol has been added for additional pain control. Strict accurate intake and output. Daily weights. Discharge planning in progress, anticipate discharge to home with home care in the next 24 hours. More recommendations to follow based on patient's patient's clinical course. Time with Patient: Greater than 30
[2023-02-20] MEDS ORDERED: INSULIN DETEMIR (LEVEMIR) 100 UNIT/ML SYR SQ SCH (09:30)
[2023-02-20] MEDS: AMIODARONE 200 MG TAB PO SCH ×2 (09:50→20:10)
[2023-02-20] MEDS: EZETIMIBE 10 MG TAB PO SCH (09:50)
[2023-02-20] MEDS: METOPROLOL TARTRATE 50 MG TAB PO SCH ×2 (09:50→20:10)
[2023-02-20] MEDS: CLOPIDOGREL 75 MG TAB PO SCH (09:51)
[2023-02-20] MEDS: ASPIRIN 81 MG PO SCH (09:51)
[2023-02-20 10:25] LABS: Appearance,Urine Clear (Clear); Bilirubin,Urine Negative (Negative); Blood,Urine Negative (Negative); Color,Urine Light Yellow; Glucose,Urine (UA) Negative (Negative); Ketones,Urine Trace (Negative); Leukocyte Esterase,Urine Negative (Negative); Nitrite,Urine Negative (Negative); PH, Urine 5.5 (5.0-8.0); Protein,Urine Negative (Negative); Specific Gravity,Urine 1.009 (1.001-1.035); Urobilinogen,Urine <2.0 mg/dL (<2.0)
[2023-02-20 11:57] LABS: Glucose,Whole Blood 170 mg/dL (70-110)
[2023-02-20] MEDS ORDERED: INSULIN ASPART (NovoLOG) 100 UNIT/ML VIAL SQ SCH (12:30)
--- NOTE | 2023-02-20 12:30 | P.PN ---
Subjective Progress Note Date: 02/20/23 67-year-old female who underwent aortic valve replacement. Patient managed in ICU postoperatively Patient was noted to have episode of A. fib RVR on 02/17, received amiodarone bolus and dose of metoprolol was increased She was transfused 1 unit of packed RBC 02/17 , received 2 units of packed RBC / On 02/17> Gen. patient states she is feeling better wheezing up is better as well 0N 02/18 patient to be transferred out of ICU to general medical floor. Hemoglobin remained stable 02/19> patient transferred out of ICU. Noted to be in stepdown. Alert and oriented 3. Patient does complain of shortness of breath patient weaned down to room air. Right pleural chest tube removed. 02/20>> patient seen and evaluated bedside, patient says breathing seems to have improved, postoperative day 6 status was valve surgery. Patient was noted to have episode of hypoglycemia hence insulin discontinued and patient transition to oral metformin continue with sliding scale insulin Objective - Vital Signs Vital signs: Vital Signs Temp 97.9 F 02/20/23 08:05 Pulse 65 02/20/23 12:13 Resp 18 02/20/23 10:55 BP 128/58 02/20/23 08:05 Pulse Ox 99 02/20/23 08:40 FiO2 50 02/14/23 20:36 Intake & Output 02/19/23 02/20/23 02/20/23 18:59 06:59 18:59 Intake Total 540 390 118 Output Total 900 450 Balance -360 -60 118 Weight 97.78 kg 100 kg Intake: Oral 540 390 118 Output: Urine 900 450 Other: Voiding Method Toilet Toilet Toilet # Voids 1 1 # Bowel Movements 1 ABP, PAP, CO, CI - Last Documented Arterial Blood Pressure 139/71 Pulmonary Artery Pressure 32/8 Cardiac Output 4.4 Cardiac Index 2.2 - Exam PHYSICAL EXAMINATION: GENERAL: The patient is alert and oriented x3, ill appearance, nasal cannula in place, ill appearance, pale HEENT: Pupils are round and equally reacting to light. EOMI. CARDIOVASCULAR: Rate controlled, irregular rhythm, edema noted bilateral lower extremity, chest hugger in place PULMONARY: Decreased breath sounds bilaterally, drain removed continue oxygen supplement ABDOMEN: Soft, nontender, nondistended, normoactive bowel sounds. No palpable organomegaly. MUSCULOSKELETAL: No joint swelling or deformity. EXTREMITIES: No cyanosis, clubbing, or pedal edema. NEUROLOGICAL: Gross neurological examination did not reveal any focal deficits. . - Labs CBC & Chem 7: 02/20/23 07:39 02/20/23 07:39 Labs: Abnormal Lab Results - Last 24 Hours (Table) 02/19/23 02/19/23 02/19/23 Range/Units 16:15 20:39 20:41 WBC (3.8-10.6) k/uL RBC (3.80-5.40) m/uL Hgb (11.4-16.0) gm/dL Hct (34.0-46.0) % Sodium (137-145) mmol/L Chloride (98-107) mmol/L BUN (7-17) mg/dL Glucose (74-99) mg/dL POC Glucose (mg/dL) 116 H 46 L 53 L (70-110) mg/dL Calcium (8.4-10.2) mg/dL Urine Ketones (Negative) 02/19/23 02/19/23 02/20/23 Range/Units 20:57 21:22 06:13 WBC (3.8-10.6) k/uL RBC (3.80-5.40) m/uL Hgb (11.4-16.0) gm/dL Hct (34.0-46.0) % Sodium (137-145) mmol/L Chloride (98-107) mmol/L BUN (7-17) mg/dL Glucose (74-99) mg/dL POC Glucose (mg/dL) 55 L 119 H 67 L (70-110) mg/dL Calcium (8.4-10.2) mg/dL Urine Ketones (Negative) 02/20/23 02/20/23 02/20/23 Range/Units 07:39 07:39 10:00 WBC 16.7 H (3.8-10.6) k/uL RBC 3.01 L (3.80-5.40) m/uL Hgb 9.4 L (11.4-16.0) gm/dL Hct 28.6 L (34.0-46.0) % Sodium 134 L (137-145) mmol/L Chloride 96 L (98-107) mmol/L BUN 20 H (7-17) mg/dL Glucose 126 H (74-99) mg/dL POC Glucose (mg/dL) (70-110) mg/dL Calcium 8.0 L (8.4-10.2) mg/dL Urine Ketones Trace H (Negative) 02/20/23 Range/Units 11:52 WBC (3.8-10.6) k/uL RBC (3.80-5.40) m/uL Hgb (11.4-16.0) gm/dL Hct (34.0-46.0) % Sodium (137-145) mmol/L Chloride (98-107) mmol/L BUN (7-17) mg/dL Glucose (74-99) mg/dL POC Glucose (mg/dL) 170 H (70-110) mg/dL Calcium (8.4-10.2) mg/dL Urine Ketones (Negative) Assessment and Plan Assessment: Assessment * Status post aortic valve stenosis with aortic valve replacement postoperative day 4 * Postoperative blood loss anemia * Atrial fibrillation with rapid ventricular response * Hypertension * Hyperlipidemia * History of gastroesophageal reflux disease * Postoperative hyperglycemia diabetes mellitus type 2 * In regards to her status was aortic valve replacement patient management ICU and cardiac team. Postoperative day 6 Status post removal of drain>. On aspirin, Lipitor, Plavix * In regards to atrial fibrillation continue rate control medications including amiodarone, metoprolol, aspirin * In regards to hyperglycemia likely stress-induced patient noted to have HbA1c of 6.8, new onset diabetes noted, was initially started on NovoLog mealtime and Lantus however episode of hypoglycemia noted>> on 02/20 transitioned to metformin twice a day and insulin discontinued * Continue to monitor renal profile postoperatively * Continue to follow up on CBC and basic metabolic panel * Subcu heparin for DVT prophylaxis * Cardiac team primary
--- NOTE | 2023-02-20 12:59 | P.PN ---
Subjective Progress Note Date: 02/20/23 Principal diagnosis: Status post aortic valve replacement postoperative day #6 On 02/15/2023, the patient is postop day #1 and the patient underwent aortic valve replacement with a bioprosthetic aortic valve and the patient was brought into the intensive care unit where she was weaned off the mechanical ventilator and she was extubated without having any major issues. The patient immediately after arriving from the operating room, was noted to have a low cardiac index. She was started on Primacor which is running at 0.2 g. Her cardiac output from this morning is at 4.7 with an index of 2.4. She received packed RBC intraoperatively and hemoglobin is 7.9. She was given a total of 2 units of packed RBCs. Her chest x-ray from today shows an infiltration of the right upper lobe and a [place]-Dayanara catheter is in place and the chest was done in place. There is a right suprahilar increased density which is an infiltrate versus atelectasis. No evidence of any pneumothorax. The chest tube output is noted and the patient is currently on 2 L of oxygen by nasal cannula. The output from the right-sided chest tube has been under and 20 mL overnight and 500 mL since surgery. The mediastinal chest tube was drained approximately 170 mL overnight and 400 mL since surgery. Her cardiac output is at 4.2 with an index of 2.1. Pulmonary artery pressures are 31/7. Hemodynamically stable sitting up on a chair communicating no focal neurological deficit. BUN is at 19 with a creatinine of 0.8. WBC count of 10.6 with a hemoglobin of 7.9. Cardiac rhythm is sinus. Using the incentive spirometer. In terms of her blood sugar control, the patient is often signs of any blood sugar is under tighter control for now. On today's evaluation of 02/16/2023, the patient's postop day #2 following aortic valve replacement surgery. The patient is doing well and she has no sp ecific complaints. She still has the chest tubes in place, 2 mediastinal of 10. Output from the chest tubes have been quite high and for that reason the chest tubes will be kept in place. The patient has produced approximately 100 metastases from her mediastinal chest tube over the past 8 hours abdominal 50 over the past 24 hours. The patient is also produced around 90 mL from the right-sided chest tube over the past 8 hours and 224 hours. As such, she was be kept in place. Chest x-ray showing cardiomegaly. [place]-Dayanara catheter in place. Cardiac operas 4.4 with an index of 2.3. Pulmonary artery pressures of 40/10 and the patient is on milrinone at 0.2 mcg/kg/m. Is being gradually weaned off. The patient is on insulin drip at 7 units an hour. In terms of her blood work, the patient has a hemoglobin level of 7.0, white cell count of 16.2, platelet count of 85 which is up compared to yesterday. BUN is 24 with a creatinine of 1.28. Sodium level is at 136. Potassium levels at 4.6. Is a component of an acute kidney injury probably related to low cardiac output state that occurred postop. Blood sugars at other adequate control. She is on oxygen at 2 L/m nasal cannula. She is using the incentive spirometer. She is tolerating some diet heart healthy diet. Patient was reevaluated today on 02/17/2023, she is status post bioprosthetic aortic valve placement, patient is in the ICU, on 2 L nasal cannula. Early this morning the patient had an episode of atrial fibrillation with RVR, required amiodarone bolus and at the metoprolol dose was increased. Chest x-ray showed e vidence of mild congestive heart failure Lasix was given 40 mg IV push. Ultrasound of the chest showed small left pleural effusion, most likely will improve with diuretics, I don't see the need for thoracentesis at this point, unless no improvement is noted with diuretics. Patient is relatively as ymptomatic, and she is not in any distress. I believe the patient has a significant amount of atelectasis in the left lower lobe area as well. W see count is 14.5 hemoglobin is 8 electrolytes are normal renal profile is normal except for creatinine of 1.1 Reevaluated today on 02/18/2023, patient seems to be doing fairly well, not in any distress, patient is on 2 L nasal cannula, chest x-ray showed small area of atelectasis and left lower lobe and small pleural effusion not large enough to pursue thoracentesis. Patient is responding to diuretics, and again no need for thoracentesis. Patient seems to be fairly controlled. Continues to have right pleural chest tube in place, labs today are basically unremarkable including CBC and basic metabolic profile with renal profile Reevaluated today on 02/19/2023, patient is doing fairly well, not in any distress, she is presently on room air. Patient is postoperative day #5, she had aortic valve replacement using 25 mm Wheat area prosthetic valve. Patient is hemodynamically stable, her cardiac rhythm is normal sinus rhythm, she had her atrial and ventricular epicardial pacemaker wires removed yesterday. Had right-sided chest tube was removed early today. Chest x-ray continues to show a small left-sided pleural effusion and atelectasis. Patient is already ambulating in the hallway, she is now in the stepdown unit. WBC count is 14.7 hemoglobin is 10 Normal renal profile is normal Reevaluated today on 02/20/2023, patient seems to be doing fairly well, she had some pain at the insertion site of her right sided chest tube, today she is doing well, her chest x-ray is reassuring continues to have a small left-sided pleural effusion patient is on room air and she is not in any distress. Labs today were felt to be unremarkable. She does have a bit of leukocytosis with WBC of 16.7. Normal renal profile is normal Objective - Vital Signs Vital signs: Vital Signs Temp 97.9 F 02/20/23 08:05 Pulse 65 02/20/23 12:13 Resp 18 02/20/23 10:55 BP 128/58 02/20/23 08:05 Pulse Ox 99 02/20/23 08:40 FiO2 50 02/14/23 20:36 Intake & Output 02/19/23 02/20/23 02/20/23 18:59 06:59 18:59 Intake Total 540 390 118 Output Total 900 450 Balance -360 -60 118 Weight 97.78 kg 100 kg Intake: Oral 540 390 118 Output: Urine 900 450 Other: Voiding Method Toilet Toilet Toilet # Voids 1 1 # Bowel Movements 1 ABP, PAP, CO, CI - Last Documented Arterial Blood Pressure 139/71 Pulmonary Artery Pressure 32/8 Cardiac Output 4.4 Cardiac Index 2.2 - Exam Physical Exam: Revealed a 67-year-old female in no distress, on room air Head: Atraumatic, normocephalic. HEENT:[Neck is supple.] [No neck masses.] [No thyromegaly.] [No JVD.] Chest: [Diminished breath sounds and crackles at the bases, no rhonchi no wheezes] Cardiac: Normal S1 and S2, no S3 gallop, irregular rhythm, 2/6 systolic murmur thought the precordium. Abdomen: [Soft, nontender, no megaly, no rebound, no guarding, normal bowel sounds.] Extremities: [No clubbing, no edema, no cyanosis.] Neurological Exam: [No focal neurologic deficit.] alert oriented 3. psychiatric: Normal mood affect and normal mental status examination. skin: No rashes - Labs CBC & Chem 7: 02/20/23 07:39 02/20/23 07:39 Labs: Abnormal Lab Results - Last 24 Hours (Table) 02/19/23 02/19/23 02/19/23 Range/Units 16:15 20:39 20:41 WBC (3.8-10.6) k/uL RBC (3.80-5.40) m/uL Hgb (11.4-16.0) gm/dL Hct (34.0-46.0) % Sodium (137-145) mmol/L Chloride (98-107) mmol/L BUN (7-17) mg/dL Glucose (74-99) mg/dL POC Glucose (mg/dL) 116 H 46 L 53 L (70-110) mg/dL Calcium (8.4-10.2) mg/dL Urine Ketones (Negative) 02/19/23 02/19/23 02/20/23 Range/Units 20:57 21:22 06:13 WBC (3.8-10.6) k/uL RBC (3.80-5.40) m/uL Hgb (11.4-16.0) gm/dL Hct (34.0-46.0) % Sodium (137-145) mmol/L Chloride (98-107) mmol/L BUN (7-17) mg/dL Glucose (74-99) mg/dL POC Glucose (mg/dL) 55 L 119 H 67 L (70-110) mg/dL Calcium (8.4-10.2) mg/dL Urine Ketones (Negative) 02/20/23 02/20/23 02/20/23 Range/Units 07:39 07:39 10:00 WBC 16.7 H (3.8-10.6) k/uL RBC 3.01 L (3.80-5.40) m/uL Hgb 9.4 L (11.4-16.0) gm/dL Hct 28.6 L (34.0-46.0) % Sodium 134 L (137-145) mmol/L Chloride 96 L (98-107) mmol/L BUN 20 H (7-17) mg/dL Glucose 126 H (74-99) mg/dL POC Glucose (mg/dL) (70-110) mg/dL Calcium 8.0 L (8.4-10.2) mg/dL Urine Ketones Trace H (Negative) 02/20/23 Range/Units 11:52 WBC (3.8-10.6) k/uL RBC (3.80-5.40) m/uL Hgb (11.4-16.0) gm/dL Hct (34.0-46.0) % Sodium (137-145) mmol/L Chloride (98-107) mmol/L BUN (7-17) mg/dL Glucose (74-99) mg/dL POC Glucose (mg/dL) 170 H (70-110) mg/dL Calcium (8.4-10.2) mg/dL Urine Ketones (Negative) Assessment and Plan Assessment: Impression: Severe aortic stenosis requiring aortic valve replacement, presently postoperative day #6 Benign essential hypertension Dyslipidemia Mild COPD Previous history of GI bleed/bleeding ulcer in 2018 Type 2 diabetes, without complications Obesity Acute blood loss anemia, expected Paroxysmal atrial fibrillation Left pleural effusion Recommendation: Continue to maximize medical therapy using beta blockers statins and Plavix Continue incentive spirometry, and ambulation. Continue GI and DVT prophylaxis Possible discharge planning in the next 24 hours We will continue to follow. Time with Patient: Less than 30
--- NOTE | 2023-02-20 14:27 | P.PN ---
Subjective Progress Note Date: 02/20/23 PROGRESS NOTE The patient is a 67-year-old female who underwent aortic valve replacement. She is followed by Dr. Velasquez on her regular basis. She is extubated, sitting up in the chair. She has no chest discomfort or significant dyspnea. She continues to be in sinus mechanism. She underwent aortic valve replacement with size 25 Wheat Inspiris valve was closure of the left atrial appendage. Her cardiac catheterization showed no significant obstructive disease. She has been having progressive dyspnea on exertion, her left ventricle systolic function was preserved. She has a history of hypertension and hyperlipidemia, she is a nondiabetic. She has her chest tube and [place]Dayanara catheter in place. February 16: The patient is feeling better today, stronger, denies any chest discomfort, dizziness or palpitations. Her breathing is better. She continues to be in sinus mechanism, hemodynamically stable. She denies any nausea or vomiting. She is using her incentive spirometry. The [place]Dayanara catheter remains in place. 02/17 Patient seen and examined. Patient went into A. fib with RVR with heart rates in 130's. She was somewhat symptomatic with palpitations and shortness of breath. She was given amiodarone bolus and metoprolol increased to 25 and given extra dose. Currently heart rates better controlled in the 100-110 range. She denies any chest pain or pressure. Denies any significant shortness breath. 02/18 Patient seen and examined. Patient converted back to sinus rhythm and has been doing well. Denies any chest pain or pressure. Patient did have ultrasound of the chest completed yesterday which did show 7 Center left pleural fluid pocket. Right IJ Cordis in place and right chest tube remains in place. 02/19 Patient went into atrial fibrillation again this morning and will be started on amiodarone drip. She states she related in the hallway and subsequently had chest tube removed. She states she felt like her legs were weak and had to stop. Heart rate is in the 80s, blood pressure 159/69 and pulse ox 92% on room air. Repeat blood work reveals hemoglobin of 10, BUN 20 creatinine 0.9. 02/20 Patient converted back to sinus rhythm around 5 PM yesterday. Patient is complaining of right-sided chest pain and she feels as where the chest tube was placed. She received 1 dose of IV Lasix this morning. She has been a billing and in the hallway. Pulse ox is 98% on room air, heart rate 60s and 70s, blood pressure 141/63. PHYSICAL EXAMINATION: Vitals reviewd LUNGS: Mild decrease in the breath sounds HEART: Regular rate and rhythm, S1, S2. No S3. Systolic ejection murmur, rub ABDOMEN: Soft, nontender, no organomegaly EXTREMETIES: No edema IMPRESSION: 1. Status post aortic valve replacement for severe aortic stenosis 2. History of hyperlipidemia 3. History of hypertension 4. Anemia postoperatively 5. Postoperative atrial fibrillation with RVR, paroxysmal, currently in sinus rhythm 6. Left pleural effusion PLAN: Continue beta champ. Appears to be slowly progressing. Nurse practitioner note has been reviewed, I agree with the documented findings and plan of care. Patient was seen and examined. Objective - Vital Signs Vital signs: Vital Signs Temp 97.9 F 02/20/23 08:05 Pulse 77 02/20/23 10:55 Resp 18 02/20/23 10:55 BP 128/58 02/20/23 08:05 Pulse Ox 99 02/20/23 08:40 FiO2 50 02/14/23 20:36 Intake & Output 02/19/23 02/20/23 02/20/23 18:59 06:59 18:59 Intake Total 540 390 118 Output Total 900 450 Balance -360 -60 118 Weight 97.78 kg 100 kg Intake: Oral 540 390 118 Output: Urine 900 450 Other: Voiding Method Toilet Toilet Toilet # Voids 1 1 # Bowel Movements 1 ABP, PAP, CO, CI - Last Documented Arterial Blood Pressure 139/71 Pulmonary Artery Pressure 32/8 Cardiac Output 4.4 Cardiac Index 2.2 - Labs CBC & Chem 7: 02/20/23 07:39 02/20/23 07:39 Labs: Abnormal Lab Results - Last 24 Hours (Table) 02/19/23 02/19/23 02/19/23 Range/Units 16:15 20:39 20:41 WBC (3.8-10.6) k/uL RBC (3.80-5.40) m/uL Hgb (11.4-16.0) gm/dL Hct (34.0-46.0) % Sodium (137-145) mmol/L Chloride (98-107) mmol/L BUN (7-17) mg/dL Glucose (74-99) mg/dL POC Glucose (mg/dL) 116 H 46 L 53 L (70-110) mg/dL Calcium (8.4-10.2) mg/dL Urine Ketones (Negative) 02/19/23 02/19/23 02/20/23 Range/Units 20:57 21:22 06:13 WBC (3.8-10.6) k/uL RBC (3.80-5.40) m/uL Hgb (11.4-16.0) gm/dL Hct (34.0-46.0) % Sodium (137-145) mmol/L Chloride (98-107) mmol/L BUN (7-17) mg/dL Glucose (74-99) mg/dL POC Glucose (mg/dL) 55 L 119 H 67 L (70-110) mg/dL Calcium (8.4-10.2) mg/dL Urine Ketones (Negative) 02/20/23 02/20/23 02/20/23 Range/Units 07:39 07:39 10:00 WBC 16.7 H (3.8-10.6) k/uL RBC 3.01 L (3.80-5.40) m/uL Hgb 9.4 L (11.4-16.0) gm/dL Hct 28.6 L (34.0-46.0) % Sodium 134 L (137-145) mmol/L Chloride 96 L (98-107) mmol/L BUN 20 H (7-17) mg/dL Glucose 126 H (74-99) mg/dL POC Glucose (mg/dL) (70-110) mg/dL Calcium 8.0 L (8.4-10.2) mg/dL Urine Ketones Trace H (Negative)
[2023-02-20 16:59] LABS: Glucose,Whole Blood 215 mg/dL (70-110)
[2023-02-20] MEDS: KETOROLAC 15 MG/ML 1 ML VIAL IVP SCH ×3 (17:00→20:10)
[2023-02-20] MEDS: metFORMIN 500 MG TAB PO SCH (17:08)
[2023-02-20] MEDS: ATORVASTATIN 80 MG TAB PO SCH (20:10)
[2023-02-20 20:57] LABS: Glucose,Whole Blood 202 mg/dL (70-110)
[2023-02-20 23:01] VITALS: TEMP 97.7
[2023-02-21] MEDS: KETOROLAC 15 MG/ML 1 ML VIAL IVP SCH ×2 (02:44→07:59)
[2023-02-21] MEDS: ASCORBIC ACID 500 MG TAB PO SCH (06:27)
[2023-02-21] MEDS: FERROUS SULFATE 325 MG TAB PO SCH (06:27)
[2023-02-21] MEDS: metFORMIN 500 MG TAB PO SCH (06:27)
[2023-02-21] MEDS: PANTOPRAZOLE 40 MG TABLET PO SCH (06:27)
[2023-02-21] MEDS: INSULIN ASPART (NovoLOG) 100 UNIT/ML VIAL SQ SCH ×2 (06:32→12:26)
[2023-02-21 06:37] LABS: Glucose,Whole Blood 126 mg/dL (70-110)
[2023-02-21] MEDS: IPRATROPIUM-ALBUTEROL 3 ML NEB INHALATION SCH ×3 (07:51→15:31)
[2023-02-21 07:57] VITALS: RESP 18
[2023-02-21] MEDS: HEPARIN SODIUM,PORCINE/PF 5,000 UNIT/0.5 ML SYRINGE SQ SCH (07:58)
[2023-02-21] MEDS: AMIODARONE 200 MG TAB PO SCH (07:59)
[2023-02-21] MEDS: METOPROLOL TARTRATE 50 MG TAB PO SCH (07:59)
[2023-02-21] MEDS: ASPIRIN 81 MG PO SCH (07:59)
[2023-02-21] MEDS: EZETIMIBE 10 MG TAB PO SCH (07:59)
[2023-02-21] MEDS: CLOPIDOGREL 75 MG TAB PO SCH (07:59)
--- NOTE | 2023-02-21 08:10 | P.PN ---
Subjective Progress Note Date: 02/21/23 Principal diagnosis: Critical aortic stenosis. Past medical history significant for hypertension, hyperlipidemia, previous tobacco dependence with mild COPD, right internal carotid stenosis, previous GI bleed, previously undiagnosed and untreated diabetes with a preoperative hemoglobin A1c of 7.9%. POD #7 aortic valve replacement using 25 mm Wheat Inspiris bioprosthetic jemma ve, aortic annular enlargement using Singh technique, ligation of the left atrial appendage using 35 mm AtriClip, epi-aortic ultrasound, intraoperative transesophageal echocardiogram performed by anesthesia. Postoperative acute blood loss anemia and thrombocytopenia, expected due to hemodilution and cardiopulmonary bypass pump. Paroxysmal atrial fibrillation, a known common occurrence after open heart surgery, not a complication. The patient was seen and examined in follow-up today 02/21/2023 at her bedside on the cardiac stepdown unit. She is awake, alert, oriented 3 and is in no acute distress. Denies any complaints of pain or shortness of breath at this time, although reports she did have bouts of diarrhea yesterday. No further complaints of diarrhea today. Remote telemetry showing normal sinus rhythm heart rate 74 bpm, no further reports of atrial fibrillation. Oxygen satura tions are 94% on room air and she is achieving 750-1000 mL on her incentive spirometry with encouragement. She has been up ambulating in the cardiac stepdown unit hallway with standby assistance from nursing and therapy staff and has been tolerating well. She's been afebrile the last 24 hours. Chest x-ray was reviewed. Objective - Vital Signs Vital signs: Vital Signs Temp 97.7 F 02/20/23 20:00 Pulse 83 02/21/23 07:53 Resp 18 02/21/23 07:53 BP 143/76 02/21/23 07:53 Pulse Ox 97 02/21/23 07:53 FiO2 21 02/21/23 07:53 Intake & Output 02/20/23 02/21/23 02/21/23 18:59 06:59 18:59 Intake Total 236 1080 Output Total 550 400 Balance -314 680 Weight 96.3 kg Intake: Oral 236 1080 Output: Urine 550 400 Other: Voiding Method Toilet Toilet # Bowel Movements 1 ABP, PAP, CO, CI - Last Documented Arterial Blood Pressure 139/71 Pulmonary Artery Pressure 32/8 Cardiac Output 4.4 Cardiac Index 2.2 - Exam CONSTITUTIONAL: Sitting up to the bedside chair on the cardiac stepdown unit, appears comfortable, cooperative, no apparent acute distress. HEENT: Neck is supple, no JVD, no lymphadenopathy. RESPIRATORY: Lungs sounds essentially clear throughout, diminished to his bilateral bases, left greater than right. Respirations are symmetrical and nonlabored. Currently on room air with oxygen saturations 94%. Able to achieve 750-1000 mL on the her incentive spirometry. Strong cough. CARDIOVASCULAR: Regular rhythm and rate. S1 and S2 present, negative for S3, gallop or murmur. Sternum is stable. Palpable peripheral pulses bilaterally, No edema to her bilateral lower extremities. No calf pain or tenderness noted. Heart hugger in place with patient demonstrating appropriate use. Knee-high MARCIAL hose and sequential compression devices in place to his bilateral lower extremities. GASTROINTESTINAL: Abdomen soft, nontender, nondistended. Active bowel sounds present 4 quadrants. Tolerating diet. Passing flatus. No guarding or rigidity. Bowel movement 02/20/23. GENITOURINARY: Continues to void. Urine output 400 mL in the last 8 hours. INTEGUMENTARY: Skin is warm and dry with no evidence of clubbing or cyanosis. Midline sternal incision clean dry and well approximated, covered with dry intact dressing. NEUROLOGIC: Cranial nerves II through XII intact. No focal deficits. MUSKULOSKELETAL: Able to move all extremities, strength equal bilaterally, generalized weakness. PSYCHIATRIC: Alert and oriented to person place and time, appropriate affect, intact judgment and insight. - Allied health notes Allied health notes reviewed: nursing - Labs CBC & Chem 7: 02/20/23 07:39 02/20/23 07:39 Labs: Abnormal Lab Results - Last 24 Hours (Table) 02/20/23 02/20/23 02/20/23 Range/Units 07:39 07:39 10:00 WBC 16.7 H (3.8-10.6) k/uL RBC 3.01 L (3.80-5.40) m/uL Hgb 9.4 L (11.4-16.0) gm/dL Hct 28.6 L (34.0-46.0) % Sodium 134 L (137-145) mmol/L Chloride 96 L (98-107) mmol/L BUN 20 H (7-17) mg/dL Glucose 126 H (74-99) mg/dL POC Glucose (mg/dL) (70-110) mg/dL Calcium 8.0 L (8.4-10.2) mg/dL Urine Ketones Trace H (Negative) 02/20/23 02/20/23 02/20/23 Range/Units 11:52 16:44 20:55 WBC (3.8-10.6) k/uL RBC (3.80-5.40) m/uL Hgb (11.4-16.0) gm/dL Hct (34.0-46.0) % Sodium (137-145) mmol/L Chloride (98-107) mmol/L BUN (7-17) mg/dL Glucose (74-99) mg/dL POC Glucose (mg/dL) 170 H 215 H 202 H (70-110) mg/dL Calcium (8.4-10.2) mg/dL Urine Ketones (Negative) 02/21/23 Range/Units 06:32 WBC (3.8-10.6) k/uL RBC (3.80-5.40) m/uL Hgb (11.4-16.0) gm/dL Hct (34.0-46.0) % Sodium (137-145) mmol/L Chloride (98-107) mmol/L BUN (7-17) mg/dL Glucose (74-99) mg/dL POC Glucose (mg/dL) 126 H (70-110) mg/dL Calcium (8.4-10.2) mg/dL Urine Ketones (Negative) - Imaging and Cardiology Chest x-ray: report reviewed, image reviewed Assessment and Plan Assessment: Critical aortic stenosis, status post bioprosthetic aortic valve replacement with routine enlargement History of hypertension Hyperlipidemia, treated, cholesterol 175, LDL 73 with triglycerides 250 Previous tobacco dependence Mild COPD, preoperative FEV1 74% of predicted Right internal carotid stenosis 50-79% Previous GI bleed with bleeding ulcer in 2018 Previously undiagnosed and untreated diabetes, preoperative hemoglobin A1c 7.9%, repeat A1c 6.8% Obesity with a BMI of 37.0 kg/m Postoperative acute blood loss anemia and thrombocytopenia, expected Paroxysmal atrial fibrillation, a known common occurrence after open heart surgery, not a complication Plan: Continue to maximize medical therapy with low-dose aspirin, Plavix, statin, and beta champ. We will increase metoprolol tartrate as tolerated. Continue amiodarone 200 mg by mouth twice a day for atrial fib ablation prophylaxis. Encourage incentive spirometry use 10 times every hour while awake. Bronchodilators per pulmonology. Increase activity as tolerated. PT/OT/cardiac rehab following. Will monitor daily labs and chest x-rays. Electrolyte replacement per protocol. Insulin management per internal medicine. Hemoglobin A1c preoperative 7.9%, repeat 6.8%, will need diabetic teaching and recommendations at discharge. GI/DVT prophylaxis. Pain control with current medication regimen. Strict accurate intake and output. Daily weights. Discharge planning in progress, anticipate discharge to home with home care in the next 24 hours. More recommendations to follow based on patient's patient's clinical course. Time with Patient: Greater than 30
--- NOTE | 2023-02-21 08:15 | XR ---
EXAMINATION TYPE: XR chest 1V portable DATE OF EXAM: 02/21/2023 Comparison: 02/20/2023 Clinical History: 67-year-old female Postop AVR Findings: Median sternotomy wires are present with prosthetic aortic valve. Heart mildly enlarged. Ongoing mode rate left pleural effusion. Interstitial changes persist. Somewhat nodular appearance at the peripher y of the right upper lobe. Follow-up to ensure clearance. Impression: 1. Similar mild cardiomegaly and moderate left pleural effusion. Similar background mild pulmonary va scular congestion. 2. Follow-up to ensure resolution of a more nodular appearing density in the periphery of the right u pper lobe.
--- NOTE | 2023-02-21 09:12 | P.PN ---
Subjective Progress Note Date: 02/21/23 PROGRESS NOTE The patient is a 67-year-old female who underwent aortic valve replacement. She is followed by Dr. Velasquez on her regular basis. She is extubated, sitting up in the chair. She has no chest discomfort or significant dyspnea. She continues to be in sinus mechanism. She underwent aortic valve replacement with size 25 Wheat Inspiris valve was closure of the left atrial appendage. Her cardiac catheterization showed no significant obstructive disease. She has been having progressive dyspnea on exertion, her left ventricle systolic function was preserved. She has a history of hypertension and hyperlipidemia, she is a nondiabetic. She has her chest tube and Boyd-Dayanara catheter in place. February 16: The patient is feeling better today, stronger, denies any chest discomfort, dizziness or palpitations. Her breathing is better. She continues to be in sinus mechanism, hemodynamically stable. She denies any nausea or vomiting. She is using her incentive spirometry. The Boyd-Dayanara catheter remains in place. 02/17 Patient seen and examined. Patient went into A. fib with RVR with heart rates in 130's. She was somewhat symptomatic with palpitations and shortness of breath. She was given amiodarone bolus and metoprolol increased to 25 and given extra dose. Currently heart rates better controlled in the 100-110 range. She denies any chest pain or pressure. Denies any significant shortness breath. 02/18 Patient seen and examined. Patient converted back to sinus rhythm and has been doing well. Denies any chest pain or pressure. Patient did have ultrasound of the chest completed yesterday which did show 7 Center left pleural fluid pocket. Right IJ Cordis in place and right chest tube remains in place. 02/19 Patient went into atrial fibrillation again this morning and will be started on amiodarone drip. She states she related in the hallway and subsequently had chest tube removed. She states she felt like her legs were weak and had to stop. Heart rate is in the 80s, blood pressure 159/69 and pulse ox 92% on room air. Repeat blood work reveals hemoglobin of 10, BUN 20 creatinine 0.9. 02/20 Patient converted back to sinus rhythm around 5 PM yesterday. Patient is complaining of right-sided chest pain and she feels as where the chest tube was placed. She received 1 dose of IV Lasix this morning. She has been a billing and in the hallway. Pulse ox is 98% on room air, heart rate 60s and 70s, blood pressure 141/63. 02/21 Patient states that she is feeling much better today. She is receiving Toradol for pain. She complains of feeling cold but no fever or chills. Heart rate is in the 60s to 80s, blood pressure 143/76. Patient states that she is going to rehab. PHYSICAL EXAMINATION: Vitals reviewd LUNGS: Mild decrease in the breath sounds HEART: Regular rate and rhythm, S1, S2. No S3. Systolic ejection murmur, rub ABDOMEN: Soft, nontender, no organomegaly EXTREMETIES: No edema IMPRESSION: 1. Status post aortic valve replacement for severe aortic stenosis 2. History of hyperlipidemia 3. History of hypertension 4. Anemia postoperatively 5. Postoperative atrial fibrillation with RVR, paroxysmal, currently in sinus rhythm 6. Left pleural effusion PLAN: Continue beta champ. Further recommendations as patient progresses. At the time of discharge, patient may follow-up with Dr. Juan Miguel Velasquez in one week. Nurse practitioner note has been reviewed, I agree with the documented findings and plan of care. Patient was seen and examined. Objective - Vital Signs Vital signs: Vital Signs Temp 97.7 F 02/20/23 20:00 Pulse 83 02/21/23 07:53 Resp 18 02/21/23 07:53 BP 143/76 02/21/23 07:53 Pulse Ox 97 02/21/23 07:53 FiO2 21 02/21/23 07:53 Intake & Output 02/20/23 02/21/23 02/21/23 18:59 06:59 18:59 Intake Total 236 1080 Output Total 550 400 Balance -314 680 Weight 96.3 kg Intake: Oral 236 1080 Output: Urine 550 400 Other: Voiding Method Toilet Toilet # Bowel Movements 1 ABP, PAP, CO, CI - Last Documented Arterial Blood Pressure 139/71 Pulmonary Artery Pressure 32/8 Cardiac Output 4.4 Cardiac Index 2.2 - Labs CBC & Chem 7: 02/20/23 07:39 02/20/23 07:39 Labs: Abnormal Lab Results - Last 24 Hours (Table) 02/20/23 02/20/23 02/20/23 Range/Units 07:39 07:39 10:00 WBC 16.7 H (3.8-10.6) k/uL RBC 3.01 L (3.80-5.40) m/uL Hgb 9.4 L (11.4-16.0) gm/dL Hct 28.6 L (34.0-46.0) % Sodium 134 L (137-145) mmol/L Chloride 96 L (98-107) mmol/L BUN 20 H (7-17) mg/dL Glucose 126 H (74-99) mg/dL POC Glucose (mg/dL) (70-110) mg/dL Calcium 8.0 L (8.4-10.2) mg/dL Urine Ketones Trace H (Negative) 02/20/23 02/20/23 02/20/23 Range/Units 11:52 16:44 20:55 WBC (3.8-10.6) k/uL RBC (3.80-5.40) m/uL Hgb (11.4-16.0) gm/dL Hct (34.0-46.0) % Sodium (137-145) mmol/L Chloride (98-107) mmol/L BUN (7-17) mg/dL Glucose (74-99) mg/dL POC Glucose (mg/dL) 170 H 215 H 202 H (70-110) mg/dL Calcium (8.4-10.2) mg/dL Urine Ketones (Negative) 02/21/23 Range/Units 06:32 WBC (3.8-10.6) k/uL RBC (3.80-5.40) m/uL Hgb (11.4-16.0) gm/dL Hct (34.0-46.0) % Sodium (137-145) mmol/L Chloride (98-107) mmol/L BUN (7-17) mg/dL Glucose (74-99) mg/dL POC Glucose (mg/dL) 126 H (70-110) mg/dL Calcium (8.4-10.2) mg/dL Urine Ketones (Negative)
[2023-02-21 09:29] LABS: Basophils % (A) 0 %; Eosinophils # (A) 0.4 k/uL (0-0.7); Eosinophils % (A) 2 %; HCT 28.3 % (34.0-46.0); HGB 9.3 gm/dL (11.4-16.0); Lymphocytes # (A) 3.7 k/uL (1.0-4.8); Lymphocytes % (A) 22 %; MCH 30.8 pg (25.0-35.0); MCHC 32.9 g/dL (31.0-37.0); MCV 93.8 fL (80.0-100.0); Mean Platelet Volume 8.9; Monocytes # (A) 1.3 k/uL (0-1.0); Monocytes % (A) 8 %; Neutrophils # (A) 11.1 k/uL (1.3-7.7); Neutrophils % (A) 66 %; Platelet Count 308 k/uL (150-450); RBC 3.01 m/uL (3.80-5.40); RDW 15.9 % (11.5-15.5); WBC 16.8 k/uL (3.8-10.6)
[2023-02-21 09:46] LABS: ALT 20 U/L (4-34); AST 27 U/L (14-36); African American GFR (CKD) 67 (>60 ml/min/1.73 sqM); Albumin 3.5 g/dL (3.5-5.0); Alkaline Phosphatase 73 U/L (38-126); Anion Gap 9 mmol/L; Blood Urea Nitrogen 19 mg/dL (7-17); Carbon Dioxide 27 mmol/L (22-30); Chloride 98 mmol/L (98-107); Glucose 131 mg/dL (74-99); Magnesium 2.2 mg/dL (1.6-2.3); Non-African American GFR(CKD) 58 (>60 ml/min/1.73 sqM); Potassium 4.1 mmol/L (3.5-5.1); Sodium 134 mmol/L (137-145); Total Bilirubin 1.8 mg/dL (0.2-1.3); Total Protein 5.9 g/dL (6.3-8.2)
[2023-02-21] MEDS ORDERED: ACETAMINOPHEN TAB 500 MG TAB PO PRN (09:51)
[2023-02-21] MEDS ORDERED: POTASSIUM BICARBONATE/CIT AC 20 MEQ TABLET.EFF PO ONE (09:52)
[2023-02-21] MEDS ORDERED: FUROSEMIDE 10 MG/ML 4 ML VIAL IV STA (09:52)
[2023-02-21 12:05] LABS: Glucose,Whole Blood 195 mg/dL (70-110)
[2023-02-21] MEDS ORDERED: DIPHENOX-ATROP 2.5-0.025 MG 1 EACH TAB PO PRN (12:15)
--- NOTE | 2023-02-21 12:18 | P.PN ---
Subjective Progress Note Date: 02/21/23 67-year-old female who underwent aortic valve replacement. Patient managed in ICU postoperatively Patient was noted to have episode of A. fib RVR on 02/17, received amiodarone bolus and dose of metoprolol was increased She was transfused 1 unit of packed RBC 02/17 , received 2 units of packed RBC / On 02/17> Gen. patient states she is feeling better wheezing up is better as well 0N 02/18 patient to be transferred out of ICU to general medical floor. Hemoglobin remained stable 02/19> patient transferred out of ICU. Noted to be in stepdown. Alert and oriented 3. Patient does complain of shortness of breath patient weaned down to room air. Right pleural chest tube removed. 02/20>> patient seen and evaluated bedside, patient says breathing seems to have improved, postoperative day 6 status was valve surgery. Patient was noted to have episode of hypoglycemia hence insulin discontinued and patient transition to oral metformin continue with sliding scale insulin 02/21>> patient seen and everted bedside complains of episode of diarrhea, patient is postoperative day 7 valve surgery, patient started on Lomotil will monitor for worsening of diarrhea probably secondary to metformin >> will need to t ransition to another oral hypoglycemic agent, if diarrhea does not improve Started on probiotics as well Objective - Vital Signs Vital signs: Vital Signs Temp 97.7 F 02/20/23 20:00 Pulse 72 02/21/23 11:24 Resp 18 02/21/23 10:05 BP 143/76 02/21/23 07:53 Pulse Ox 97 02/21/23 07:53 FiO2 21 02/21/23 07:53 Intake & Output 02/20/23 02/21/23 02/21/23 18:59 06:59 18:59 Intake Total 236 1080 120 Output Total 550 400 Balance -314 680 120 Weight 96.3 kg Intake: Oral 236 1080 120 Output: Urine 550 400 Other: Voiding Method Toilet Toilet Toilet # Bowel Movements 1 1 ABP, PAP, CO, CI - Last Documented Arterial Blood Pressure 139/71 Pulmonary Artery Pressure 32/8 Cardiac Output 4.4 Cardiac Index 2.2 - Exam PHYSICAL EXAMINATION: GENERAL: The patient is alert and oriented x3, ill appearance, nasal cannula in place, ill appearance, pale HEENT: Pupils are round and equally reacting to light. EOMI. CARDIOVASCULAR: Rate controlled, irregular rhythm, edema noted bilateral lower extremity, chest hugger in place PULMONARY: Decreased breath sounds bilaterally, drain removed continue oxygen supplement ABDOMEN: Soft, nontender, nondistended, normoactive bowel sounds. No palpable organomegaly. MUSCULOSKELETAL: No joint swelling or deformity. EXTREMITIES: No cyanosis, clubbing, or pedal edema. NEUROLOGICAL: Gross neurological examination did not reveal any focal deficits. . - Labs CBC & Chem 7: 02/21/23 08:16 02/21/23 08:16 Labs: Abnormal Lab Results - Last 24 Hours (Table) 02/20/23 02/20/23 02/21/23 Range/Units 16:44 20:55 06:32 WBC (3.8-10.6) k/uL RBC (3.80-5.40) m/uL Hgb (11.4-16.0) gm/dL Hct (34.0-46.0) % RDW (11.5-15.5) % Neutrophils # (1.3-7.7) k/uL Monocytes # (0-1.0) k/uL Sodium (137-145) mmol/L BUN (7-17) mg/dL Glucose (74-99) mg/dL POC Glucose (mg/dL) 215 H 202 H 126 H (70-110) mg/dL Calcium (8.4-10.2) mg/dL Total Bilirubin (0.2-1.3) mg/dL Total Protein (6.3-8.2) g/dL 02/21/23 02/21/23 02/21/23 Range/Units 08:16 08:16 12:03 WBC 16.8 H (3.8-10.6) k/uL RBC 3.01 L (3.80-5.40) m/uL Hgb 9.3 L (11.4-16.0) gm/dL Hct 28.3 L (34.0-46.0) % RDW 15.9 H (11.5-15.5) % Neutrophils # 11.1 H (1.3-7.7) k/uL Monocytes # 1.3 H (0-1.0) k/uL Sodium 134 L (137-145) mmol/L BUN 19 H (7-17) mg/dL Glucose 131 H (74-99) mg/dL POC Glucose (mg/dL) 195 H (70-110) mg/dL Calcium 8.0 L (8.4-10.2) mg/dL Total Bilirubin 1.8 H (0.2-1.3) mg/dL Total Protein 5.9 L (6.3-8.2) g/dL Assessment and Plan Assessment: Assessment * Status post aortic valve stenosis with aortic valve replacement postoperative day 4 * Postoperative hyperglycemia diabetes mellitus type 2 new onset * Diarrhea * Postoperative blood loss anemia * Atrial fibrillation with rapid ventricular response * Hypertension * Hyperlipidemia * History of gastroesophageal reflux disease * In regards to her status was aortic valve replacement patient management ICU and cardiac team. Postoperative day 7 Status post removal of drain>. On aspirin, Lipitor, Plavix * In regards to atrial fibrillation continue rate control medications including amiodarone, metoprolol, aspirin * In regards to hyperglycemia likely stress-induced patient noted to have HbA1c of 6.8, new onset diabetes noted, was initially started on NovoLog mealtime and Lantus however episode of hypoglycemia noted>> on 02/20 transitioned to metformin twice a day and schedule insulin discontinued, continue sliding scale insulin * Continue to monitor renal profile postoperatively * Continue to follow up on CBC and basic metabolic panel * Subcu heparin for DVT prophylaxis * Cardiac team primary Time with Patient: Greater than 30
[2023-02-21 12:22] VITALS: BP 108/70; PULSE 75
--- NOTE | 2023-02-21 12:34 | P.CONS ---
History of Present Illness - Reason for Consult Consult date: 02/21/23 Rehabilitation needs - Chief Complaint Cardiac debility - History of Present Illness Rosita Ngo is a 67 y.o. female, who lives with her daughter and grandson, 13 years old, in a mobile home, with 3+1 STFD. Prior to admission, she was ambulating with a cane. She has been using a cane x5 years s/p cervical spine surgery. She was independent for basic/advanced ADLs. Current driving: no. Transportation by: daughter. Retired: yes. Support system: daughter. She was admitted to [facility] on 02/15/2023 for an aortic valve replacement due to aortic stenosis. She has a PMH of HTN, dyslipidemia, COPD and DM. She has dealt with postoperative acute blood loss anemia, thrombocytopenia, diarrhea and paroxysmal atrial fibrillation. At this time she is below her baseline level of function and would like to come to [facility] at [facility]. She has been to [facility] before s/p cervical spine surgery. She continues to have dyspnea with activity and unsteadiness with gait. PT: Abilio sit to stand OT: Abilio bathing, toileting and UB dressing, ModA LB dressing, Abilio ambulation 150 feet with a walker Review of Systems Negative unless listed in HPI. Past Medical History Past Medical History: Diabetes Mellitus, GERD/Reflux, GI Bleed, Hyperlipidemia, Hypertension, Osteoarthritis (OA) Additional Past Medical History / Comment(s): Heart murmur. Varicose veins. Hx Acid Reflux yrs ago, now resolved. hx. bleeding ulcer 2018, Limited mobility in neck. SOB w/exertion, fatigue History of Any Multi-Drug Resistant Organisms: None Reported Past Surgical History: Back Surgery, Heart Catheterization, Orthopedic Surgery Additional Past Surgical History / Comment(s): Herniated disc surgery, neck fusion with pins and rods placed. EZIO Past Anesthesia/Blood Transfusion Reactions: Postoperative Nausea & Vomiting (PONV) Additional Past Anesthesia/Blood Transfusion Reaction / Comm: no hx. blood transfusion reaction Smoking Status: Former smoker - Past Family History Mother Family Medical History: Diabetes Mellitus, Hypertension Additional Family Medical History / Comment(s): Vein replacement surgery. Father Family Medical History: Cancer, Hypertension Additional Family Medical History / Comment(s): Stomach cancer. Brother(s) Family Medical History: Cancer Additional Family Medical History / Comment(s): Prostate cancer. Other brother had Leukemia. Medications and Allergies Home Medications Medication Instructions Recorded Confirmed Type Atorvastatin [Lipitor] 80 mg PO HS 06/10/22 02/14/23 History Ezetimibe [Zetia] 10 mg PO DAILY 06/10/22 02/14/23 History lisinopriL [Zestril] 10 mg PO DAILY 06/10/22 02/14/23 History Allergies Allergy/AdvReac Type Severity Reaction Status Date / Time codeine Allergy Rash/Hives Verified 02/14/23 05:55 protamine AdvReac Rapid Verified 02/15/23 07:47 Heart Rate Physical Exam Osteopathic Statement: *. No significant issues noted on an osteopathic structural exam other than those noted in the History and Physical/Consult. Vitals: Vital Signs Temp Pulse Pulse Resp BP BP Pulse Ox 02/21/23 11:24 72 02/21/23 11:16 74 02/21/23 10:05 83 18 02/21/23 08:00 76 02/21/23 07:53 72 83 18 143/76 97 02/21/23 03:29 69 16 121/56 94 L 02/21/23 00:00 72 16 111/63 92 L 02/20/23 22:13 80 02/20/23 22:04 78 02/20/23 20:00 97.7 F 78 16 132/63 92 L 02/20/23 16:20 82 18 149/67 94 L 02/20/23 15:46 75 02/20/23 15:37 74 02/20/23 15:04 75 18 02/20/23 12:35 98.1 F 75 18 141/63 90 L 02/20/23 12:13 65 FiO2 02/21/23 11:24 02/21/23 11:16 02/21/23 10:05 02/21/23 08:00 02/21/23 07:53 21 02/21/23 03:29 02/21/23 00:00 02/20/23 22:13 02/20/23 22:04 02/20/23 20:00 02/20/23 16:20 02/20/23 15:46 02/20/23 15:37 02/20/23 15:04 02/20/23 12:35 02/20/23 12:13 Intake and Output 02/20/23 02/21/23 02/21/23 22:59 06:59 14:59 Intake Total 118 1080 120 Output Total 400 Balance 118 680 120 Intake: Oral 118 1080 120 Output: Urine 400 Other: Voiding Method Toilet Toilet Toilet # Bowel Movements 1 1 Weight 96.3 kg General: The patient appears stated age, comfortable, NAD, sitting up in recliner Head: Normocephalic, atraumatic. Eyes: Symmetric Ears: Symmetric. Hearing within normal limits. Mouth: Clear. Neck: Supple. Cardiac: Calves supple, non tender, no edema, no cardiac distress Lungs: Breathing comfortably on RA. Abdomen: Soft, nontender, nondistended. Extremities: Arthritic changes consistent with age. Tone normal. Neurological: Alert and oriented x 3. Speech is clear and fluent without paraphasic errors Cranial nerves: CN II-XII: intact. Sensation: Intact and symmetrical limbs. Musculoskeletal: ROM WFL. MMT UE Sh Abd EE EF FABD WE HG Right 4 4 5 5 5 5 Left 4 4 5 5 5 5 MMT LE HF KE DF EHL Right 4 4 4 4 Left 4 4 4 4 Reflexes Biceps Triceps Brachioradialis Patella Achilles Babinski Hoffmans Right - + Left - + Skin: Skin intact where visible to head, neck, and bilateral upper and lower extremities Psych: Calm, cooperative Results CBC & Chem 7: 02/21/23 08:16 02/21/23 08:16 Labs: Abnormal Lab Results - Last 24 Hours (Table) 02/20/23 02/20/23 02/21/23 Range/Units 16:44 20:55 06:32 WBC (3.8-10.6) k/uL RBC (3.80-5.40) m/uL Hgb (11.4-16.0) gm/dL Hct (34.0-46.0) % RDW (11.5-15.5) % Neutrophils # (1.3-7.7) k/uL Monocytes # (0-1.0) k/uL Sodium (137-145) mmol/L BUN (7-17) mg/dL Glucose (74-99) mg/dL POC Glucose (mg/dL) 215 H 202 H 126 H (70-110) mg/dL Calcium (8.4-10.2) mg/dL Total Bilirubin (0.2-1.3) mg/dL Total Protein (6.3-8.2) g/dL 02/21/23 02/21/23 02/21/23 Range/Units 08:16 08:16 12:03 WBC 16.8 H (3.8-10.6) k/uL RBC 3.01 L (3.80-5.40) m/uL Hgb 9.3 L (11.4-16.0) gm/dL Hct 28.3 L (34.0-46.0) % RDW 15.9 H (11.5-15.5) % Neutrophils # 11.1 H (1.3-7.7) k/uL Monocytes # 1.3 H (0-1.0) k/uL Sodium 134 L (137-145) mmol/L BUN 19 H (7-17) mg/dL Glucose 131 H (74-99) mg/dL POC Glucose (mg/dL) 195 H (70-110) mg/dL Calcium 8.0 L (8.4-10.2) mg/dL Total Bilirubin 1.8 H (0.2-1.3) mg/dL Total Protein 5.9 L (6.3-8.2) g/dL Assessment and Plan Assessment: Assessment/Plan: # Cardiac debility s/p AVR on 02/15/2023 due to aortic stenosis -On ASA 81 mg and Plavix 75 mg qd # Cervical myelopathy s/p cervical spine fusion about 5 years ago # ABLA -On Ferrous sulfate 325 mg BID with meals # Bowel/ Bladder: Nursing to monitor and report concerns if any. # Skin/wound: Skin/Wound care to follow as needed # Pain Management -Tylenol 1,000 mg q6 PRN -Recommend <3,000 mg of Tylenol per day # DVT Prophylaxis -Sub qhep q8 # Comorbidities: HTN, dyslipidemia, DM # Your medical dx and mgt Goals: Modified Independent mobility and ADLS both basic and advanced; increased functional mobility/strength; increased balance, safety, endurance. Improvement in medical issues through your care. Barriers: decreased endurance, cervical myelopathy Discharge recommendation: IPR. Patient agreeable with plan. Syed Mallory D.O.
[2023-02-21] MEDS ORDERED: LACTOBACILLUS ACIDOPH & BULGAR 1 EACH PACKET PO SCH (13:00)
--- NOTE | 2023-02-21 15:32 | P.PN ---
Subjective Progress Note Date: 02/21/23 Principal diagnosis: Status post aortic valve replacement postoperative day #7 On 02/15/2023, the patient is postop day #1 and the patient underwent aortic valve replacement with a bioprosthetic aortic valve and the patient was brought into the intensive care unit where she was weaned off the mechanical ventilator and she was extubated without having any major issues. The patient immediately after arriving from the operating room, was noted to have a low cardiac index. She was started on Primacor which is running at 0.2 g. Her cardiac output from this morning is at 4.7 with an index of 2.4. She received packed RBC intraoperatively and hemoglobin is 7.9. She was given a total of 2 units of packed RBCs. Her chest x-ray from today shows an infiltration of the right upper lobe and a [place]-Dayanara catheter is in place and the chest was done in place. There is a right suprahilar increased density which is an infiltrate versus atelectasis. No evidence of any pneumothorax. The chest tube output is noted and the patient is currently on 2 L of oxygen by nasal cannula. The output from the right-sided chest tube has been under and 20 mL overnight and 500 mL since surgery. The mediastinal chest tube was drained approximately 170 mL overnight and 400 mL since surgery. Her cardiac output is at 4.2 with an index of 2.1. Pulmonary artery pressures are 31/7. Hemodynamically stable sitting up on a chair communicating no focal neurological deficit. BUN is at 19 with a creatinine of 0.8. WBC count of 10.6 with a hemoglobin of 7.9. Cardiac rhythm is sinus. Using the incentive spirometer. In terms of her blood sugar control, the patient is often signs of any blood sugar is under tighter control for now. On today's evaluation of 02/16/2023, the patient's postop day #2 following aortic valve replacement surgery. The patient is doing well and she has no sp ecific complaints. She still has the chest tubes in place, 2 mediastinal of 10. Output from the chest tubes have been quite high and for that reason the chest tubes will be kept in place. The patient has produced approximately 100 metastases from her mediastinal chest tube over the past 8 hours abdominal 50 over the past 24 hours. The patient is also produced around 90 mL from the right-sided chest tube over the past 8 hours and 224 hours. As such, she was be kept in place. Chest x-ray showing cardiomegaly. [place]-Dayanara catheter in place. Cardiac operas 4.4 with an index of 2.3. Pulmonary artery pressures of 40/10 and the patient is on milrinone at 0.2 mcg/kg/m. Is being gradually weaned off. The patient is on insulin drip at 7 units an hour. In terms of her blood work, the patient has a hemoglobin level of 7.0, white cell count of 16.2, platelet count of 85 which is up compared to yesterday. BUN is 24 with a creatinine of 1.28. Sodium level is at 136. Potassium levels at 4.6. Is a component of an acute kidney injury probably related to low cardiac output state that occurred postop. Blood sugars at other adequate control. She is on oxygen at 2 L/m nasal cannula. She is using the incentive spirometer. She is tolerating some diet heart healthy diet. Patient was reevaluated today on 02/17/2023, she is status post bioprosthetic aortic valve placement, patient is in the ICU, on 2 L nasal cannula. Early this morning the patient had an episode of atrial fibrillation with RVR, required amiodarone bolus and at the metoprolol dose was increased. Chest x-ray showed e vidence of mild congestive heart failure Lasix was given 40 mg IV push. Ultrasound of the chest showed small left pleural effusion, most likely will improve with diuretics, I don't see the need for thoracentesis at this point, unless no improvement is noted with diuretics. Patient is relatively as ymptomatic, and she is not in any distress. I believe the patient has a significant amount of atelectasis in the left lower lobe area as well. W see count is 14.5 hemoglobin is 8 electrolytes are normal renal profile is normal except for creatinine of 1.1 Reevaluated today on 02/18/2023, patient seems to be doing fairly well, not in any distress, patient is on 2 L nasal cannula, chest x-ray showed small area of atelectasis and left lower lobe and small pleural effusion not large enough to pursue thoracentesis. Patient is responding to diuretics, and again no need for thoracentesis. Patient seems to be fairly controlled. Continues to have right pleural chest tube in place, labs today are basically unremarkable including CBC and basic metabolic profile with renal profile Reevaluated today on 02/19/2023, patient is doing fairly well, not in any distress, she is presently on room air. Patient is postoperative day #5, she had aortic valve replacement using 25 mm [place] area prosthetic valve. Patient is hemodynamically stable, her cardiac rhythm is normal sinus rhythm, she had her atrial and ventricular epicardial pacemaker wires removed yesterday. Had right-sided chest tube was removed early today. Chest x-ray continues to show a small left-sided pleural effusion and atelectasis. Patient is already ambulating in the hallway, she is now in the stepdown unit. WBC count is 14.7 hemoglobin is 10 Normal renal profile is normal Reevaluated today on 02/20/2023, patient seems to be doing fairly well, she had some pain at the insertion site of her right sided chest tube, today she is doing well, her chest x-ray is reassuring continues to have a small left-sided pleural effusion patient is on room air and she is not in any distress. Labs today were felt to be unremarkable. She does have a bit of leukocytosis with WBC of 16.7. Normal renal profile is normal Reevaluated today on 02/21/2023, patient continues to do well, basically about the same, being considered for discharge to [facility] rehab. Chest x-ray was reviewed, labs were reviewed, I believe the patient will be cleared from my perspective for rehab placement. Objective - Vital Signs Vital signs: Vital Signs Temp 97.7 F 02/20/23 20:00 Pulse 75 02/21/23 14:07 Resp 18 02/21/23 14:07 BP 108/70 02/21/23 12:20 Pulse Ox 92 L 02/21/23 12:20 FiO2 21 02/21/23 07:53 Intake & Output 02/20/23 02/21/23 02/21/23 18:59 06:59 18:59 Intake Total 236 1080 360 Output Total 550 400 Balance -314 680 360 Weight 96.3 kg Intake: Oral 236 1080 360 Output: Urine 550 400 Other: Voiding Method Toilet Toilet Toilet # Bowel Movements 1 1 ABP, PAP, CO, CI - Last Documented Arterial Blood Pressure 139/71 Pulmonary Artery Pressure 32/8 Cardiac Output 4.4 Cardiac Index 2.2 - Exam Physical Exam: Revealed a 67-year-old female in no distress, on room air Head: Atraumatic, normocephalic. HEENT:[Neck is supple.] [No neck masses.] [No thyromegaly.] [No JVD.] Chest: [Diminished breath sounds and crackles at the bases, no rhonchi no wheezes] Cardiac: Normal S1 and S2, no S3 gallop, irregular rhythm, 2/6 systolic murmur thought the precordium. Abdomen: [Soft, nontender, no megaly, no rebound, no guarding, normal bowel sounds.] Extremities: [No clubbing, no edema, no cyanosis.] Neurological Exam: [No focal neurologic deficit.] alert oriented 3. psychiatric: Normal mood affect and normal mental status examination. skin: No rashes - Labs CBC & Chem 7: 02/21/23 08:16 02/21/23 08:16 Labs: Abnormal Lab Results - Last 24 Hours (Table) 02/20/23 02/20/23 02/21/23 Range/Units 16:44 20:55 06:32 WBC (3.8-10.6) k/uL RBC (3.80-5.40) m/uL Hgb (11.4-16.0) gm/dL Hct (34.0-46.0) % RDW (11.5-15.5) % Neutrophils # (1.3-7.7) k/uL Monocytes # (0-1.0) k/uL Sodium (137-145) mmol/L BUN (7-17) mg/dL Glucose (74-99) mg/dL POC Glucose (mg/dL) 215 H 202 H 126 H (70-110) mg/dL Calcium (8.4-10.2) mg/dL Total Bilirubin (0.2-1.3) mg/dL Total Protein (6.3-8.2) g/dL 02/21/23 02/21/23 02/21/23 Range/Units 08:16 08:16 12:03 WBC 16.8 H (3.8-10.6) k/uL RBC 3.01 L (3.80-5.40) m/uL Hgb 9.3 L (11.4-16.0) gm/dL Hct 28.3 L (34.0-46.0) % RDW 15.9 H (11.5-15.5) % Neutrophils # 11.1 H (1.3-7.7) k/uL Monocytes # 1.3 H (0-1.0) k/uL Sodium 134 L (137-145) mmol/L BUN 19 H (7-17) mg/dL Glucose 131 H (74-99) mg/dL POC Glucose (mg/dL) 195 H (70-110) mg/dL Calcium 8.0 L (8.4-10.2) mg/dL Total Bilirubin 1.8 H (0.2-1.3) mg/dL Total Protein 5.9 L (6.3-8.2) g/dL Assessment and Plan Assessment: Impression: Severe aortic stenosis requiring aortic valve replacement, presently postoperative day #7 Benign essential hypertension Dyslipidemia Mild COPD Previous history of GI bleed/bleeding ulcer in 2018 Type 2 diabetes, without complications Obesity Acute blood loss anemia, expected Paroxysmal atrial fibrillation Left pleural effusion Recommendation: Continue to maximize medical therapy using beta blockers statins and Plavix Continue incentive spirometry, and ambulation. Continue GI and DVT prophylaxis Will [place] for discharge planning Time with Patient: Less than 30
--- NOTE | 2023-02-21 15:37 | P.DS ---
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 Consult: post cardiac surgery Do you want consulting provider notified?: Yes Consult Physician Routine Consulting Provider: Henna Manning Consult Reason/Comments: Mobile Ui Developer Consult: post cardiac surgery Do you want consulting provider notified?: Yes Consult Physician Routine Consulting Provider: Gurpreet Ruvalcaba Consult Reason/Comments: med mgmt; Pepe patient Do you want consulting provider notified?: Yes 02/21/23 09:49 Consult Physician Routine Consulting Provider: Syed Mallory Consult Reason/Comments: Evaluation for inpatient rehab Do you want consulting provider notified?: Yes Primary care physician: [facility] Course: FINAL DIAGNOSIS: Critical aortic stenosis, status post bioprosthetic aortic valve replacement with routine enlargement History of hypertension Hyperlipidemia, treated, cholesterol 175, LDL 73 with triglycerides 250 Previous tobacco dependence Mild COPD, preoperative FEV1 74% of predicted Right internal carotid stenosis 50-79% Previous GI bleed with bleeding ulcer in 2018 Previously undiagnosed and untreated diabetes, preoperative hemoglobin A1c 7.9%, repeat A1c 6.8% Obesity with a BMI of 37.0 kg/m Postoperative acute blood loss anemia and thrombocytopenia, expected Paroxysmal atrial fibrillation, a known common occurrence after open heart surgery, not a complication PRINCIPAL PROCEDURE: 1. Aortic valve replacement using a 25 mm Wheat Inspiris bioprosthetic valve, aortic annular enlargement using Singh technique 2. Ligation of the left atrial appendage using a 35 mm Atriclip 3. Epi-aortic ultrasound 4. Intraoperative transesophageal echocardiogram performed by anesthesia HISTORY OF PRESENT ILLNESS: This is a 67-year-old female patient who follows on an outpatient basis with Dr. Liyah Cantu for her primary care service and with Dr. Juan Miguel Velasquez for her cardiology care. The patient has a history of a known murmur which has been followed closely by Dr. Velasquez. Recently, she has been getting progressively more short of breath with minimal activity and she reports that she could walk less than 1 block without needing to take a rest due to her shortness of breath. The patient underwent a cardiac catheterization in May 2022 which demonstrated normal coronary arteries and 2-3+ aortic valve regurgitation. She also underwent a transesophageal echocardiogram in May 2022 which demonstrated severe aortic valve stenosis involving the tricuspid aortic valve with a valve area of 0.5 cm by planimetry, moderate aortic valve regurgitation, mildly dilated ascending aorta with the root measuring within normal limits, and a normal LV function. Subsequently, due to the findings of severe aortic valve stenosis and aortic valve regurgitation she was recommended to undergo consultation with Dr. Parikh from cardiothoracic surgery. The patient met with Dr. Parikh in the office, treatment options were discussed including surgical aortic valve replacement, risks and benefits of the surgery were discussed including the STS risk score and knowing and understanding the risks the patient wished to proceed with the surgical option. HOSPITAL COURSE: On 02/14/2023 the patient was brought to the hospital, taken to the preoperative area, and after obtaining consent, was prepared in the usual fashion and subsequently taken to the operating room where Dr. Parikh performed an aortic valve replacement using a 25 mm Wheat Inspiris bioprosthetic valve, aortic annular enlargement using Singh technique, and ligation of the left atrial appendage using a 35 mm Atriclip. Upon completion of the surgery the patient was transferred to the cardiovascular intensive care unit where she was r ecovered and monitored hemodynamically. She was extubated, all lines, tubes and supportive drips were discontinued when appropriate and she was transferred to the third floor cardiac stepdown unit for further monitoring and rehabilitation. Her oxygen was titrated down, she continued to work with physical therapy, occupational, and cardiac rehab, she was tolerating oral diet, her pain was well-controlled and she was ready to be discharged to inpatient rehab at [facility] on postoperative day #7 to help with increase functional mobility/strength, increased balance, safety and endurance. She has received written and verbal instructions regarding her medications, activity restrictions, signs and symptoms requiring physician notification and her follow-up appointments. Diabetic teaching has been completed with the patient and has been recommended to continue monitoring her blood sugars before meals and at bedtime. Part of her discharge medications she will be discharged to inpatient rehab with amiodarone 200 mg by mouth twice a day until 02/28/2023 than on 03/01/2023 she will start amiodarone 200 mg by mouth daily for 7 days then discontinue. Plan - Discharge Summary Discharge Rx Participant: Yes New Discharge Prescriptions: New Aspirin 81 mg PO DAILY tab Amiodarone [Cordarone] 0 mg PO BID tab bisacodyL [Dulcolax] 10 mg RECTAL DAILY PRN suppositor PRN Reason: Constipation Ipratropium-Albuterol Nebulize [Duoneb 0.5 mg-3 mg/3 ml Soln] 3 ml INHALATION RT-QID each Ipratropium-Albuterol Nebulize [Duoneb 0.5 mg-3 mg/3 ml Soln] 3 ml INHALATION RT-Q2H PRN each PRN Reason: Shortness Of Breath Or Wheezing metFORMIN HCL [Glucophage] 500 mg PO BID-W/MEALS tab Lactobacillus Acidoph & Bulgar [Lactinex] 1 each PO BID packet Furosemide [Lasix] 40 mg PO DAILY tab Magnesium Hydroxide [Milk of Magnesia Concentrate] 2,400 mg PO BID PRN ml PRN Reason: Constipation INSULIN ASPART (NovoLOG) [NovoLOG (formulary)] 0 unit SQ ACHS each Clopidogrel [Plavix] 75 mg PO DAILY tab Ferrous Sulfate [Iron (65 MG Elemental)] 325 mg PO BID-W/MEALS tab Diphenox-Atrop 2.5-0.025 mg [Lomotil] 1 each PO Q6HR PRN tab PRN Reason: Diarrhea Metoprolol Tartrate [Lopressor] 50 mg PO BID tab Pantoprazole [Protonix] 40 mg PO AC-BID tab Acetaminophen Tab [Tylenol] 1,000 mg PO Q6HR PRN tab PRN Reason: Fever And/ Or Pain Ascorbic Acid [Vitamin C] 500 mg PO BID-W/MEALS tab Continue Ezetimibe [Zetia] 10 mg PO DAILY Atorvastatin [Lipitor] 80 mg PO HS Discontinued lisinopriL [Zestril] 10 mg PO DAILY Discharge Medication List Atorvastatin [Lipitor] 80 mg PO HS 06/10/22 [History] Ezetimibe [Zetia] 10 mg PO DAILY 06/10/22 [History] Acetaminophen Tab [Tylenol] 1,000 mg PO Q6HR PRN tab 02/21/23 [Rx] Amiodarone [Cordarone] 0 mg PO BID tab 02/21/23 [Rx] Ascorbic Acid [Vitamin C] 500 mg PO BID-W/MEALS tab 02/21/23 [Rx] Aspirin 81 mg PO DAILY tab 02/21/23 [Rx] Clopidogrel [Plavix] 75 mg PO DAILY tab 02/21/23 [Rx] Diphenox-Atrop 2.5-0.025 mg [Lomotil] 1 each PO Q6HR PRN tab 02/21/23 [Rx] Ferrous Sulfate [Iron (65 MG Elemental)] 325 mg PO BID-W/MEALS tab 02/21/23 [Rx] Furosemide [Lasix] 40 mg PO DAILY tab 02/21/23 [Rx] INSULIN ASPART (NovoLOG) [NovoLOG (formulary)] 0 unit SQ ACHS each 02/21/23 [Rx] Ipratropium-Albuterol Nebulize [Duoneb 0.5 mg-3 mg/3 ml Soln] 3 ml INHALATION RT-Q2H PRN each 02/21/23 [Rx] Ipratropium-Albuterol Nebulize [Duoneb 0.5 mg-3 mg/3 ml Soln] 3 ml INHALATION RT-QID each 02/21/23 [Rx] Lactobacillus Acidoph & Bulgar [Lactinex] 1 each PO BID packet 02/21/23 [Rx] Magnesium Hydroxide [Milk of Magnesia Concentrate] 2,400 mg PO BID PRN ml 02/21/23 [Rx] Metoprolol Tartrate [Lopressor] 50 mg PO BID tab 02/21/23 [Rx] Pantoprazole [Protonix] 40 mg PO AC-BID tab 02/21/23 [Rx] bisacodyL [Dulcolax] 10 mg RECTAL DAILY PRN suppositor 02/21/23 [Rx] metFORMIN HCL [Glucophage] 500 mg PO BID-W/MEALS tab 02/21/23 [Rx] Follow up Appointment(s)/Referral(s): Keisha Richards MD [STAFF PHYSICIAN] - 03/05/23 9:30 am [facility] [NON-STAFF] - 4 Weeks (You will receive a phone call in approximately 4-6 weeks for evaluation for cardiac rehab) [facility] - 1 Week ([facility] Judge will call you to arrange a visit) Liyah Cantu MD [Primary Care Provider] - 03/05/23 3:00 pm Salvador Parikh MD [STAFF PHYSICIAN] - 03/25/23 12:30 pm Darius Velasquez MD [STAFF PHYSICIAN] - 03/06/23 3:15 pm Ambulatory/Diagnostic Orders: Complete Blood Count w/diff [LAB.AMB] Time Frame: 02/22/23, Facility: [facility], Location: [facility] Comprehensive Metabolic Panel [LAB.AMB] Time Frame: 02/22/23, Facility: [facility], Location: Laboratory [facility] XR chest 2V [RAD.AMB] Time Frame: 02/22/23, Facility: [facility], Location: [facility] Activity/Diet/Wound Care/Special Instructions: DISCHARGE INSTRUCTIONS: 1. No driving for 4 weeks, or until physician gives their ok. 2. The patient should sleep in their own bed, no medical bed needed. 3. Stairs are not an issue. If the bedroom is upstairs, it is advised that the patient go up at night and down in the morning for the first week. Go slowly, using handrail and take 1 step at a time. 4. MARCIAL hose are to be worn for 30 days post surgery or until physician discontinues. 5. Heart hugger is to be worn 100% of the time until physician discontinues.(except when showering) 6. No lifting, pushing, or pulling more than 10 pounds for 12 weeks. The physician will advise of any restriction changes. 7. The patient is expected to continue the prescribed walking program. 8. Continue pain control per as needed orders. 9. Continue with incentive spirometry and splinting/heart hugger until otherwise directed by the physician. 10. Must shower daily using liquid antibacterial soap 11. Routine sternal incision care. No powders, lotions, ointments on incisions. No dressings are necessary on incisions unless they are draining. Dermabond tape is to remain on sternal incision until surgeon follow-up. 12. Please call surgeon/CUT OFF SAW TENDER METAL for temp greater than 101 F or purulent drainage from incisions. 13. You should weigh yourself daily, record and bring log with you to follow up appointments. 14. All prescriptions given by surgeon for 30 days. Refills need to be filled through instructional paraprofessional/primary care physician. 15. A Red armband has been placed on the patient. It should be worn for 30 days post discharge from surgery and will be removed by the cardiac surgeons. If an ER visit is necessary, please make sure the number on the Red armband is called before going to ER. 16. You have been referred to and are expected to begin Cardiac Rehab in approximately 4-6 weeks. 17. Please check your blood sugars before meals and at bedtime, make a record of your blood sugars and bring the record to her family doctor upon follow-up appointments once discharged from inpatient rehab. HOME HEALTH SERVICES TO PROVIDE: RN SKILLED HOME CARE SERVICES FOR POST-OP SURGICAL PATIENTS WITH THE FOLLOWING: Coronary Artery Bypass Surgery (CABG), Mitral Valve Replacement/Repair ( MVR), Aortic Valve Replacement/Repair (AVR) RN TO CONTINUE EDUCATION FROM ``ROAD TO A HEALTH HEART PATIENT EDUCATION MANUAL (GIVEN TO PATIENT IN THE HOSPITAL) MEDICATION RECONCILIATION WITH EDUCATION NEEDED ON FIRST HOME VISIT EMPHASIZE IMPORTANCE OF WEARING BREAST SUPPORT/HEART HUGGER ENCOURAGE USE OF INCENTIVE SPIROMETER 10 X EVERY HOUR WHILE AWAKE ENCOURAGE UTILIZATION OF LOWER EXTREMITY COMPRESSION STOCKINGS/MARCIAL HOSE and ELEVATE LEGS ABOVE LEVEL OF HEART WHILE AT REST. ENCOURAGE AMBULATION 3-5x/day INCREASING TOLERATES, WHILE AVOIDING EXTREMES IN TEMPERATURE FREQUENCY: RN TO OPEN THE PATIENT WITHIN 24 HOURS OF DISCHARGE FROM THE HOSPITAL WITH [place] [facility] [place]IT 2-3 X A WEEK FOR 4 WEEKS ESTABLISHED BY PATIENT NEEDS. LABORATORY: CBC, CMP TO BE DRAWN ON THE THIRD DAY HOME, (RAN STAT) FAX RESULTS TO [phone]. TELEHEALTH PARAMETERS: WEIGHT: NOTIFY MD OF WEIGHT GAIN OF 2 LBS IN 24 HOURS OR 5 LBS IN ONE WEEK HR: NOTIFY MD OF HR <55 BPM OR HR>100 BPM BP: NOTIFY MD IF BP <90/55 OR BP>140/100 O2 SAT: NOTIFY MD IF PO2<93% ON ROOM AIR SEND TELEHEALTH REPORT TO TECHNICAL EDUCATION TEACHER AND CARDIOVASCULAR SURGEON THE FIRST WEEK OF CARE AND THEN BI-WEEKLY. PLEASE ADDITIONALLY COMMUNICATE ANY ABNORMALS AND NEW FINDINGS TO THE SURGEONS OFFICE. Discharge Disposition: HOME WITH HOME HEALTH SERVICES
[2023-02-21] MEDS ORDERED: AMIODARONE 200 MG TAB PO SCH (21:00)
[2023-02-22] MEDS ORDERED: FUROSEMIDE 40 MG TAB PO SCH (09:00)
[2023-02-22] MEDS ORDERED: POTASSIUM BICARBONATE/CIT AC 20 MEQ TABLET.EFF PO SCH (09:00)
== END 2023-02-21 16:03 | DRG 220 ==
LOC: 2ORMAIN 02-14 05:39 → 2SICU 02-14 13:36 → 3SCARD 02-18 13:27
PROVIDERS: ADMIT Surgery; ATTEND Surgery
PROC: 5A1221Z Performance of Cardiac Output, Continuous (ICD-10-PCS; principal; 2023-02-14 08:00)
PROC: 02RF08Z Replacement of Aortic Valve with Zooplastic Tissue, Open Approach (ICD-10-PCS; principal; 2023-02-14 08:00)
PROC: 02L70CK Occlusion of Left Atrial Appendage with Extraluminal Device, Open Approach (ICD-10-PCS; principal; 2023-02-14 08:00)
PROC: B24BZZ4 Ultrasonography of Heart with Aorta, Transesophageal (ICD-10-PCS; principal; 2023-02-14 08:00)
PROC: 3E043XZ Introduction of Vasopressor into Central Vein, Percutaneous Approach (ICD-10-PCS; principal; 2023-02-14 08:00)
PROC: 30243N1 Transfusion of Nonautologous Red Blood Cells into Central Vein, Percutaneous Approach (ICD-10-PCS; principal; 2023-02-14 08:00)
DX: I35.2 Nonrheumatic aortic (valve) stenosis with insufficiency (principal); Z00.6 Encounter for examination for normal comparison and control in clinical research program; D62 Acute posthemorrhagic anemia; G95.89 Other specified diseases of spinal cord; N17.9 Acute kidney failure, unspecified; J98.11 Atelectasis; I50.32 Chronic diastolic (congestive) heart failure; K52.1 Toxic gastroenteritis and colitis; R53.81 Other malaise; E11.649 Type 2 diabetes mellitus with hypoglycemia without coma; E11.65 Type 2 diabetes mellitus with hyperglycemia; I95.2 Hypotension due to drugs; T45.7X5A Adverse effect of anticoagulant antagonists, vitamin K and other coagulants, initial encounter; I48.0 Paroxysmal atrial fibrillation; D69.6 Thrombocytopenia, unspecified; I11.0 Hypertensive heart disease with heart failure; T38.3X5A Adverse effect of insulin and oral hypoglycemic [antidiabetic] drugs, initial encounter; R39.15 Urgency of urination; I25.10 Atherosclerotic heart disease of native coronary artery without angina pectoris; J44.9 Chronic obstructive pulmonary disease, unspecified; D72.829 Elevated white blood cell count, unspecified; E78.5 Hyperlipidemia, unspecified; K21.9 Gastro-esophageal reflux disease without esophagitis; I65.21 Occlusion and stenosis of right carotid artery; E66.9 Obesity, unspecified; Z68.37 Body mass index [BMI] 37.0-37.9, adult; Z87.891 Personal history of nicotine dependence; Z98.1 Arthrodesis status; Z79.899 Other long term (current) drug therapy; Z79.82 Long term (current) use of aspirin; Z87.11 Personal history of peptic ulcer disease; Z87.19 Personal history of other diseases of the digestive system; Z71.3 Dietary counseling and surveillance; Z88.5 Allergy status to narcotic agent; Z88.8 Allergy status to other drugs, medicaments and biological substances
CPT/HCPCS: 71045; 71046; 76604; 80048; 80053; 81003; 82330; 82805; 83036; 83735; 85025; 85027; 85384; 85520; 85610; 85730; 86850; 86891; 86900; 86901; 86920; 88305; 88311; 94002; 94640; 94760

== ENCOUNTER 2023-03-06 13:38 | Observation (INO) | payer MEDICARE, OTHER ==
[2023-03-06] MEDS ORDERED: AMIODARONE 360 MG in DEXTROSE 5% IN WATER 200 ML IV ONE ×2 (14:13)
[2023-03-06] MEDS ORDERED: DEXTROSE 5% IN WATER 100 ML with AMIODARONE 150 MG IV ONE (14:13)
[2023-03-06 14:26] LABS: Basophils % (A) 0 %; Eosinophils # (A) 0.6 k/uL (0-0.7); Eosinophils % (A) 6 %; HCT 36.6 % (34.0-46.0); HGB 11.6 gm/dL (11.4-16.0); Hypochromasia Moderate; Lymphocytes # (A) 1.4 k/uL (1.0-4.8); Lymphocytes % (A) 13 %; MCH 30.4 pg (25.0-35.0); MCHC 31.8 g/dL (31.0-37.0); MCV 95.5 fL (80.0-100.0); Monocytes # (A) 0.6 k/uL (0-1.0); Monocytes % (A) 6 %; Neutrophils # (A) 7.4 k/uL (1.3-7.7); Neutrophils % (A) 74 %; Platelet Count 514 k/uL (150-450); RBC 3.84 m/uL (3.80-5.40); RDW 14.9 % (11.5-15.5); WBC 10.1 k/uL (3.8-10.6)
[2023-03-06 14:40] LABS: Partial Thromboplastin Time 23.6 sec (22.0-30.0); Prothrombin Time 10.3 sec (9.0-12.0)
[2023-03-06 14:49] LABS: ALT 19 U/L (4-34); AST 31 U/L (14-36); African American GFR (CKD) 39 (>60 ml/min/1.73 sqM); Albumin 4.2 g/dL (3.5-5.0); Alkaline Phosphatase 90 U/L (38-126); Anion Gap 14 mmol/L; Blood Urea Nitrogen 33 mg/dL (7-17); Carbon Dioxide 24 mmol/L (22-30); Chloride 100 mmol/L (98-107); Magnesium 1.5 mg/dL (1.6-2.3); Non-African American GFR(CKD) 34 (>60 ml/min/1.73 sqM); Potassium 4.7 mmol/L (3.5-5.1); Sodium 138 mmol/L (137-145); Total Bilirubin 0.9 mg/dL (0.2-1.3); Total Protein 7.3 g/dL (6.3-8.2)
--- NOTE | 2023-03-06 14:49 | ED ---
General Adult HPI - General Chief complaint: Arrhythmia/Palpitations Stated complaint: Dizziness SOB Time Seen by Provider: 03/06/23 13:50 Source: patient, RN notes reviewed, old records reviewed Mode of arrival: wheelchair Limitations: no limitations - History of Present Illness Initial comments: 67-year-old female who is 20 days status post aortic valve replacement presents with palpitation, lightheadedness. Patient states she had an episode of atrial fibrillation while in the hospital but does not have a prior history. She denies associated chest pain. She has some mild dyspnea associated with her symptoms. - Related Data Home Medications Medication Instructions Recorded Confirmed Atorvastatin [Lipitor] 80 mg PO HS 06/10/22 02/14/23 Ezetimibe [Zetia] 10 mg PO DAILY 06/10/22 02/14/23 Previous Rx's Medication Instructions Recorded Acetaminophen Tab [Tylenol] 1,000 mg PO Q6HR PRN tab 02/21/23 Amiodarone [Cordarone] 0 mg PO BID tab 02/21/23 Ascorbic Acid [Vitamin C] 500 mg PO BID-W/MEALS tab 02/21/23 Aspirin 81 mg PO DAILY tab 02/21/23 Clopidogrel [Plavix] 75 mg PO DAILY tab 02/21/23 Diphenox-Atrop 2.5-0.025 mg 1 each PO Q6HR PRN tab 02/21/23 [Lomotil] Ferrous Sulfate [Iron (65 MG 325 mg PO BID-W/MEALS tab 02/21/23 Elemental)] Furosemide [Lasix] 40 mg PO DAILY tab 02/21/23 INSULIN ASPART (NovoLOG) [NovoLOG 0 unit SQ ACHS each 02/21/23 (formulary)] Ipratropium-Albuterol Nebulize 3 ml INHALATION RT-Q2H PRN each 02/21/23 [Duoneb 0.5 mg-3 mg/3 ml Soln] Ipratropium-Albuterol Nebulize 3 ml INHALATION RT-QID each 02/21/23 [Duoneb 0.5 mg-3 mg/3 ml Soln] Lactobacillus Acidoph & Bulgar 1 each PO BID packet 02/21/23 [Lactinex] Magnesium Hydroxide [Milk of 2,400 mg PO BID PRN ml 02/21/23 Magnesia Concentrate] Metoprolol Tartrate [Lopressor] 50 mg PO BID tab 02/21/23 Pantoprazole [Protonix] 40 mg PO AC-BID tab 02/21/23 bisacodyL [Dulcolax] 10 mg RECTAL DAILY PRN suppositor 02/21/23 metFORMIN HCL [Glucophage] 500 mg PO BID-W/MEALS tab 02/21/23 Allergies Allergy/AdvReac Type Severity Reaction Status Date / Time codeine Allergy Rash/Hives Verified 03/06/23 13:47 protamine AdvReac Rapid Verified 03/06/23 13:47 Heart Rate Review of Systems ROS Statement: Those systems with pertinent positive or pertinent negative responses have been documented in the HPI. ROS Other: All systems not noted in ROS Statement are negative. Past Medical History Past Medical History: Diabetes Mellitus, GERD/Reflux, GI Bleed, Hyperlipidemia, Hypertension, Osteoarthritis (OA) Additional Past Medical History / Comment(s): Heart murmur. Varicose veins. Hx Acid Reflux yrs ago, now resolved. hx. bleeding ulcer 2018, Limited mobility in neck. SOB w/exertion, fatigue History of Any Multi-Drug Resistant Organisms: None Reported Past Surgical History: Back Surgery, Coronary Bypass/CABG, Heart Catheterization, Orthopedic Surgery Additional Past Surgical History / Comment(s): Herniated disc surgery, neck fusion with pins and rods placed. EZIO Past Anesthesia/Blood Transfusion Reactions: Postoperative Nausea & Vomiting (PONV) Additional Past Anesthesia/Blood Transfusion Reaction / Comment(s): no hx. blood transfusion reaction Past Psychological History: No Psychological Hx Reported Smoking Status: Former smoker Past Alcohol Use History: None Reported Past Drug Use History: None Reported - Past Family History Mother Family Medical History: Diabetes Mellitus, Hypertension Additional Family Medical History / Comment(s): Vein replacement surgery. Father Family Medical History: Cancer, Hypertension Additional Family Medical History / Comment(s): Stomach cancer. Brother(s) Family Medical History: Cancer Additional Family Medical History / Comment(s): Prostate cancer. Other brother had Leukemia. General Exam Limitations: no limitations General appearance: alert, in no apparent distress Head exam: Present: atraumatic, normocephalic Eye exam: Present: normal appearance, PERRL ENT exam: Present: normal exam Neck exam: Present: normal inspection. Absent: tenderness, meningismus Respiratory exam: Present: decreased breath sounds. Absent: respiratory distress Cardiovascular Exam: Present: tachycardia, irregular rhythm GI/Abdominal exam: Present: soft. Absent: distended, tenderness Extremities exam: Present: normal inspection, normal capillary refill Neurological exam: Present: alert, oriented X3, CN II-XII intact. Absent: motor sensory deficit Psychiatric exam: Present: normal affect, normal mood Skin exam: Present: warm, dry, intact. Absent: cyanosis, diaphoretic Course Vital Signs 03/06/23 03/06/23 13:43 15:05 Temperature 98.2 F Pulse Rate 65 120 H Respiratory 22 18 Rate Blood Pressure 95/49 100/63 O2 Sat by Pulse 99 96 Oximetry - Reevaluation(s) Reevaluation #1: 03/06/23 14:[address] Cobb, , recommends amiodarone this is initiated emergency department, recommends Eliquis for anticoagulation. Medical Decision Making - Medical Decision Making Was pt. sent in by a medical professional or institution (, PA, [employer], urgent care, hospital, or custodial...) When possible be specific @ -[No] Did you speak to anyone other than the patient for history (EMS, parent, family, police, friend...)? What history was obtained from this source @ -[No] Did you review nursing and triage notes (agree or disagree)? Why? @ -[I reviewed and agree with nursing and triage notes] Were old charts reviewed (outside hosp., previous admission, EMS record, old EKG, old radiological studies, urgent care reports/EKG's, custodial records)? Report findings @ -[No old charts were reviewed] Differential Diagnosis (chest pain, altered mental status, abdominal pain women, abdominal pain men, vaginal bleeding, weakness, fever, dyspnea, syncope, headache, dizziness, GI bleed, back pain, seizure, CVA, palpatations, mental health, musculoskeletal)? @ -[Differential Palpitations Ventricular arrhythmias, atrial arrhythmias, myocardial infarction, anemia, thyrotoxicosis, electrolyte imbalance, hypokalemia, pulmonary embolism, pulmonary disease, drugs, alcohol, anxiety, stress.... This is not meant to be an all-inclusive list. EKG interpreted by me (3pts min.). @ -[A 2 fibrillation with RVR rate of 140, right bundle-branch block, QRS duration 157, QTC 397] X-rays interpreted by me (1pt min.). @ -[Cardiomegaly without russell CHF, reviewed and interpreted by myself pneumothorax.] CT interpreted by me (1pt min.). @ -[None done] U/S interpreted by me (1pt. min.). @ -[None done] What testing was considered but not performed or refused? (CT, X-rays, U/S, labs)? Why? @ -[None] What meds were considered but not given or refused? Why? @ -[None] Did you discuss the management of the patient with other professionals (professionals i.e. , PA, [employer], lab, RT, psych nurse, high school social science teacher, load tester, teacher, commissioned fire officer, casework manager)? Give summary @ -[Cardiology, cardiothoracic surgery, internal medicine Was smoking cessation discussed for >3mins.? @ -[No] Was critical care preformed (if so, how long)? @ -[yes, 35 min] Were there social determinants of health that impacted care today? How? (Homelessness, low income, unemployed, alcoholism, drug addiction, transportation, low edu. Level, literacy, decrease access to med. care, [facility], rehab)? @ -[No] Was there de-escalation of care discussed even if they declined (Discuss DNR or withdrawal of care, Hospice)? DNR status @ -[No] What co-morbidities impacted this encounter? (DM, HTN, Smoking, COPD, CAD, Cancer, CVA, ARF, Chemo, Hep., AIDS, mental health diagnosis, sleep apnea, morbid obesity)? @ -[None] Was patient admitted / discharged? Hospital course, mention meds given and route, prescriptions, significant lab abnormalities, going to OR and other pertinent info. @ -[67-year-old presenting with lightheadedness, palpitation, 20 days postop bioprosthetic aortic valve replacement. Patient's is in atrial fibrillation with a rate around 150. Blood pressure is in the 90s systolic. Patient is on room air. Laboratory tests obtained, I discussed case with cardiology and Don covering for cardiothoracic surgery. Patient will be started on amiodarone with improved rate control in the emergency department. She will be placed in observation with consults to both cardiac and thoracic surgery and cardiology. Case discussed with Dr. Juares who will admit.] Undiagnosed new problem with uncertain prognosis? @ -[No] Drug Therapy requiring intensive monitoring for toxicity (Heparin, Nitro, Insulin, Cardizem)? @ -[No] Were any procedures done? @ -[No] Diagnosis/symptom? @ -[Atrial fibrillation with RVR] Acute, or Chronic, or Acute on Chronic? @ -[Acute] Uncomplicated (without systemic symptoms) or Complicated (systemic symptoms)? @ -[Complicated Side effects of treatment? @ -[No] Exacerbation, Progression, or Severe Exacerbation? @ -[No] Poses a threat to life or bodily function? How? (Chest pain, USA, PR, pneumonia, PE, COPD, DKA, ARF, appy, cholecystitis, CVA, Diverticulitis, Homicidal, Lilia cidal, threat to staff... and all critical care pts) @ -[Yes, arrhythmia] - Lab Data Result diagrams: 03/06/23 14:07 03/06/23 14:07 Lab Results 03/06/23 03/06/23 03/06/23 Range/Units 14:07 14:07 14:07 WBC 10.1 (3.8-10.6) k/uL RBC 3.84 (3.80-5.40) m/uL Hgb 11.6 (11.4-16.0) gm/dL Hct 36.6 (34.0-46.0) % MCV 95.5 (80.0-100.0) fL MCH 30.4 (25.0-35.0) pg MCHC 31.8 (31.0-37.0) g/dL RDW 14.9 (11.5-15.5) % Plt Count 514 H (150-450) k/uL MPV 8.0 Neutrophils % 74 % Lymphocytes % 13 % Monocytes % 6 % Eosinophils % 6 % Basophils % 0 % Neutrophils # 7.4 (1.3-7.7) k/uL Lymphocytes # 1.4 (1.0-4.8) k/uL Monocytes # 0.6 (0-1.0) k/uL Eosinophils # 0.6 (0-0.7) k/uL Basophils # 0.0 (0-0.2) k/uL Hypochromasia Moderate PT 10.3 (9.0-12.0) sec INR 1.0 (<1.2) APTT 23.6 (22.0-30.0) sec Sodium 138 (137-145) mmol/L Potassium 4.7 (3.5-5.1) mmol/L Chloride 100 (98-107) mmol/L Carbon Dioxide 24 (22-30) mmol/L Anion Gap 14 mmol/L BUN 33 H (7-17) mg/dL Creatinine 1.56 H (0.52-1.04) mg/dL Est GFR (CKD-EPI)AfAm 39 (>60 ml/min/1.73 sqM) Est GFR (CKD-EPI)NonAf 34 (>60 ml/min/1.73 sqM) Glucose 192 H (74-99) mg/dL Calcium 9.0 (8.4-10.2) mg/dL Magnesium 1.5 L (1.6-2.3) mg/dL Total Bilirubin 0.9 (0.2-1.3) mg/dL AST 31 (14-36) U/L ALT 19 (4-34) U/L Alkaline Phosphatase 90 (38-126) U/L Troponin I (0.000-0.034) ng/mL NT-Pro-B Natriuret Pep pg/mL Total Protein 7.3 (6.3-8.2) g/dL Albumin 4.2 (3.5-5.0) g/dL 03/06/23 03/06/23 Range/Units 14:07 14:07 WBC (3.8-10.6) k/uL RBC (3.80-5.40) m/uL Hgb (11.4-16.0) gm/dL Hct (34.0-46.0) % MCV (80.0-100.0) fL MCH (25.0-35.0) pg MCHC (31.0-37.0) g/dL RDW (11.5-15.5) % Plt Count (150-450) k/uL MPV Neutrophils % % Lymphocytes % % Monocytes % % Eosinophils % % Basophils % % Neutrophils # (1.3-7.7) k/uL Lymphocytes # (1.0-4.8) k/uL Monocytes # (0-1.0) k/uL Eosinophils # (0-0.7) k/uL Basophils # (0-0.2) k/uL Hypochromasia PT (9.0-12.0) sec INR (<1.2) APTT (22.0-30.0) sec Sodium (137-145) mmol/L Potassium (3.5-5.1) mmol/L Chloride (98-107) mmol/L Carbon Dioxide (22-30) mmol/L Anion Gap mmol/L BUN (7-17) mg/dL Creatinine (0.52-1.04) mg/dL Est GFR (CKD-EPI)AfAm (>60 ml/min/1.73 sqM) Est GFR (CKD-EPI)NonAf (>60 ml/min/1.73 sqM) Glucose (74-99) mg/dL Calcium (8.4-10.2) mg/dL Magnesium (1.6-2.3) mg/dL Total Bilirubin (0.2-1.3) mg/dL AST (14-36) U/L ALT (4-34) U/L Alkaline Phosphatase (38-126) U/L Troponin I 0.035 H* (0.000-0.034) ng/mL NT-Pro-B Natriuret Pep 3070 pg/mL Total Protein (6.3-8.2) g/dL Albumin (3.5-5.0) g/dL Disposition Clinical Impression: Atrial fibrillation with RVR Disposition: ADMITTED IP TO THIS HOSP Condition: Stable Is patient prescribed a controlled substance at d/c from ED?: No Referrals: Liyah Cantu MD [Primary Care Provider] - 1-2 days Time of Disposition: 15:31
[2023-03-06 14:59] LABS: Glucose 192 mg/dL (74-99)
[2023-03-06] MEDS ORDERED: MAGNESIUM SULFATE-D5W PMX 1 GM in DEXTROSE/WATER 1 100ML.BAG IVPB ONE (15:11)
[2023-03-06] MEDS ORDERED: NALOXONE 0.4 MG/ML 1 ML VIAL IV PRN (15:20)
[2023-03-06] MEDS ORDERED: ACETAMINOPHEN TAB 325 MG TAB PO PRN (15:20)
[2023-03-06] MEDS ORDERED: SODIUM CHLORIDE 0.9% 500 ML 500 ML IV ONE (15:35)
--- NOTE | 2023-03-06 15:44 | XR ---
EXAMINATION TYPE: XR chest 2V DATE OF EXAM: 03/06/2023 COMPARISON: 03/03/2023 HISTORY: Shortness of breath TECHNIQUE: Frontal and lateral views of the chest are obtained. FINDINGS: Scattered senescent parenchymal changes noted. Hyperinflation compatible with COPD. Resolution of left lower lobe infiltrate or atelectasis. Pulmonary venous congestion without overt fa ilure. Heart size is stable. Mediastinal structures are stable and grossly unremarkable. No evidence for hilar prominence. Degenerative changes dorsal spine. IMPRESSION: 1. Resolution of left lower lobe infiltrate or atelectasis. Pulmonary venous congestion without overt failure.
--- NOTE | 2023-03-06 16:39 | P.GSCN ---
History of Present Illness Consult date: 03/06/23 Reason for Consult: The patient is known to our service, underwent aortic valve replacement using a 25 mm Wheat Inspiris bioprosthetic valve on 02/14/2023, presented to the emergency department in atrial fibrillation with rapid ventricular response heart rate in the 140s. Requesting physician: Curtis Contreras History of present illness: This is a 67-year-old female patient who follows on an outpatient basis for her primary care service with Dr. Liyah Cantu and with Dr. Juan Miguel Velasquez for her cardiology care. She has a past medical history significant for critical aortic valve stenosis, status post bioprosthetic aortic valve replacement with aortic root enlargement on 02/14/[address] Parikh, hypertension, hyperlipidemia, mild COPD, right internal carotid artery stenosis of 50-79%, remote history of GI b leed with bleeding ulcer in 2018, previously undiagnosed and untreated diabetes mellitus with a preoperative hemoglobin A1c of 7.9%, obesity with a BMI of 33.6 kg/m, a history of paroxysmal atrial fibrillation, a known common occurrence after open heart surgery and a remote history of nicotine dependence. The patient presented to the emergency department here at [facility] today with complaints of palpitations, lightheadedness and feeling like her heart was racing. Her heart rate this morning she reports was in the 70s, and during the afternoon she felt like her heart started racing and became somewhat short of breath. She denies any recent fever, chills, nausea, vomitin g, chest pain/pressure, constipation, diarrhea, cough, hemoptysis, hematemesis, headache, presyncope or syncope. A 12-lead EKG was completed in the emergency department which demonstrated atrial fibrillation with rapid ventricular response with a heart rate of 140 BPM. A chest x-ray was completed which showed resolution of the left lower lobe infiltrate and/or atelectasis, pulmonary venous congestion without overt failure. Her laboratory results showed a WBC count of 10.1, hemoglobin 11.6, hematocrit 36.6, platelets 514, PT 10.3, INR 1.0, PTT 23.6, sodium 138, potassium 4.7, BUN 33, creatinine 1.56, glucose 192, calcium 9.0, magnesium 1.5, pro-BNP 3070 and troponin of 0.035. Cardiology was consulted due to the atrial fibrillation and she was given a dose of amiodarone 150 mg IV piggyback over 10 minutes and was started on the amiodarone drip per protocol. The patient reports she has been taking her medications as prescribed at home. Due to the patient's known history of recent open heart surgery and her presenting symptoms a consult was placed to cardiothoracic surgery for furt her evaluation and treatment recommendations. Review of Systems A 14 point review of systems was completed and was negative except as mentioned in the HPI. Past Medical History Past Medical History: Atrial Fibrillation (Paroxysmal), COPD, Diabetes Mellitus, GERD/Reflux, GI Bleed, Hyperlipidemia, Hypertension, Osteoarthritis (OA) Additional Past Medical History / Comment(s): Heart murmur. Varicose veins. Hx Acid Reflux yrs ago, now resolved. hx. bleeding ulcer 2018, Limited mobility in neck. SOB w/exertion, fatigue History of Any Multi-Drug Resistant Organisms: None Reported Past Surgical History: Back Surgery, Cardiac Valve Replacement, Heart Nani terization, Orthopedic Surgery Additional Past Surgical History / Comment(s): Herniated disc surgery, neck fusion with pins and rods placed. EZIO, aortic valve replacement using a 25 mm Wheat Inspiris bioprosthetic valve and aortic annular enlargement using the Radames-Singh technique completed on 02/14/2023. Past Anesthesia/Blood Transfusion Reactions: Postoperative Nausea & Vomiting (PONV) Additional Past Anesthesia/Blood Transfusion Reaction / Comm: no hx. blood transfusion reaction Past Psychological History: No Psychological Hx Reported Smoking Status: Former smoker Past Alcohol Use History: None Reported Past Drug Use History: None Reported - Past Family History Mother Family Medical History: Diabetes Mellitus, Hypertension Additional Family Medical History / Comment(s): Vein replacement surgery. Father Family Medical History: Cancer, Hypertension Additional Family Medical History / Comment(s): Stomach cancer. Brother(s) Family Medical History: Cancer Additional Family Medical History / Comment(s): Prostate cancer. Other brother had Leukemia. Medications and Allergies Home Medications Medication Instructions Recorded Confirmed Type Atorvastatin [Lipitor] 80 mg PO HS 06/10/22 02/14/23 History Ezetimibe [Zetia] 10 mg PO DAILY 06/10/22 02/14/23 History Acetaminophen Tab [Tylenol] 1,000 mg PO Q6HR PRN tab 02/21/23 Rx Amiodarone [Cordarone] 0 mg PO BID tab 02/21/23 Rx Ascorbic Acid [Vitamin C] 500 mg PO BID-W/MEALS tab 02/21/23 Rx Aspirin 81 mg PO DAILY tab 02/21/23 Rx Clopidogrel [Plavix] 75 mg PO DAILY tab 02/21/23 Rx Diphenox-Atrop 2.5-0.025 mg 1 each PO Q6HR PRN tab 02/21/23 Rx [Lomotil] Ferrous Sulfate [Iron (65 MG 325 mg PO BID-W/MEALS tab 02/21/23 Rx Elemental)] Furosemide [Lasix] 40 mg PO DAILY tab 02/21/23 Rx INSULIN ASPART (NovoLOG) [NovoLOG 0 unit SQ ACHS each 02/21/23 Rx (formulary)] Ipratropium-Albuterol Nebulize 3 ml INHALATION RT-Q2H PRN each 02/21/23 Rx [Duoneb 0.5 mg-3 mg/3 ml Soln] Ipratropium-Albuterol Nebulize 3 ml INHALATION RT-QID each 02/21/23 Rx [Duoneb 0.5 mg-3 mg/3 ml Soln] Lactobacillus Acidoph & Bulgar 1 each PO BID packet 02/21/23 Rx [Lactinex] Magnesium Hydroxide [Milk of 2,400 mg PO BID PRN ml 02/21/23 Rx Magnesia Concentrate] Metoprolol Tartrate [Lopressor] 50 mg PO BID tab 02/21/23 Rx Pantoprazole [Protonix] 40 mg PO AC-BID tab 02/21/23 Rx bisacodyL [Dulcolax] 10 mg RECTAL DAILY PRN suppositor 02/21/23 Rx metFORMIN HCL [Glucophage] 500 mg PO BID-W/MEALS tab 02/21/23 Rx Allergies Allergy/AdvReac Type Severity Reaction Status Date / Time codeine Allergy Rash/Hives Verified 03/06/23 13:47 protamine AdvReac Rapid Verified 03/06/23 13:47 Heart Rate Surgical - Exam Vital Signs Temp Pulse Resp BP Pulse Ox 98.2 F 65 22 95/49 99 03/06/23 13:43 03/06/23 13:43 03/06/23 13:43 03/06/23 13:43 03/06/23 13:43 - General well developed, well nourished, no distress, no pain, obese - Eyes PERRL, normal ocular movement, no pale, no icteric - ENT normal pinna, normal nares, normal mucosa, no hearing loss, no congestion - Neck Neck is supple, no lymphadenopathy. no masses, no bruits, trachea midline, no venous distension - Respiratory Lung sounds essentially clear throughout. No wheezes, rhonchi or crackles. Respirations are symmetrical and nonlabored. Oxygen saturation is 97% on room air. - Cardiovascular Irregular rhythm and tachycardic rate. S1 and S2 present, negative for S3, gallop or murmur. Bedside telemetry consistent with atrial fibrillation with RVR heart rate 140s. No edema present. - Abdomen Abdomen is soft, nontender and nondistended. Active bowel sounds present all 4 abdominal quadrants. No guarding or rigidity. No organomegaly appreciated. - Genitourinary Deferred - Rectum Deferred - Integumentary Skin is warm and dry. No clubbing or cyanosis is present. Midline sternal incision is clean, dry and approximated. No drainage or redness is present. no rash, no growths, no abnormal pigmentation - Neurologic Cranial nerves II through XII intact. No focal deficits. - Musculoskeletal Moves all 4 extremities with equal strength bilaterally. normal gait, normal posture - Psychiatric oriented to time, oriented to person, oriented to place, speech is normal, memory intact Results - Labs 03/06/23 14:07 03/06/23 14:07 Abnormal Lab Results - Last 24 Hours (Table) 03/06/23 03/06/23 03/06/23 Range/Units 14:07 14:07 14:07 Plt Count 514 H (150-450) k/uL BUN 33 H (7-17) mg/dL Creatinine 1.56 H (0.52-1.04) mg/dL Glucose 192 H (74-99) mg/dL Magnesium 1.5 L (1.6-2.3) mg/dL Troponin I 0.035 H* (0.000-0.034) ng/mL Diabetes panel 03/06/23 Range/Units 14:07 Sodium 138 (137-145) mmol/L Potassium 4.7 (3.5-5.1) mmol/L Chloride 100 (98-107) mmol/L Carbon Dioxide 24 (22-30) mmol/L BUN 33 H (7-17) mg/dL Creatinine 1.56 H (0.52-1.04) mg/dL Glucose 192 H (74-99) mg/dL Calcium 9.0 (8.4-10.2) mg/dL AST 31 (14-36) U/L ALT 19 (4-34) U/L Alkaline Phosphatase 90 (38-126) U/L Total Protein 7.3 (6.3-8.2) g/dL Albumin 4.2 (3.5-5.0) g/dL Calcium panel 03/06/23 Range/Units 14:07 Calcium 9.0 (8.4-10.2) mg/dL Albumin 4.2 (3.5-5.0) g/dL Pituitary panel 03/06/23 Range/Units 14:07 Sodium 138 (137-145) mmol/L Potassium 4.7 (3.5-5.1) mmol/L Chloride 100 (98-107) mmol/L Carbon Dioxide 24 (22-30) mmol/L BUN 33 H (7-17) mg/dL Creatinine 1.56 H (0.52-1.04) mg/dL Glucose 192 H (74-99) mg/dL Calcium 9.0 (8.4-10.2) mg/dL Adrenal panel 03/06/23 Range/Units 14:07 Sodium 138 (137-145) mmol/L Potassium 4.7 (3.5-5.1) mmol/L Chloride 100 (98-107) mmol/L Carbon Dioxide 24 (22-30) mmol/L BUN 33 H (7-17) mg/dL Creatinine 1.56 H (0.52-1.04) mg/dL Glucose 192 H (74-99) mg/dL Calcium 9.0 (8.4-10.2) mg/dL Total Bilirubin 0.9 (0.2-1.3) mg/dL AST 31 (14-36) U/L ALT 19 (4-34) U/L Alkaline Phosphatase 90 (38-126) U/L Total Protein 7.3 (6.3-8.2) g/dL Albumin 4.2 (3.5-5.0) g/dL - Imaging Chest x-ray: report reviewed, image reviewed EKG: image reviewed Assessment and Plan Assessment: Atrial fibrillation with rapid ventricular response Critical aortic stenosis, status post bioprosthetic aortic valve replacement with annular aortic root enlargement History of hypertension Hyperlipidemia, treated, cholesterol 175, LDL 73 with triglycerides 250 Previous tobacco dependence Mild COPD, preoperative FEV1 74% of predicted Right internal carotid stenosis 50-79% Previous GI bleed with bleeding ulcer in 2018 Previously undiagnosed and untreated diabetes, preoperative hemoglobin A1c 7.9%, repeat A1c 6.8% Obesity with a BMI of 37.0 kg/m Plan: The patient was seen and examined at her bedside in the emergency department. Her chart and diagnostics were reviewed. Her case was discussed in detail with Dr. Kevin Rodriguez from cardiothoracic surgery. Continue amiodarone drip per protocol as ordered by cardiology. Discontinue by mouth Lasix and continue to monitor her BUN and creatinine. Magnesium replaced per protocol. Continue to monitor a CBC and CMP in the a.m. 03/07/2023. Agree with admit to observation unit for 24 hours. Medical management other comorbidities per primary care and cardiology service. More recommendations to follow based on patient's clinical course. Thank you for this consult and we will look for to working with you in the care of this patient. I have personally seen and examined the patient, performed the documentation and the assessment and plan as written. 30 minutes spent on the visit . Clifford GALICIA
[2023-03-06] MEDS: AMIODARONE 450 MG in DEXTROSE 5% IN WATER 250 ML IV SCH ×2 (19:08)
[2023-03-06 20:41] LABS: Glucose,Whole Blood 159 mg/dL (70-110)
[2023-03-06] MEDS: APIXABAN 2.5 MG TABLET PO SCH (20:41)
[2023-03-06] MEDS ORDERED: APIXABAN 5 MG TAB PO SCH (21:00)
--- NOTE | 2023-03-06 23:13 | HP ---
HISTORY AND PHYSICAL CHIEF COMPLAINT: Palpitations. HISTORY OF PRESENT ILLNESS: This is a 67-year-old woman, who had aortic valve replacement recently, was noted to have some palpitations. The patient was found to have atrial fibrillation, rate 110 to 140. Amiodarone drip was initiated with the heart rate improved to 100s. The patient was admitted for further evaluation and treatment. There is no history of any chest pain. No history of palpitations. No history of any fever, rigors, or chills. The chest x-ray which I reviewed personally showed no significant abnormality. PAST MEDICAL HISTORY: Reviewed includes recent aortic stenosis repair. Rest of the history and rest of the chart are also reviewed. HOME MEDICATIONS: Reviewed include metformin. Doses and rest of the medications are noted. ALLERGIES: Codeine. FAMILY HISTORY: History of diabetes mellitus and hypertension in the family. SOCIAL HISTORY: Previous history of smoking. REVIEW OF SYSTEMS: Fourteen-point review is negative except as mentioned earlier. PHYSICAL EXAMINATION: VITAL SIGNS: Pulse is 120, irregular. Blood pressure 100/62. Respirations 18. HEENT: Conjunctivae are normal. NECK: No jugular venous distention. CARDIOVASCULAR: S1 and S2. Irregularly irregular. RESPIRATORY: Breath sounds diminished. Few scattered rhonchi. ABDOMEN: Soft and nontender. LEGS: No edema. NERVOUS SYSTEM: No focal deficits. SKIN: No ulcers or rashes. JOINTS: No active deforming arthropathy. LABORATORY DATA: Noted. ASSESSMENT: 1. Atrial fibrillation with fast ventricular rate. 2. Recent aortic stenosis repair. 3. Troponin 0.035. 4. Diabetes mellitus, type 2. 5. Hypertension. 6. Hyperlipidemia. 7. Multiple medical issues. RECOMMENDATIONS AND DISCUSSION: In this 67-year-old woman presented with multiple complex medical issues, we will monitor the patient closely. Closely follow with Cardiology. Otherwise, I would also recommend repeat troponins. Follow closely with Cardiothoracic Surgery. Amiodarone drip was initiated. We will resume the home medications once they are confirmed. Monitor blood sugars closely. DVT prophylaxis. We will follow the patient closely. The patient will be a candidate for either heparin or Eliquis at this time. We will closely monitor. See orders for further details. MMODL / IJN: [id number] /
[2023-03-07 06:21] LABS: Glucose,Whole Blood 162 mg/dL (70-110)
[2023-03-07] MEDS ORDERED: DEXTROSE 50% SYRINGE 50 ML IVP PRN ×2 (07:24)
[2023-03-07 07:53] LABS: HCT 34.2 % (34.0-46.0); Hypochromasia Slight; MCH 30.6 pg (25.0-35.0); MCHC 32.2 g/dL (31.0-37.0); Mean Platelet Volume 7.5; Platelet Count 484 k/uL (150-450); RDW 14.9 % (11.5-15.5); WBC 10.3 k/uL (3.8-10.6)
--- NOTE | 2023-03-07 08:23 | P.PN ---
Subjective Progress Note Date: 03/07/23 Principal diagnosis: Atrial fibrillation with rapid ventricular response. History of critical aortic stenosis status post bioprosthetic aortic valve replacement with annular aortic root enlargement with postoperative acute blood loss anemia/thrombocytopenia/atrial fibrillation, hypertension, hyperlipidemia, previous tobacco dependence, mild COPD, right internal carotid stenosis 50-79%, previous GI bleed with bleeding ulcer in 2018, newly diagnosed diabetes, obesity The patient was seen and examined this morning laying in bed in no acute distress on the cardiac stepdown unit. She remains in atrial fibrillation, currently on amiodarone IV. She denies chest pain, shortness of breath, and she is in good spirits. Home medications re-added, including beta champ. Labs, CXR reviewed. No other new concerns. Objective - Vital Signs Vital signs: Vital Signs Temp 98.2 F 03/07/23 04:15 Pulse 102 H 03/07/23 04:15 Resp 17 03/07/23 04:15 BP 105/62 03/07/23 04:15 Pulse Ox 96 03/07/23 04:15 FiO2 Intake & Output 03/06/23 03/07/23 03/07/23 18:59 06:59 18:59 Intake Total 0 Output Total 400 Balance 0 -400 Weight 88.904 kg 88.8 kg Intake: Oral 0 Output: Urine 400 Other: Voiding Method External Catheter - Exam CONSTITUTIONAL: Appears comfortable, cooperative, no acute distress RESPIRATORY: Lungs sounds diminished bilaterally. Respirations even, nonlabored. Currently on room air with oxygen saturation 96%. Strong cough. CARDIOVASCULAR: S1, S2 present. Irregular rate and rhythm, atrial fibrillation on telemetry. Sternum stable. Palpable peripheral pulses bilaterally. No edema present. No calf pain or tenderness noted. Heart hugger in place with patient demonstrating appropriate use. Antiembolism stockings, SCDs present. GASTROINTESTINAL: Abdomen soft, nontender, nondistended. Active bowel sounds present 4 quadrants. Tolerating diet GENITOURINARY: Continues to void clear, yellow urine, PurWick in place INTEGUMENTARY: Skin is warm and dry with evidence of good perfusion. Anterior chest incision well approximated NEUROLOGIC: Cranial nerves II through XII intact MUSKULOSKELETAL: Able to move all extremities, strength equal bilaterally PSYCHIATRIC: Alert and oriented to person place and time, appropriate affect, intact judgment and insight - Allied health notes Allied health notes reviewed: nursing - Labs CBC & Chem 7: 03/07/23 07:35 03/07/23 07:35 Labs: Abnormal Lab Results - Last 24 Hours (Table) 03/06/23 03/06/23 03/06/23 Range/Units 14:07 14:07 14:07 RBC (3.80-5.40) m/uL Hgb (11.4-16.0) gm/dL Plt Count 514 H (150-450) k/uL BUN 33 H (7-17) mg/dL Creatinine 1.56 H (0.52-1.04) mg/dL Glucose 192 H (74-99) mg/dL POC Glucose (mg/dL) (70-110) mg/dL Magnesium 1.5 L (1.6-2.3) mg/dL Troponin I 0.035 H* (0.000-0.034) ng/mL 03/06/23 03/07/23 03/07/23 Range/Units 20:39 06:20 07:35 RBC 3.60 L (3.80-5.40) m/uL Hgb 11.0 L (11.4-16.0) gm/dL Plt Count 484 H (150-450) k/uL BUN (7-17) mg/dL Creatinine (0.52-1.04) mg/dL Glucose (74-99) mg/dL POC Glucose (mg/dL) 159 H 162 H (70-110) mg/dL Magnesium (1.6-2.3) mg/dL Troponin I (0.000-0.034) ng/mL - Imaging and Cardiology Chest x-ray: report reviewed, image reviewed Assessment and Plan Assessment: Atrial fibrillation with rapid ventricular response History of critical aortic stenosis status post bioprosthetic aortic valve replacement with annular aortic root enlargement with postoperative acute blood loss anemia/thrombocytopenia/atrial fibrillation History of hypertension Hyperlipidemia, treated Previous tobacco dependence Mild COPD Right internal carotid stenosis 50-79% Previous GI bleed with bleeding ulcer in 2018 Newly diagnosed diabetes Obesity Plan: Continue IV amiodarone for full 24-hour protocol. Transition back to oral amiodarone, re-start while still on IV amiodarone. Continue Eliquis Continue low-dose aspirin, statin. Beta champ restarted Increase activity, ambulate as tolerated Incentive spirometry ordered and should be encouraged Patient to shower daily Sternal precautions in place. No lifting/pulling/pushing anything heavier than 10 pounds for 12 weeks Will monitor labs, electrolyte replacement per protocol, no Lasix Will place open-heart discharge instructions on discharge plan along with follow-up appointments Recommend discharging to home with home care as soon as rate is controlled
[2023-03-07 08:26] LABS: African American GFR (CKD) 55 (>60 ml/min/1.73 sqM); Anion Gap 9 mmol/L; Blood Urea Nitrogen 27 mg/dL (7-17); Calcium 8.5 mg/dL (8.4-10.2); Carbon Dioxide 27 mmol/L (22-30); Chloride 100 mmol/L (98-107); Glucose 168 mg/dL (74-99); Magnesium 1.8 mg/dL (1.6-2.3); Non-African American GFR(CKD) 48 (>60 ml/min/1.73 sqM); Potassium 3.7 mmol/L (3.5-5.1); Sodium 136 mmol/L (137-145)
[2023-03-07] MEDS ORDERED: POTASSIUM CHLORIDE ER 20 MEQ TAB.ER PO STA (08:51)
[2023-03-07] MEDS ORDERED: FUROSEMIDE 40 MG TAB PO SCH (09:00)
[2023-03-07] MEDS ORDERED: AMIODARONE 200 MG TAB PO SCH (09:00)
[2023-03-07] MEDS ORDERED: METOPROLOL TARTRATE 50 MG TAB PO SCH (09:00)
[2023-03-07] MEDS ORDERED: METOPROLOL TARTRATE 25 MG TAB PO STA (09:44)
[2023-03-07] MEDS: EZETIMIBE 10 MG TAB PO SCH (09:54)
[2023-03-07] MEDS: ASPIRIN 81 MG PO SCH (09:55)
[2023-03-07] MEDS: MAGNESIUM SULFATE-D5W PMX 1 GM in DEXTROSE/WATER 1 100ML.BAG IVPB SCH ×2 (09:55→11:22)
[2023-03-07] MEDS: APIXABAN 2.5 MG TABLET PO SCH ×2 (09:55→20:02)
[2023-03-07] MEDS: INSULIN ASPART (NovoLOG) 100 UNIT/ML VIAL SQ SCH ×4 (09:58→21:01)
[2023-03-07] MEDS: ASCORBIC ACID 500 MG TAB PO SCH ×2 (10:00→17:16)
[2023-03-07] MEDS: METOPROLOL TARTRATE 25 MG TAB PO SCH ×2 (10:01→20:02)
[2023-03-07] MEDS: AMIODARONE 200 MG TAB PO SCH ×3 (11:21→23:58)
[2023-03-07] MEDS: AMIODARONE 450 MG in DEXTROSE 5% IN WATER 250 ML IV SCH ×2 (11:23)
--- NOTE | 2023-03-07 11:52 | P.CRDCN ---
History of Present Illness Consult date: 03/07/23 Consult reason: atrial fibrillation (W RVR) History of present illness: History of present illness: This is a 67 year old female patient of Dr. Juan Miguel Velasquez with past mental history of recent bioprosthetic aortic valve replacement and closure of the left atrial appendage on 02/14 with episode of postop atrial fibrillation and has been maintained on amiodarone 200 mg daily. She also has a past medical history of hypertension, hyperlipidemia. Patient states that she was in the bathroom and straining steroid up and started walking out of the bathroom and experienced dizziness and felt her heart racing. Patient presented to the emergency center with atrial fibrillation and 140 bpm and blood pressure 95/49. Patient was started on IV amiodarone, magnesium was replaced and potassium replaced. Patient denies having any symptoms at the time of evaluation. EKG atrial fibrillation at 140 bpm Chest x-ray: Resolution of left lower lobe infiltrate or atelectasis. Pulmonary venous congestion without overt failure. WBC 10.3, hemoglobin 11, platelet count 483. INR 1. Sodium 136, calcium 3.7, BUN 27 creatinine initially 1.56 and now 1.18. Troponin 0.035. ProBNP 3070. Magnesium initially 1.5 and repeat 1.8 Home cardiac medications: Amiodarone 200 mg daily, aspirin 81 mg daily, atorvastatin 80 mg at bedtime, Plavix 75 mg daily, Zetia 10 mg daily, Lasix 40 mg daily, Lopressor 50 mg twice daily. Echocardiogram 01/2022 revealed normal left ventricular systolic function, severe aortic stenosis with mean gradient of 58 mmHg. Cardiac catheterization 05/2022 revealed normal coronary arteries. 23 plus aortic regurgitation. EZIO 05/2022 reveals severe aortic stenosis tricuspid aortic valve, moderate aortic regurgitation, mildly dilated ascending aorta with root measuring normal. Review Of Systems: At the time of my evaluation: Constitutional: No fever, no chills. No weakness, fatigue or lethargy. EENT: No headache. No dizziness. Lungs: No shortness of breath, cough, no sputum production. No wheezing. Cardiovascular: No chest pain, no lower extremity edema. No palpitations. No paroxysmal nocturnal dyspnea. No orthopnea. No lightheadedness or dizziness. No syncopal episodes. Abdominal: No abdominal pain. No nausea, vomiting. No diarrhea. No constipation. No bloody or tarry stools. Genitourinary: No dysuria.. No urinary retention. Musculoskeletal: No myalgias. No muscle weakness, no frequent falls. No back pain. No neck pain. Integumentary: No wounds. No rash. No unusual bruising. Neurologic: No aphasia. No facial droop. No change in mentation. No head injury. No headache. Physical examination: Gen: This is a 67-year-old female. She is resting in bed appears to be comfortable VS: reviewed blood pressure 116/64, telemetry atrial fibrillation 102-118 HEENT: Head is atraumatic, normocephalic. Pupils equal, round. Sclerae is anicteric. NECK: Supple. No JVD. LUNGS: Clear to auscultation. No wheezes or rhonchi. No intercostal retractions. HEART: Regular rate and rhythm. Systolic ejection murmur. ABDOMEN: Soft No tenderness. EXTREMITIES: No pedal edema. No calf tenderness. NEUROLOGICAL: Patient is awake, alert and oriented x3. Assessment: Atrial fibrillation with RVR, paroxysmal Status post aortic valve replacement for severe aortic stenosis 6/2 Episode of postop atrial fibrillation with RVR Hypertension Hyperlipidemia Plan: Discontinue IV amiodarone and start patient on amiodarone 200 mg 3 times daily Continue Lopressor increased to 75 mg twice daily Continue other cardiac medications. Continue telemetry monitoring No need to repeat echocardiogram Further recommendations to follow based upon clinical course Thank you kindly for this consultation. Nurse practitioner note has been reviewed, I agree with documented findings and plan of care. Patient was seen and examined. Past Medical History Past Medical History: Atrial Fibrillation, COPD, Diabetes Mellitus, GERD/Reflux, GI Bleed, Hyperlipidemia, Hypertension, Osteoarthritis (OA) Additional Past Medical History / Comment(s): Heart murmur. Varicose veins. Hx Acid Reflux yrs ago, now resolved. hx. bleeding ulcer 2018, Limited mobility in neck. SOB w/exertion, fatigue History of Any Multi-Drug Resistant Organisms: None Reported Past Surgical History: Back Surgery, Cardiac Valve Replacement, Heart Catheterization, Orthopedic Surgery Additional Past Surgical History / Comment(s): Herniated disc surgery, neck fusion with pins and rods placed. EZIO, aortic valve replacement using a 25 mm Wheat Inspiris bioprosthetic valve and aortic annular enlargement using the Radames-Singh technique completed on 02/14/2023. Past Anesthesia/Blood Transfusion Reactions: Postoperative Nausea & Vomiting (PONV) Additional Past Anesthesia/Blood Transfusion Reaction / Comment(s): no hx. blood transfusion reaction Past Psychological History: No Psychological Hx Reported Smoking Status: Former smoker Past Alcohol Use History: None Reported Additional Past Alcohol Use History / Comment(s): Smoked as teenager, quit @age 20, never heavy smoker Past Drug Use History: None Reported - Past Family History Mother Family Medical History: Diabetes Mellitus, Hypertension Additional Family Medical History / Comment(s): Vein replacement surgery. Father Family Medical History: Cancer, Hypertension Additional Family Medical History / Comment(s): Stomach cancer. Brother(s) Family Medical History: Cancer Additional Family Medical History / Comment(s): Prostate cancer. Other brother had Leukemia. Medications and Allergies Home Medications Medication Instructions Recorded Confirmed Type Atorvastatin [Lipitor] 80 mg PO HS 06/10/22 03/06/23 History Ezetimibe [Zetia] 10 mg PO DAILY 06/10/22 03/06/23 History Acetaminophen Tab [Tylenol] 1,000 mg PO Q6HR PRN tab 02/21/23 03/06/23 Rx Ascorbic Acid [Vitamin C] 500 mg PO BID-W/MEALS tab 02/21/23 03/06/23 Rx Aspirin 81 mg PO DAILY tab 02/21/23 03/06/23 Rx Clopidogrel [Plavix] 75 mg PO DAILY tab 02/21/23 03/06/23 Rx Furosemide [Lasix] 40 mg PO DAILY tab 02/21/23 03/06/23 Rx Metoprolol Tartrate [Lopressor] 50 mg PO BID tab 02/21/23 03/06/23 Rx metFORMIN HCL [Glucophage] 500 mg PO BID-W/MEALS tab 02/21/23 03/06/23 Rx Albuterol Sulfate [Albuterol 1 - 2 puff PO RT-Q4H PRN 03/06/23 03/06/23 History Sulfate Hfa] Amiodarone [Cordarone] 200 mg PO DAILY 03/06/23 03/06/23 History Allergies Allergy/AdvReac Type Severity Reaction Status Date / Time codeine Allergy Rash/Hives Verified 03/06/23 16:11 protamine AdvReac Rapid Verified 03/06/23 16:11 Heart Rate Physical Exam Vitals: Vital Signs Temp Pulse Pulse Resp BP BP Pulse Ox 03/07/23 09:28 96 03/07/23 08:15 98.1 F 109 H 17 116/64 95 03/07/23 04:15 98.2 F 102 H 17 105/62 96 03/07/23 01:33 102 H 16 03/06/23 23:48 97.9 F 102 H 16 108/50 95 03/06/23 20:00 97.3 F L 100 15 107/64 96 03/06/23 18:13 98.2 F 103 H 16 111/71 97 03/06/23 18:00 112 H 18 109/68 96 03/06/23 17:18 112 H 18 100/61 96 03/06/23 16:25 112 H 18 102/88 97 03/06/23 15:05 120 H 18 100/63 96 03/06/23 13:43 98.2 F 65 22 95/49 99 Intake and Output 03/06/23 03/07/23 03/07/23 22:59 06:59 14:59 Intake Total 0 Output Total 400 Balance 0 -400 Intake: Oral 0 Output: Urine 400 Other: Voiding Method External Catheter External Catheter Weight 88.904 kg 88.8 kg Results 03/07/23 07:35 03/07/23 07:35 Cardiac Enzymes 03/06/23 03/06/23 Range/Units 14:07 14:07 AST 31 (14-36) U/L Troponin I 0.035 H* (0.000-0.034) ng/mL Coagulation 03/06/23 Range/Units 14:07 PT 10.3 (9.0-12.0) sec APTT 23.6 (22.0-30.0) sec CBC 03/06/23 03/07/23 Range/Units 14:07 07:35 WBC 10.1 10.3 (3.8-10.6) k/uL RBC 3.84 3.60 L (3.80-5.40) m/uL Hgb 11.6 11.0 L (11.4-16.0) gm/dL Hct 36.6 34.2 (34.0-46.0) % Plt Count 514 H 484 H (150-450) k/uL Comprehensive Metabolic Panel 03/06/23 03/07/23 Range/Units 14:07 07:35 Sodium 138 136 L (137-145) mmol/L Potassium 4.7 3.7 (3.5-5.1) mmol/L Chloride 100 100 (98-107) mmol/L Carbon Dioxide 24 27 (22-30) mmol/L BUN 33 H 27 H (7-17) mg/dL Creatinine 1.56 H 1.18 H (0.52-1.04) mg/dL Glucose 192 H 168 H (74-99) mg/dL Calcium 9.0 8.5 (8.4-10.2) mg/dL AST 31 (14-36) U/L ALT 19 (4-34) U/L Alkaline Phosphatase 90 (38-126) U/L Total Protein 7.3 (6.3-8.2) g/dL Albumin 4.2 (3.5-5.0) g/dL Current Medications Generic Name Dose Route Start Last Admin Trade Name Freq PRN Reason Stop Dose Admin Acetaminophen 650 mg 03/06/23 15:20 Acetaminophen Tab 325 Mg Tab PO Q6HR PRN Mild Pain or Fever > 100.5 Amiodarone HCl 200 mg 03/07/23 09:00 Amiodarone 200 Mg Tab PO DAILY [facility] Apixaban 2.5 mg 03/06/23 21:00 03/06/23 20:41 Apixaban 2.5 Mg Tablet PO 2.5 mg BID [facility] Administration Protocol Ascorbic Acid 500 mg 03/07/23 07:45 Ascorbic Acid 500 Mg Tab PO BID-W/MEALS [facility] Aspirin 81 mg 03/07/23 09:00 Aspirin 81 Mg PO DAILY [facility] Atorvastatin Calcium 80 mg 03/07/23 21:00 Atorvastatin 80 Mg Tab PO HS [facility] Dextrose/Water 25 ml 03/07/23 07:24 Dextrose 50% Syringe 50 Ml IVP PER PROTOCOL PRN Hypoglycemia Protocol Dextrose/Water 50 ml 03/07/23 07:24 Dextrose 50% Syringe 50 Ml IVP PER PROTOCOL PRN Hypoglycemia Protocol Ezetimibe 10 mg 03/07/23 09:00 Ezetimibe 10 Mg Tab PO DAILY [facility] Amiodarone HCl 450 mg/ 250 mls @ 16.667 mls/hr 03/06/23 20:15 03/06/23 19:08 Dextrose/Water IV 03/07/23 14:14 0.5 mg/min .Q15H NIEVES 16.667 mls/hr Administration Protocol 0.5 MG/MIN Magnesium Sulfate/Dextrose 1 100 mls @ 100 mls/hr 03/07/23 10:00 gm/ IV Solution IVPB 03/07/23 11:59 Q1H [facility] Insulin Aspart 0 unit 03/07/23 07:30 Insulin Aspart (Novolog) 100 Unit/Ml Vial SQ ACHS [facility] Protocol Metoprolol Tartrate 50 mg 03/07/23 09:00 Metoprolol Tartrate 50 Mg Tab PO BID [facility] Naloxone HCl 0.2 mg 03/06/23 15:20 Naloxone 0.4 Mg/Ml 1 Ml Vial IV Q2M PRN Opioid Reversal Intake and Output 03/06/23 03/07/23 03/07/23 22:59 06:59 14:59 Intake Total 0 Output Total 400 Balance 0 -400 Intake: Oral 0 Output: Urine 400 Other: Voiding Method External Catheter External Catheter Weight 88.904 kg 88.8 kg 03/07/23 07:35 03/07/23 07:35
[2023-03-07 11:59] LABS: Glucose,Whole Blood 244 mg/dL (70-110)
[2023-03-07 17:10] LABS: Glucose,Whole Blood 140 mg/dL (70-110)
[2023-03-07 20:43] LABS: Glucose,Whole Blood 147 mg/dL (70-110)
[2023-03-07] MEDS ORDERED: ATORVASTATIN 80 MG TAB PO SCH (21:00)
[2023-03-07] MEDS: HYDROCORTISONE 1% CREAM 30 GM TUBE TOPICAL SCH (21:01)
[2023-03-07] MEDS: diphenhydrAMINE 25 MG CAP PO PRN (21:01)
--- NOTE | 2023-03-07 21:26 | P.PN ---
Subjective This is a pleasant 67 years old female with multiple problems admitted for A. fib and RVR, and mildly elevated troponin, heart rate is controlled after increasing amiodarone 200 mg 3 times a day and metoprolol 75 mg twice a day. Hospital Cleaner on the case. She is on liquids 2.5 mg. Cardiothoracic surgery on the case patient status post recent cardiac valve replacement. Acute kidney injury improvement. Patient this morning denies any symptoms, no chest pain. The patient dyspnea or dizziness. Objective - Vital Signs Vital signs: Vital Signs Temp 98.3 F 03/07/23 16:15 Pulse 103 H 03/07/23 16:15 Resp 16 03/07/23 16:15 BP 108/71 03/07/23 16:15 Pulse Ox 95 03/07/23 16:15 FiO2 Intake & Output 03/06/23 03/07/23 03/07/23 18:59 06:59 18:59 Intake Total 0 336 Output Total 400 225 Balance 0 -400 111 Weight 88.904 kg 88.8 kg Intake: Intake, IV Titration 100 Amount Magnesium Sulfate-D5w Pmx 100 1 gm In Dextrose/Water 1 100ml.bag @ 100 mls/hr IVPB Q1H [facility] Rx#: [id number] Oral 0 236 Output: Urine 400 225 Other: Voiding Method External Catheter Toilet - Exam GENERAL: The patient is alert and oriented x3, not in any acute distress. Well developed, well nourished. HEENT: Pupils are round and equally reacting to light. EOMI. No scleral icterus. No conjunctival pallor. Normocephalic, atraumatic. No pharyngeal erythema. No thyromegaly. CARDIOVASCULAR: S1 and S2 present. No murmurs, rubs, or gallops. PULMONARY: Chest is clear to auscultation, no wheezing . no crackles. ABDOMEN: Soft, nontender, nondistended, normoactive bowel sounds. No palpable organomegaly. MUSCULOSKELETAL: No joint swelling or deformity. EXTREMITIES: No cyanosis, clubbing, or pedal edema. NEUROLOGICAL: Gross neurological examination did not reveal any focal deficits. SKIN: No rashes. no petechiae. - Labs CBC & Chem 7: 03/07/23 07:35 03/07/23 07:35 Labs: Abnormal Lab Results - Last 24 Hours (Table) 06/03/07/23 03/07/23 Range/Units 20:39 06:20 07:35 RBC 3.60 L (3.80-5.40) m/uL Hgb 11.0 L (11.4-16.0) gm/dL Plt Count 484 H (150-450) k/uL Sodium (137-145) mmol/L BUN (7-17) mg/dL Creatinine (0.52-1.04) mg/dL Glucose (74-99) mg/dL POC Glucose (mg/dL) 159 H 162 H (70-110) mg/dL 03/07/23 03/07/23 Range/Units 07:35 11:57 RBC (3.80-5.40) m/uL Hgb (11.4-16.0) gm/dL Plt Count (150-450) k/uL Sodium 136 L (137-145) mmol/L BUN 27 H (7-17) mg/dL Creatinine 1.18 H (0.52-1.04) mg/dL Glucose 168 H (74-99) mg/dL POC Glucose (mg/dL) 244 H (70-110) mg/dL Assessment and Plan Assessment: A. fib and RVR, present on admission Elevated troponin secondary to above Aortic valve stenosis status post recent aortic valve replacement, acute kidney injury, improvement Plan: Continue with the liquids. Continue with amiodarone 200 mg, metoprolol 75 mg Monitoring heart rate Cardiology and cardiothoracic surgery team of the case. Monitor creatinine Labs and medication were reviewed.. Continue same treatment. Continue with symptomatic treatment. Resume home medication. Monitor labs and vitals. DVT and GI prophylaxis. Further recommendations as per clinical course of the patient DVT prophylaxis: Eliquis GI Prophylaxis: Pepcid Prognosis is guarded
[2023-03-08 04:32] VITALS: RESP 16
[2023-03-08 06:22] LABS: Glucose,Whole Blood 148 mg/dL (70-110)
[2023-03-08] MEDS: INSULIN ASPART (NovoLOG) 100 UNIT/ML VIAL SQ SCH ×3 (06:24→16:57)
[2023-03-08] MEDS: ASCORBIC ACID 500 MG TAB PO SCH ×2 (06:45→17:00)
--- NOTE | 2023-03-08 07:25 | XR ---
EXAMINATION TYPE: XR chest 2V DATE OF EXAM: 03/08/2023 COMPARISON: 03/06/2023 HISTORY: post cardiac surgery TECHNIQUE: Frontal and lateral views of the chest are obtained. FINDINGS: Changes of median sternotomy with a cardiac valvular prosthesis and left atrial clip. No evidence for infiltrate. Small area of atelectatic change left midlung zone. Heart size is stable. Mediastinal structures are stable and grossly unremarkable. No evidence for hilar prominence. Degenerative changes dorsal spine. IMPRESSION: 1. Small area of atelectatic change left midlung zone. Otherwise unremarkable study.
[2023-03-08] MEDS: diphenhydrAMINE 25 MG CAP PO PRN (08:55)
[2023-03-08] MEDS: APIXABAN 2.5 MG TABLET PO SCH (08:55)
[2023-03-08] MEDS: ASPIRIN 81 MG PO SCH (08:56)
[2023-03-08] MEDS: HYDROCORTISONE 1% CREAM 30 GM TUBE TOPICAL SCH (08:56)
[2023-03-08] MEDS: METOPROLOL TARTRATE 25 MG TAB PO SCH (08:56)
[2023-03-08] MEDS: AMIODARONE 200 MG TAB PO SCH ×2 (08:56→16:51)
[2023-03-08] MEDS: EZETIMIBE 10 MG TAB PO SCH (08:56)
[2023-03-08 09:34] LABS: HCT 34.4 % (34.0-46.0); HGB 10.8 gm/dL (11.4-16.0); Hypochromasia Marked; MCH 30.6 pg (25.0-35.0); MCHC 31.5 g/dL (31.0-37.0); MCV 97.2 fL (80.0-100.0); Mean Platelet Volume 7.5; Platelet Count 436 k/uL (150-450); RBC 3.54 m/uL (3.80-5.40); RDW 14.9 % (11.5-15.5); WBC 8.8 k/uL (3.8-10.6)
[2023-03-08 09:45] LABS: African American GFR (CKD) 57 (>60 ml/min/1.73 sqM); Anion Gap 9 mmol/L; Blood Urea Nitrogen 22 mg/dL (7-17); Calcium 8.8 mg/dL (8.4-10.2); Carbon Dioxide 27 mmol/L (22-30); Chloride 99 mmol/L (98-107); Glucose 202 mg/dL (74-99); Magnesium 2.4 mg/dL (1.6-2.3); Non-African American GFR(CKD) 49 (>60 ml/min/1.73 sqM); Potassium 4.3 mmol/L (3.5-5.1); Sodium 135 mmol/L (137-145)
--- NOTE | 2023-03-08 09:59 | P.PN ---
Subjective Progress Note Date: 03/08/23 Principal diagnosis: Atrial fibrillation with rapid ventricular response. Past medical history significant for critical aortic valve stenosis status post bioprosthetic aortic valve replacement with annular aortic root enlargement with postoperative acute blood loss anemia/thrombocytopenia/paroxysmal atrial fibrillation, hypertension, hyperlipidemia, previous tobacco dependence, mild COPD, right internal carotid stenosis 50-79%, previous GI bleed with bleeding ulcer in 2018, newly diagnosed diabetes, obesity with a BMI of 33.6 kg/m. Patient was seen and examined today 03/08/2023 at her bedside in the intensive care unit. Currently she is sitting up to the bedside chair, is awake, alert, oriented 3 and is in no acute distress. Oxygen saturations are 96% on room air and she is achieving 2732-5410 mL on her incentive spirometry with encouragement. Bedside telemetry this morning showing sinus bradycardia heart rate 59 BPM, she converted from atrial fibrillation to normal sinus rhythm last evening around 8 PM. She continues on Eliquis for anticoagulation. She denies any complaints of pain or shortness of breath and feels ready to be discharged home today. Laboratory results reviewed. Chest x-ray reviewed. Objective - Vital Signs Vital signs: Vital Signs Temp 98.3 F 03/08/23 08:45 Pulse 62 03/08/23 08:45 Resp 16 03/08/23 08:45 BP 114/54 03/08/23 08:45 Pulse Ox 97 03/08/23 08:45 FiO2 Intake & Output 03/07/23 03/08/23 03/08/23 18:59 06:59 18:59 Intake Total 336 118 Output Total 225 400 Balance 111 -400 118 Intake: Intake, IV Titration 100 Amount Magnesium Sulfate-D5w Pmx 100 1 gm In Dextrose/Water 1 100ml.bag @ 100 mls/hr IVPB Q1H [facility] Rx#: [id number] Oral 236 118 Output: Urine 225 400 Other: Voiding Method Toilet Toilet - Exam CONSTITUTIONAL: Appears comfortable, cooperative, no acute distress. RESPIRATORY: Lungs sounds diminished bilaterally. Respirations are symmetrical, nonlabored. Currently on room air with oxygen saturation 96%. Strong cough. CARDIOVASCULAR: S1, S2 present. Regular rate and bradycardic rhythm, sinus bradycardia on remote telemetry with a heart rate of 59 BPM. Sternum stable. Palpable peripheral pulses bilaterally. No edema present. No calf pain or tenderness noted. Heart hugger in place with patient demonstrating appropriate use. Antiembolism stockings, SCDs present. GASTROINTESTINAL: Abdomen soft, nontender, nondistended. Active bowel sounds present 4 quadrants. Tolerating diet GENITOURINARY: Continues to void clear, yellow urine. INTEGUMENTARY: Skin is warm and dry with evidence of good perfusion. Midline sternal chest incision well approximated, no redness or drainage. NEUROLOGIC: Cranial nerves II through XII intact. MUSKULOSKELETAL: Able to move all extremities, strength equal bilaterally. PSYCHIATRIC: Alert and oriented to person place and time, appropriate affect, intact judgment and insight. - Allied health notes Allied health notes reviewed: nursing - Labs CBC & Chem 7: 03/08/23 09:08 03/08/23 09:08 Labs: Abnormal Lab Results - Last 24 Hours (Table) 03/07/23 03/07/23 03/07/23 Range/Units 11:57 17:09 20:41 RBC (3.80-5.40) m/uL Hgb (11.4-16.0) gm/dL Sodium (137-145) mmol/L BUN (7-17) mg/dL Creatinine (0.52-1.04) mg/dL Glucose (74-99) mg/dL POC Glucose (mg/dL) 244 H 140 H 147 H (70-110) mg/dL Magnesium (1.6-2.3) mg/dL 03/08/23 03/08/23 03/08/23 Range/Units 06:21 09:08 09:08 RBC 3.54 L (3.80-5.40) m/uL Hgb 10.8 L (11.4-16.0) gm/dL Sodium 135 L (137-145) mmol/L BUN 22 H (7-17) mg/dL Creatinine 1.15 H (0.52-1.04) mg/dL Glucose 202 H (74-99) mg/dL POC Glucose (mg/dL) 148 H (70-110) mg/dL Magnesium 2.4 H (1.6-2.3) mg/dL - Imaging and Cardiology Chest x-ray: report reviewed, image reviewed Assessment and Plan Assessment: Atrial fibrillation with rapid ventricular response, currently sinus bradycardia heart rate 59 BPM History of critical aortic stenosis status post bioprosthetic aortic valve replacement with annular aortic root enlargement with postoperative acute blood loss anemia/thrombocytopenia/paroxysmal atrial fibrillation History of hypertension Hyperlipidemia, treated Previous tobacco dependence Mild COPD Right internal carotid stenosis 50-79% Previous GI bleed with bleeding ulcer in 2018 Newly diagnosed diabetes Obesity with a BMI of 33.6 kg/m Plan: Continue oral amiodarone. Continue Eliquis for anticoagulation. Continue low-dose aspirin, statin. Beta champ restarted yesterday, currently on metoprolol tartrate 75 mg by mouth twice a day Increase activity, ambulate as tolerated. Encourage Incentive spirometry use 10 times every hour while awake. Patient to shower daily. Sternal precautions in place. Heart hugger is in place. No lifting/pulling/pushing anything heavier than 10 pounds for 12 weeks. Will monitor labs, electrolyte replacement per protocol, no Lasix. BUN 22 and creatinine 1.15 today. Open-heart discharge instructions on discharge plan along with follow-up appointments. Recommend discharging patient to home with home care today, per the cardiothoracic surgery standpoint. Discharge today if okay with other consultants and primary care. Time with Patient: Less than 30
--- NOTE | 2023-03-08 10:46 | P.PN ---
Subjective Progress Note Date: 03/08/23 This is Rachid Alamo NP, I'm dictating on behalf of Dr. Cobb's H&P and A&P. Patient was interviewed and examined. Patient is a pleasant 59-year-old female who presented to the hospital with Petar pires with RVR. Patient reports that she's feeling good today. She has returned to normal sinus rhythm on telemetry. Patient was started on amiodarone, which does appear to be controlling her heart rate at this time. She is denying chest pain, shortness of breath, heart palpitations. GENERAL: Well-appearing, well-nourished and in no acute distress. NECK: Supple without JVD or thyromegaly. LUNGS: Breath sounds clear to auscultation bilaterally. Respiration equal and unlabored. No wheezes, rales or rhonchi. HEART: Regular rate and rhythm without murmurs, rubs or gallops. S1 and S2 heard. EXTREMITIES: Normal range of motion, no edema. No clubbing or cyanosis. Peripheral pulses intact and strong. VITALS: Temp 98.3, pulse 60, respirations 16, blood pressure 114/54, O2 saturation 97% on room air TELEMETRY: Normal sinus rhythm LABS: White count 8.8, hemoglobin 10.8, sodium 135, potassium 4.3, B1 22, creatinine 1.15, magnesium 2.4 IMPRESSION: 1. Atrial fibrillation with RVR, paroxysmal 2. Status post aortic valve replacement for severe aortic stenosis on 02/14/2023 3. Episode of postop atrial fibrillation with RVR 4. Hypertension 5. Hyperlipidemia PLAN: Continue amiodarone 200 mg 3 times a day for one week Then continue amiodarone 400 mg daily for one month, then stop Expect atrial fibrillation to continue to come and go Patient may be discharged from a cardiology standpoint Follow-up in the office in one month Thank you for allowing us to participate in the care of this patient. Objective - Vital Signs Vital signs: Vital Signs Temp 98.3 F 03/08/23 08:45 Pulse 62 03/08/23 08:45 Resp 16 03/08/23 08:45 BP 114/54 03/08/23 08:45 Pulse Ox 97 03/08/23 08:45 FiO2 Intake & Output 03/07/23 03/08/23 03/08/23 18:59 06:59 18:59 Intake Total 336 118 Output Total 225 400 Balance 111 -400 118 Intake: Intake, IV Titration 100 Amount Magnesium Sulfate-D5w Pmx 100 1 gm In Dextrose/Water 1 100ml.bag @ 100 mls/hr IVPB Q1H [facility] Rx#: [id number] Oral 236 118 Output: Urine 225 400 Other: Voiding Method Toilet Toilet - Labs CBC & Chem 7: 03/08/23 09:08 03/08/23 09:08 Labs: Abnormal Lab Results - Last 24 Hours (Table) 03/07/23 03/07/23 03/07/23 Range/Units 11:57 17:09 20:41 RBC (3.80-5.40) m/uL Hgb (11.4-16.0) gm/dL Sodium (137-145) mmol/L BUN (7-17) mg/dL Creatinine (0.52-1.04) mg/dL Glucose (74-99) mg/dL POC Glucose (mg/dL) 244 H 140 H 147 H (70-110) mg/dL Magnesium (1.6-2.3) mg/dL 03/08/23 03/08/23 03/08/23 Range/Units 06:21 09:08 09:08 RBC 3.54 L (3.80-5.40) m/uL Hgb 10.8 L (11.4-16.0) gm/dL Sodium 135 L (137-145) mmol/L BUN 22 H (7-17) mg/dL Creatinine 1.15 H (0.52-1.04) mg/dL Glucose 202 H (74-99) mg/dL POC Glucose (mg/dL) 148 H (70-110) mg/dL Magnesium 2.4 H (1.6-2.3) mg/dL
[2023-03-08 11:59] LABS: Glucose,Whole Blood 178 mg/dL (70-110)
[2023-03-08 16:56] LABS: Glucose,Whole Blood 148 mg/dL (70-110)
[2023-03-08 17:03] VITALS: BP 119/74; PULSE 60; TEMP 97.3
--- NOTE | 2023-03-08 23:46 | P.DS ---
Providers Date of admission: 03/06/23 15:21 Attending physician: Aissatou Juares Consults: 03/06/23 15:20 Consult Physician Routine Consulting Provider: Gary Cobb Consult Reason/Comments: A-fib RVR Do you want consulting provider notified?: Already Contacted Consult Physician Routine Consulting Provider: Salvador Parikh Consult Reason/Comments: Status post aortic valve replacement Do you want consulting provider notified?: Already Contacted Primary care physician: Liyah Cantu Hospital Course: diagnoses: A. fib and RVR, present on admission Elevated troponin secondary to above Aortic valve stenosis status post recent aortic valve replacement, acute kidney injury, improvement Mild generalized maculopapular rash, started 2 days prior to hospitalization, slightly improved on hydro-cortisone cream and Benadryl, follow-up outpatient with Dr. ryan in one week and she agrees hospital course: This is a pleasant 67 years old female with multiple problems admitted for A. fib and RVR, and mildly elevated troponin, heart rate is controlled after increasing amiodarone 200 mg 3 times a day and metoprolol 75 mg twice a day. Machine Egg Washer on the case. She is on liquids 2.5 mg. Cardiothoracic surgery on the case patient status post recent cardiac valve replacement. Acute kidney injury improvement. Patient this morning denies any symptoms, no chest pain. The patient denies dyspnea or dizziness. Patient was cleared for discharge by engine room helper Patient will be discharged on tapered amiodarone. Machine Egg Washer, see discharge instructions. Started on Eliquis and she agrees with the complaint of $38, she'll get one month free. Problems and management plan were discussed with the patient and he verbalized understanding and acceptance Patient was found stable and can be discharged home in guarded prognosis however he needs follow-up as an outpatient. Patient was instructed to follow up with PCP within one week and patient agrees Patient instructed to follow up with Dr. Velasquez and she agrees with the appointments made for her on 03/20 and with the appointments made for her with Dr. Parikh on and states she will follow up Patient also was instructed to follow up with her cable television access coordinator Dr. Richards if needed for any pulmonary symptoms Physical exam Gen: patient is a AAOx3, no distress CVS: S1-S2, RRR, no murmur Lungs: B/L CTA, no wheezing Abdomen: soft, no distention, no tenderness, positive bowel sounds Extremity: no leg edema or induration Skin: Mild generalized maculopapular rash especially in extremities. No mouth ulcer. No blisters Time spent more than 35 minutes Patient Condition at Discharge: Stable Plan - Discharge Summary Discharge Rx Participant: Yes New Discharge Prescriptions: New Amiodarone [Cordarone] 200 mg PO DIRECTED #90 tab Apixaban [Eliquis] 2.5 mg PO BID 30 Days #60 tab diphenhydrAMINE [Benadryl] 25 mg PO TID 3 Days #12 cap Hydrocortisone Cream [Hydrocortisone 1% Cream] 1 applic TOPICAL BID 7 Days #1 each Metoprolol Tartrate [Lopressor] 75 mg PO BID #200 tab Continue metFORMIN HCL [Glucophage] 500 mg PO BID-W/MEALS tab Furosemide [Lasix] 40 mg PO DAILY tab Albuterol Sulfate [Albuterol Sulfate Hfa] 1 - 2 puff PO RT-Q4H PRN PRN Reason: Shortness Of Breath Ezetimibe [Zetia] 10 mg PO DAILY Atorvastatin [Lipitor] 80 mg PO HS Acetaminophen Tab [Tylenol] 1,000 mg PO Q6HR PRN tab PRN Reason: Fever And/ Or Pain Ascorbic Acid [Vitamin C] 500 mg PO BID-W/MEALS tab Aspirin 81 mg PO DAILY #30 tab Discontinued Clopidogrel [Plavix] 75 mg PO DAILY tab Amiodarone [Cordarone] 200 mg PO DAILY Metoprolol Tartrate [Lopressor] 50 mg PO BID tab Discharge Medication List Atorvastatin [Lipitor] 80 mg PO HS 06/10/22 [History] Ezetimibe [Zetia] 10 mg PO DAILY 06/10/22 [History] Acetaminophen Tab [Tylenol] 1,000 mg PO Q6HR PRN tab 02/21/23 [Rx] Ascorbic Acid [Vitamin C] 500 mg PO BID-W/MEALS tab 02/21/23 [Rx] Furosemide [Lasix] 40 mg PO DAILY tab 02/21/23 [Rx] metFORMIN HCL [Glucophage] 500 mg PO BID-W/MEALS tab 02/21/23 [Rx] Albuterol Sulfate [Albuterol Sulfate Hfa] 1 - 2 puff PO RT-Q4H PRN 03/06/23 [History] Amiodarone [Cordarone] 200 mg PO DIRECTED #90 tab 03/08/23 [Rx] Apixaban [Eliquis] 2.5 mg PO BID 30 Days #60 tab 03/08/23 [Rx] Aspirin 81 mg PO DAILY #30 tab 03/08/23 [Rx] Hydrocortisone Cream [Hydrocortisone 1% Cream] 1 applic TOPICAL BID 7 Days #1 each 03/08/23 [Rx] Metoprolol Tartrate [Lopressor] 75 mg PO BID #200 tab 03/08/23 [Rx] diphenhydrAMINE [Benadryl] 25 mg PO TID 3 Days #12 cap 03/08/23 [Rx] Follow up Appointment(s)/Referral(s): Keisha Richards MD [STAFF PHYSICIAN] - As Needed (Patient did make it to see Dr. Richards 03/05/23 as scheduled) [facility],Cardiac [NON-STAFF] - 4 Weeks (You will receive a phone call in approximately 4-6 weeks for evaluation for cardiac rehab) Zahra Judge,Home Care [NON-STAFF] - Liyah Cantu MD [Primary Care Provider] - 03/13/23 2:30 pm () Salvador Parikh MD [STAFF PHYSICIAN] - 03/25/23 12:30 pm (Friday) Darius Velasquez MD [STAFF PHYSICIAN] - 03/20/23 9:15 am () Patient Instructions/Handouts: A-fib (Atrial Fibrillation) (DC) Activity/Diet/Wound Care/Special Instructions: DISCHARGE INSTRUCTIONS: 1. No driving for 4 weeks, or until physician gives their ok. 2. The patient should sleep in their own bed, no medical bed needed. 3. Stairs are not an issue. If the bedroom is upstairs, it is advised that the patient go up at night and down in the morning for the first week. Go slowly, using handrail and take 1 step at a time. 4. MARCIAL hose are to be worn for 30 days post surgery or until physician discontinues. 5. Heart hugger is to be worn 100% of the time until physician discontinues.(except when showering) 6. No lifting, pushing, or pulling more than 10 pounds for 12 weeks. The physician will advise of any restriction changes. 7. The patient is expected to continue the prescribed walking program. 8. Continue pain control per as needed orders. 9. Continue with incentive spirometry and splinting/heart hugger until otherwise directed by the physician. 10. Must shower daily using liquid antibacterial soap 11. Routine sternal incision care. No powders, lotions, ointments on incisions. No dressings are necessary on incisions unless they are draining. Dermabond tape is to remain on sternal incision until surgeon follow-up. 12. Please call surgeon/LUMBER PULLER for temp greater than 101 F or purulent drainage from incisions. 13. You should weigh yourself daily, record and bring log with you to follow up appointments. 14. All prescriptions given by surgeon for 30 days. Refills need to be filled through engine room helper/primary care physician. 15. A Red armband has been placed on the patient. It should be worn for 30 days post discharge from surgery and will be removed by the cardiac surgeons. If an ER visit is necessary, please make sure the number on the Red armband is called before going to ER. 16. You have been referred to and are expected to begin Cardiac Rehab in approximately 4-6 weeks. 17. Please check your blood sugars before meals and at bedtime, make a record of your blood sugars and bring the record to her family doctor upon follow-up appointments once discharged from inpatient rehab. HOME HEALTH SERVICES TO PROVIDE: RN SKILLED HOME CARE SERVICES FOR POST-OP SURGICAL PATIENTS WITH THE FOLLOWING: Coronary Artery Bypass Surgery (CABG), Mitral Valve Replacement/Repair ( MVR), Aortic Valve Replacement/Repair (AVR) RN TO CONTINUE EDUCATION FROM ``ROAD TO A HEALTH HEART PATIENT EDUCATION MANUAL (GIVEN TO PATIENT IN THE HOSPITAL) MEDICATION RECONCILIATION WITH EDUCATION NEEDED ON FIRST HOME VISIT EMPHASIZE IMPORTANCE OF WEARING BREAST SUPPORT/HEART HUGGER ENCOURAGE USE OF INCENTIVE SPIROMETER 10 X EVERY HOUR WHILE AWAKE ENCOURAGE UTILIZATION OF LOWER EXTREMITY COMPRESSION STOCKINGS/MARCIAL HOSE and ELEVATE LEGS ABOVE LEVEL OF HEART WHILE AT REST. ENCOURAGE AMBULATION 3-5x/day INCREASING TOLERATES, WHILE AVOIDING EXTREMES IN TEMPERATURE FREQUENCY: RN TO OPEN THE PATIENT WITHIN 24 HOURS OF DISCHARGE FROM THE HOSPITAL WITH TELEHEALTH INSTALLED AT [facility], RN TO VISIT 2-3 X A WEEK FOR 4 WEEKS ESTABLISHED BY PATIENT NEEDS. TELEHEALTH PARAMETERS: WEIGHT: NOTIFY MD OF WEIGHT GAIN OF 2 LBS IN 24 HOURS OR 5 LBS IN ONE WEEK HR: NOTIFY MD OF HR <55 BPM OR HR>100 BPM BP: NOTIFY MD IF BP <90/55 OR BP>140/100 O2 SAT: NOTIFY MD IF PO2<93% ON ROOM AIR SEND TELEHEALTH REPORT TO BUFFING WHEEL RAKER AND CARDIOVASCULAR SURGEON THE FIRST WEEK OF CARE AND THEN BI-WEEKLY. PLEASE ADDITIONALLY COMMUNICATE ANY ABNORMALS AND NEW FINDINGS TO THE SURGEONS OFFICE. Heart healthy diet activity is restricted till you see your doctor your eliquis copay is $38.0 per month, please follow up with your primary care doctor and engine room helper for further recommendation Discharge Disposition: HOME WITH HOME HEALTH SERVICES
== END 2023-03-08 19:08 | disposition home health service (06) ==
LOC: EC 13:38 → INTOOBSV 15:21 → 3SCARD 15:21
PROVIDERS: ADMIT Hospitalist; ATTEND Hospitalist
DX: I48.0 Paroxysmal atrial fibrillation (principal); J44.9 Chronic obstructive pulmonary disease, unspecified; I08.2 Rheumatic disorders of both aortic and tricuspid valves; I72.9 Aneurysm of unspecified site; I10 Essential (primary) hypertension; E11.9 Type 2 diabetes mellitus without complications; K21.9 Gastro-esophageal reflux disease without esophagitis; Z87.11 Personal history of peptic ulcer disease; Z87.19 Personal history of other diseases of the digestive system; E78.5 Hyperlipidemia, unspecified; M19.90 Unspecified osteoarthritis, unspecified site; R01.1 Cardiac murmur, unspecified; I83.90 Asymptomatic varicose veins of unspecified lower extremity; E66.9 Obesity, unspecified; Z68.33 Body mass index [BMI] 33.0-33.9, adult; Z95.2 Presence of prosthetic heart valve; Z98.890 Other specified postprocedural states; Z87.891 Personal history of nicotine dependence; Z83.3 Family history of diabetes mellitus; Z82.49 Family history of ischemic heart disease and other diseases of the circulatory system; Z98.1 Arthrodesis status; Z80.0 Family history of malignant neoplasm of digestive organs; Z80.42 Family history of malignant neoplasm of prostate; Z80.6 Family history of leukemia; Z79.02 Long term (current) use of antithrombotics/antiplatelets; Z79.82 Long term (current) use of aspirin; Z79.4 Long term (current) use of insulin; Z79.899 Other long term (current) drug therapy; Z79.84 Long term (current) use of oral hypoglycemic drugs; Z88.5 Allergy status to narcotic agent; Z88.8 Allergy status to other drugs, medicaments and biological substances
CPT/HCPCS: 96366 ×3; 96365; 99291; 36415; 94760; 93005; 83880; 80053; 80048 ×2; 83735 ×3; 84484; 85025; 85027 ×2; 85610; 85730; 71046 ×2; G0378 ×3; J0282 ×2; J3475 ×2

== ENCOUNTER → 2023-12-24 | Outpatient (CLI) | payer MEDICARE, OTHER ==
[2023-12-24 18:37] LABS: BUN/Creat Ratio 21.36 Ratio (12.00-20.00); Blood Urea Nitrogen 23.5 mg/dL (9.0-27.0); Carbon Dioxide 24.2 mmol/L (21.6-31.8); Chloride 106 mmol/L (96-109); Chol/HDL Ratio 2.11 Ratio; Glucose 102 mg/dL (70-110); LDL Cholesterol,Calculated 36.5 mg/dL (0.0-131.0); Sodium 143 mmol/L (135-145)
[2023-12-24 18:38] LABS: ALT 118 U/L (8-44); AST 26 U/L (13-35); Calcium 9.7 mg/dL (8.7-10.3)
== END | disposition home or self-care (01) ==
LOC: LABWHC1 15:11
PROVIDERS: ATTEND Internal Medicine Cardiovascular Disease
DX: E78.2 Mixed hyperlipidemia (principal); Z95.2 Presence of prosthetic heart valve
CPT/HCPCS: 36415; 80048; 80061; 84450; 84460